=== PATIENT | female | born 1935 | race Caucasian/White ===

== ENCOUNTER 2018-06-09 06:52 | Day surgery (SDC) | payer MEDICARE, BC ==
[~2018-06-09 06:52] MED LIST: Bupivacaine 0.5% 50 ML MDV ONE; Lidocaine 1% with EPINEPHrine 1:100,000 50 ML MDV ONE
[2018-06-09] MEDS ORDERED: fentaNYL 100 MCG/2 ML SDV ONE (07:42)
[2018-06-09] MEDS ORDERED: Propofol 200 MG/20 ML SDV ONE ×2 (07:42→08:59)
[2018-06-09] MEDS ORDERED: Midazolam 1 MG/ML 2 ML SDV ONE (07:42)
[2018-06-09] MEDS ORDERED: Dextrose 5%-Lactated Ringers 1,000 ML IV SCH (07:45)
[2018-06-09] MEDS ORDERED: ceFAZolin 2 GM in Premix Bag 1 BAG IV ONE (08:15)
[2018-06-09] MEDS ORDERED: Bacitracin Oint 1 GM U/D Packet ONE (08:55)
[2018-06-09 10:19] VITALS: BP 136/75
--- NOTE | 2018-06-13 15:00 | OR ---
DATE OF PROCEDURE: 06/09/2018 PREOPERATIVE DIAGNOSIS: Atypical skin lesions of right calf x2. POSTOPERATIVE DIAGNOSIS: Atypical skin lesions of right calf x2. OPERATIVE PROCEDURES: 1. Excision of atypical skin lesion, proximal right calf, with layered closure. 2. Excision of atypical skin lesion, distal right calf, with layered closure. ANESTHESIA: Local plus IV sedation. INDICATION FOR PROCEDURE: This is an 82-year-old female presenting with two atypical- appearing skin lesions from the medial aspect of her right calf. One has gotten quite large. The plan is to proceed with excision of these. Potential risks including bleeding, infection, possibility of the wounds may come open requiring treatment such as Unna boots for closure were all reviewed, and the patient wishes to proceed. DETAILS OF PROCEDURE: The patient was taken to the operating room and placed in a supine position. IV sedation was administered, after which the right calf and surrounding areas were prepped and draped. Both areas were then anesthetized with 1% lidocaine mixed with Marcaine. Initially, a transversely-oriented elliptical incision around the more proximal lesion was made. This was carried down through the skin and subcutaneous tissue, and the lesion was removed intact. The deeper soft tissues were then approximated with some 3-0 Vicryl stitch. A larger stitch needle was used due to the tension on the closure and desired to not have the more finer stitches pulled through the dermis. Once these were in place, the incision was closed with a running 3-0 Prolene stitch. The cervix stitches were then reinforced with some additional more broadly placed skin stitches of 3-0 Vicryl stitch as well. This lesion had a length of 2.6 cm in terms of the lesion length and margin, and a closure length of 16.5 cm was required to facilitate adequate closure. The second lesion was then similarly excised and a similar closure as per the first one. This more distal calf lesion had a length of 1.7 cm and a final incision length of 4.2 cm. Pathology is pending on these. Dressing was applied. The patient will be seen in 10 days for a recheck. We will leave the stitches a little extra long due to the amount of tension required for further closure. Sandeep Martinez MD /[id number]
== END 2018-06-09 10:20 | disposition home or self-care (01) ==
LOC: JP.SDS 06:52
PROVIDERS: ATTEND Surgery
DX: D04.71 Carcinoma in situ of skin of right lower limb, including hip (principal); E78.5 Hyperlipidemia, unspecified; E11.9 Type 2 diabetes mellitus without complications; E03.9 Hypothyroidism, unspecified; M17.10 Unilateral primary osteoarthritis, unspecified knee; I10 Essential (primary) hypertension; Z79.01 Long term (current) use of anticoagulants; Z79.84 Long term (current) use of oral hypoglycemic drugs; Z79.899 Other long term (current) drug therapy; Z88.8 Allergy status to other drugs, medicaments and biological substances
CPT/HCPCS: 11602; 11603; 12035; 88305; J0690; J2250; J2704; J3010; J3490; J7042

== ENCOUNTER 2019-11-06 08:27 | Inpatient (IN) | payer MEDICARE, OTHER ==
[2019-11-06] MEDS ORDERED: Acetaminophen 500 MG Tab PO ONE (09:00)
[2019-11-06] MEDS ORDERED: Dextrose 5%-Lactated Ringers 1,000 ML IV SCH (09:30)
[2019-11-06] MEDS ORDERED: Meropenem 500 MG SDV ONE (09:55)
[2019-11-06] MEDS ORDERED: Bupivacaine 0.5% 50 ML MDV ONE (09:55)
[2019-11-06] MEDS ORDERED: Lidocaine 1% with EPINEPHrine 1:100,000 50 ML MDV ONE (09:55)
[2019-11-06] MEDS ORDERED: Naloxone 0.4 MG/ML SDV IV PRN (10:00)
[2019-11-06] MEDS ORDERED: HYDROmorphone/Normal Saline 15 MG/30 ML PCA IV PRN (10:06)
[2019-11-06] MEDS ORDERED: cefOXitin 2 GM in Sodium Chloride 0.9% 50 ML IV ONE (10:15)
[2019-11-06] MEDS ORDERED: Ketamine 50 MG in Sodium Chloride 0.9% 49.5 ML IV SCH (10:30)
[2019-11-06] MEDS ORDERED: Ketamine 500 MG/5 ML MDV IV SCH (10:30)
[2019-11-06] MEDS ORDERED: fentaNYL 250 MCG/5 ML SDV ONE (10:41)
[2019-11-06] MEDS ORDERED: Propofol 200 MG/20 ML SDV ONE (10:41)
[2019-11-06] MEDS ORDERED: Neostigmine Methylsulfate 1 MG/ML 5 ML Syringe ONE (10:41)
[2019-11-06] MEDS ORDERED: Ondansetron 4 MG/2 ML SDV ONE (10:41)
[2019-11-06] MEDS ORDERED: Glycopyrrolate 0.2 MG/ML 5 ML MDV ONE (10:41)
[2019-11-06] MEDS ORDERED: Rocuronium 50 MG/5 ML Vial ONE ×2 (10:41→12:28)
[2019-11-06] MEDS ORDERED: Dexamethasone 4 MG/ML SDV ONE (10:41)
[2019-11-06] MEDS ORDERED: Lactated Ringers 1,000 ML ONE (11:30)
[2019-11-06] MEDS ORDERED: Sodium Chloride 0.9% 500 ML ONE (12:47)
[2019-11-06] MEDS ORDERED: Insulin Lispro 100 Unit/ML 3 ML KwikPen SUBCUT ONE (14:00)
[2019-11-06] MEDS ORDERED: Ondansetron 4 MG/2 ML SDV IVPUSH PRN (15:04)
[2019-11-06] MEDS ORDERED: Cyclobenzaprine 10 MG Tab PO PRN (15:06)
[2019-11-06] MEDS ORDERED: Glucagon,Human Recombinant 1 MG Vial IM PRN (15:08)
[2019-11-06] MEDS ORDERED: Glucose Gel 15 GM in 37.5 GM Tube PO PRN (15:08)
[2019-11-06] MEDS ORDERED: 50% Dextrose in Water 50 ML Syringe IVPUSH PRN (15:08)
[2019-11-06] MEDS: Lactated Ringers 1,000 ML IV SCH (15:37)
[2019-11-06] MEDS: Dextrose 5%-Lactated Ringers 1,000 ML IV SCH ×2 (15:38→20:47)
[2019-11-06] MEDS: cefOXitin 2 GM in Sodium Chloride 0.9% 50 ML IV SCH ×2 (17:12→22:25)
[2019-11-06] MEDS: Pantoprazole 40 MG Vial IVPUSH SCH (17:25)
[2019-11-06] MEDS: Insulin Lispro 100 Unit/ML 3 ML KwikPen SUBCUT PRN ×2 (17:49→23:42)
[2019-11-06] MEDS: metFORMIN 500 MG Tab PO SCH (19:48)
[2019-11-06] MEDS: Acetaminophen 325 MG Tab PO SCH ×2 (19:49→22:30)
[2019-11-06] MEDS: Carvedilol 25 MG Tab PO SCH (20:45)
[2019-11-06] MEDS ORDERED: Lactated Ringers 500 ML IV ONE (21:30)
[2019-11-07] MEDS ORDERED: Lactated Ringers 500 ML IV ONE ×2 (01:15→23:37)
[2019-11-07] MEDS: cefOXitin 2 GM in Sodium Chloride 0.9% 50 ML IV SCH (04:45)
[2019-11-07] MEDS: Acetaminophen 325 MG Tab PO SCH ×4 (04:55→23:18)
[2019-11-07] MEDS: Insulin Lispro 100 Unit/ML 3 ML KwikPen SUBCUT PRN ×4 (05:54→23:47)
[2019-11-07] MEDS ORDERED: Benzocaine/Cetylpyridinium/Menthol Lozenge MUCMEM PRN (08:34)
[2019-11-07] MEDS: Carvedilol 25 MG Tab PO SCH ×2 (08:38→20:30)
[2019-11-07] MEDS: Docusate Sodium 100 MG Cap PO SCH ×2 (08:38→20:32)
[2019-11-07] MEDS: Bisacodyl 5 MG Tab PO SCH ×2 (08:39→20:29)
[2019-11-07] MEDS: metFORMIN 500 MG Tab PO SCH ×2 (08:47→16:43)
[2019-11-07] MEDS: Magnesium Sulfate/Water 2 GM in Premix Bag 1 BAG IV SCH ×3 (10:06→21:41)
[2019-11-07] MEDS: Dextrose 5%-Lactated Ringers 1,000 ML IV SCH ×2 (10:19→20:36)
[2019-11-07] MEDS: Lactated Ringers 1,000 ML IV SCH (11:13)
[2019-11-07] MEDS ORDERED: Furosemide 20 MG/2 ML VIAL IVPUSH ONE (15:20)
[2019-11-07] MEDS: Pantoprazole 40 MG Vial IVPUSH SCH (16:26)
[2019-11-07] MEDS ORDERED: Lactated Ringers 500 ML IV SCH (23:45)
[2019-11-08] MEDS ORDERED: Lactated Ringers 500 ML IV SCH (02:15)
[2019-11-08] MEDS ORDERED: Lactated Ringers 500 ML IV ONE ×3 (02:25→15:48)
[2019-11-08] MEDS: Magnesium Sulfate/Water 2 GM in Premix Bag 1 BAG IV SCH ×4 (03:48→21:24)
[2019-11-08] MEDS: Acetaminophen 325 MG Tab PO SCH ×4 (04:44→23:02)
[2019-11-08] MEDS: Dextrose 5%-Lactated Ringers 1,000 ML IV SCH ×2 (04:45→13:01)
[2019-11-08] MEDS: Insulin Lispro 100 Unit/ML 3 ML KwikPen SUBCUT PRN ×4 (05:59→23:20)
[2019-11-08] MEDS: Docusate Sodium 100 MG Cap PO SCH ×2 (08:00→21:17)
[2019-11-08] MEDS: Bisacodyl 5 MG Tab PO SCH ×2 (08:00→21:17)
[2019-11-08] MEDS: metFORMIN 500 MG Tab PO SCH ×2 (08:00→17:25)
[2019-11-08] MEDS: Carvedilol 25 MG Tab PO SCH ×2 (08:00→21:17)
[2019-11-08] MEDS ORDERED: Furosemide 20 MG/2 ML VIAL IVPUSH ONE ×2 (17:15→20:23)
[2019-11-08] MEDS: Pantoprazole 40 MG Vial IVPUSH SCH (17:22)
[2019-11-08] MEDS ORDERED: Albuterol/Ipratropium 3.0-0.5 MG/3 ML Neb Soln NEB ONE (20:25)
[2019-11-08] MEDS: hydrOXYzine HCL 100 MG/2 ML SDV IM PRN (23:19)
[2019-11-09] MEDS: Albuterol/Ipratropium 3.0-0.5 MG/3 ML Neb Soln NEB PRN ×3 (00:42→11:21)
[2019-11-09] MEDS: Magnesium Sulfate/Water 2 GM in Premix Bag 1 BAG IV SCH (03:35)
[2019-11-09] MEDS ORDERED: Furosemide 20 MG/2 ML VIAL IVPUSH ONE (03:43)
[2019-11-09] MEDS: Acetaminophen 325 MG Tab PO SCH ×4 (05:55→22:13)
[2019-11-09] MEDS: Insulin Lispro 100 Unit/ML 3 ML KwikPen SUBCUT PRN ×3 (05:55→16:55)
[2019-11-09] MEDS: Dextrose 5%-Lactated Ringers 1,000 ML IV SCH (06:11)
[2019-11-09] MEDS ORDERED: Furosemide 20 MG/2 ML VIAL IVPUSH SCH (08:00)
[2019-11-09] MEDS: metFORMIN 500 MG Tab PO SCH ×2 (08:25→16:53)
[2019-11-09] MEDS: Docusate Sodium 100 MG Cap PO SCH ×2 (08:25→22:12)
[2019-11-09] MEDS: Carvedilol 25 MG Tab PO SCH ×2 (08:26→22:12)
[2019-11-09] MEDS: Bisacodyl 5 MG Tab PO SCH ×2 (08:28→22:12)
[2019-11-09] MEDS ORDERED: Dextrose 5%-Lactated Ringers 1,000 ML IV SCH (09:30)
--- NOTE | 2019-11-09 09:31 | PCM.CONSN ---
- Patient Data Vitals - Most Recent: Last Vital Signs Temp 36.8 C 11/09/19 07:00 Pulse 114 H 11/09/19 09:00 Resp 18 11/09/19 09:00 BP 88/45 L 11/09/19 09:00 Pulse Ox 93 L 11/09/19 09:00 Weight - Most Recent: 96.162 kg I&O - Last 24 Hours: Intake & Output 11/08/19 11/09/19 11/09/19 22:59 06:59 14:59 Intake Total 2121 1430 Output Total 1408 667 140 Balance 713 763 -140 Lab Results Last 24 Hours: Laboratory Results - last 24 hr 11/09/19 11/09/19 11/09/19 Range/Units 04:00 04:22 04:30 WBC 28.3 H (4.5-11.0) K/uL RBC 3.98 (3.30-5.50) M/uL Hgb 10.1 L (12.0-15.0) g/dL Hct 33.3 L (36.0-48.0) % MCV 84 (80-98) fL MCH 25 L (27-31) pg MCHC 30 L (32-36) % Plt Count 311 (150-400) K/uL Sodium 130 L (140-148) mmol/L Potassium 3.6 (3.6-5.2) mmol/L Chloride 95 L (100-108) mmol/L Carbon Dioxide 30 (21-32) mmol/L Anion Gap 8.6 (5.0-14.0) mmol/L BUN 7 (7-18) mg/dL Creatinine 0.9 (0.6-1.0) mg/dL Est Cr Clr Drug Dosing 41.06 mL/min Estimated GFR (MDRD) 60 (>60) Glucose 136 H (74-106) mg/dL Calcium 8.3 L (8.5-10.1) mg/dL Phosphorus 2.4 L (2.5-4.9) mg/dL Total Bilirubin 0.5 D (0.2-1.0) mg/dL AST 17 (15-37) U/L ALT 18 (12-78) U/L Alkaline Phosphatase 65 (46-116) U/L NT-Pro-B Natriuret Pep 649 H (5-450) pg/mL Total Protein 4.5 L (6.4-8.2) g/dL Albumin 1.8 L (3.4-5.0) g/dL Globulin 2.7 (2.3-3.5) g/dL Albumin/Globulin Ratio 0.7 L (1.2-2.2) Med Orders - Current: Current Medications Acetaminophen (Tylenol) 650 mg PO Q6H [facility] Last Admin: 11/09/19 05:55 Dose: 650 mg Albuterol/Ipratropium (Duoneb 3.0-0.5 Mg/3 Ml) 3 ml NEB Q4H PRN PRN Reason: dyspnea and wheezing Last Admin: 11/09/19 00:43 Dose: 3 ml Benzocaine/Menthol (Cepacol Sore Throat) 1 lozenge MUCMEM 6XDAY PRN PRN Reason: Sore Throat Last Admin: 11/07/19 08:47 Dose: 1 lon Bisacodyl (Dulcolax) 10 mg PO BID [facility] Last Admin: 11/09/19 08:28 Dose: 10 mg Carvedilol (Coreg) 25 mg PO BID [facility] Last Admin: 11/09/19 08:26 Dose: 25 mg Dextrose (Glutose 15) 15 gm PO ASDIRECTED PRN PRN Reason: HYPOGLYCEMIA Dextrose/Water (Dextrose 50% In Water) 50 ml IVPUSH ASDIRECTED PRN PRN Reason: HYPOGLYCEMIA Docusate Sodium (Colace) 100 mg PO BID [facility] Last Admin: 11/09/19 08:25 Dose: 100 mg Furosemide (Lasix) 10 mg IVPUSH Q12H [facility] Stop: 11/09/19 20:01 Last Admin: 11/09/19 08:23 Dose: 10 mg Glucagon (Glucagen) 1 mg IM ASDIRECTED PRN PRN Reason: HYPOGLYCEMIA Hydromorphone HCl (Dilaudid [employer] 15 Mg In Ns 30 Ml) 0 mg IV ASDIRECTED PRN; Protocol PRN Reason: RUFFLER PAIN CONTROL Last Admin: 11/06/19 11:43 Dose: 0.2 mg Hydroxyzine HCl (Vistaril) 75 mg IM Q4H PRN PRN Reason: pain Last Admin: 11/08/19 23:19 Dose: 75 mg Potassium Chloride 20 meq/Lidocaine HCl 2 ml/ Sodium Chloride 112 mls @ 56 mls/ hr IV Q2H [facility] Stop: 11/09/19 13:59 Dextrose/Lactated Ringer's (Dextrose 5%-Lactated Ringers) 1,000 mls @ 25 mls/ hr IV ASDIRECTED [facility] Insulin Human Lispro (Humalog) 0 unit SUBCUT ASDIRECTED PRN; Protocol PRN Reason: MEDIUM CORRECTIONAL DOSING Last Admin: 11/09/19 05:55 Dose: 1 units Levothyroxine Sodium 100 mcg/ (Levothyroxine Sodium 50 mcg) 150 mcg PO DAILY@ 0730 [facility] Last Admin: 11/09/19 08:25 Dose: 150 mcg Metformin HCl (Glucophage) 1,000 mg PO BIDMEALS [facility] Last Admin: 11/09/19 08:25 Dose: 1,000 mg Naloxone HCl (Narcan) 0.1 mg IV ASDIRECTED PRN PRN Reason: decreased respiratory rate Ondansetron HCl (Zofran) 4 mg IVPUSH Q4H PRN PRN Reason: Nausea/Vomiting Pantoprazole Sodium (Protonix Iv) 40 mg IVPUSH Q24H [facility] Last Admin: 11/08/19 17:22 Dose: 40 mg Discontinued Medications Acetaminophen (Tylenol Extra Strength) 1,000 mg PO ONETIME ONE Stop: 11/06/19 09:01 Last Admin: 11/06/19 09:00 Dose: 1,000 mg Albuterol/Ipratropium (Duoneb 3.0-0.5 Mg/3 Ml) 3 ml NEB ONETIME ONE Stop: 11/08/19 20:26 Last Admin: 11/08/19 20:38 Dose: 3 ml Bupivacaine HCl (Marcaine 0.5%) Confirm Administered Dose 50 ml .ROUTE .STK-MED ONE Stop: 11/06/19 09:56 Ropivacaine 48 ml/Dexamethasone 8 mg/Epinephrine HCl 0.4 mg/ Sodium Chloride 29.6 ml 0 ml NERVRT ASDIRECTED [facility] Last Admin: 11/06/19 12:40 Dose: 80 syringe Cyclobenzaprine HCl (Flexeril) 10 mg PO Q6H PRN PRN Reason: Muscle Spasm Dexamethasone (Dexamethasone) Confirm Administered Dose 4 mg .ROUTE .STK-MED ONE Stop: 11/06/19 10:42 Fentanyl (Sublimaze) Confirm Administered Dose 250 mcg .ROUTE .STK-MED ONE Stop: 11/06/19 10:42 Furosemide (Lasix) 10 mg IVPUSH ONETIME ONE Stop: 11/07/19 15:21 Last Admin: 11/07/19 15:42 Dose: 10 mg Furosemide (Lasix) 10 mg IVPUSH ONETIME ONE Stop: 11/08/19 17:16 Last Admin: 11/08/19 17:20 Dose: 10 mg Furosemide (Lasix) 20 mg IVPUSH ONETIME ONE Stop: 11/08/19 20:24 Last Admin: 11/08/19 20:37 Dose: 20 mg Furosemide (Lasix) 10 mg IVPUSH ONETIME ONE Stop: 11/09/19 03:44 Last Admin: 11/09/19 03:59 Dose: 10 mg Glycopyrrolate (Robinul) Confirm Administered Dose 1 mg .ROUTE .[facility] ONE Stop: 11/06/19 10:42 Cefoxitin Sodium 2 gm/ Sodium (Chloride) 50 mls @ 100 mls/hr IV ONETIME ONE Stop: 11/06/19 10:44 Last Admin: 11/06/19 11:12 Dose: 100 mls/hr Dextrose/Lactated Ringer's (Dextrose 5%-Lactated Ringers) 1,000 mls @ 100 mls/ hr IV ASDIRECTED [facility] Last Admin: 11/06/19 10:04 Dose: 100 mls/hr Lactated Ringer's (Ringers, Lactated) Confirm Administered Dose 1,000 mls @ as directed .ROUTE .[facility] ONE Stop: 11/06/19 11:31 Sodium Chloride (Normal Saline) Confirm Administered Dose 500 mls @ as directed .ROUTE .[facility] ONE Stop: 11/06/19 12:48 Dextrose/Lactated Ringer's (Dextrose 5%-Lactated Ringers) 1,000 mls @ 75 mls/ hr IV ASDIRECTED [facility] Stop: 11/07/19 17:59 Last Admin: 11/07/19 10:19 Dose: 75 mls/hr Lactated Ringer's (Ringers, Lactated) 1,000 mls @ 100 mls/hr IV ASDIRECTED [facility] Stop: 11/07/19 17:59 Last Admin: 11/07/19 11:13 Dose: 100 mls/hr Cefoxitin Sodium 2 gm/ Sodium (Chloride) 50 mls @ 100 mls/hr IV Q6H [facility] Stop: 11/07/19 05:29 Last Admin: 11/07/19 04:45 Dose: 100 mls/hr Lactated Ringer's (Ringers, Lactated) 500 mls @ 500 mls/hr IV ONETIME ONE Stop: 11/06/19 22:29 Last Admin: 11/06/19 21:30 Dose: 500 mls/hr Lactated Ringer's (Ringers, Lactated) 500 mls @ 500 mls/hr IV ONETIME ONE Stop: 11/07/19 02:14 Last Admin: 11/07/19 01:15 Dose: 500 mls/hr Dextrose/Lactated Ringer's (Dextrose 5%-Lactated Ringers) 1,000 mls @ 125 mls/ hr IV ASDIRECTED [facility] Last Admin: 11/09/19 06:11 Dose: 125 mls/hr Magnesium Sulfate 2 gm/ Premix 50 mls @ 25 mls/hr IV Q6HR [facility] Stop: 11/10/19 05:59 Last Admin: 11/09/19 03:35 Dose: 25 mls/hr Lactated Ringer's (Ringers, Lactated) 500 mls @ 500 mls/hr IV ASDIRECTED [facility] Lactated Ringer's (Ringers, Lactated) 500 mls @ 500 mls/hr IV ONETIME ONE Stop: 11/08/19 00:36 Last Admin: 11/07/19 23:43 Dose: 500 mls/hr Lactated Ringer's (Ringers, Lactated) 500 mls @ 500 mls/hr IV ONETIME ONE Stop: 11/08/19 03:24 Last Admin: 11/08/19 02:28 Dose: 500 mls/hr Lactated Ringer's (Ringers, Lactated) 500 mls @ 500 mls/hr IV ONETIME ONE Stop: 11/08/19 06:28 Last Admin: 11/08/19 05:29 Dose: 500 mls/hr Lactated Ringer's (Ringers, Lactated) 500 mls @ 250 mls/hr IV ONETIME ONE Stop: 11/08/19 17:47 Last Admin: 11/08/19 15:51 Dose: 250 mls/hr Insulin Human Lispro (Humalog) 7 unit SUBCUT ONETIME ONE Stop: 11/06/19 14:01 Last Admin: 11/06/19 14:00 Dose: 7 units Ketamine HCl (Ketalar) 27 mg IV ASDIRECTED [facility] Lidocaine/Epinephrine (Xylocaine 1% With Epinephrine 1:100,000) Confirm Administered Dose 50 ml .ROUTE .STK-MED ONE Stop: 11/06/19 09:56 Meropenem (Merrem) Confirm Administered Dose 500 mg .ROUTE .STK-MED ONE Stop: 11/06/19 09:56 Last Admin: 11/06/19 12:31 Dose: 500 mg Neostigmine Methylsulfate (Neostigmine) Confirm Administered Dose 5 mg .ROUTE .STK-MED ONE Stop: 11/06/19 10:42 Ondansetron HCl (Zofran) Confirm Administered Dose 4 mg .ROUTE .STK-MED ONE Stop: 11/06/19 10:42 Propofol (Diprivan 20 Ml) Confirm Administered Dose 200 mg .ROUTE .STK-MED ONE Stop: 11/06/19 10:42 Rocuronium Imperial (Zemuron) Confirm Administered Dose 50 mg .ROUTE .STK-MED ONE Stop: 11/06/19 10:42 Rocuronium Imperial (Zemuron) Confirm Administered Dose 50 mg .ROUTE .STK-MED ONE Stop: 11/06/19 12:29 Sepsis Event Note - Focused Exam Vital Signs: Vital Signs Temp Temp Pulse Pulse Resp BP BP 11/09/19 09:00 114 H 18 88/45 L 11/09/19 08:26 115 H 97/49 L 11/09/19 07:00 36.8 C 113 H 22 H 85/43 L 11/09/19 06:25 36.8 C 11/09/19 06:00 112 H 20 109/52 L 11/09/19 05:00 116 H 22 H 132/74 11/09/19 04:00 36.6 C 104 H 20 107/62 11/09/19 03:00 110 H 20 123/67 11/09/19 02:00 114 H 22 H 124/73 11/09/19 01:00 116 H 20 107/47 L 11/09/19 00:00 36.9 C 117 H 19 105/51 L 11/08/19 23:00 114 H 23 H 139/49 L 11/08/19 22:00 116 H 22 H 119/63 Pulse Ox 11/09/19 09:00 93 L 11/09/19 08:26 11/09/19 07:00 93 L 11/09/19 06:25 11/09/19 06:00 94 L 11/09/19 05:00 93 L 11/09/19 04:00 93 L 11/09/19 03:00 94 L 11/09/19 02:00 93 L 11/09/19 01:00 95 11/09/19 00:00 94 L 11/08/19 23:00 94 L 11/08/19 22:00 93 L Date Exam was Performed: 11/09/19 Time Exam was Performed: 09:31 Consult PN Assessment/Plan Procedures: Procedures ASSAY OF MAGNESIUM (10/12/14) ASSAY OF TROPONIN QUANT (10/12/14) CHEST X-RAY 2VW FRONTAL&LATL (01/30/14) COMPLETE CBC AUTOMATED (01/30/14) COMPLETE CBC W/AUTO DIFF WBC (10/12/14) COMPREHEN METABOLIC PANEL (10/12/14) CT ABD & PELV W/CONTRAST (10/23/19) CT HEAD/BRAIN W/O DYE (10/12/14) ECG MONIT/REPRT UP TO 48 HRS (10/17/14) ECG MONIT/REPRT UP TO 48 HRS (10/17/14) ELECTROCARDIOGRAM TRACING (10/12/14) EMERGENCY DEPT VISIT (10/12/14) EXC F/E/E/N/L MAL+MRG 0.6-1 (07/22/15) EXC TR-EXT B9+JOHN PAUL 3.1-4 CM (07/22/15) EXC TR-EXT MAL+JOHN PAUL 1.1-2 CM (06/09/18) EXC TR-EXT MAL+JOHN PAUL 2.1-3 CM (06/09/18) HYDRATION IV INFUSION INIT (10/12/14) INTMD RPR FACE/MM 2.5 CM/< (07/22/15) INTMD RPR S/A/T/EXT 12.6-20 (06/09/18) INTMD RPR S/A/T/EXT 2.5 CM/< (07/22/15) MEASURE BLOOD OXYGEN LEVEL (01/30/14) METABOLIC PANEL TOTAL CA (01/30/14) PATH CONSULT INTRAOP 1 BLOC (07/22/15) PATH CONSULT INTRAOP ADDL (07/22/15) PROTHROMBIN TIME (10/12/14) REAGENT STRIP/BLOOD GLUCOSE (01/30/14) ROUTINE VENIPUNCTURE (10/12/14) THROMBOPLASTIN TIME PARTIAL (10/12/14) TISSUE EXAM BY PATHOLOGIST (06/09/18) My Orders Last 24 Hours: My Active Orders 11/09/19 08:25 CXR [Chest 1V Frontal] [CR] Routine UA W/MICROSCOPIC [URIN] Routine 11/09/19 08:26 Daily Weight [Height and Weight] [RC] DAILY 11/09/19 09:27 BLOOD GAS ARTERIAL [BG] Urgent 11/09/19 09:30 Dextrose 5%-Lactated Ringers 1,000 ml IV ASDIRECTED
--- NOTE | 2019-11-09 09:59 | CR ---
CHEST: Portable 11/09/2019 at 0855 CLINICAL HISTORY:Hypoxia COMPARISON:2013 FINDINGS: Patient has a large left effusion and a moderate right effusion. Heart size is obscured but appears enlarged. Vascularity is cephalized. There are atherosclerotic changes in the aorta. Impression: Large left and moderate right pleural effusions Vascular cephalization suggests CHF. Heart and lung bases are obscured
[2019-11-09] MEDS: Potassium Chloride 20 MEQ, Lidocaine 1% 2 ML in Sodium Chloride 0.9% 100 ML IV SCH ×2 (10:08→12:09)
[2019-11-09] MEDS ORDERED: Furosemide 40 MG/4 ML VIAL IVPUSH ONE (14:18)
--- NOTE | 2019-11-09 15:45 | PCM.CONS ---
H&P History of Present Illness - General Date of Service: 11/09/19 Admit Problem/Dx: Admission Diagnosis/Problem Admission Diagnosis/Problem Abdominal mass Source of Information: Provider. No: Patient History Limitations: Reports: Altered Mental Status - History of Present Illness Initial Comments - Free Text/Narative: CC: Tachycardic, lethargic and elevated white blood cell count HPI: I was asked to see Ying by Dr. Martinez regarding tachycardia, worsening hypoxia, lethargy and persistently elevated white blood cell count. She is very lethargic at this time and able to provide only minimal input about what has been happening and how she feels. She was initially admitted for management of a adrenal mass. 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 Her postoperative course has been complicated by slowly rising heart rate which is now in the 110-115 range as well as a white blood cell count that has been greater than 20,000 and rising. Patient is more lethargic and not very interactive today. She does tell me that she feels short of breath and that she has not had any chest pain. She mumbles when asked about abdominal pain. She has not had any fevers. Over the past couple of days she has had a rise in her heart rate from 70s up to greater than 100. She has gone from needing 1 L of oxygen up to 3 or 4 L of oxygen. Review of intake and output suggest that she is up potentially 8 L of fluid. Abdomen Pain Score (Numeric/FACES): 8 - Related Data Allergies/Adverse Reactions: Allergies Allergy/AdvReac Type Severity Reaction Status Date / Time LIZETH Inhibitors AdvReac Cough Verified 06/09/18 07:35 Home Medications: Home Meds Levothyroxine Sodium [Synthroid] 150 mcg PO DAILY 01/29/14 [History] Magnesium 250 mg PO DAILY 01/29/14 [History] atorvaSTATin [Lipitor] 10 mg PO BEDTIME 01/29/14 [History] Multivit-Min/Iron/Folic/Lutein [Centrum Silver Women Tablet] 1 tab PO DAILY [History] Warfarin [Coumadin] 10 mg PO SUWESA 07/19/15 [History] glipiZIDE [Glipizide] 5 mg PO BID 07/19/15 [History] metFORMIN [Glucophage] 1,000 mg PO BIDMEALS 07/19/15 [History] Carvedilol [Coreg] 25 mg PO BID 06/08/18 [History] Warfarin [Coumadin] 7.5 mg PO MOTUTHFR 06/08/18 [History] Past Medical History HEENT History: Reports: Cataract, Impaired Vision Other HEENT History: wears glasses Cardiovascular History: Reports: Afib, Hypertension, SOB on Exertion Gastrointestinal History: Reports: Colon Polyp Genitourinary History: Reports: Retention, Urinary, UTI, Recurrent [employer] History: Reports: Musculoskeletal History: Reports: Arthritis, Other (See Below) Other Musculoskeletal History: hip and knee pain Neurological History: Reports: TIA Endocrine/Metabolic History: Reports: Diabetes, Type II, Hypothyroidism Oncologic (Cancer) History: Reports: Other (See Below) Other Oncologic History: skin Dermatologic History: Reports: Other (See Below) Other Dermatologic History: skin cancer for a "couple of years" unknown type to pt. - Infectious Disease History Infectious Disease History: Reports: Chicken Pox, Measles, Rubella, Shingles - Past Surgical History HEENT Surgical History: Reports: Adenoidectomy, Cataract Surgery, Tonsillectomy Cardiovascular Surgical History: Reports: None GI Surgical History: Reports: Appendectomy, Colonoscopy, Polypectomy, Other ( See Below) Other GI Surgeries/Procedures: panniculectomy Female Surgical History: Reports: None Endocrine Surgical History: Reports: None Neurological Surgical History: Reports: None Musculoskeletal Surgical History: Reports: None Oncologic Surgical History: Reports: None Dermatological Surgical History: Reports: Skin Biopsy Social & Family History - Family History Cardiac: Reports: Bypass Endocrine/Metabolic: Reports: Diabetes, type II - Tobacco Use Smoking Status *Q: Former Smoker Years of Tobacco use: 2 Used Tobacco, but Quit: Yes Month/Year Tobacco Last Used: 1953 Second Hand Smoke Exposure: No - Caffeine Use Caffeine Use: Reports: Coffee, Tea - Alcohol Use Alcohol Use History: No - Recreational Drug Use Recreational Drug Use: No H&P Review of Systems - Review of Systems: Review Of Systems: Unable To Obtain Reason Not Obtained: Patient is too lethargic Exam - Exam Exam: See Below - Vital Signs Vital Signs: Last Vital Signs Temp 36.8 C 11/09/19 07:00 Pulse 91 11/09/19 14:00 Resp 18 11/09/19 13:00 BP 142/66 H 02/13/20 14:00 Pulse Ox 96 11/09/19 13:00 Weight: 96.162 kg - Exam Quality Assessment: Supplemental Oxygen General: Alert, Lethargic. No: Oriented, Cooperative, Mild Distress HEENT: Conjunctiva Clear, Mucosa Moist & [place]. No: Scleral Icterus Neck: Supple, Trachea Midline, JVD Lungs: Normal Respiratory Effort, Decreased Breath Sounds (Right lung base), Crackles (Right lower and left midlung), Other (Bronchial breath sounds of left lower half of lung area). No: Wheezing Cardiovascular: Regular Rate, Regular Rhythm. No: Systolic Murmur GI/Abdominal Exam: Normal Bowel Sounds, Soft, No Distention Extremities: No Pedal Edema. No: Increased Warmth Peripheral Pulses: 2+: Dorsalis Pedis (L), Dorsalis Pedis (R) Skin: Warm, Dry Neuro Extensive - Mental Status: Alert (Alert but lethargic), Slow Response to Commands. No: Oriented x3 Neuro Extensive - Motor, Sensory, Reflexes: No: Dysarthria, Abnormal Motor, Tremor Psychiatric: Alert. No: Agitated - Patient Data Lab Results Last 24 hrs: Laboratory Results - last 24 hr 11/09/19 11/09/19 11/09/19 Range/Units 04:00 04:22 04:30 WBC 28.3 H (4.5-11.0) K/uL RBC 3.98 (3.30-5.50) M/uL Hgb 10.1 L (12.0-15.0) g/dL Hct 33.3 L (36.0-48.0) % MCV 84 (80-98) fL MCH 25 L (27-31) pg MCHC 30 L (32-36) % Plt Count 311 (150-400) K/uL Puncture Site ABG pH (7.350-7.450) ABG pCO2 (35.0-42.0) mmHg ABG pO2 (75.0-100.0) mmHg ABG HCO3 (22.0-26.0) mmol/L ABG Total CO2 (21.0-25.0) mmol/L ABG O2 Saturation (95.0-98.0) % ABG O2 Content (15.0-23.0) %vol ABG Base Excess mm/L ABG Hemoglobin (12.0-16.0) g/dL ABG Oxyhemoglobin % ABG Carboxyhemoglobin (0.0-1.6) % ABG Methemoglobin % Ahmet Test O2 Delivery Device Oxygen Flow Rate L Sodium 130 L (140-148) mmol/L Potassium 3.6 (3.6-5.2) mmol/L Chloride 95 L (100-108) mmol/L Carbon Dioxide 30 (21-32) mmol/L Anion Gap 8.6 (5.0-14.0) mmol/L BUN 7 (7-18) mg/dL Creatinine 0.9 (0.6-1.0) mg/dL Est Cr Clr Drug Dosing 41.06 mL/min Estimated GFR (MDRD) 60 (>60) Glucose 136 H (74-106) mg/dL Calcium 8.3 L (8.5-10.1) mg/dL Phosphorus 2.4 L (2.5-4.9) mg/dL Total Bilirubin 0.5 D (0.2-1.0) mg/dL AST 17 (15-37) U/L ALT 18 (12-78) U/L Alkaline Phosphatase 65 (46-116) U/L NT-Pro-B Natriuret Pep 649 H (5-450) pg/mL Total Protein 4.5 L (6.4-8.2) g/dL Albumin 1.8 L (3.4-5.0) g/dL Globulin 2.7 (2.3-3.5) g/dL Albumin/Globulin Ratio 0.7 L (1.2-2.2) Urine Color (YELLOW) Urine Appearance (CLEAR) Urine pH (5.0-8.0) Ur Specific [place] (1.008-1.030) Urine Protein (NEGATIVE) mg/dL Urine Glucose (UA) (NEGATIVE) mg/dL Urine Ketones (NEGATIVE) mg/dL Urine Occult Blood (NEGATIVE) Urine Nitrite (NEGATIVE) Urine Bilirubin (NEGATIVE) Urine Urobilinogen (0.2-1.0) EU/dL Ur Leukocyte Esterase (NEGATIVE) Urine RBC (0-5) Urine WBC (0-5) Ur Epithelial Cells Amorphous Sediment Urine Bacteria Urine Mucus 11/09/19 11/09/19 Range/Units 08:25 09:27 WBC (4.5-11.0) K/uL RBC (3.30-5.50) M/uL Hgb (12.0-15.0) g/dL Hct (36.0-48.0) % MCV (80-98) fL MCH (27-31) pg MCHC (32-36) % Plt Count (150-400) K/uL Puncture Site Rt brachial ABG pH 7.397 (7.350-7.450) ABG pCO2 44.9 H (35.0-42.0) mmHg ABG pO2 77.2 (75.0-100.0) mmHg ABG HCO3 27.0 H (22.0-26.0) mmol/L ABG Total CO2 25.1 H (21.0-25.0) mmol/L ABG O2 Saturation 95.3 (95.0-98.0) % ABG O2 Content 13.4 L (15.0-23.0) %vol ABG Base Excess 2.3 mm/L ABG Hemoglobin 10.1 L (12.0-16.0) g/dL ABG Oxyhemoglobin 93.3 % ABG Carboxyhemoglobin 1.2 (0.0-1.6) % ABG Methemoglobin 0.9 % Ahmet Test Not performed O2 Delivery Device Nasal cannula Oxygen Flow Rate 3 L Sodium (140-148) mmol/L Potassium (3.6-5.2) mmol/L Chloride (100-108) mmol/L Carbon Dioxide (21-32) mmol/L Anion Gap (5.0-14.0) mmol/L BUN (7-18) mg/dL Creatinine (0.6-1.0) mg/dL Est Cr Clr Drug Dosing mL/min Estimated GFR (MDRD) (>60) Glucose (74-106) mg/dL Calcium (8.5-10.1) mg/dL Phosphorus (2.5-4.9) mg/dL Total Bilirubin (0.2-1.0) mg/dL AST (15-37) U/L ALT (12-78) U/L Alkaline Phosphatase (46-116) U/L NT-Pro-B Natriuret Pep (5-450) pg/mL Total Protein (6.4-8.2) g/dL Albumin (3.4-5.0) g/dL Globulin (2.3-3.5) g/dL Albumin/Globulin Ratio (1.2-2.2) Urine Color Yellow (YELLOW) Urine Appearance Slightly cloudy A (CLEAR) Urine pH 5.5 (5.0-8.0) Ur Specific [place] 1.025 (1.008-1.030) Urine Protein Negative (NEGATIVE) mg/dL Urine Glucose (UA) Negative (NEGATIVE) mg/dL Urine Ketones Negative (NEGATIVE) mg/dL Urine Occult Blood Trace-intact H (NEGATIVE) Urine Nitrite Negative (NEGATIVE) Urine Bilirubin Negative (NEGATIVE) Urine Urobilinogen 0.2 (0.2-1.0) EU/dL Ur Leukocyte Esterase Negative (NEGATIVE) Urine RBC 0-5 (0-5) Urine WBC 0-5 (0-5) Ur Epithelial Cells Few Amorphous Sediment Not seen Urine Bacteria Few Urine Mucus Moderate Result Diagrams: 11/09/19 04:22 11/09/19 04:00 Imaging Impressions Last 24 hrs: Chest x-ray-image personally reviewed-there is a small to moderate right-sided pleural effusion as well as a moderate to large left-sided pleural effusion. No obvious mass and no definite infiltrate. Heart size is normal. Sepsis Event Note - Focused Exam Vital Signs: Vital Signs Temp Temp Pulse Pulse Resp BP BP 11/09/19 14:00 91 142/66 H 11/09/19 13:00 109 H 18 102/57 L 11/09/19 12:00 112 H 21 H 91/42 L 11/09/19 11:00 117 H 27 H 111/56 L 11/09/19 09:47 117 H 88/45 L 11/09/19 09:00 114 H 18 88/45 L 11/09/19 08:26 115 H 97/49 L 11/09/19 07:00 36.8 C 113 H 22 H 85/43 L 11/09/19 06:25 36.8 C 11/09/19 06:00 112 H 20 109/52 L 11/09/19 05:00 116 H 22 H 132/74 11/09/19 04:00 36.6 C 104 H 20 107/62 Pulse Ox 11/09/19 14:00 11/09/19 13:00 96 11/09/19 12:00 92 L 11/09/19 11:00 97 11/09/19 09:47 11/09/19 09:00 93 L 02/13/20 08:26 11/09/19 07:00 93 L 11/09/19 06:25 11/09/19 06:00 94 L 11/09/19 05:00 93 L 11/09/19 04:00 93 L Date Exam was Performed: 11/09/19 Time Exam was Performed: 15:37 Consult PN Assessment/Plan POD#: 3 Procedures: Procedures ASSAY OF MAGNESIUM (10/12/14) ASSAY OF TROPONIN QUANT (10/12/14) CHEST X-RAY 2VW FRONTAL&LATL (01/30/14) COMPLETE CBC AUTOMATED (01/30/14) COMPLETE CBC W/AUTO DIFF WBC (10/12/14) COMPREHEN METABOLIC PANEL (10/12/14) CT ABD & PELV W/CONTRAST (10/23/19) CT HEAD/BRAIN W/O DYE (10/12/14) ECG MONIT/REPRT UP TO 48 HRS (10/17/14) ECG MONIT/REPRT UP TO 48 HRS (10/17/14) ELECTROCARDIOGRAM TRACING (10/12/14) EMERGENCY DEPT VISIT (10/12/14) EXC F/E/E/N/L MAL+MRG 0.6-1 (07/22/15) EXC TR-EXT B9+JOHN PAUL 3.1-4 CM (07/22/15) EXC TR-EXT MAL+JOHN PAUL 1.1-2 CM (06/09/18) EXC TR-EXT MAL+JOHN PAUL 2.1-3 CM (06/09/18) HYDRATION IV INFUSION INIT (10/12/14) INTMD RPR FACE/MM 2.5 CM/< (07/22/15) INTMD RPR S/A/T/EXT 12.6-20 (06/09/18) INTMD RPR S/A/T/EXT 2.5 CM/< (07/22/15) MEASURE BLOOD OXYGEN LEVEL (01/30/14) METABOLIC PANEL TOTAL CA (01/30/14) PATH CONSULT INTRAOP 1 BLOC (07/22/15) PATH CONSULT INTRAOP ADDL (07/22/15) PROTHROMBIN TIME (10/12/14) REAGENT STRIP/BLOOD GLUCOSE (01/30/14) ROUTINE VENIPUNCTURE (10/12/14) THROMBOPLASTIN TIME PARTIAL (10/12/14) TISSUE EXAM BY PATHOLOGIST (06/09/18) Problem List Initiated/Reviewed/Updated: Yes My Orders Last 24 Hours: My Active Orders 11/09/19 08:26 Daily Weight [Height and Weight] [RC] DAILY 11/09/19 09:30 Dextrose 5%-Lactated Ringers 1,000 ml IV ASDIRECTED 11/09/19 09:35 US Guidance Thoracentesis TX [US] Routine Plan: ASSESSMENT AND RECOMMENDATIONS- Hypoxia, tachycardia and lethargy-no strong evidence to support infection at this time. There does appear to be a component of congestive heart failure with moderate right and large left pleural effusions. PCO2 is only very mildly elevated. Persistently elevated white blood cell count could be related to splenectomy versus occult infection though no obvious source identified. She is not currently febrile. Pain medications could be contributing to the lethargy though she has been using them somewhat sparingly. Bedside ultrasound for echocardiogram showed normal left ventricular function and no significant abnormalities of the heart valves. Right ventricle appeared to be functioning normally and was of normal size. This may be a diastolic heart failure type picture versus volume overload. This does not appear to be adrenal insufficiency. -Minimize sedating medications -Thoracentesis planned for later this afternoon -Supplement oxygen as needed -Continue current medical management Adrenal mass-status post surgical resection and pathology is pending. -Postoperative care as per surgical team Wade Boyce M.D. Requesting Provider: Dr Martinez Date Consult Requested: 11/09/19 Reason for Consult: lethargy, tachycardia, elevated WBC Patient History Reviewed: Yes Notified Requestor: No Time Spent (in minutes): 60
[2019-11-09] MEDS: Pantoprazole 40 MG Vial IVPUSH SCH (16:51)
[2019-11-10 03:07] LABS: METANEPHRINE, PL 17 pg/mL (0-62); NORMETANEPHRINE, PL 322 pg/mL (0-145)
[2019-11-10] MEDS: Acetaminophen 325 MG Tab PO SCH ×4 (08:29→22:24)
[2019-11-10] MEDS: Dextrose 5%-0.9% NaCl with KCl 1,000 ML IV SCH (08:30)
[2019-11-10] MEDS: metFORMIN 500 MG Tab PO SCH ×2 (08:32→16:28)
[2019-11-10] MEDS: Furosemide 20 MG/2 ML VIAL IVPUSH SCH ×2 (08:32→20:28)
[2019-11-10] MEDS: Docusate Sodium 100 MG Cap PO SCH ×2 (08:33→20:29)
[2019-11-10] MEDS: Carvedilol 25 MG Tab PO SCH ×2 (08:33→20:29)
[2019-11-10] MEDS: Bisacodyl 5 MG Tab PO SCH ×2 (08:34→20:29)
--- NOTE | 2019-11-10 09:53 | PCM.CONSN ---
- General Info Date of Service: 11/10/19 Subjective Update: No acute events overnight but no significant improvement either. Still little bit tachycardic. Blood pressures have been okay. Patient remains very somnolent and is very difficult to wake up and only stays awake for a few seconds. She is complaining of pain all over and especially her abdomen. She has not had any fevers. White blood cell count is little better today. Thoracentesis yesterday removed about 600 mL of fonseca-colored fluid. Chest x-ray today shows some reaccumulation of the left pleural effusion. Kidney function remains normal. - Review of Systems General: Denies: Fever Gastrointestinal: Reports: Abdominal Pain Psychiatric: Reports: Confusion - Patient Data Vitals - Most Recent: Last Vital Signs Temp 36.7 C 11/10/19 06:00 Pulse 114 H 11/10/19 08:33 Resp 24 H 11/10/19 06:00 BP 129/57 L 11/10/19 08:33 Pulse Ox 94 L 11/10/19 06:00 Weight - Most Recent: 96.162 kg I&O - Last 24 Hours: Intake & Output 11/09/19 11/10/19 11/10/19 22:59 06:59 14:59 Output Total 950 590 Balance -950 -590 Lab Results Last 24 Hours: Laboratory Results - last 24 hr 11/06/19 11/06/19 11/10/19 Range/Units 08:55 08:55 03:47 WBC 18.5 H (4.5-11.0) K/uL RBC 3.82 (3.30-5.50) M/uL Hgb 9.8 L (12.0-15.0) g/dL Hct 32.0 L (36.0-48.0) % MCV 84 (80-98) fL MCH 26 L (27-31) pg MCHC 31 L (32-36) % Plt Count 394 (150-400) K/uL Sodium (140-148) mmol/L Potassium (3.6-5.2) mmol/L Chloride (100-108) mmol/L Carbon Dioxide (21-32) mmol/L Anion Gap (5.0-14.0) mmol/L BUN (7-18) mg/dL Creatinine (0.6-1.0) mg/dL Est Cr Clr Drug Dosing mL/min Estimated GFR (MDRD) (>60) Glucose (74-106) mg/dL Calcium (8.5-10.1) mg/dL Phosphorus (2.5-4.9) mg/dL Total Bilirubin (0.2-1.0) mg/dL AST (15-37) U/L ALT (12-78) U/L Alkaline Phosphatase (46-116) U/L NT-Pro-B Natriuret Pep (5-450) pg/mL Total Protein (6.4-8.2) g/dL Albumin (3.4-5.0) g/dL Globulin (2.3-3.5) g/dL Albumin/Globulin Ratio (1.2-2.2) Plasma Free Metaneph 17 (0-62) pg/mL Plasma Free Normeta 322 H (0-145) pg/mL Crossmatch See Detail 11/10/19 Range/Units 03:47 WBC (4.5-11.0) K/uL RBC (3.30-5.50) M/uL Hgb (12.0-15.0) g/dL Hct (36.0-48.0) % MCV (80-98) fL MCH (27-31) pg MCHC (32-36) % Plt Count (150-400) K/uL Sodium 132 L (140-148) mmol/L Potassium 3.6 (3.6-5.2) mmol/L Chloride 97 L (100-108) mmol/L Carbon Dioxide 29 (21-32) mmol/L Anion Gap 9.6 (5.0-14.0) mmol/L BUN 10 (7-18) mg/dL Creatinine 0.6 (0.6-1.0) mg/dL Est Cr Clr Drug Dosing 61.58 mL/min Estimated GFR (MDRD) > 60 (>60) Glucose 96 (74-106) mg/dL Calcium 8.2 L (8.5-10.1) mg/dL Phosphorus 2.5 (2.5-4.9) mg/dL Total Bilirubin 0.5 (0.2-1.0) mg/dL AST 16 (15-37) U/L ALT 16 (12-78) U/L Alkaline Phosphatase 79 (46-116) U/L NT-Pro-B Natriuret Pep 555 H (5-450) pg/mL Total Protein 4.6 L (6.4-8.2) g/dL Albumin 1.7 L (3.4-5.0) g/dL Globulin 2.9 (2.3-3.5) g/dL Albumin/Globulin Ratio 0.6 L (1.2-2.2) Plasma Free Metaneph (0-62) pg/mL Plasma Free Normeta (0-145) pg/mL Crossmatch Jose Results Last 24 Hours: Microbiology 11/09/19 15:41 Gram Stain - Final Thoracentesis Fluid Med Orders - Current: Current Medications Acetaminophen (Tylenol) 650 mg PO Q6H [facility] Last Admin: 11/10/19 08:29 Dose: Not Given Albuterol/Ipratropium (Duoneb 3.0-0.5 Mg/3 Ml) 3 ml NEB Q4H PRN PRN Reason: dyspnea and wheezing Last Admin: 11/09/19 11:21 Dose: 3 ml Benzocaine/Menthol (Cepacol Sore Throat) 1 lozenge MUCMEM 6XDAY PRN PRN Reason: Sore Throat Last Admin: 11/07/19 08:47 Dose: 1 lon Bisacodyl (Dulcolax) 10 mg PO BID [facility] Last Admin: 11/10/19 08:34 Dose: 10 mg Carvedilol (Coreg) 25 mg PO BID [facility] Last Admin: 11/10/19 08:33 Dose: 25 mg Dextrose (Glutose 15) 15 gm PO ASDIRECTED PRN PRN Reason: HYPOGLYCEMIA Dextrose/Water (Dextrose 50% In Water) 50 ml IVPUSH ASDIRECTED PRN PRN Reason: HYPOGLYCEMIA Docusate Sodium (Colace) 100 mg PO BID [facility] Last Admin: 11/10/19 08:33 Dose: 100 mg Furosemide (Lasix) 20 mg IVPUSH Q12H [facility] Stop: 11/10/19 20:01 Last Admin: 11/10/19 08:32 Dose: 20 mg Glucagon (Glucagen) 1 mg IM ASDIRECTED PRN PRN Reason: HYPOGLYCEMIA Hydrocortisone Sodium Succinate (Solu-Cortef) 100 mg IVPUSH ONETIME ONE Stop: 11/10/19 09:50 Hydrocortisone Sodium Succinate (Solu-Cortef) 50 mg IVPUSH Q6H [facility] Hydromorphone HCl (Dilaudid Formstone Fitter 15 Mg In Ns 30 Ml) 0 mg IV ASDIRECTED PRN; Protocol PRN Reason: [employer] Last Admin: 11/06/19 11:43 Dose: 0.2 mg Hydroxyzine HCl (Vistaril) 75 mg IM Q4H PRN PRN Reason: pain Last Admin: 11/08/19 23:19 Dose: 75 mg Potassium Chloride 20 meq/Lidocaine HCl 2 ml/ Sodium Chloride 112 mls @ 56 mls/ hr IV Q2H [facility] Stop: 11/10/19 13:59 Albumin Human (Albumin 25%) 25 gm in 100 mls @ 25 mls/hr IV Q24H [facility] Stop: 11/12/19 12:59 Last Admin: 11/10/19 08:35 Dose: 25 mls/hr Potassium Chloride/Dextrose/Sod Cl (D5 Ns With 20 Meq Kcl) 1,000 mls @ 60 mls/ hr IV ASDIRECTED [facility] Last Admin: 11/10/19 08:30 Dose: 60 mls/hr Insulin Human Lispro (Humalog) 0 unit SUBCUT ASDIRECTED PRN; Protocol PRN Reason: MEDIUM CORRECTIONAL DOSING Last Admin: 11/09/19 16:55 Dose: 3 units Levothyroxine Sodium 100 mcg/ (Levothyroxine Sodium 50 mcg) 150 mcg PO DAILY@ 0730 [facility] Last Admin: 11/10/19 08:31 Dose: 150 mcg Metformin HCl (Glucophage) 1,000 mg PO BIDMEALS [facility] Last Admin: 11/10/19 08:32 Dose: 1,000 mg Naloxone HCl (Narcan) 0.1 mg IV ASDIRECTED PRN PRN Reason: decreased respiratory rate Ondansetron HCl (Zofran) 4 mg IVPUSH Q4H PRN PRN Reason: Nausea/Vomiting Pantoprazole Sodium (Protonix Iv) 40 mg IVPUSH Q24H [facility] Last Admin: 11/09/19 16:51 Dose: 40 mg Discontinued Medications Acetaminophen (Tylenol Extra Strength) 1,000 mg PO ONETIME ONE Stop: 11/06/19 09:01 Last Admin: 11/06/19 09:00 Dose: 1,000 mg Albuterol/Ipratropium (Duoneb 3.0-0.5 Mg/3 Ml) 3 ml NEB ONETIME ONE Stop: 11/08/19 20:26 Last Admin: 11/08/19 20:38 Dose: 3 ml Bupivacaine HCl (Marcaine 0.5%) Confirm Administered Dose 50 ml .ROUTE .STK-MED ONE Stop: 11/06/19 09:56 Ropivacaine 48 ml/Dexamethasone 8 mg/Epinephrine HCl 0.4 mg/ Sodium Chloride 29.6 ml 0 ml NERVRT ASDIRECTED [facility] Last Admin: 11/06/19 12:40 Dose: 80 syringe Cyclobenzaprine HCl (Flexeril) 10 mg PO Q6H PRN PRN Reason: Muscle Spasm Dexamethasone (Dexamethasone) Confirm Administered Dose 4 mg .ROUTE .STK-MED ONE Stop: 11/06/19 10:42 Fentanyl (Sublimaze) Confirm Administered Dose 250 mcg .ROUTE .STK-MED ONE Stop: 11/06/19 10:42 Furosemide (Lasix) 10 mg IVPUSH ONETIME ONE Stop: 11/07/19 15:21 Last Admin: 11/07/19 15:42 Dose: 10 mg Furosemide (Lasix) 10 mg IVPUSH ONETIME ONE Stop: 11/08/19 17:16 Last Admin: 11/08/19 17:20 Dose: 10 mg Furosemide (Lasix) 20 mg IVPUSH ONETIME ONE Stop: 11/08/19 20:24 Last Admin: 11/08/19 20:37 Dose: 20 mg Furosemide (Lasix) 10 mg IVPUSH ONETIME ONE Stop: 11/09/19 03:44 Last Admin: 11/09/19 03:59 Dose: 10 mg Furosemide (Lasix) 10 mg IVPUSH Q12H [facility] Stop: 11/09/19 20:01 Last Admin: 11/09/19 08:23 Dose: 10 mg Furosemide (Lasix) 40 mg IVPUSH ONETIME ONE Stop: 11/09/19 14:19 Last Admin: 11/09/19 14:29 Dose: 40 mg Glycopyrrolate (Robinul) Confirm Administered Dose 1 mg .ROUTE .STK-MED ONE Stop: 11/06/19 10:42 Cefoxitin Sodium 2 gm/ Sodium (Chloride) 50 mls @ 100 mls/hr IV ONETIME ONE Stop: 11/06/19 10:44 Last Admin: 11/06/19 11:12 Dose: 100 mls/hr Dextrose/Lactated Ringer's (Dextrose 5%-Lactated Ringers) 1,000 mls @ 100 mls/ hr IV ASDIRECTED [facility] Last Admin: 11/06/19 10:04 Dose: 100 mls/hr Lactated Ringer's (Ringers, Lactated) Confirm Administered Dose 1,000 mls @ as directed .ROUTE .[facility] ONE Stop: 11/06/19 11:31 Sodium Chloride (Normal Saline) Confirm Administered Dose 500 mls @ as directed .ROUTE .[facility] ONE Stop: 11/06/19 12:48 Dextrose/Lactated Ringer's (Dextrose 5%-Lactated Ringers) 1,000 mls @ 75 mls/ hr IV ASDIRECTED [facility] Stop: 11/07/19 17:59 Last Admin: 11/07/19 10:19 Dose: 75 mls/hr Lactated Ringer's (Ringers, Lactated) 1,000 mls @ 100 mls/hr IV ASDIRECTED [facility] Stop: 11/07/19 17:59 Last Admin: 11/07/19 11:13 Dose: 100 mls/hr Cefoxitin Sodium 2 gm/ Sodium (Chloride) 50 mls @ 100 mls/hr IV Q6H [facility] Stop: 11/07/19 05:29 Last Admin: 11/07/19 04:45 Dose: 100 mls/hr Lactated Ringer's (Ringers, Lactated) 500 mls @ 500 mls/hr IV ONETIME ONE Stop: 11/06/19 22:29 Last Admin: 11/06/19 21:30 Dose: 500 mls/hr Lactated Ringer's (Ringers, Lactated) 500 mls @ 500 mls/hr IV ONETIME ONE Stop: 11/07/19 02:14 Last Admin: 11/07/19 01:15 Dose: 500 mls/hr Dextrose/Lactated Ringer's (Dextrose 5%-Lactated Ringers) 1,000 mls @ 125 mls/ hr IV ASDIRECTED [facility] Last Admin: 11/09/19 06:11 Dose: 125 mls/hr Magnesium Sulfate 2 gm/ Premix 50 mls @ 25 mls/hr IV Q6HR [facility] Stop: 11/10/19 05:59 Last Admin: 11/09/19 03:35 Dose: 25 mls/hr Lactated Ringer's (Ringers, Lactated) 500 mls @ 500 mls/hr IV ASDIRECTED [facility] Lactated Ringer's (Ringers, Lactated) 500 mls @ 500 mls/hr IV ONETIME ONE Stop: 11/08/19 00:36 Last Admin: 11/07/19 23:43 Dose: 500 mls/hr Lactated Ringer's (Ringers, Lactated) 500 mls @ 500 mls/hr IV ONETIME ONE Stop: 11/08/19 03:24 Last Admin: 11/08/19 02:28 Dose: 500 mls/hr Lactated Ringer's (Ringers, Lactated) 500 mls @ 500 mls/hr IV ONETIME ONE Stop: 11/08/19 06:28 Last Admin: 11/08/19 05:29 Dose: 500 mls/hr Lactated Ringer's (Ringers, Lactated) 500 mls @ 250 mls/hr IV ONETIME ONE Stop: 11/08/19 17:47 Last Admin: 11/08/19 15:51 Dose: 250 mls/hr Potassium Chloride 20 meq/Lidocaine HCl 2 ml/ Sodium Chloride 112 mls @ 56 mls/ hr IV Q2H [facility] Stop: 11/09/19 13:59 Last Admin: 11/09/19 12:09 Dose: 56 mls/hr Dextrose/Lactated Ringer's (Dextrose 5%-Lactated Ringers) 1,000 mls @ 25 mls/ hr IV ASDIRECTED [facility] Insulin Human Lispro (Humalog) 7 unit SUBCUT ONETIME ONE Stop: 11/06/19 14:01 Last Admin: 11/06/19 14:00 Dose: 7 units Ketamine HCl (Ketalar) 27 mg IV ASDIRECTED [facility] Lidocaine/Epinephrine (Xylocaine 1% With Epinephrine 1:100,000) Confirm Administered Dose 50 ml .ROUTE .STK-MED ONE Stop: 11/06/19 09:56 Meropenem (Merrem) Confirm Administered Dose 500 mg .ROUTE .STK-MED ONE Stop: 11/06/19 09:56 Last Admin: 11/06/19 12:31 Dose: 500 mg Neostigmine Methylsulfate (Neostigmine) Confirm Administered Dose 5 mg .ROUTE .STK-MED ONE Stop: 11/06/19 10:42 Ondansetron HCl (Zofran) Confirm Administered Dose 4 mg .ROUTE .STK-MED ONE Stop: 11/06/19 10:42 Propofol (Diprivan 20 Ml) Confirm Administered Dose 200 mg .ROUTE .STK-MED ONE Stop: 11/06/19 10:42 Rocuronium [place] (Zemuron) Confirm Administered Dose 50 mg .ROUTE .STK-MED ONE Stop: 11/06/19 10:42 Rocuronium [place] (Zemuron) Confirm Administered Dose 50 mg .ROUTE .STK-MED ONE Stop: 11/06/19 12:29 - Exam Quality Assessment: Supplemental Oxygen General: No Acute Distress, Lethargic. No: Alert, Cooperative HEENT: Pupils Equal Neck: Supple, No JVD Lungs: Decreased Breath Sounds (left lower lung ), Other (poor exp air flow ). No: Normal Respiratory Effort (increased work of breathing ), Wheezing Cardiovascular: Regular Rhythm, Tachycardia GI/Abdominal Exam: Soft, No Distention, Abnormal Bowel Sounds (hypo) Extremities: No Pedal Edema. No: Increased Warmth Skin: Warm, Dry Psy/Mental Status: No: Alert, Agitated Sepsis Event Note - Focused Exam Vital Signs: Vital Signs Temp Pulse Pulse Resp BP BP Pulse Ox 11/10/19 08:33 114 H 129/57 L 11/10/19 06:00 36.7 C 94 24 H 141/55 H 94 L 11/10/19 05:00 111 H 22 H 135/64 96 11/10/19 04:00 112 H 22 H 127/58 L 97 11/10/19 03:00 112 H 19 126/55 L 98 11/10/19 02:00 114 H 22 H 128/61 95 11/10/19 01:00 114 H 20 118/61 96 11/10/19 00:00 36.3 C 111 H 20 125/58 L 96 11/09/19 23:00 96 20 116/48 L 96 11/09/19 22:12 112 H 117/57 L 11/09/19 22:00 17 94 L Date Exam was Performed: 11/10/19 Time Exam was Performed: 14:18 Consult PN Assessment/Plan POD#: 4 Procedures: Procedures ASSAY OF MAGNESIUM (10/12/14) ASSAY OF TROPONIN QUANT (10/12/14) CHEST X-RAY 2VW FRONTAL&LATL (01/30/14) COMPLETE CBC AUTOMATED (01/30/14) COMPLETE CBC W/AUTO DIFF WBC (10/12/14) COMPREHEN METABOLIC PANEL (10/12/14) CT ABD & PELV W/CONTRAST (10/23/19) CT HEAD/BRAIN W/O DYE (10/12/14) ECG MONIT/REPRT UP TO 48 HRS (10/17/14) ECG MONIT/REPRT UP TO 48 HRS (10/17/14) ELECTROCARDIOGRAM TRACING (10/12/14) EMERGENCY DEPT VISIT (10/12/14) EXC F/E/E/N/L MAL+MRG 0.6-1 (07/22/15) EXC TR-EXT B9+JOHN PAUL 3.1-4 CM (07/22/15) EXC TR-EXT MAL+JOHN PAUL 1.1-2 CM (06/09/18) EXC TR-EXT MAL+JOHN PAUL 2.1-3 CM (06/09/18) HYDRATION IV INFUSION INIT (10/12/14) INTMD RPR FACE/MM 2.5 CM/< (07/22/15) INTMD RPR S/A/T/EXT 12.6-20 (06/09/18) INTMD RPR S/A/T/EXT 2.5 CM/< (07/22/15) MEASURE BLOOD OXYGEN LEVEL (01/30/14) METABOLIC PANEL TOTAL CA (01/30/14) PATH CONSULT INTRAOP 1 BLOC (07/22/15) PATH CONSULT INTRAOP ADDL (07/22/15) PROTHROMBIN TIME (10/12/14) REAGENT STRIP/BLOOD GLUCOSE (01/30/14) ROUTINE VENIPUNCTURE (10/12/14) THROMBOPLASTIN TIME PARTIAL (10/12/14) TISSUE EXAM BY PATHOLOGIST (06/09/18) Problem List Initiated/Reviewed/Updated: Yes My Orders Last 24 Hours: My Active Orders 11/09/19 09:35 US Guidance Thoracentesis NC [US] Routine 11/10/19 09:49 Hydrocortisone Sod Succinate [Solu-CORTEF] 100 mg IVPUSH ONETIME ONE 11/10/19 09:51 Head wo Cont [CT] Routine 11/10/19 09:52 RT Aerosol Therapy [RC] ASDIRECTED 11/10/19 11:00 Albuterol [Proventil Neb Soln] 2.5 mg NEB QIDRT 11/10/19 16:00 Hydrocortisone Sod Succinate [Solu-CORTEF] 50 mg IVPUSH Q6H Plan: ASSESSMENT AND RECOMMENDATIONS- Hypoxia, tachycardia and lethargy-head CT was negative. No fevers but occult infection seems to be highest on the list. Medication intake has been minimal. No dramatic improvement with the thoracentesis yesterday afternoon. Urine did not show evidence for infection. No obvious pneumonia on chest x-ray yesterday. White blood cell count better but still elevated. 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 600 mL of fonseca fluid removed yesterday with no strong evidence to support infectious process at that point. X-ray shows reaccumulation of the effusion today. -Imaging as above Adrenal mass-status post surgical resection and pathology is pending. Picture does not quite fit with adrenal insufficiency but we are going to empirically try some hydrocortisone. -Hydrocortisone 100 mg x 1 dose then 50 mg every 6 hours -Postoperative care as per surgical team Wade Boyce M.D.
[2019-11-10] MEDS ORDERED: Hydrocortisone Sodium Succinate 100 MG/2 ML SDV IVPUSH ONE (10:00)
[2019-11-10] MEDS: Albuterol 0.083% 2.5 MG/3 ML Neb Soln NEB SCH ×3 (10:41→20:28)
[2019-11-10] MEDS: Potassium Chloride 20 MEQ, Lidocaine 1% 2 ML in Sodium Chloride 0.9% 100 ML IV SCH ×2 (11:13→13:00)
--- NOTE | 2019-11-10 11:21 | CR ---
CHEST: Portable 11/09/2019 at 3:42 PM CLINICAL HISTORY:Thoracentesis COMPARISON:Earlier same day FINDINGS: There is a decrease in left pleural effusion since earlier study. There is no evidence of pneumothorax. Pulmonary vascularity remains cephalized. Impression: Status post thoracentesis No evidence of pneumothorax
--- NOTE | 2019-11-10 11:32 | CR ---
CHEST: Portable 11/10/2019 at 07 15 CLINICAL HISTORY:Effusion COMPARISON:11/09/2019 FINDINGS: Patient is a moderate-sized left pleural effusion similar to prior study. Vascularity is mildly cephalized. There is a minimal right effusion. Impression: Moderate left pleural effusion persists..
--- NOTE | 2019-11-10 11:39 | CT ---
Head wo Cont CLINICAL HISTORY: Hypoactive delirium COMPARISON: 2014 TECHNIQUE: Transverse scans were obtained from the base of the skull through the vertex without IV contrast on a multislice, multidetector CT scanner. Auto dosage reduction and iterative reconstruction techniques employed. FINDINGS: There is a small lacunar-type infarct in the left basal ganglia similar to prior study.. There is no mass effect, hemorrhage, or extraaxial collection. The basal cisterns and sulci over the convexities are prominent. The ventricles are normal for age. 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
[2019-11-10] MEDS: Insulin Lispro 100 Unit/ML 3 ML KwikPen SUBCUT PRN ×2 (11:51→17:22)
[2019-11-10] MEDS ORDERED: Sodium Chloride 0.9% 10 ML Syringe FLUSH ONE (14:08)
[2019-11-10] MEDS ORDERED: Iopamidol 612 MG/ML 150 ML Bottle IV SCH (14:15)
[2019-11-10] MEDS ORDERED: Sodium Chloride 0.9% 100 ML IV SCH (14:15)
[2019-11-10] MEDS: Hydrocortisone Sodium Succinate 100 MG/2 ML SDV IVPUSH SCH ×2 (15:13→22:21)
--- NOTE | 2019-11-10 16:00 | CT ---
Chest Abdomen Pelvis w Cont CLINICAL HISTORY: Abnormal pain, recent surgery TECHNIQUE: Transverse scans were obtained from the thoracic inlet to the lung bases with IV contrast. Auto dosage reduction and iterative reconstruction techniques employed. COMPARISONS: CT abdomen 10/23/2019 FINDINGS: There is moderate airspace disease in both lower lobes which may represent a combination of atelectasis and consolidation. This is new since September. There are small bibasal effusions left greater than right. No mediastinal mass or lymphadenopathy is identified. The pulmonary arteries are free of filling defects though there is poor opacification of both lower lobe arteries. There is a small pericardial effusion. IMPRESSION: Moderate bibasilar airspace disease which may represent a combination of atelectasis and consolidation Small bibasal pleural effusions left greater than right Pericardial effusion persists. Chest Abdomen Pelvis w Cont TECHNIQUE: Axial tomographic images are obtained from the dome of the diaphragm to the pubic symphysis with IV contrast enhancement. Auto dosage reduction and iterative reconstruction techniques employed. No oral contrast was used. FINDINGS: The liver shows no mass or biliary dilatation. The gallbladder contains multiple small gallstones. The spleen has been removed. The pancreas shows some moderate ill-definition of the pancreatic tail. There is some peripancreatic stranding. There also appears to be some peripancreatic fluid. There is also stranding seen in the anterior left pararenal space. The right adrenal gland has a normal appearance. Left adrenal gland is obscured. The kidneys show no mass or hydronephrosis. The aorta shows atheromatous plaque without aneurysm. There is no suspicious retroperitoneal adenopathy. IMPRESSION: Postsurgical changes in the left upper quadrant with previous splenectomy and left adrenalectomy. There is some postoperative fluid around the tail of the pancreas and in the left pararenal space Uterine surgery since prior study with removal of a large fibroid. Persistent ovoid fluid collection in the patient's pannus which appears to be a seroma Cholelithiasis
[2019-11-10] MEDS: Pantoprazole 40 MG Vial IVPUSH SCH (16:25)
[2019-11-10] MEDS: Levofloxacin/Dextrose 5%-Water 750 MG in Premix Bag 1 BAG IV SCH (17:11)
[2019-11-11] MEDS: Insulin Lispro 100 Unit/ML 3 ML KwikPen SUBCUT PRN ×5 (00:38→23:57)
[2019-11-11] MEDS: Hydrocortisone Sodium Succinate 100 MG/2 ML SDV IVPUSH SCH ×4 (03:15→21:03)
[2019-11-11] MEDS: Dextrose 5%-0.9% NaCl with KCl 1,000 ML IV SCH (03:34)
[2019-11-11] MEDS: Acetaminophen 325 MG Tab PO SCH ×5 (05:08→23:53)
[2019-11-11] MEDS: Albuterol 0.083% 2.5 MG/3 ML Neb Soln NEB SCH ×4 (07:01→20:44)
[2019-11-11] MEDS ORDERED: Dextrose 5%-0.9% NaCl with KCl 1,000 ML IV SCH (07:15)
[2019-11-11] MEDS ORDERED: Bumetanide 1 MG/4 ML MDV IV SCH ×2 (07:30→08:30)
[2019-11-11] MEDS ORDERED: Propofol 200 MG/20 ML SDV ONE (08:34)
[2019-11-11] MEDS: metFORMIN 500 MG Tab PO SCH ×2 (08:46→16:10)
[2019-11-11] MEDS ORDERED: HYDROmorphone 0.5 MG/0.5 ML Syringe IVPUSH PRN (08:51)
--- NOTE | 2019-11-11 08:52 | PCM.CONSN ---
- General Info Date of Service: 11/11/19 Subjective Update: Patient required a fair amount of supplemental oxygen overnight. Chest x-ray this morning showed whiteout of the left lung with concern for atelectasis probably secondary to mucous plugging. She had a bronchoscopy and significant mucus plugging was noted and was successfully removed. She remains very lethargic but is a little more interactive today. Very sleepy at the time that I saw her. Still little tachycardic but blood pressure has been stable. She did not have any fevers. Urine output has been marginal. Functional Status: Reports: Other (lethargic, not able to communicate ) - Review of Systems General: Denies: Fever Psychiatric: Reports: Confusion - Patient Data Vitals - Most Recent: Last Vital Signs Temp 35.8 C L 11/11/19 08:00 Pulse 85 11/11/19 08:00 Resp 20 11/11/19 08:00 BP 155/90 H 11/11/19 08:00 Pulse Ox 98 11/11/19 08:00 Weight - Most Recent: 96.162 kg I&O - Last 24 Hours: Intake & Output 11/10/19 11/11/19 11/11/19 22:59 06:59 14:59 Intake Total 637 Output Total 1585 565 30 Balance -1585 72 -30 Lab Results Last 24 Hours: Laboratory Results - last 24 hr 11/06/19 11/11/19 11/11/19 Range/Units 08:55 04:45 04:45 WBC 17.3 H (4.5-11.0) K/uL RBC 3.73 (3.30-5.50) M/uL Hgb 9.4 L (12.0-15.0) g/dL Hct 31.7 L (36.0-48.0) % MCV 85 (80-98) fL MCH 25 L (27-31) pg MCHC 30 L (32-36) % Plt Count 475 H (150-400) K/uL Puncture Site ABG pH (7.350-7.450) ABG pCO2 (35.0-42.0) mmHg ABG pO2 (75.0-100.0) mmHg ABG HCO3 (22.0-26.0) mmol/L ABG Total CO2 (21.0-25.0) mmol/L ABG O2 Saturation (95.0-98.0) % ABG O2 Content (15.0-23.0) %vol ABG Base Excess mm/L ABG Hemoglobin (12.0-16.0) g/dL ABG Oxyhemoglobin % ABG Carboxyhemoglobin (0.0-1.6) % ABG Methemoglobin % Ahmet Test O2 Delivery Device Oxygen Flow Rate L Sodium 137 L (140-148) mmol/L Potassium 4.0 (3.6-5.2) mmol/L Chloride 100 (100-108) mmol/L Carbon Dioxide 31 (21-32) mmol/L Anion Gap 10.0 (5.0-14.0) mmol/L BUN 9 (7-18) mg/dL Creatinine 0.6 (0.6-1.0) mg/dL Est Cr Clr Drug Dosing 61.58 mL/min Estimated GFR (MDRD) > 60 (>60) Glucose 150 H (74-106) mg/dL Calcium 8.5 (8.5-10.1) mg/dL Phosphorus 2.8 (2.5-4.9) mg/dL Magnesium 1.6 L D (1.8-2.4) mg/dL Total Bilirubin 0.3 (0.2-1.0) mg/dL AST 16 (15-37) U/L ALT 20 (12-78) U/L Alkaline Phosphatase 84 (46-116) U/L NT-Pro-B Natriuret Pep 3211 H (5-450) pg/mL Total Protein 5.0 L (6.4-8.2) g/dL Albumin 2.0 L (3.4-5.0) g/dL Globulin 3.0 (2.3-3.5) g/dL Albumin/Globulin Ratio 0.7 L (1.2-2.2) Aldosterone 11.8 (0.0-30.0) ng/dL 11/11/19 Range/Units 08:15 WBC (4.5-11.0) K/uL RBC (3.30-5.50) M/uL Hgb (12.0-15.0) g/dL Hct (36.0-48.0) % MCV (80-98) fL MCH (27-31) pg MCHC (32-36) % Plt Count (150-400) K/uL Puncture Site Rt radial ABG pH 7.391 (7.350-7.450) ABG pCO2 51.9 H (35.0-42.0) mmHg ABG pO2 113.0 H (75.0-100.0) mmHg ABG HCO3 30.8 H (22.0-26.0) mmol/L ABG Total CO2 28.7 H (21.0-25.0) mmol/L ABG O2 Saturation 98.1 H (95.0-98.0) % ABG O2 Content 13.6 L (15.0-23.0) %vol ABG Base Excess 5.4 mm/L ABG Hemoglobin 9.9 L (12.0-16.0) g/dL ABG Oxyhemoglobin 96.8 % ABG Carboxyhemoglobin 0.5 (0.0-1.6) % ABG Methemoglobin 0.8 % Ahmet Test Passed O2 Delivery Device Non rebr mask Oxygen Flow Rate 10 L Sodium (140-148) mmol/L Potassium (3.6-5.2) mmol/L Chloride (100-108) mmol/L Carbon Dioxide (21-32) mmol/L Anion Gap (5.0-14.0) mmol/L BUN (7-18) mg/dL Creatinine (0.6-1.0) mg/dL Est Cr Clr Drug Dosing mL/min Estimated GFR (MDRD) (>60) Glucose (74-106) mg/dL Calcium (8.5-10.1) mg/dL Phosphorus (2.5-4.9) mg/dL Magnesium (1.8-2.4) mg/dL Total Bilirubin (0.2-1.0) mg/dL AST (15-37) U/L ALT (12-78) U/L Alkaline Phosphatase (46-116) U/L NT-Pro-B Natriuret Pep (5-450) pg/mL Total Protein (6.4-8.2) g/dL Albumin (3.4-5.0) g/dL Globulin (2.3-3.5) g/dL Albumin/Globulin Ratio (1.2-2.2) Aldosterone (0.0-30.0) ng/dL Jose Results Last 24 Hours: Microbiology 11/09/19 15:41 Gram Stain - Final Thoracentesis Fluid Body Fluid Culture - Preliminary NO GROWTH AFTER 1 DAY Med Orders - Current: Current Medications Acetaminophen (Tylenol) 650 mg PO Q6H [facility] Last Admin: 11/11/19 05:08 Dose: Not Given Albuterol (Proventil Neb Soln) 2.5 mg NEB QIDRT [facility] Last Admin: 11/11/19 07:01 Dose: 2.5 mg Albuterol/Ipratropium (Duoneb 3.0-0.5 Mg/3 Ml) 3 ml NEB Q4H PRN PRN Reason: dyspnea and wheezing Last Admin: 11/09/19 11:21 Dose: 3 ml Benzocaine/Menthol (Cepacol Sore Throat) 1 lozenge MUCMEM 6XDAY PRN PRN Reason: Sore Throat Last Admin: 11/07/19 08:47 Dose: 1 lon Bisacodyl (Dulcolax) 10 mg PO BID [facility] Last Admin: 11/10/19 20:29 Dose: Not Given Carvedilol (Coreg) 25 mg PO BID [facility] Last Admin: 11/10/19 20:29 Dose: Not Given Dextrose (Glutose 15) 15 gm PO ASDIRECTED PRN PRN Reason: HYPOGLYCEMIA Dextrose/Water (Dextrose 50% In Water) 50 ml IVPUSH ASDIRECTED PRN PRN Reason: HYPOGLYCEMIA Docusate Sodium (Colace) 100 mg PO BID [facility] Last Admin: 11/10/19 20:29 Dose: Not Given Glucagon (Glucagen) 1 mg IM ASDIRECTED PRN PRN Reason: HYPOGLYCEMIA Hydrocortisone Sodium Succinate (Solu-Cortef) 50 mg IVPUSH Q6H [facility] Last Admin: 11/11/19 03:15 Dose: 50 mg Hydroxyzine HCl (Vistaril) 75 mg IM Q4H PRN PRN Reason: pain Last Admin: 11/08/19 23:19 Dose: 75 mg Albumin Human (Albumin 25%) 25 gm in 100 mls @ 25 mls/hr IV Q24H [facility] Stop: 11/12/19 12:59 Last Admin: 11/10/19 08:35 Dose: 25 mls/hr Levofloxacin/Dextrose 750 mg/ (Premix) 150 mls @ 100 mls/hr IV Q24H [facility] Last Admin: 11/10/19 17:11 Dose: 100 mls/hr Meropenem 1 gm/ Sodium (Chloride) 50 mls @ 100 mls/hr IV Q8H [facility] Last Admin: 11/11/19 00:34 Dose: 100 mls/hr Potassium Chloride/Dextrose/Sod Cl (D5 Ns With 20 Meq Kcl) 1,000 mls @ 40 mls/ hr IV ASDIRECTED [facility] Magnesium Sulfate 2 gm/ Premix 50 mls @ 25 mls/hr IV Q6H [facility] Stop: 11/13/19 05:59 Insulin Human Lispro (Humalog) 0 unit SUBCUT ASDIRECTED PRN; Protocol PRN Reason: MEDIUM CORRECTIONAL DOSING Last Admin: 11/11/19 06:09 Dose: 1 units Levothyroxine Sodium 100 mcg/ (Levothyroxine Sodium 50 mcg) 150 mcg PO DAILY@ 0730 [facility] Last Admin: 11/11/19 08:46 Dose: Not Given Metformin HCl (Glucophage) 1,000 mg PO BIDMEALS [facility] Last Admin: 11/11/19 08:46 Dose: Not Given Naloxone HCl (Narcan) 0.1 mg IV ASDIRECTED PRN PRN Reason: decreased respiratory rate Ondansetron HCl (Zofran) 4 mg IVPUSH Q4H PRN PRN Reason: Nausea/Vomiting Pantoprazole Sodium (Protonix Iv) 40 mg IVPUSH Q24H [facility] Last Admin: 11/10/19 16:25 Dose: 40 mg Discontinued Medications Acetaminophen (Tylenol Extra Strength) 1,000 mg PO ONETIME ONE Stop: 11/06/19 09:01 Last Admin: 11/06/19 09:00 Dose: 1,000 mg Albuterol/Ipratropium (Duoneb 3.0-0.5 Mg/3 Ml) 3 ml NEB ONETIME ONE Stop: 11/08/19 20:26 Last Admin: 11/08/19 20:38 Dose: 3 ml Bumetanide (Bumex) 2 mg IV Q8H [facility] Stop: 11/11/19 16:31 Bupivacaine HCl (Marcaine 0.5%) Confirm Administered Dose 50 ml .ROUTE .STK-MED ONE Stop: 11/06/19 09:56 Ropivacaine 48 ml/Dexamethasone 8 mg/Epinephrine HCl 0.4 mg/ Sodium Chloride 29.6 ml 0 ml NERVRT ASDIRECTED [facility] Last Admin: 11/06/19 12:40 Dose: 80 syringe Cyclobenzaprine HCl (Flexeril) 10 mg PO Q6H PRN PRN Reason: Muscle Spasm Dexamethasone (Dexamethasone) Confirm Administered Dose 4 mg .ROUTE .STK-MED ONE Stop: 11/06/19 10:42 Fentanyl (Sublimaze) Confirm Administered Dose 250 mcg .ROUTE .STK-MED ONE Stop: 11/06/19 10:42 Furosemide (Lasix) 10 mg IVPUSH ONETIME ONE Stop: 11/07/19 15:21 Last Admin: 11/07/19 15:42 Dose: 10 mg Furosemide (Lasix) 10 mg IVPUSH ONETIME ONE Stop: 11/08/19 17:16 Last Admin: 11/08/19 17:20 Dose: 10 mg Furosemide (Lasix) 20 mg IVPUSH ONETIME ONE Stop: 11/08/19 20:24 Last Admin: 11/08/19 20:37 Dose: 20 mg Furosemide (Lasix) 10 mg IVPUSH ONETIME ONE Stop: 11/09/19 03:44 Last Admin: 11/09/19 03:59 Dose: 10 mg Furosemide (Lasix) 10 mg IVPUSH Q12H [facility] Stop: 11/09/19 20:01 Last Admin: 11/09/19 08:23 Dose: 10 mg Furosemide (Lasix) 40 mg IVPUSH ONETIME ONE Stop: 11/09/19 14:19 Last Admin: 11/09/19 14:29 Dose: 40 mg Furosemide (Lasix) 20 mg IVPUSH Q12H [facility] Stop: 11/10/19 20:01 Last Admin: 11/10/19 20:28 Dose: 20 mg Glycopyrrolate (Robinul) Confirm Administered Dose 1 mg .ROUTE .STK-MED ONE Stop: 11/06/19 10:42 Hydrocortisone Sodium Succinate (Solu-Cortef) 100 mg IVPUSH ONETIME ONE Stop: 11/10/19 10:01 Last Admin: 11/10/19 10:39 Dose: 100 mg Hydromorphone HCl (Dilaudid Administrative Director 15 Mg In Ns 30 Ml) 0 mg IV ASDIRECTED PRN; Protocol PRN Reason: SYSTEM [employer]IN [employer]OL Last Admin: 11/06/19 11:43 Dose: 0.2 mg Cefoxitin Sodium 2 gm/ Sodium (Chloride) 50 mls @ 100 mls/hr IV ONETIME ONE Stop: 11/06/19 10:44 Last Admin: 11/06/19 11:12 Dose: 100 mls/hr Dextrose/Lactated Ringer's (Dextrose 5%-Lactated Ringers) 1,000 mls @ 100 [facility] Admin: 11/06/19 10:04 Dose: 100 mls/hr Lactated Ringer's (Ringers, Lactated) Confirm Administered Dose 1,000 mls @ as directed .ROUTE .[facility] ONE Stop: 11/06/19 11:31 Sodium Chloride (Normal Saline) Confirm Administered Dose 500 mls @ as directed .ROUTE .[facility] ONE Stop: 11/06/19 12:48 Dextrose/Lactated Ringer's (Dextrose 5%-Lactated Ringers) 1,000 mls @ 75 mls/ [facility] Stop: 11/07/19 17:59 Last Admin: 11/07/19 10:19 Dose: 75 mls/hr Lactated Ringer's (Ringers, Lactated) 1,000 mls @ 100 [facility] Stop: 11/07/19 17:59 Last Admin: 11/07/19 11:13 Dose: 100 mls/hr Cefoxitin Sodium 2 gm/ Sodium (Chloride) 50 mls @ 100 mls/hr IV Q6H [facility] Stop: 11/07/19 05:29 Last Admin: 11/07/19 04:45 Dose: 100 mls/hr Lactated Ringer's (Ringers, Lactated) 500 mls @ 500 mls/hr IV ONETIME ONE Stop: 11/06/19 22:29 Last Admin: 11/06/19 21:30 Dose: 500 mls/hr Lactated Ringer's (Ringers, Lactated) 500 mls @ 500 mls/hr IV ONETIME ONE Stop: 11/07/19 02:14 Last Admin: 11/07/19 01:15 Dose: 500 mls/hr Dextrose/Lactated Ringer's (Dextrose 5%-Lactated Ringers) 1,000 mls @ 125 [facility]ls[facility] Last Admin: 11/09/19 06:11 Dose: 125 mls/hr Magnesium Sulfate 2 gm/ Premix 50 mls @ 25 mls/hr IV Q6HR [facility] Stop: 11/10/19 05:59 Last Admin: 11/09/19 03:35 Dose: 25 mls/hr Lactated Ringer's (Ringers, Lactated) 500 mls @ 500 mls/hr IV ASDIRECTED [facility] Lactated Ringer's (Ringers, Lactated) 500 mls @ 500 mls/hr IV ONETIME ONE Stop: 11/08/19 00:36 Last Admin: 11/07/19 23:43 Dose: 500 mls/hr Lactated Ringer's (Ringers, Lactated) 500 mls @ 500 mls/hr IV ONETIME ONE Stop: 11/08/19 03:24 Last Admin: 11/08/19 02:28 Dose: 500 mls/hr Lactated Ringer's (Ringers, Lactated) 500 mls @ 500 mls/hr IV ONETIME ONE Stop: 11/08/19 06:28 Last Admin: 11/08/19 05:29 Dose: 500 mls/hr Lactated Ringer's (Ringers, Lactated) 500 mls @ 250 mls/hr IV ONETIME ONE Stop: 11/08/19 17:47 Last Admin: 11/08/19 15:51 Dose: 250 mls/hr Potassium Chloride 20 meq/Lidocaine HCl 2 ml/ Sodium Chloride 112 mls @ 56 mls/ hr IV Q2H [facility] Stop: 11/09/19 13:59 Last Admin: 11/09/19 12:09 Dose: 56 mls/hr Dextrose/Lactated Ringer's (Dextrose 5%-Lactated Ringers) 1,000 mls @ 25 mls/ hr IV ASDIRECTED [facility] Potassium Chloride 20 meq/Lidocaine HCl 2 ml/ Sodium Chloride 112 mls @ 56 mls/ hr IV Q2H [facility] Stop: 11/10/19 13:59 Last Admin: 11/10/19 13:00 Dose: 56 mls/hr Potassium Chloride/Dextrose/Sod Cl (D5 Ns With 20 Meq Kcl) 1,000 mls @ 60 mls/ hr IV ASDIRECTED [facility] Last Admin: 11/11/19 03:34 Dose: 60 mls/hr Sodium Chloride (Normal Saline) 100 mls @ 3 mls/sec IV ASDIRECTED [facility] Stop: 11/10/19 22:00 Last Admin: 02/14/20 14:44 Dose: 3 mls/sec Insulin Human Lispro (Humalog) 7 unit SUBCUT ONETIME ONE Stop: 11/06/19 14:01 Last Admin: 11/06/19 14:00 Dose: 7 units Iopamidol (Isovue-300 (61%)) 150 ml IV . DIRECTED [facility] Stop: 11/10/19 22:00 Last Admin: 11/10/19 14:44 Dose: 150 ml Ketamine HCl (Ketalar) 27 mg IV ASDIRECTED [facility] Lidocaine/Epinephrine (Xylocaine 1% With Epinephrine 1:100,000) Confirm Administered Dose 50 ml .ROUTE .STK-MED ONE Stop: 11/06/19 09:56 Meropenem (Merrem) Confirm Administered Dose 500 mg .ROUTE .STK-MED ONE Stop: 11/06/19 09:56 Last Admin: 11/06/19 12:31 Dose: 500 mg Neostigmine Methylsulfate (Neostigmine) Confirm Administered Dose 5 mg .ROUTE .STK-MED ONE Stop: 11/06/19 10:42 Ondansetron HCl (Zofran) Confirm Administered Dose 4 mg .ROUTE .STK-MED ONE Stop: 11/06/19 10:42 Propofol (Diprivan 20 Ml) Confirm Administered Dose 200 mg .ROUTE .STK-MED ONE Stop: 11/06/19 10:42 Propofol (Diprivan 20 Ml) Confirm Administered Dose 200 mg .ROUTE .STK-MED ONE Stop: 11/11/19 08:35 Rocuronium [place] (Zemuron) Confirm Administered Dose 50 mg .ROUTE .STK-MED ONE Stop: 11/06/19 10:42 Rocuronium [place] (Zemuron) Confirm Administered Dose 50 mg .ROUTE .STK-MED ONE Stop: 11/06/19 12:29 Sodium Chloride (Saline Flush) 10 ml FLUSH ONETIME ONE Stop: 11/10/19 14:09 Last Admin: 11/10/19 14:44 Dose: 10 ml - Exam Quality Assessment: Supplemental Oxygen General: No Acute Distress, Lethargic. No: Alert Neck: Supple, No JVD Lungs: Normal Respiratory Effort, Decreased Breath Sounds (entire left lung ), Crackles (right lower lung ) Cardiovascular: Regular Rhythm, No Murmurs, Tachycardia GI/Abdominal Exam: Soft, No Distention, Abnormal Bowel Sounds (hypoactive ) Extremities: No Pedal Edema. No: Increased Warmth Skin: Warm, Dry Psy/Mental Status: No: Alert, Agitated Sepsis Event Note - Focused Exam Vital Signs: Vital Signs Temp Pulse Resp BP Pulse Ox 11/11/19 08:00 35.8 C L 85 20 155/90 H 98 11/11/19 07:01 113 H 11/11/19 06:00 17 152/82 H 98 11/11/19 05:00 18 129/77 99 11/11/19 04:00 19 151/78 H 99 11/11/19 03:00 19 151/78 H 99 11/11/19 02:00 21 H 144/86 H 99 11/11/19 01:00 36.2 C 18 134/68 98 11/11/19 00:00 21 H 140/80 96 11/10/19 23:00 28 H 140/77 98 11/10/19 22:00 29 H 136/85 97 11/10/19 21:00 36.4 C 26 H 139/74 97 Date Exam was Performed: 11/11/19 Time Exam was Performed: 12:38 Consult PN Assessment/Plan Procedures: Procedures ASSAY OF MAGNESIUM (10/12/14) ASSAY OF TROPONIN QUANT (10/12/14) CHEST X-RAY 2VW FRONTAL&LATL (01/30/14) COMPLETE CBC AUTOMATED (01/30/14) COMPLETE CBC W/AUTO DIFF WBC (10/12/14) COMPREHEN METABOLIC PANEL (10/12/14) CT ABD & PELV W/CONTRAST (10/23/19) CT HEAD/BRAIN W/O DYE (10/12/14) ECG MONIT/REPRT UP TO 48 HRS (10/17/14) ECG MONIT/REPRT UP TO 48 HRS (10/17/14) ELECTROCARDIOGRAM TRACING (10/12/14) EMERGENCY DEPT VISIT (10/12/14) EXC F/E/E/N/L MAL+MRG 0.6-1 (07/22/15) EXC TR-EXT B9+JOHN PAUL 3.1-4 CM (07/22/15) EXC TR-EXT MAL+JOHN PAUL 1.1-2 CM (06/09/18) EXC TR-EXT MAL+JOHN PAUL 2.1-3 CM (06/09/18) HYDRATION IV INFUSION INIT (10/12/14) INTMD RPR FACE/MM 2.5 CM/< (07/22/15) INTMD RPR S/A/T/EXT 12.6-20 (06/09/18) INTMD RPR S/A/T/EXT 2.5 CM/< (07/22/15) MEASURE BLOOD OXYGEN LEVEL (01/30/14) METABOLIC PANEL TOTAL CA (01/30/14) PATH CONSULT INTRAOP 1 BLOC (07/22/15) PATH CONSULT INTRAOP ADDL (07/22/15) PROTHROMBIN TIME (10/12/14) REAGENT STRIP/BLOOD GLUCOSE (01/30/14) ROUTINE VENIPUNCTURE (10/12/14) THROMBOPLASTIN TIME PARTIAL (10/12/14) TISSUE EXAM BY PATHOLOGIST (06/09/18) Problem List Initiated/Reviewed/Updated: Yes My Orders Last 24 Hours: My Active Orders 11/10/19 09:52 RT Aerosol Therapy [RC] ASDIRECTED 11/10/19 11:00 Albuterol [Proventil Neb Soln] 2.5 mg NEB QIDRT 11/10/19 16:00 Hydrocortisone Sod Succinate [Solu-CORTEF] 50 mg IVPUSH Q6H 11/10/19 17:00 Meropenem [Merrem] 1 gm Sodium Chloride 0.9% [Normal Saline] 50 ml IV Q8H 11/10/19 18:00 Levofloxacin/Dextrose 5%-Water [Levaquin in D5W 750 MG/150 ML] 750 mg Premix Bag 1 bag IV Q24H 11/11/19 08:51 HYDROmorphone [Dilaudid] 0.5 mg IVPUSH Q2H PRN Plan: ASSESSMENT AND RECOMMENDATIONS- Probable left lung pneumonia-empiric antibiotics started yesterday. Significant mucus plugging overnight with successful removal via bronchoscopy today. Gram stain from the sputum sample did show significant gram-positive cocci. Currently on triple antibiotic therapy with cultures pending. She does have a mild elevation in her PCO2. -Antibiotic coverage with levofloxacin, meropenem and linezolid -Chest x-ray in the morning -Scheduled and as needed nebulizers -Mucomyst nebulizers -Supplement oxygen as needed -Continue current medical management Bilateral pleural effusions, left greater than right-improved after thoracentesis. Volume status appears appropriate today. -Follow-up chest x-ray in the morning -Follow-up culture from thoracentesis which is negative so far Adrenal mass-status post surgical resection and pathology is pending. Clinical picture does not quite fit with adrenal insufficiency but she does appear a little better today after IV steroids over the past 24 hours. -Hydrocortisone 50 mg every 6 hours -Postoperative care as per surgical team Type 2 diabetes mellitus-TPN will be initiated today and blood sugars will need closer monitoring. She normally just takes oral medications which are currently on hold. -Sliding scale insulin through the day -Consider addition of long-acting insulin once insulin needs are determined Wade Boyce M.D.
[2019-11-11] MEDS ORDERED: Lidocaine 2% Viscous Solution 15 ML Cup ONE (09:24)
[2019-11-11] MEDS ORDERED: Lidocaine 4% Top Soln 50 ML Bottle ONE (09:24)
[2019-11-11] MEDS ORDERED: Heparin Sodium 5,000 UNITS in Sodium Chloride 0.9% 500 ML IV SCH (10:30)
[2019-11-11] MEDS: Docusate Sodium 100 MG Cap PO SCH ×2 (10:55→20:43)
[2019-11-11] MEDS: Bisacodyl 5 MG Tab PO SCH ×2 (10:55→20:43)
[2019-11-11] MEDS: Carvedilol 25 MG Tab PO SCH ×2 (10:55→20:44)
[2019-11-11] MEDS: Magnesium Sulfate/Water 2 GM in Premix Bag 1 BAG IV SCH ×3 (11:05→21:03)
[2019-11-11] MEDS: Acetylcysteine 20% 200 MG/ML 4 ML Nebulizer Soln SDV INH SCH ×3 (11:10→20:44)
[2019-11-11] MEDS: Linezolid 600 MG in Premix Bag 1 BAG IV SCH (12:09)
[2019-11-11] MEDS: 1: AA 5%/Calcium/D15W/Lytes 1,000 ML with MVI, Adult with Vitamin K 10 ML, Chromium/Copp IV SCH ×3 (15:55)
[2019-11-11] MEDS: Nystatin Susp 100,000 Unit/ML 5 ML UD Cup PO SCH ×2 (15:55→21:03)
[2019-11-11] MEDS: HYDROmorphone 0.5 MG/0.5 ML Syringe IVPUSH PRN ×2 (16:00→20:06)
[2019-11-11] MEDS: Pantoprazole 40 MG Vial IVPUSH SCH ×2 (16:07→16:25)
[2019-11-11] MEDS: Levofloxacin/Dextrose 5%-Water 750 MG in Premix Bag 1 BAG IV SCH (17:27)
[2019-11-11] MEDS: Albuterol/Ipratropium 3.0-0.5 MG/3 ML Neb Soln INH SCH (20:44)
[2019-11-12] MEDS: Linezolid 600 MG in Premix Bag 1 BAG IV SCH ×3 (00:02→23:26)
[2019-11-12] MEDS: HYDROmorphone 0.5 MG/0.5 ML Syringe IVPUSH PRN ×4 (00:07→23:30)
[2019-11-12] MEDS: Magnesium Sulfate/Water 2 GM in Premix Bag 1 BAG IV SCH ×4 (03:55→22:10)
[2019-11-12] MEDS: Hydrocortisone Sodium Succinate 100 MG/2 ML SDV IVPUSH SCH ×2 (03:55→10:26)
[2019-11-12] MEDS: Insulin Lispro 100 Unit/ML 3 ML KwikPen SUBCUT PRN ×3 (05:30→17:48)
[2019-11-12] MEDS: Acetaminophen 325 MG Tab PO SCH ×4 (05:35→23:27)
[2019-11-12] MEDS: Nystatin Susp 100,000 Unit/ML 5 ML UD Cup PO SCH ×4 (05:35→22:10)
[2019-11-12] MEDS: Acetylcysteine 20% 200 MG/ML 4 ML Nebulizer Soln SDV INH SCH ×2 (07:02→21:02)
[2019-11-12] MEDS: Albuterol/Ipratropium 3.0-0.5 MG/3 ML Neb Soln INH SCH ×2 (07:02→21:03)
[2019-11-12] MEDS: Albuterol 0.083% 2.5 MG/3 ML Neb Soln NEB SCH ×4 (07:03→20:57)
[2019-11-12] MEDS ORDERED: Lidocaine 2% Viscous Solution 15 ML Cup ONE (07:48)
[2019-11-12] MEDS ORDERED: Lidocaine 4% Top Soln 50 ML Bottle ONE (07:48)
[2019-11-12] MEDS: metFORMIN 500 MG Tab PO SCH ×2 (07:54→16:08)
[2019-11-12] MEDS: 1: AA 5%/Calcium/D15W/Lytes 1,000 ML with MVI, Adult with Vitamin K 10 ML, Chromium/Copp IV SCH ×6 (08:39→21:41)
[2019-11-12] MEDS: Docusate Sodium 100 MG Cap PO SCH ×2 (08:46→21:02)
[2019-11-12] MEDS: Carvedilol 25 MG Tab PO SCH ×3 (08:46→21:02)
[2019-11-12] MEDS: Bisacodyl 5 MG Tab PO SCH ×3 (08:47→21:02)
[2019-11-12] MEDS ORDERED: Lidocaine 4% Top Soln LTA 4 ML Syringe Kit ONE (09:03)
[2019-11-12] MEDS ORDERED: Propofol 200 MG/20 ML SDV ONE (09:03)
--- NOTE | 2019-11-12 09:59 | PCM.CONSN ---
- General Info Date of Service: 11/12/19 Subjective Update: No acute events overnight though the patient did require a fair amount of supplemental oxygen. She is more alert and interactive today and able to answer questions. She did have a second bronchoscopy this morning with additional removal of mucous plugs in the left lower lung. Oxygenation has improved following the bronchoscopy. She still feels short of breath but better after the bronchoscopy. Abdominal pain is improving each day. She has not had any fevers. She is on TPN. Respiratory culture is growing a gram- positive cocci but identification is still pending. Functional Status: Reports: Pain Controlled - Review of Systems General: Reports: Weakness, Fatigue. Denies: Fever Pulmonary: Reports: Shortness of Breath - Patient Data Vitals - Most Recent: Last Vital Signs Temp 36.4 C 11/12/19 07:49 Pulse 71 11/12/19 07:49 Resp 16 11/12/19 07:49 BP 180/85 H 11/12/19 07:49 Pulse Ox 97 11/12/19 07:49 Weight - Most Recent: 96.162 kg I&O - Last 24 Hours: Intake & Output 11/11/19 11/12/19 11/12/19 22:59 06:59 14:59 Intake Total 100 1238 Output Total 334 386 40 Balance -234 852 -40 Lab Results Last 24 Hours: Laboratory Results - last 24 hr 11/06/19 11/11/19 11/12/19 Range/Units 08:55 12:25 04:05 WBC 15.4 H (4.5-11.0) K/uL RBC 3.40 (3.30-5.50) M/uL Hgb 8.6 L (12.0-15.0) g/dL Hct 29.4 L (36.0-48.0) % MCV 87 (80-98) fL MCH 25 L (27-31) pg MCHC 29 L (32-36) % Plt Count 541 H (150-400) K/uL Sodium (140-148) mmol/L Potassium (3.6-5.2) mmol/L Chloride (100-108) mmol/L Carbon Dioxide (21-32) mmol/L Anion Gap (5.0-14.0) mmol/L BUN (7-18) mg/dL Creatinine (0.6-1.0) mg/dL Est Cr Clr Drug Dosing mL/min Estimated GFR (MDRD) (>60) Glucose (74-106) mg/dL Calcium (8.5-10.1) mg/dL Phosphorus (2.5-4.9) mg/dL Total Bilirubin (0.2-1.0) mg/dL AST (15-37) U/L ALT (12-78) U/L Alkaline Phosphatase (46-116) U/L NT-Pro-B Natriuret Pep (5-450) pg/mL Total Protein (6.4-8.2) g/dL Albumin (3.4-5.0) g/dL Globulin (2.3-3.5) g/dL Albumin/Globulin Ratio (1.2-2.2) Renin Activity <0.167 L (0.167-5.380) ng/mL/hr Blood Type O NEGATIVE Gel Antibody Screen Negative Crossmatch See Detail 11/12/19 Range/Units 04:05 WBC (4.5-11.0) K/uL RBC (3.30-5.50) M/uL Hgb (12.0-15.0) g/dL Hct (36.0-48.0) % MCV (80-98) fL MCH (27-31) pg MCHC (32-36) % Plt Count (150-400) K/uL Sodium 137 L (140-148) mmol/L Potassium 4.0 (3.6-5.2) mmol/L Chloride 101 (100-108) mmol/L Carbon Dioxide 34 H (21-32) mmol/L Anion Gap 6.0 (5.0-14.0) mmol/L BUN 11 (7-18) mg/dL Creatinine 0.5 L (0.6-1.0) mg/dL Est Cr Clr Drug Dosing 73.90 mL/min Estimated GFR (MDRD) > 60 (>60) Glucose 167 H (74-106) mg/dL Calcium 8.5 (8.5-10.1) mg/dL Phosphorus 2.3 L (2.5-4.9) mg/dL Total Bilirubin 0.2 (0.2-1.0) mg/dL AST 9 L (15-37) U/L ALT 15 (12-78) U/L Alkaline Phosphatase 75 (46-116) U/L NT-Pro-B Natriuret Pep 1364 H (5-450) pg/mL Total Protein 4.9 L (6.4-8.2) g/dL Albumin 2.1 L (3.4-5.0) g/dL Globulin 2.8 (2.3-3.5) g/dL Albumin/Globulin Ratio 0.8 L (1.2-2.2) Renin Activity (0.167-5.380) ng/mL/hr Blood Type Gel Antibody Screen Crossmatch Jose Results Last 24 Hours: Microbiology 11/11/19 09:39 Gram Stain - Final Bronchial Washings - Lung, Unspecified Respiratory Culture - Preliminary 11/09/19 15:41 Gram Stain - Final Thoracentesis Fluid Body Fluid Culture - Preliminary NO GROWTH AFTER 2 DAYS Med Orders - Current: Current Medications Acetaminophen (Tylenol) 650 mg PO Q6H [facility] Last Admin: 11/12/19 05:35 Dose: 650 mg Acetylcysteine (Mucomyst 20%) 200 mg INH BIDRT [facility] Last Admin: 11/12/19 07:02 Dose: 200 mg Albuterol (Proventil Neb Soln) 2.5 mg NEB QIDRT [facility] Last Admin: 11/12/19 07:03 Dose: Not Given Albuterol/Ipratropium (Duoneb 3.0-0.5 Mg/3 Ml) 3 ml NEB Q4H PRN PRN Reason: dyspnea and wheezing Last Admin: 11/09/19 11:21 Dose: 3 ml Albuterol/Ipratropium (Duoneb 3.0-0.5 Mg/3 Ml) 3 ml INH BIDRT [facility] Last Admin: 11/12/19 07:02 Dose: 3 ml Benzocaine/Menthol (Cepacol Sore Throat) 1 lozenge MUCMEM 6XDAY PRN PRN Reason: Sore Throat Last Admin: 11/07/19 08:47 Dose: 1 lon Bisacodyl (Dulcolax) 10 mg PO BID [facility] Last Admin: 11/12/19 08:47 Dose: Not Given Carvedilol (Coreg) 25 mg PO BID [facility] Last Admin: 11/12/19 08:46 Dose: Not Given Dextrose (Glutose 15) 15 gm PO ASDIRECTED PRN PRN Reason: HYPOGLYCEMIA Dextrose/Water (Dextrose 50% In Water) 50 ml IVPUSH ASDIRECTED PRN PRN Reason: HYPOGLYCEMIA Docusate Sodium (Colace) 100 mg PO BID [facility] Last Admin: 11/12/19 08:46 Dose: Not Given Glucagon (Glucagen) 1 mg IM ASDIRECTED PRN PRN Reason: HYPOGLYCEMIA Hydrocortisone Sodium Succinate (Solu-Cortef) 50 mg IVPUSH Q6H [facility] Stop: 11/12/19 12:00 Last Admin: 11/12/19 03:55 Dose: 50 mg Hydromorphone HCl (Dilaudid) 0.5 mg IVPUSH Q4H PRN PRN Reason: Pain Last Admin: 11/12/19 00:07 Dose: 0.5 mg Hydroxyzine HCl (Vistaril) 75 mg IM Q4H PRN PRN Reason: pain Last Admin: 11/08/19 23:19 Dose: 75 mg Albumin Human (Albumin 25%) 25 gm in 100 mls @ 25 mls/hr IV Q24H [facility] Stop: 11/12/19 12:59 Last Admin: 11/12/19 08:42 Dose: 25 mls/hr Levofloxacin/Dextrose 750 mg/ (Premix) 150 mls @ 100 mls/hr IV Q24H [facility] Last Admin: 11/11/19 17:27 Dose: 100 mls/hr Meropenem 1 gm/ Sodium (Chloride) 50 mls @ 100 mls/hr IV Q8H [facility] Last Admin: 11/12/19 08:40 Dose: 100 mls/hr Magnesium Sulfate 2 gm/ Premix 50 mls @ 25 mls/hr IV Q6H [facility] Stop: 11/13/19 05:59 Last Admin: 11/12/19 03:55 Dose: 25 mls/hr Heparin Sodium (Porcine) 5,000 (units/ Sodium Chloride) 501 mls @ 5 mls/hr IV ASDIRECTED [facility] Last Admin: 11/11/19 10:43 Dose: 5 mls/hr Linezolid 600 mg/ Premix 300 mls @ 300 mls/hr IV Q12H [facility] Last Admin: 11/12/19 00:02 Dose: 300 mls/hr Potassium Chloride/Dextrose/Sod Cl (D5 Ns With 20 Meq Kcl) 1,000 mls @ 25 mls/ hr IV ASDIRECTED [facility] Multivitamins/Minerals 10 ml/Chromium/Copper/Manganese/Seleni/Zn 1 ml/ Amino Ac/ Electrol/Dextrose/Calcium 1,011 mls @ 60 mls/hr IV .BY DURATION [facility] Last Admin: 11/11/19 15:55 Dose: 60 mls/hr Amino Ac/Electrol/Dextrose/Calcium (Clinimix E 02/08) 1,000 mls @ 60 mls/hr IV .BY DURATION [facility] Last Admin: 11/12/19 08:39 Dose: 60 mls/hr Insulin Human Lispro (Humalog) 0 unit SUBCUT ASDIRECTED PRN; Protocol PRN Reason: MEDIUM CORRECTIONAL DOSING Last Admin: 11/12/19 05:30 Dose: 2 units Levothyroxine Sodium 100 mcg/ (Levothyroxine Sodium 50 mcg) 150 mcg PO DAILY@ 0730 [facility] Last Admin: 11/12/19 07:54 Dose: Not Given Metformin HCl (Glucophage) 1,000 mg PO BIDMEALS [facility] Last Admin: 11/12/19 07:54 Dose: Not Given Naloxone HCl (Narcan) 0.1 mg IV ASDIRECTED PRN PRN Reason: decreased respiratory rate Nystatin (Mycostatin) 5 ml PO QID [facility] Last Admin: 11/12/19 05:35 Dose: 5 ml Ondansetron HCl (Zofran) 4 mg IVPUSH Q4H PRN PRN Reason: Nausea/Vomiting Pantoprazole Sodium (Protonix Iv) 40 mg IVPUSH Q24H [facility] Last Admin: 11/11/19 16:25 Dose: 40 mg Discontinued Medications Acetaminophen (Tylenol Extra Strength) 1,000 mg PO ONETIME ONE Stop: 11/06/19 09:01 Last Admin: 11/06/19 09:00 Dose: 1,000 mg Albuterol/Ipratropium (Duoneb 3.0-0.5 Mg/3 Ml) 3 ml NEB ONETIME ONE Stop: 11/08/19 20:26 Last Admin: 11/08/19 20:38 Dose: 3 ml Bumetanide (Bumex) 2 mg IV Q8H [facility] Stop: 11/11/19 16:31 Last Admin: 11/11/19 17:38 Dose: Not Given Bupivacaine HCl (Marcaine 0.5%) Confirm Administered Dose 50 ml .ROUTE .STK-MED ONE Stop: 11/06/19 09:56 Ropivacaine 48 ml/Dexamethasone 8 mg/Epinephrine HCl 0.4 mg/ Sodium Chloride 29.6 ml 0 ml NERVRT ASDIRECTED [facility] Last Admin: 11/06/19 12:40 Dose: 80 syringe Cyclobenzaprine HCl (Flexeril) 10 mg PO Q6H PRN PRN Reason: Muscle Spasm Dexamethasone (Dexamethasone) Confirm Administered Dose 4 mg .ROUTE .STK-MED ONE Stop: 11/06/19 10:42 Fentanyl (Sublimaze) Confirm Administered Dose 250 mcg .ROUTE .STK-MED ONE Stop: 11/06/19 10:42 Furosemide (Lasix) 10 mg IVPUSH ONETIME ONE Stop: 11/07/19 15:21 Last Admin: 11/07/19 15:42 Dose: 10 mg Furosemide (Lasix) 10 mg IVPUSH ONETIME ONE Stop: 11/08/19 17:16 Last Admin: 11/08/19 17:20 Dose: 10 mg Furosemide (Lasix) 20 mg IVPUSH ONETIME ONE Stop: 11/08/19 20:24 Last Admin: 11/08/19 20:37 Dose: 20 mg Furosemide (Lasix) 10 mg IVPUSH ONETIME ONE Stop: 11/09/19 03:44 Last Admin: 11/09/19 03:59 Dose: 10 mg Furosemide (Lasix) 10 mg IVPUSH Q12H [facility] Stop: 11/09/19 20:01 Last Admin: 11/09/19 08:23 Dose: 10 mg Furosemide (Lasix) 40 mg IVPUSH ONETIME ONE Stop: 11/09/19 14:19 Last Admin: 11/09/19 14:29 Dose: 40 mg Furosemide (Lasix) 20 mg IVPUSH Q12H [facility] Stop: 11/10/19 20:01 Last Admin: 11/10/19 20:28 Dose: 20 mg Glycopyrrolate (Robinul) Confirm Administered Dose 1 mg .ROUTE .STK-MED ONE Stop: 11/06/19 10:42 Heparin Sodium (Porcine) (Heparin Lock Flush 100 Units/Ml) Confirm Administered Dose 500 units .ROUTE .STK-MED ONE Stop: 11/11/19 09:25 Last Admin: 11/11/19 09:45 Dose: 500 units Hydrocortisone Sodium Succinate (Solu-Cortef) 100 mg IVPUSH ONETIME ONE Stop: 11/10/19 10:01 Last Admin: 11/10/19 10:39 Dose: 100 mg Hydromorphone HCl (Dilaudid Etl Programmer 15 Mg In Ns 30 Ml) 0 mg IV ASDIRECTED PRN; Protocol PRN Reason: FIRE PATROL PAIN CONTROL Last Admin: 11/06/19 11:43 Dose: 0.2 mg Hydromorphone HCl (Dilaudid) 0.5 mg IVPUSH Q2H PRN PRN Reason: Pain Cefoxitin Sodium 2 gm/ Sodium (Chloride) 50 mls @ 100 mls/hr IV ONETIME ONE Stop: 11/06/19 10:44 Last Admin: 11/06/19 11:12 Dose: 100 mls/hr Dextrose/Lactated Ringer's (Dextrose 5%-Lactated Ringers) 1,000 mls @ 100 mls/ hr IV ASDIRECTED [facility] Last Admin: 11/06/19 10:04 Dose: 100 mls/hr Lactated Ringer's (Ringers, Lactated) Confirm Administered Dose 1,000 mls @ as directed .ROUTE .[facility] ONE Stop: 11/06/19 11:31 Sodium Chloride (Normal Saline) Confirm Administered Dose 500 mls @ as directed .ROUTE .[facility] ONE Stop: 11/06/19 12:48 Dextrose/Lactated Ringer's (Dextrose 5%-Lactated Ringers) 1,000 mls @ 75 mls/ hr IV ASDIRECTED [facility] Stop: 11/07/19 17:59 Last Admin: 11/07/19 10:19 Dose: 75 mls/hr Lactated Ringer's (Ringers, Lactated) 1,000 mls @ 100 mls/hr IV ASDIRECTED [facility] Stop: 11/07/19 17:59 Last Admin: 11/07/19 11:13 Dose: 100 mls/hr Cefoxitin Sodium 2 gm/ Sodium (Chloride) 50 mls @ 100 mls/hr IV Q6H [facility] Stop: 11/07/19 05:29 Last Admin: 11/07/19 04:45 Dose: 100 mls/hr Lactated Ringer's (Ringers, Lactated) 500 mls @ 500 mls/hr IV ONETIME ONE Stop: 11/06/19 22:29 Last Admin: 11/06/19 21:30 Dose: 500 mls/hr Lactated Ringer's (Ringers, Lactated) 500 mls @ 500 mls/hr IV ONETIME ONE Stop: 11/07/19 02:14 Last Admin: 11/07/19 01:15 Dose: 500 mls/hr Dextrose/Lactated Ringer's (Dextrose 5%-Lactated Ringers) 1,000 mls @ 125 mls/ hr IV ASDIRECTED [facility] Last Admin: 11/09/19 06:11 Dose: 125 mls/hr Magnesium Sulfate 2 gm/ Premix 50 mls @ 25 mls/hr IV Q6HR [facility] Stop: 11/10/19 05:59 Last Admin: 11/09/19 03:35 Dose: 25 mls/hr Lactated Ringer's (Ringers, Lactated) 500 mls @ 500 mls/hr IV ASDIRECTED [facility] Lactated Ringer's (Ringers, Lactated) 500 mls @ 500 mls/hr IV ONETIME ONE Stop: 11/08/19 00:36 Last Admin: 11/07/19 23:43 Dose: 500 mls/hr Lactated Ringer's (Ringers, Lactated) 500 mls @ 500 mls/hr IV ONETIME ONE Stop: 11/08/19 03:24 Last Admin: 11/08/19 02:28 Dose: 500 mls/hr Lactated Ringer's (Ringers, Lactated) 500 mls @ 500 mls/hr IV ONETIME ONE Stop: 11/08/19 06:28 Last Admin: 11/08/19 05:29 Dose: 500 mls/hr Lactated Ringer's (Ringers, Lactated) 500 mls @ 250 mls/hr IV ONETIME ONE Stop: 11/08/19 17:47 Last Admin: 11/08/19 15:51 Dose: 250 mls/hr Potassium Chloride 20 meq/Lidocaine HCl 2 ml/ Sodium Chloride 112 mls @ 56 mls/ hr IV Q2H [facility] Stop: 11/09/19 13:59 Last Admin: 11/09/19 12:09 Dose: 56 mls/hr Dextrose/Lactated Ringer's (Dextrose 5%-Lactated Ringers) 1,000 mls @ 25 mls/ hr IV ASDIRECTED [facility] Potassium Chloride 20 meq/Lidocaine HCl 2 ml/ Sodium Chloride 112 mls @ 56 mls/ hr IV Q2H [facility] Stop: 11/10/19 13:59 Last Admin: 11/10/19 13:00 Dose: 56 mls/hr Potassium Chloride/Dextrose/Sod Cl (D5 Ns With 20 Meq Kcl) 1,000 mls @ 60 mls/ hr IV ASDIRECTED [facility] Last Admin: 11/11/19 03:34 Dose: 60 mls/hr Sodium Chloride (Normal Saline) 100 mls @ 3 mls/sec IV ASDIRECTED [facility] Stop: 11/10/19 22:00 Last Admin: 11/10/19 14:44 Dose: 3 mls/sec Potassium Chloride/Dextrose/Sod Cl (D5 Ns With 20 Meq Kcl) 1,000 mls @ 40 mls/ hr IV ASDIRECTED [facility] Stop: 11/11/19 14:15 Insulin Human Lispro (Humalog) 7 unit SUBCUT ONETIME ONE Stop: 11/06/19 14:01 Last Admin: 11/06/19 14:00 Dose: 7 units Iopamidol (Isovue-300 (61%)) 150 ml IV . DIRECTED [facility] Stop: 11/10/19 22:00 Last Admin: 11/10/19 14:44 Dose: 150 ml Ketamine HCl (Ketalar) 27 mg IV ASDIRECTED [facility] Lidocaine (Lta 360 Kit Top Soln) Confirm Administered Dose 4 ml .ROUTE .STK-MED ONE Stop: 11/12/19 09:04 Lidocaine HCl (Xylocaine 2% Viscous) Confirm Administered Dose 15 ml .ROUTE .STK -MED ONE Stop: 11/11/19 09:25 Last Admin: 11/11/19 09:35 Dose: 15 ml Lidocaine HCl (Xylocaine 4% Top Soln) Confirm Administered Dose 50 ml .ROUTE .STK-MED ONE Stop: 11/11/19 09:25 Last Admin: 11/11/19 09:35 Dose: 50 ml Lidocaine HCl (Xylocaine 2% Viscous) Confirm Administered Dose 15 ml .ROUTE .STK -MED ONE Stop: 11/12/19 07:49 Lidocaine HCl (Xylocaine 4% Top Soln) Confirm Administered Dose 50 ml .ROUTE .STK-MED ONE Stop: 11/12/19 07:49 Lidocaine/Epinephrine (Xylocaine 1% With Epinephrine 1:100,000) Confirm Administered Dose 50 ml .ROUTE .STK-MED ONE Stop: 11/06/19 09:56 Meropenem (Merrem) Confirm Administered Dose 500 mg .ROUTE .STK-MED ONE Stop: 11/06/19 09:56 Last Admin: 11/06/19 12:31 Dose: 500 mg Neostigmine Methylsulfate (Neostigmine) Confirm Administered Dose 5 mg .ROUTE .STK-MED ONE Stop: 11/06/19 10:42 Ondansetron HCl (Zofran) Confirm Administered Dose 4 mg .ROUTE .STK-MED ONE Stop: 11/06/19 10:42 Propofol (Diprivan 20 Ml) Confirm Administered Dose 200 mg .ROUTE .STK-MED ONE Stop: 11/06/19 10:42 Propofol (Diprivan 20 Ml) Confirm Administered Dose 200 mg .ROUTE .STK-MED ONE Stop: 11/11/19 08:35 Propofol (Diprivan 20 Ml) Confirm Administered Dose 200 mg .ROUTE .STK-MED ONE Stop: 11/12/19 09:04 Rocuronium Kane (Zemuron) Confirm Administered Dose 50 mg .ROUTE .STK-MED ONE Stop: 11/06/19 10:42 Rocuronium Kane (Zemuron) Confirm Administered Dose 50 mg .ROUTE .STK-MED ONE Stop: 11/06/19 12:29 Sodium Chloride (Saline Flush) 10 ml FLUSH ONETIME ONE Stop: 11/10/19 14:09 Last Admin: 11/10/19 14:44 Dose: 10 ml - Exam Quality Assessment: Supplemental Oxygen General: Alert, Oriented, Cooperative, No Acute Distress Lungs: Normal Respiratory Effort, Decreased Breath Sounds (left side ), Wheezing (mild right upper lung area) Cardiovascular: Regular Rate, Regular Rhythm, Other (triple lumen left upper chest with no erythema ) GI/Abdominal Exam: Soft, No Distention Extremities: No Pedal Edema. No: Increased Warmth Skin: Warm, Dry Psy/Mental Status: Alert, Normal Affect Sepsis Event Note - Focused Exam Vital Signs: Vital Signs Temp Pulse Resp BP Pulse Ox 11/12/19 07:49 36.4 C 71 16 180/85 H 97 11/12/19 06:00 96 18 148/82 H 96 11/12/19 05:00 67 24 H 144/94 H 96 11/12/19 04:10 71 17 151/70 H 98 0216/20 03:59 36.4 C 11/12/19 03:00 75 22 H 155/75 H 98 11/12/19 02:00 75 20 151/74 H 98 11/12/19 01:00 76 17 152/72 H 98 11/12/19 00:00 36.2 C 105 H 22 H 151/85 H 98 11/11/19 23:00 107 H 16 133/78 98 11/11/19 22:00 108 H 19 127/80 98 Date Exam was Performed: 11/12/19 Time Exam was Performed: 12:38 Consult PN Assessment/Plan POD#: 6 Procedures: Procedures ASSAY OF MAGNESIUM (10/12/14) ASSAY OF TROPONIN QUANT (10/12/14) CHEST X-RAY 2VW FRONTAL&LATL (01/30/14) COMPLETE CBC AUTOMATED (01/30/14) COMPLETE CBC W/AUTO DIFF WBC (10/12/14) COMPREHEN METABOLIC PANEL (10/12/14) CT ABD & PELV W/CONTRAST (10/23/19) CT HEAD/BRAIN W/O DYE (10/12/14) ECG MONIT/REPRT UP TO 48 HRS (10/17/14) ECG MONIT/REPRT UP TO 48 HRS (10/17/14) ELECTROCARDIOGRAM TRACING (10/12/14) EMERGENCY DEPT VISIT (10/12/14) EXC F/E/E/N/L MAL+MRG 0.6-1 (07/22/15) EXC TR-EXT B9+JOHN PAUL 3.1-4 CM (07/22/15) EXC TR-EXT MAL+JOHN PAUL 1.1-2 CM (06/09/18) EXC TR-EXT MAL+JOHN PAUL 2.1-3 CM (06/09/18) HYDRATION IV INFUSION INIT (10/12/14) INTMD RPR FACE/MM 2.5 CM/< (07/22/15) INTMD RPR S/A/T/EXT 12.6-20 (06/09/18) INTMD RPR S/A/T/EXT 2.5 CM/< (07/22/15) MEASURE BLOOD OXYGEN LEVEL (01/30/14) METABOLIC PANEL TOTAL CA (01/30/14) PATH CONSULT INTRAOP 1 BLOC (07/22/15) PATH CONSULT INTRAOP ADDL (07/22/15) PROTHROMBIN TIME (10/12/14) REAGENT STRIP/BLOOD GLUCOSE (01/30/14) ROUTINE VENIPUNCTURE (10/12/14) THROMBOPLASTIN TIME PARTIAL (10/12/14) TISSUE EXAM BY PATHOLOGIST (06/09/18) Problem List Initiated/Reviewed/Updated: Yes My Orders Last 24 Hours: My Active Orders 11/11/19 11:04 HYDROmorphone [Dilaudid] 0.5 mg IVPUSH Q4H PRN 11/11/19 16:00 Nystatin [Mycostatin] 5 ml PO QID 11/12/19 16:00 Hydrocortisone [Cortef] 10 mg PO ASDIRECTED Plan: ASSESSMENT AND RECOMMENDATIONS- Left lung pneumonia-complicated by hypoxic respiratory failure as well as tenacious secretions with left lower lung mucous plugging. She has had 2 bronchoscopies. Respiratory cultures are growing a gram-positive cocci but identification is still pending. Still on a fair amount of oxygen. She is on triple antibiotic therapy. -Antibiotic coverage with levofloxacin, meropenem and linezolid -Chest x-ray in the morning -Scheduled and as needed nebulizers -Mucomyst nebulizers -Supplement oxygen as needed -Continue current medical management Bilateral pleural effusions, left greater than right-improved after thoracentesis. Volume status appears appropriate today. -Follow-up chest x-ray in the morning -Follow-up culture from thoracentesis which is negative so far Adrenal mass-status post surgical resection and pathology is pending. Clinical picture does not quite fit with adrenal insufficiency but she does appear a little better today after IV steroids over the past 48 hours. -Hydrocortisone 50 mg every 6 hours this morning, transition to oral medications this afternoon and wean as able -Postoperative care as per surgical team Type 2 diabetes mellitus-TPN initiated yesterday. She normally just takes oral medications and metformin will be restarted now that she is able to take oral medications. -Restart metformin -Sliding scale insulin through the day -Consider addition of long-acting insulin once insulin needs are determined Wade Boyce M.D.
[2019-11-12] MEDS ORDERED: Potassium Phosphates 25 MMOLE in Sodium Chloride 0.9% 100 ML IV ONE (13:00)
[2019-11-12] MEDS ORDERED: Bumetanide 1 MG/4 ML MDV IV ONE (13:30)
--- NOTE | 2019-11-12 14:00 | PN ---
DATE OF SERVICE: 11/09/2019 The patient has been quite a bit more sleepy and continues to have high white count. We will consult Dr. Lauren regarding these issues. There is some possibility that we might be dealing with some adrenal insufficiency, we will have him address that issue. Otherwise, labs show marginally low potassium and we will give her some potassium chloride today. BNP is up somewhat and we will give her some scheduled Lasix at 8 a.m. and 8 p.m. Otherwise, continue more or less n.p.o. until the GI function returns. Sandeep Martinez MD /[id number]
--- NOTE | 2019-11-12 14:09 | PN ---
DATE OF SERVICE: 11/07/2019 The patient has been afebrile with stable vital signs. Urine output is little bit marginal and did require some bolusing overnight, but they are generally running around 30 to 35 mL an hour. Creatinine is stable at 0.8. Otherwise, respiratory status appeared to be fairly good and pain control is satisfactory as well. The plan today will be to back down the IV rate later in the day somewhat. Magnesium is low at 1.3, that will be supplemented. Otherwise, maximize activity with pulmonary toilet. We will not advance her diet until we begin seeing in the way of bowel activities. Sandeep Maritnez MD /[id number]
[2019-11-12] MEDS: Pantoprazole 40 MG Vial IVPUSH SCH (16:13)
[2019-11-12] MEDS: STERILE IV SCH (16:15)
[2019-11-12] MEDS: MEROPENEM IV SCH (16:15)
[2019-11-12] MEDS: WATER FOR INJECTION IV SCH (16:15)
[2019-11-12] MEDS: Levofloxacin/Dextrose 5%-Water 750 MG in Premix Bag 1 BAG IV SCH (17:09)
[2019-11-12] MEDS ORDERED: Potassium Phosphates 20 MMOLE in Sodium Chloride 0.9% 100 ML IV ONE (18:00)
[2019-11-12] MEDS: Dextrose 5%-0.9% NaCl with KCl 1,000 ML IV SCH (20:37)
[2019-11-13] MEDS: STERILE IV SCH ×3 (00:29→16:29)
[2019-11-13] MEDS: MEROPENEM IV SCH ×3 (00:29→16:29)
[2019-11-13] MEDS: WATER FOR INJECTION IV SCH ×3 (00:29→16:29)
[2019-11-13] MEDS: Insulin Lispro 100 Unit/ML 3 ML KwikPen SUBCUT PRN ×5 (00:34→23:26)
[2019-11-13] MEDS: Albuterol/Ipratropium 3.0-0.5 MG/3 ML Neb Soln NEB PRN (01:15)
[2019-11-13] MEDS: Magnesium Sulfate/Water 2 GM in Premix Bag 1 BAG IV SCH (04:03)
[2019-11-13] MEDS: Acetaminophen 325 MG Tab PO SCH ×4 (04:52→23:21)
[2019-11-13] MEDS: HYDROmorphone 0.5 MG/0.5 ML Syringe IVPUSH PRN ×4 (04:56→21:36)
[2019-11-13] MEDS: Nystatin Susp 100,000 Unit/ML 5 ML UD Cup PO SCH ×4 (05:00→21:39)
[2019-11-13] MEDS: Acetylcysteine 20% 200 MG/ML 4 ML Nebulizer Soln SDV INH SCH ×2 (07:16→18:47)
[2019-11-13] MEDS: Albuterol/Ipratropium 3.0-0.5 MG/3 ML Neb Soln INH SCH ×2 (07:16→18:47)
[2019-11-13] MEDS: Albuterol 0.083% 2.5 MG/3 ML Neb Soln NEB SCH ×4 (07:17→22:31)
--- NOTE | 2019-11-13 08:31 | PN ---
DATE OF SERVICE: 11/10/2019 The patient has been afebrile. The heart rate has come down somewhat and her white count has come down to 18,000 from 28,000 yesterday. She had a thoracentesis yesterday which had some thin fluid coming out, it was slightly fonseca in color. Gram stain was negative for any bacteria that was notable as of yet. The chest x-ray additionally, even though we got out as much fluid as possible, continued to show quite a bit in the way of fluid on the left side. We will repeat a chest x-ray tomorrow. We may need to repeat the thoracentesis at that point. Otherwise, she still is quite somnolent and will ask Dr. Boyce to address that. One concern would be some undiagnosed renal insufficiency. Otherwise will follow that. General flatus with no bowel movement as of yet and will continue more or less n.p.o. Potassium is somewhat low, that will be supplemented today as well, and will augment diuresis with some additional Lasix. Sandeep Martinez MD /[id number]
[2019-11-13] MEDS: Docusate Sodium 100 MG Cap PO SCH ×2 (08:54→20:28)
[2019-11-13] MEDS: Bisacodyl 5 MG Tab PO SCH ×2 (08:54→20:29)
[2019-11-13] MEDS: metFORMIN 500 MG Tab PO SCH ×2 (08:54→16:28)
[2019-11-13] MEDS: Carvedilol 25 MG Tab PO SCH ×2 (08:55→20:29)
--- NOTE | 2019-11-13 08:59 | PCM.CONSN ---
- General Info Date of Service: 11/13/19 Subjective Update: There were no acute events overnight. She does continue to require fairly large quantities of supplemental oxygen and is on about 6 L at this time. She has not had any fevers. She feels better today and feels a little less short of breath. She is much more alert and interactive. Abdominal pain is described as mild to maybe moderate at this point. Kidney function has been stable. Tolerated blood transfusion yesterday. Respiratory culture did grow out staph aureus which was sensitive to essentially all the antibiotics tested. Tolerating TPN. Functional Status: Reports: Pain Controlled, Tolerating Diet - Review of Systems General: Reports: Weakness Pulmonary: Reports: Shortness of Breath - Patient Data Vitals - Most Recent: Last Vital Signs Temp 35.7 C L 11/13/19 08:00 Pulse 112 H 11/13/19 08:55 Resp 16 11/13/19 08:00 BP 133/76 11/13/19 08:55 Pulse Ox 93 L 11/13/19 08:00 Weight - Most Recent: 96.162 kg I&O - Last 24 Hours: Intake & Output 11/12/19 11/13/19 11/13/19 22:59 06:59 14:59 Intake Total 240 1731 Output Total 1708 542 80 Balance -1468 1189 -80 Lab Results Last 24 Hours: Laboratory Results - last 24 hr 11/11/19 11/13/19 11/13/19 Range/Units 12:25 04:10 04:10 WBC 18.0 H (4.5-11.0) K/uL RBC 3.92 (3.30-5.50) M/uL Hgb 10.1 L (12.0-15.0) g/dL Hct 34.0 L (36.0-48.0) % MCV 87 (80-98) fL MCH 26 L (27-31) pg MCHC 30 L (32-36) % Plt Count 589 H (150-400) K/uL Sodium 138 L (140-148) mmol/L Potassium 3.6 (3.6-5.2) mmol/L Chloride 99 L (100-108) mmol/L Carbon Dioxide 37 H (21-32) mmol/L Anion Gap 5.6 (5.0-14.0) mmol/L BUN 15 (7-18) mg/dL Creatinine 0.6 (0.6-1.0) mg/dL Est Cr Clr Drug Dosing 61.58 mL/min Estimated GFR (MDRD) > 60 (>60) Glucose 164 H (74-106) mg/dL Calcium 8.3 L (8.5-10.1) mg/dL Phosphorus 2.8 (2.5-4.9) mg/dL Total Bilirubin 0.1 L (0.2-1.0) mg/dL AST 10 L (15-37) U/L ALT 15 (12-78) U/L Alkaline Phosphatase 70 (46-116) U/L NT-Pro-B Natriuret Pep 1016 H (5-450) pg/mL Total Protein 5.1 L (6.4-8.2) g/dL Albumin 2.4 L (3.4-5.0) g/dL Globulin 2.7 (2.3-3.5) g/dL Albumin/Globulin Ratio 0.9 L (1.2-2.2) Blood Type O NEGATIVE Gel Antibody Screen Negative Crossmatch See Detail Jose Results Last 24 Hours: Microbiology 11/12/19 09:45 Gram Stain - Final Bronchial Washings - Lung, Unspecified Respiratory Culture - Preliminary 11/11/19 09:39 Gram Stain - Final Bronchial Washings - Lung, Unspecified Respiratory Culture - Final Staphylococcus Aureus 11/09/19 15:41 Gram Stain - Final Thoracentesis Fluid Body Fluid Culture - Final NO GROWTH AFTER 3 DAYS Med Orders - Current: Current Medications Acetaminophen (Tylenol) 650 mg PO Q6H [facility] Last Admin: 11/13/19 04:52 Dose: 650 mg Acetylcysteine (Mucomyst 20%) 200 mg INH BID@0700,1900 [facility] Albuterol (Proventil Neb Soln) 2.5 mg NEB 0300,1100,1500,2300 [facility] Albuterol/Ipratropium (Duoneb 3.0-0.5 Mg/3 Ml) 3 ml NEB Q4H PRN PRN Reason: dyspnea and wheezing Last Admin: 11/13/19 01:15 Dose: 3 ml Albuterol/Ipratropium (Duoneb 3.0-0.5 Mg/3 Ml) 3 ml INH BID@0700,1900 [facility] Benzocaine/Menthol (Cepacol Sore Throat) 1 lozenge MUCMEM 6XDAY PRN PRN Reason: Sore Throat Last Admin: 11/07/19 08:47 Dose: 1 lon Bisacodyl (Dulcolax) 10 mg PO BID [facility] Last Admin: 11/12/19 21:02 Dose: 10 mg Bumetanide (Bumex) 2 mg IVPUSH ONETIME ONE Stop: 11/13/19 10:01 Carvedilol (Coreg) 25 mg PO BID [facility] Last Admin: 11/12/19 21:02 Dose: 25 mg Dextrose (Glutose 15) 15 gm PO ASDIRECTED PRN PRN Reason: HYPOGLYCEMIA Dextrose/Water (Dextrose 50% In Water) 50 ml IVPUSH ASDIRECTED PRN PRN Reason: HYPOGLYCEMIA Docusate Sodium (Colace) 100 mg PO BID [facility] Last Admin: 11/12/19 21:02 Dose: 100 mg Glucagon (Glucagen) 1 mg IM ASDIRECTED PRN PRN Reason: HYPOGLYCEMIA Hydrocortisone (Cortef) 10 mg PO BID@0800,1600 [facility] Last Admin: 11/13/19 08:13 Dose: 10 mg Hydromorphone HCl (Dilaudid) 0.5 mg IVPUSH Q4H PRN PRN Reason: Pain Last Admin: 11/13/19 04:56 Dose: 0.5 mg Hydroxyzine HCl (Vistaril) 75 mg IM Q4H PRN PRN Reason: pain Last Admin: 11/08/19 23:19 Dose: 75 mg Levofloxacin/Dextrose 750 mg/ (Premix) 150 mls @ 100 mls/hr IV Q24H [facility] Last Admin: 11/12/19 17:09 Dose: 100 mls/hr Heparin Sodium (Porcine) 5,000 (units/ Sodium Chloride) 501 mls @ 5 mls/hr IV ASDIRECTED [facility] Last Admin: 11/11/19 10:43 Dose: 5 mls/hr Linezolid 600 mg/ Premix 300 mls @ 300 mls/hr IV Q12H [facility] Last Admin: 11/12/19 23:26 Dose: 300 mls/hr Potassium Chloride/Dextrose/Sod Cl (D5 Ns With 20 Meq Kcl) 1,000 mls @ 25 mls/ hr IV ASDIRECTED [facility] Last Admin: 11/12/19 20:37 Dose: 25 mls/hr Meropenem 1 gm/ Sterile Water 20 mls @ 120 mls/hr IV Q8H [facility] Last Admin: 11/13/19 00:29 Dose: 120 mls/hr Multivitamins/Minerals 10 ml/Chromium/Copper/Manganese/Seleni/Zn 1 ml/ Amino Ac/ Electrol/Dextrose/Calcium 1,011 mls @ 82 mls/hr IV .BY DURATION [facility] Last Admin: 11/12/19 21:41 Dose: 82 mls/hr Amino Ac/Electrol/Dextrose/Calcium (Clinimix E 15) 1,000 mls @ 82 mls/hr IV .BY DURATION [facility] Insulin Human Lispro (Humalog) 0 unit SUBCUT ASDIRECTED PRN; Protocol PRN Reason: MEDIUM CORRECTIONAL DOSING Last Admin: 11/13/19 06:10 Dose: 2 units Levothyroxine Sodium 100 mcg/ (Levothyroxine Sodium 50 mcg) 150 mcg PO DAILY@ 0730 [facility] Last Admin: 11/13/19 08:12 Dose: 150 mcg Metformin HCl (Glucophage) 1,000 mg PO BIDMEALS [facility] Last Admin: 11/12/19 16:08 Dose: 1,000 mg Naloxone HCl (Narcan) 0.1 mg IV ASDIRECTED PRN PRN Reason: decreased respiratory rate Nystatin (Mycostatin) 5 ml PO QID [facility] Last Admin: 11/13/19 05:00 Dose: 5 ml Ondansetron HCl (Zofran) 4 mg IVPUSH Q4H PRN PRN Reason: Nausea/Vomiting Pantoprazole Sodium (Protonix Iv) 40 mg IVPUSH Q24H [facility] Last Admin: 11/12/19 16:13 Dose: 40 mg Discontinued Medications Acetaminophen (Tylenol Extra Strength) 1,000 mg PO ONETIME ONE Stop: 11/06/19 09:01 Last Admin: 11/06/19 09:00 Dose: 1,000 mg Acetylcysteine (Mucomyst 20%) 200 mg INH BIDRT [facility] Last Admin: 11/13/19 07:16 Dose: 200 mg Albuterol (Proventil Neb Soln) 2.5 mg NEB QIDRT [facility] Last Admin: 11/13/19 07:17 Dose: Not Given Albuterol/Ipratropium (Duoneb 3.0-0.5 Mg/3 Ml) 3 ml NEB ONETIME ONE Stop: 11/08/19 20:26 Last Admin: 11/08/19 20:38 Dose: 3 ml Albuterol/Ipratropium (Duoneb 3.0-0.5 Mg/3 Ml) 3 ml INH BIDRT [facility] Last Admin: 11/13/19 07:16 Dose: 3 ml Bumetanide (Bumex) 2 mg IV Q8H [facility] Stop: 11/11/19 16:31 Last Admin: 11/11/19 17:38 Dose: Not Given Bumetanide (Bumex) 2 mg IV ONETIME ONE Stop: 11/12/19 13:31 Last Admin: 11/12/19 12:57 Dose: 2 mg Bupivacaine HCl (Marcaine 0.5%) Confirm Administered Dose 50 ml .ROUTE .STK-MED ONE Stop: 11/06/19 09:56 Ropivacaine 48 ml/Dexamethasone 8 mg/Epinephrine HCl 0.4 mg/ Sodium Chloride 29.6 ml 0 ml NERVRT ASDIRECTED [facility] Last Admin: 11/06/19 12:40 Dose: 80 syringe Cyclobenzaprine HCl (Flexeril) 10 mg PO Q6H PRN PRN Reason: Muscle Spasm Dexamethasone (Dexamethasone) Confirm Administered Dose 4 mg .ROUTE .STK-MED ONE Stop: 11/06/19 10:42 Fentanyl (Sublimaze) Confirm Administered Dose 250 mcg .ROUTE .STK-MED ONE Stop: 11/06/19 10:42 Furosemide (Lasix) 10 mg IVPUSH ONETIME ONE Stop: 11/07/19 15:21 Last Admin: 11/07/19 15:42 Dose: 10 mg Furosemide (Lasix) 10 mg IVPUSH ONETIME ONE Stop: 11/08/19 17:16 Last Admin: 11/08/19 17:20 Dose: 10 mg Furosemide (Lasix) 20 mg IVPUSH ONETIME ONE Stop: 11/08/19 20:24 Last Admin: 11/08/19 20:37 Dose: 20 mg Furosemide (Lasix) 10 mg IVPUSH ONETIME ONE Stop: 11/09/19 03:44 Last Admin: 11/09/19 03:59 Dose: 10 mg Furosemide (Lasix) 10 mg IVPUSH Q12H [facility] Stop: 11/09/19 20:01 Last Admin: 11/09/19 08:23 Dose: 10 mg Furosemide (Lasix) 40 mg IVPUSH ONETIME ONE Stop: 11/09/19 14:19 Last Admin: 11/09/19 14:29 Dose: 40 mg Furosemide (Lasix) 20 mg IVPUSH Q12H [facility] Stop: 11/10/19 20:01 Last Admin: 11/10/19 20:28 Dose: 20 mg Glycopyrrolate (Robinul) Confirm Administered Dose 1 mg .ROUTE .STK-MED ONE Stop: 11/06/19 10:42 Heparin Sodium (Porcine) (Heparin Lock Flush 100 Units/Ml) Confirm Administered Dose 500 units .ROUTE .STK-MED ONE Stop: 11/11/19 09:25 Last Admin: 11/11/19 09:45 Dose: 500 units Hydrocortisone Sodium Succinate (Solu-Cortef) 100 mg IVPUSH ONETIME ONE Stop: 11/10/19 10:01 Last Admin: 11/10/19 10:39 Dose: 100 mg Hydrocortisone Sodium Succinate (Solu-Cortef) 50 mg IVPUSH Q6H [facility] Stop: 11/12/19 12:00 Last Admin: 11/12/19 10:26 Dose: 50 mg Hydromorphone HCl (Dilaudid Kinesiotherapist 15 Mg In Ns 30 Ml) 0 mg IV ASDIRECTED PRN; Protocol PRN Reason: PHYSICIAN GYNECOLOGIST PAIN CONTROL Last Admin: 11/06/19 11:43 Dose: 0.2 mg Hydromorphone HCl (Dilaudid) 0.5 mg IVPUSH Q2H PRN PRN Reason: Pain Cefoxitin Sodium 2 gm/ Sodium (Chloride) 50 mls @ 100 mls/hr IV ONETIME ONE Stop: 11/06/19 10:44 Last Admin: 11/06/19 11:12 Dose: 100 mls/hr Dextrose/Lactated Ringer's (Dextrose 5%-Lactated Ringers) 1,000 mls @ 100 mls/ hr IV ASDIRECTED [facility] Last Admin: 11/06/19 10:04 Dose: 100 mls/hr Lactated Ringer's (Ringers, Lactated) Confirm Administered Dose 1,000 mls @ as directed .ROUTE .STK-MED ONE Stop: 11/06/19 11:31 Sodium Chloride (Normal Saline) Confirm Administered Dose 500 mls @ as directed .ROUTE .STK-MED ONE Stop: 11/06/19 12:48 Dextrose/Lactated Ringer's (Dextrose 5%-Lactated Ringers) 1,000 mls @ 75 mls/ hr IV ASDIRECTED [facility] Stop: 11/07/19 17:59 Last Admin: 11/07/19 10:19 Dose: 75 mls/hr Lactated Ringer's (Ringers, Lactated) 1,000 mls @ 100 mls/hr IV ASDIRECTED [facility] Stop: 11/07/19 17:59 Last Admin: 11/07/19 11:13 Dose: 100 mls/hr Cefoxitin Sodium 2 gm/ Sodium (Chloride) 50 mls @ 100 mls/hr IV Q6H [facility] Stop: 11/07/19 05:29 Last Admin: 11/07/19 04:45 Dose: 100 mls/hr Lactated Ringer's (Ringers, Lactated) 500 mls @ 500 mls/hr IV ONETIME ONE Stop: 11/06/19 22:29 Last Admin: 11/06/19 21:30 Dose: 500 mls/hr Lactated Ringer's (Ringers, Lactated) 500 mls @ 500 mls/hr IV ONETIME ONE Stop: 11/07/19 02:14 Last Admin: 11/07/19 01:15 Dose: 500 mls/hr Dextrose/Lactated Ringer's (Dextrose 5%-Lactated Ringers) 1,000 mls @ 125 mls/ hr IV ASDIRECTED [facility] Last Admin: 11/09/19 06:11 Dose: 125 mls/hr Magnesium Sulfate 2 gm/ Premix 50 mls @ 25 mls/hr IV Q6HR [facility] Stop: 11/10/19 05:59 Last Admin: 11/09/19 03:35 Dose: 25 mls/hr Lactated Ringer's (Ringers, Lactated) 500 mls @ 500 mls/hr IV ASDIRECTED [facility] Lactated Ringer's (Ringers, Lactated) 500 mls @ 500 mls/hr IV ONETIME ONE Stop: 11/08/19 00:36 Last Admin: 11/07/19 23:43 Dose: 500 mls/hr Lactated Ringer's (Ringers, Lactated) 500 mls @ 500 mls/hr IV ONETIME ONE Stop: 11/08/19 03:24 Last Admin: 11/08/19 02:28 Dose: 500 mls/hr Lactated Ringer's (Ringers, Lactated) 500 mls @ 500 mls/hr IV ONETIME ONE Stop: 11/08/19 06:28 Last Admin: 11/08/19 05:29 Dose: 500 mls/hr Lactated Ringer's (Ringers, Lactated) 500 mls @ 250 mls/hr IV ONETIME ONE Stop: 11/08/19 17:47 Last Admin: 11/08/19 15:51 Dose: 250 mls/hr Potassium Chloride 20 meq/Lidocaine HCl 2 ml/ Sodium Chloride 112 mls @ 56 mls/ hr IV Q2H [facility] Stop: 11/09/19 13:59 Last Admin: 11/09/19 12:09 Dose: 56 mls/hr Dextrose/Lactated Ringer's (Dextrose 5%-Lactated Ringers) 1,000 mls @ 25 mls/ hr IV ASDIRECTED [facility] Potassium Chloride 20 meq/Lidocaine HCl 2 ml/ Sodium Chloride 112 mls @ 56 mls/ hr IV Q2H [facility] Stop: 11/10/19 13:59 Last Admin: 11/10/19 13:00 Dose: 56 mls/hr Albumin Human (Albumin 25%) 25 gm in 100 mls @ 25 mls/hr IV Q24H [facility] Stop: 11/12/19 12:59 Last Admin: 11/12/19 08:42 Dose: 25 mls/hr Potassium Chloride/Dextrose/Sod Cl (D5 Ns With 20 Meq Kcl) 1,000 mls @ 60 mls/ hr IV ASDIRECTED [facility] Last Admin: 11/11/19 03:34 Dose: 60 mls/hr Sodium Chloride (Normal Saline) 100 mls @ 3 mls/sec IV ASDIRECTED [facility] Stop: 11/10/19 22:00 Last Admin: 11/10/19 14:44 Dose: 3 mls/sec Meropenem 1 gm/ Sodium (Chloride) 50 mls @ 100 mls/hr IV Q8H [facility] Last Admin: 11/12/19 08:40 Dose: 100 mls/hr Potassium Chloride/Dextrose/Sod Cl (D5 Ns With 20 Meq Kcl) 1,000 mls @ 40 mls/ hr IV ASDIRECTED [facility] Stop: 11/11/19 14:15 Magnesium Sulfate 2 gm/ Premix 50 mls @ 25 mls/hr IV Q6H [facility] Stop: 11/13/19 05:59 Last Admin: 11/13/19 04:03 Dose: 25 mls/hr Multivitamins/Minerals 10 ml/Chromium/Copper/Manganese/Seleni/Zn 1 ml/ Amino Ac/ Electrol/Dextrose/Calcium 1,011 mls @ 60 mls/hr IV .BY DURATION [facility] Stop: 11/12/19 20:00 Last Admin: 11/11/19 15:55 Dose: 60 mls/hr Amino Ac/Electrol/Dextrose/Calcium (Clinimix E 02/08) 1,000 mls @ 60 mls/hr IV .BY DURATION [facility] Stop: 11/12/19 20:00 Last Admin: 11/12/19 08:39 Dose: 60 mls/hr Potassium Phosphate 25 mmole/ (Sodium Chloride) 108.3333 mls @ 27 mls/hr IV ONETIME ONE Stop: 11/12/19 17:00 Last Admin: 11/12/19 12:24 Dose: 27 mls/hr Potassium Phosphate 20 mmole/ (Sodium Chloride) 106.6667 mls @ 35 mls/hr IV ONETIME ONE Stop: 11/12/19 21:02 Last Admin: 11/12/19 17:10 Dose: 35 mls/hr Insulin Human Lispro (Humalog) 7 unit SUBCUT ONETIME ONE Stop: 11/06/19 14:01 Last Admin: 11/06/19 14:00 Dose: 7 units Iopamidol (Isovue-300 (61%)) 150 ml IV . DIRECTED [facility] Stop: 11/10/19 22:00 Last Admin: 11/10/19 14:44 Dose: 150 ml Ketamine HCl (Ketalar) 27 mg IV ASDIRECTED [facility] Lidocaine (Lta 360 Kit Top Soln) Confirm Administered Dose 4 ml .ROUTE .STK-MED ONE Stop: 11/12/19 09:04 Lidocaine HCl (Xylocaine 2% Viscous) Confirm Administered Dose 15 ml .ROUTE .STK -MED ONE Stop: 11/11/19 09:25 Last Admin: 11/11/19 09:35 Dose: 15 ml Lidocaine HCl (Xylocaine 4% Top Soln) Confirm Administered Dose 50 ml .ROUTE .STK-MED ONE Stop: 11/11/19 09:25 Last Admin: 11/11/19 09:35 Dose: 50 ml Lidocaine HCl (Xylocaine 2% Viscous) Confirm Administered Dose 15 ml .ROUTE .STK -MED ONE Stop: 11/12/19 07:49 Last Admin: 11/12/19 09:17 Dose: 15 ml Lidocaine HCl (Xylocaine 4% Top Soln) Confirm Administered Dose 50 ml .ROUTE .STK-MED ONE Stop: 11/12/19 07:49 Last Admin: 11/12/19 10:01 Dose: 50 ml Lidocaine/Epinephrine (Xylocaine 1% With Epinephrine 1:100,000) Confirm Administered Dose 50 ml .ROUTE .STK-MED ONE Stop: 11/06/19 09:56 Meropenem (Merrem) Confirm Administered Dose 500 mg .ROUTE .STK-MED ONE Stop: 11/06/19 09:56 Last Admin: 11/06/19 12:31 Dose: 500 mg Neostigmine Methylsulfate (Neostigmine) Confirm Administered Dose 5 mg .ROUTE .STK-MED ONE Stop: 11/06/19 10:42 Ondansetron HCl (Zofran) Confirm Administered Dose 4 mg .ROUTE .STK-MED ONE Stop: 11/06/19 10:42 Propofol (Diprivan 20 Ml) Confirm Administered Dose 200 mg .ROUTE .STK-MED ONE Stop: 11/06/19 10:42 Propofol (Diprivan 20 Ml) Confirm Administered Dose 200 mg .ROUTE .STK-MED ONE Stop: 11/11/19 08:35 Propofol (Diprivan 20 Ml) Confirm Administered Dose 200 mg .ROUTE .STK-MED ONE Stop: 11/12/19 09:04 Rocuronium Cowden (Zemuron) Confirm Administered Dose 50 mg .ROUTE .STK-MED ONE Stop: 11/06/19 10:42 Rocuronium Cowden (Zemuron) Confirm Administered Dose 50 mg .ROUTE .STK-MED ONE Stop: 11/06/19 12:29 Sodium Chloride (Saline Flush) 10 ml FLUSH ONETIME ONE Stop: 11/10/19 14:09 Last Admin: 11/10/19 14:44 Dose: 10 ml - Exam Quality Assessment: Supplemental Oxygen General: Alert, Oriented, Cooperative, No Acute Distress Lungs: Normal Respiratory Effort, Decreased Breath Sounds (Left lower half), Crackles (Rare left lower lung) Cardiovascular: Regular Rate, Regular Rhythm GI/Abdominal Exam: Soft, No Distention, Abnormal Bowel Sounds (Hypoactive) Extremities: No Pedal Edema. No: Increased Warmth Skin: Warm, Dry Psy/Mental Status: Alert, Normal Affect Sepsis Event Note - Evaluation Sepsis Screening Result: Sepsis Risk - Focused Exam Vital Signs: Vital Signs Temp Pulse Pulse Resp BP BP Pulse Ox 11/13/19 08:55 112 H 133/76 11/13/19 08:00 35.7 C L 81 16 133/76 93 L 11/13/19 07:18 65 11/13/19 07:00 35.6 C L 67 24 H 158/76 H 93 L 11/13/19 06:00 65 20 160/85 H 95 11/13/19 05:00 101 H 18 166/85 H 92 L 11/13/19 04:00 36.3 C 68 19 164/89 H 95 11/13/19 03:00 98 21 H 155/65 H 94 L 11/13/19 02:00 102 H 25 H 163/90 H 93 L 11/13/19 01:00 36.4 C 98 18 159/85 H 94 L 11/13/19 00:00 108 H 23 H 160/76 H 92 L 11/12/19 23:00 108 H 20 147/75 H 92 L 11/12/19 22:00 69 22 H 160/76 H 96 11/12/19 21:02 70 138/61 11/12/19 21:00 36.8 C 116 H 16 138/61 97 Pulse Ox 11/13/19 08:55 11/13/19 08:00 11/13/19 07:18 93 L 11/13/19 07:00 11/13/19 06:00 11/13/19 05:00 11/13/19 04:00 11/13/19 03:00 11/13/19 02:00 11/13/19 01:00 11/13/19 00:00 11/12/19 23:00 11/12/19 22:00 11/12/19 21:02 11/12/19 21:00 Date Exam was Performed: 11/13/19 Time Exam was Performed: 08:55 Consult PN Assessment/Plan POD#: 7 Procedures: Procedures ASSAY OF MAGNESIUM (10/12/14) ASSAY OF TROPONIN QUANT (10/12/14) CHEST X-RAY 2VW FRONTAL&LATL (01/30/14) COMPLETE CBC AUTOMATED (01/30/14) COMPLETE CBC W/AUTO DIFF WBC (10/12/14) COMPREHEN METABOLIC PANEL (10/12/14) CT ABD & PELV W/CONTRAST (10/23/19) CT HEAD/BRAIN W/O DYE (10/12/14) ECG MONIT/REPRT UP TO 48 HRS (10/17/14) ECG MONIT/REPRT UP TO 48 HRS (10/17/14) ELECTROCARDIOGRAM TRACING (10/12/14) EMERGENCY DEPT VISIT (10/12/14) EXC F/E/E/N/L MAL+MRG 0.6-1 (07/22/15) EXC TR-EXT B9+JOHN PAUL 3.1-4 CM (07/22/15) EXC TR-EXT MAL+JOHN PAUL 1.1-2 CM (06/09/18) EXC TR-EXT MAL+JOHN PAUL 2.1-3 CM (06/09/18) HYDRATION IV INFUSION INIT (10/12/14) INTMD RPR FACE/MM 2.5 CM/< (07/22/15) INTMD RPR S/A/T/EXT 12.6-20 (06/09/18) INTMD RPR S/A/T/EXT 2.5 CM/< (07/22/15) MEASURE BLOOD OXYGEN LEVEL (01/30/14) METABOLIC PANEL TOTAL CA (01/30/14) PATH CONSULT INTRAOP 1 BLOC (07/22/15) PATH CONSULT INTRAOP ADDL (07/22/15) PROTHROMBIN TIME (10/12/14) REAGENT STRIP/BLOOD GLUCOSE (01/30/14) ROUTINE VENIPUNCTURE (10/12/14) THROMBOPLASTIN TIME PARTIAL (10/12/14) TISSUE EXAM BY PATHOLOGIST (06/09/18) Problem List Initiated/Reviewed/Updated: Yes My Orders Last 24 Hours: My Active Orders 11/12/19 16:00 Hydrocortisone [Cortef] 10 mg PO BID@0800,1600 11/13/19 11:00 Albuterol [Proventil Neb Soln] 2.5 mg NEB 0300,1100,1500,2300 Plan: ASSESSMENT AND RECOMMENDATIONS- Left lung pneumonia-complicated by hypoxic respiratory failure as well as tenacious secretions with left lower lung mucous plugging. She has had 2 bronchoscopies. Respiratory culture grew out MSSA. Still on a fair amount of oxygen but seems to be slowly improving. She is on triple antibiotic therapy. -Antibiotic coverage with levofloxacin, meropenem and linezolid - -Scheduled and as needed nebulizers -Mucomyst nebulizers -Chest physiotherapy Daily chest x-rays -Supplement oxygen as needed -Continue current medical management Bilateral pleural effusions, left greater than right-mostly resolved after thoracentesis and diuresis. Volume status appears appropriate today. 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 Clinical picture does not quite fit with adrenal insufficiency but she does appear a little better today after steroids. -Hydrocortisone has been transitioned to oral and I would expect we can wean this medication down over the next several days -Postoperative care as per surgical team Type 2 diabetes mellitus-TPN initiated. Blood sugars fairly well controlled so far. -Continue metformin -Sliding scale insulin through the day -Consider addition of long-acting insulin once insulin needs are determined Wade Boyce M.D.
--- NOTE | 2019-11-13 09:12 | CR ---
CHEST: Portable 11/11/2019 at 06 38 CLINICAL HISTORY:Postop COMPARISON:11/10/2019 FINDINGS: There is complete opacification of the left hemithorax.. Patient previously had left a pleural effusion and lower lobe airspace disease. There appears to be a shift of the mediastinum to the left but, the patient is rotated. There appears to be left mainstem bronchial cut off sign near the keagan There are some mild patchy density in the right lung base. The patient has had recent left upper quadrant surgery area IMPRESSION: Interval complete opacification of the left hemithorax. This may represent a combination of pleural effusion and atelectasis as well as consolidation. Mucous plugging of the left mainstem bronchus would be most likely. Database Management System Specialist patchy right lower lobe airspace disease
--- NOTE | 2019-11-13 09:19 | PN ---
DATE OF SERVICE: 11/11/2019 Overnight, the patient became less well oxygenated, requiring 10 L of re-breather to keep oxygen saturation in the 90s. Heart rate has increased to 110 to 120 range. Chest x-ray shows what appeared to be a left lung atelectasis. The patient underwent subsequent bronchoscopy and interstitial re-aeration of the left lung. No significant pleural effusion was noted. The secretion was quite thick. Otherwise, workup yesterday showed a normal CT scan of the head, and CT scan of the abdomen showed no acute processes. The patient's level of alertness was quite a bit better this morning. Her abdominal incision looks clean, and CHRISTOS drains were also serous. The laboratories show a white count of 17,300, down a little bit from yesterday, which is probably more of an improvement based on the starting of the hydrocortisone. Hemoglobin 9.4. Arterial blood gases prior to the bronchoscopy showed pH of 7.39, pCO2 of 51.9, pO2 of 113, and O2 saturation of 98% at that point. Chemistry showed significant bump up in the BNP, and we already had given her 1 dose of Bumex. We will give another one later today. Magnesium was somewhat low at 1.6. The patient is developing a little bit of contraction alkalosis pattern as expected. Central line was also inserted to facilitate TPN and ongoing management. The plan at this point will be to discontinue the NG tube that had been placed prior to the bronchoscopy, as that had a negligible output. We will await the sputum Gram stain and C and S. We will probably start her on some antibiotics. To help clear the secretions, we will add some DuoNebs and Mucomyst q.12 hours, as secretions are quite thickened. As discussed with the patient's , we may need to do bronchoscopies daily for some period of time to maintain pulmonary toilet. Otherwise, TPN will be started today. She did not use much in the way of pain medicine. We will get rid of the [employer] and offer some Dilaudid p.r.n. at quite low dose. With hemoglobin of 9.4, we will type and cross 2 units of packed RBCs in the morning to see where we are at with regard to that value. Recheck some laboratories in the morning, and the TPN will be started today. We will continue the hydrocortisone for possible element of adrenal insufficiency per Dr. oByce. Sandeep Martinez MD /[id number]
--- NOTE | 2019-11-13 09:20 | CR ---
CHEST: Portable 11/11/2019 at 9:45 AM CLINICAL HISTORY:Post bronchoscopy COMPARISON:Earlier same day FINDINGS: There has been an increase in aeration of the left lung status post bronchoscopy. There is still some persistent left bronchial cut off and some volume loss. An NG tube is been placed. The tip is in the fundus of the stomach. There is some persistent right lower lobe airspace disease as described Impression: There is some improvement in aeration the left lung following bronchoscopy. There is still some atelectasis. There is still of acute cutoff sign distal to the prior exam Nasogastric intubation
--- NOTE | 2019-11-13 09:23 | CR ---
CHEST: Portable 11/11/2019 at the 10:00 AM CLINICAL HISTORY:Triple lumen placement COMPARISON:Earlier same day FINDINGS: There is been some further improvement in upper lobe aeration compared to earlier study. There has been interval placement of a left subclavian catheter. The tip is in the right atrium. NG tube is in the stomach IMPRESSION: Interval placement of a left subclavian catheter NG tube is in the stomach Though there is some improvement in left upper lobe aeration there is persistent ,moderate atelectasis of the left lung.
--- NOTE | 2019-11-13 09:30 | CR ---
CHEST: Portable 11/12/2019 at 5:19 AM CLINICAL HISTORY:Pleural effusion COMPARISON:11/11/2019 FINDINGS: There is complete opacification of the left hemithorax again. There is some new vascular congestion in the right lung which may be secondary to hemodynamic shift because of the left lung atelectasis. Congestive failure is not excluded. The left subclavian catheter remains in place. NG tube has been removed. There are left upper quadrant drains in place. Impression: Re-opacification of the left hemithorax since the 11/11/2019 study, again likely related to bronchial mucous plugging. New right lung vascular congestion may be due to hemodynamic shift or congestive failure.
--- NOTE | 2019-11-13 09:31 | PN ---
DATE OF SERVICE: 11/08/2019 The patient has been afebrile with stable vital signs and alert. She is still requiring IV fluid therapy. Her BNP is quite low. Given this, we will continue the backup rate of 125 with some boluses needed for urine output. Labs show a continued fairly high white count of 23,000, hemoglobin is 10.5, down somewhat from yesterday, likely related to some fluid shifting. Chemistries were unremarkable. Creatinine was stable at 0.9. The plan will be to maximize her activity, work with pulmonary toilet, and otherwise await GI tract function to return, monitor urine output, and keep her in ICU one more day. Sandeep Martinez MD /[id number]
[2019-11-13] MEDS: 1: AA 5%/Calcium/D15W/Lytes 1,000 ML with MVI, Adult with Vitamin K 10 ML, Chromium/Copp IV SCH ×6 (09:58→22:13)
[2019-11-13] MEDS ORDERED: Bumetanide 1 MG/4 ML MDV IVPUSH ONE (10:00)
--- NOTE | 2019-11-13 10:55 | PN ---
DATE OF SERVICE: 11/12/2019 The patient is much more alert today and essentially has a normal mental status. Vital signs have otherwise been stable, and she has been afebrile. Her oxygenation is also quite improved. Despite this, her chest x-ray this morning showed once again complete atelectasis of the lung and bronchoscopy confirmed the occlusion of the left mainstem bronchus by secretions. These secretions were cleared at the time of bronchoscopy, which the patient tolerated well. Will initiate percussion with postural drainage, aiming at the left lung with the right side down. We will have RT instruct the nurses, and this should probably be done every 4 hours so that we can try to avoid this recurring problem with left lung atelectasis. Otherwise, her hemoglobin is somewhat low at 8.6, and we will give her 1 unit of packed RBCs today, followed by 2 mg of Bumex. We will move the TPN up to 82 mL an hour. Blood sugar control is up a little higher than optimal, and we will increase the regular insulin in the TPN from 10 to 18 units/L. Phosphate is somewhat low and will be supplemented with potassium phosphate today. Will ask Pharmacy to try to minimize the volume of IV fluids, as these are at this point being given via central line. Gram stain on the sputum yesterday showed gram-positive cocci, so the Zyvox was added to the antibiotic mix. If we are not growing any gram-negatives out of the sputum obtained yesterday by tomorrow, we will begin going down the antibiotic selection the patient presently is on, which is at this point very broad spectrum with Levaquin to meropenem and Zyvox. Otherwise, no flatus or bowel movement as of yet. We will initiate some ongoing bowel stimulation and have PT begin seeing the patient tomorrow for postoperative rehab. Sandeep Martinez MD /[id number]
--- NOTE | 2019-11-13 11:22 | OR ---
DATE OF PROCEDURE: 11/06/2019 SURGEON: Sandeep Martinez MD PREOPERATIVE DIAGNOSES: 1. Large adrenal mass. 2. Probable exophytic mass, right-sided uterus. POSTOPERATIVE DIAGNOSES: 1. 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 2. Right-sided uterine exophytic mass adherent to right adnexa. OPERATIVE PROCEDURE: Exploratory laparotomy with: 1. 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 2. Excision of exophytic uterine mass en bloc with right adnexa (41743, 70769). ANESTHESIA: General. ASSISTANTS: 1. Sharita Hackett PA-C. 2. LOY El2. INDICATION FOR PROCEDURE: This is an 84-year-old female presenting with increasing pain in the left flank and left upper abdomen. CT scan was obtained, which showed a large adrenal mass, which appeared to be nonfunctioning clinically. One additional finding was that of what appeared to be an exophytic mass on the right side of the uterus, most likely a pedunculated fibroid. The plan is to proceed with exploratory laparotomy with a left adrenalectomy. We also intend to proceed with excision of the exophytic mass in the uterus. The potential risks of the procedure including infection, injury to underlying viscera, as well as the possibility of cardiopulmonary, septic, or hemorrhagic complications leading to were discussed, and the patient wishes to proceed. DETAILS OF PROCEDURE: The patient was taken to the operating room, and after general endotracheal anesthesia was induced, a Glover catheter was inserted and the abdomen prepped and draped. An upper midline incision was made and carried down through the skin and subcutaneous tissue and extended slightly below the umbilicus. Initially, a general exploration was undertaken. The mass along the right side of the uterus was easily identifiable, and this was then brought up toward the incision and the mass then excised using a FREDY stapler away from the right side of the uterus, the mass involving the right tube and ovary as well, as far as being adherent to those structures, and these structures were then excised with the use of FREDY deb as well, and the specimen consisting of the uterine mass and the adnexa was delivered from the field. The mass had multiple nodules within it, but overall was suggestive of a uterine fibroid-type lesion grossly. At this point, attention was taken to the adrenal mass. Initially, the lateral peritoneal reflection of the splenic flexure and ascending colon was divided as were the lateral and superior attachments to the spleen. The spleen and distal pancreas were then mobilized medially. It became evident that the tail of the pancreas and splenic artery were quite adherent to the now easily palpable large adrenal mass, and it became evident, because of the attachments to the splenic artery, a splenectomy would need to be required to facilitate exposure, at least a splenectomy along with excision of a small amount of distal pancreas was accomplished with a series of FREDY deb, and those specimens were delivered from the field. This then allowed easy mobilization of the adrenal mass. A plane of fat beginning around Gerota fascia at the superior aspect of the left kidney was established, and that fat around the adrenal gland was then mobilized medially along with the adrenal mass itself, and the vascular attachments of the adrenal gland were then sequentially divided with FREDY deb and the large mass delivered from the field. Frozen section showed an adrenal mass with what appeared to be adequate margins of background. Frozen section diagnosis was deferred at this time. Of note, there were areas of focal necrosis within the adrenal mass. As per the CT scan, this measured at least cm in maximal dimension, probably somewhat larger than that. The area around the adrenal mass was inspected. No lymphadenopathy was identified, and a general exploration of the abdomen otherwise was unremarkable. At this point, fibrin sealant was placed over the vascular division sites of the splenectomy, pancreatectomy, and adrenal mass. The abdomen was irrigated with antibiotic- containing saline solution. Two Marciano-Branham drains were then placed through the left subcostal area and positioned in the area of the splenic fossa. The midline fascia was then approximated with #2 Vicryl stitch and the skin with deb. Drains were fixed with some 4- 0 Vicryl stitch. The patient was taken to the recovery room in satisfactory condition. Physician plant attendant or assistant operator, Sharita Hackett PA-C, played an essential role in assisting in this case, helping to position the patient, retracting structures as indicated, as well as suturing and cutting sutures and stapling as indicated. Her presence improved patient safety and decreased operative time. Sandeep Martinez MD /[id number]
--- NOTE | 2019-11-13 12:07 | CR ---
CHEST: Portable 11/13/2019 at 04 43 CLINICAL HISTORY:Pleural effusion, atelectasis COMPARISON:11/12/2019 FINDINGS: There is improved aeration again in the left upper lobe. There is persistent density in the left lower hemithorax due to pleural effusion and some atelectasis. There is infiltrate in the right lower lobe. Right pulmonary vascular congestion has diminished since prior study. Left subclavian catheter remains in place Impression: Improved aeration left upper lung field Persistent left effusion and left lower lobe airspace disease Right basilar airspace disease persists
[2019-11-13] MEDS: Linezolid 600 MG in Premix Bag 1 BAG IV SCH ×2 (12:24→23:21)
--- NOTE | 2019-11-13 14:46 | PN ---
DATE OF SERVICE: 11/13/2019 The patient has been afebrile with stable vital signs. Oxygenation was quite a bit better and the tachycardia largely abated. Her level of alertness likewise remains quite good at this point. Chest x-ray still shows some atelectasis in the left lower lobe. This has improved from yesterday. Interestingly, the postural drainage and percussion, and from the overall standpoint looks so much better, actually the white count being little bit higher at 18,000, hemoglobin is 10.0. Chemistries are unremarkable. BNP is down somewhat from 1364 yesterday to 1016 today. The cultures on the sputum are still at this point pending. Plan will be to continue with present antibiotics, pending C and S results. The patient was switched over to oral hydrocortisone per Dr. Boyce, and we will continue that. Otherwise, we will continue with aggressive pulmonary toilet, continue the present TPN, and hold her n.p.o., other than ice chips and sips of water. We will give some bowel stimulation today as well. If the left lower lobe is not opening up by tomorrow, we will probably need to repeat a bronchoscopy at that point as well. Sandeep Martinez MD /[id number]
[2019-11-13] MEDS: Pantoprazole 40 MG Vial IVPUSH SCH (16:29)
[2019-11-13] MEDS: Levofloxacin/Dextrose 5%-Water 750 MG in Premix Bag 1 BAG IV SCH (18:00)
[2019-11-14] MEDS: STERILE IV SCH (01:21)
[2019-11-14] MEDS: WATER FOR INJECTION IV SCH (01:21)
[2019-11-14] MEDS: MEROPENEM IV SCH (01:21)
[2019-11-14] MEDS: Albuterol 0.083% 2.5 MG/3 ML Neb Soln NEB SCH ×4 (03:06→22:54)
[2019-11-14] MEDS: Acetaminophen 325 MG Tab PO SCH ×4 (05:03→22:54)
[2019-11-14] MEDS: Nystatin Susp 100,000 Unit/ML 5 ML UD Cup PO SCH ×4 (05:25→22:03)
[2019-11-14] MEDS: Insulin Lispro 100 Unit/ML 3 ML KwikPen SUBCUT PRN ×3 (05:25→17:32)
[2019-11-14] MEDS: Albuterol/Ipratropium 3.0-0.5 MG/3 ML Neb Soln INH SCH ×2 (07:12→18:25)
[2019-11-14] MEDS: Acetylcysteine 20% 200 MG/ML 4 ML Nebulizer Soln SDV INH SCH ×2 (07:12→18:26)
[2019-11-14] MEDS ORDERED: Lidocaine 2% Viscous Solution 15 ML Cup ONE (07:32)
[2019-11-14] MEDS ORDERED: Lidocaine 4% Top Soln 50 ML Bottle ONE (07:32)
[2019-11-14] MEDS ORDERED: diphenhydrAMINE 25 MG Cap PO PRN (07:38)
[2019-11-14] MEDS ORDERED: Propofol 200 MG/20 ML SDV ONE (08:39)
--- NOTE | 2019-11-14 09:23 | CR ---
CHEST: Portable 11/14/2019 at 03 46 CLINICAL HISTORY:Atelectasis COMPARISON:Prior day FINDINGS: There is persistent left lower lobe density due to effusion and infiltrate. There is patchy density in the right lower lobe which is increased slightly since prior study. There may also be a small right effusion. Left subclavian catheter remains in place Impression: No recurrence of atelectasis on the left but there are patchy bilateral lower lobe infiltrates which appears greater on the right than on prior studies. There also appears to be a small right effusion
--- NOTE | 2019-11-14 09:27 | CR ---
CHEST: Portable 11/14/19 at 08 51 CLINICAL HISTORY:Cough COMPARISON:Earlier same day FINDINGS: There is less than optimal inspiration exaggerating the lung markings. Patient has bilateral lower lobe infiltrates and effusions. This is similar to the earlier study. Impression: Limited study due to less than optimal inspiration. This exaggerates lung markings. Bibasal infiltrates Bilateral pleural effusions
[2019-11-14] MEDS: metFORMIN 500 MG Tab PO SCH ×2 (09:41→16:15)
[2019-11-14] MEDS: Docusate Sodium 100 MG Cap PO SCH ×2 (09:42→20:07)
[2019-11-14] MEDS: Carvedilol 25 MG Tab PO SCH ×2 (09:42→20:22)
[2019-11-14] MEDS: Bisacodyl 5 MG Tab PO SCH ×2 (09:44→20:07)
[2019-11-14] MEDS: Furosemide 20 MG/2 ML VIAL IV SCH (09:44)
[2019-11-14] MEDS: Doxycycline 100 MG in Sodium Chloride 0.9% 100 ML IV SCH ×2 (09:45→20:57)
[2019-11-14] MEDS: 1: AA 5%/Calcium/D15W/Lytes 1,000 ML with MVI, Adult with Vitamin K 10 ML, Chromium/Copp IV SCH ×6 (10:03→22:09)
[2019-11-14] MEDS: Potassium Phosphates 15 MMOLE in Sodium Chloride 0.9% 100 ML IV SCH ×2 (10:05→12:39)
--- NOTE | 2019-11-14 10:28 | PCM.CONSN ---
- General Info Date of Service: 11/14/19 Subjective Update: Ms. Lundy slowly regaining strength with less shortness of breath. Continues to require relatively high level of supplemental oxygen to maintain adequate oxygenation. Chest x-ray appears to be modestly improved and she was to the OR this morning for repeat bronchoscopy. - Review of Systems General: Reports: Weakness. Denies: Fever, Chills Pulmonary: Reports: Shortness of Breath, Cough, Sputum, Wheezing. Denies: Pleuritic Chest Pain, Hemoptysis Cardiovascular: Reports: Dyspnea on Exertion, Edema. Denies: Chest Pain, Palpitations, Orthopnea, PND, Lightheadedness Gastrointestinal: Reports: Abdominal Pain. Denies: Difficulty Swallowing, Hematochezia, Melena, Nausea, Vomiting - Patient Data Vitals - Most Recent: Last Vital Signs Temp 97.3 F 11/14/19 09:00 Pulse 86 11/14/19 09:42 Resp 20 11/14/19 09:00 BP 176/86 H 11/14/19 09:42 Pulse Ox 95 11/14/19 09:00 Weight - Most Recent: 221 lb I&O - Last 24 Hours: Intake & Output 11/13/19 11/14/19 11/14/19 22:59 06:59 14:59 Intake Total 1672 1549 Output Total 617 590 290 Balance 1055 959 -290 Lab Results Last 24 Hours: Laboratory Results - last 24 hr 11/14/19 11/14/19 Range/Units 04:28 04:28 WBC 20.6 H (4.5-11.0) K/uL RBC 4.07 (3.30-5.50) M/uL Hgb 10.5 L (12.0-15.0) g/dL Hct 35.8 L (36.0-48.0) % MCV 88 (80-98) fL MCH 26 L (27-31) pg MCHC 29 L (32-36) % Plt Count 659 H (150-400) K/uL Sodium 137 L (140-148) mmol/L Potassium 3.7 (3.6-5.2) mmol/L Chloride 96 L (100-108) mmol/L Carbon Dioxide 38 H (21-32) mmol/L Anion Gap 6.7 (5.0-14.0) mmol/L BUN 18 (7-18) mg/dL Creatinine 0.5 L (0.6-1.0) mg/dL Est Cr Clr Drug Dosing 73.90 mL/min Estimated GFR (MDRD) > 60 (>60) Glucose 152 H (74-106) mg/dL Calcium 8.5 (8.5-10.1) mg/dL Phosphorus 2.4 L (2.5-4.9) mg/dL Total Bilirubin 0.2 D (0.2-1.0) mg/dL AST 11 L (15-37) U/L ALT 15 (12-78) U/L Alkaline Phosphatase 72 (46-116) U/L NT-Pro-B Natriuret Pep 692 H (5-450) pg/mL Total Protein 5.0 L (6.4-8.2) g/dL Albumin 2.2 L (3.4-5.0) g/dL Globulin 2.8 (2.3-3.5) g/dL Albumin/Globulin Ratio 0.8 L (1.2-2.2) Jose Results Last 24 Hours: Microbiology 11/14/19 09:01 AWAIS Preparation - Final Other - Bronch Wash 11/14/19 09:01 Gram Stain - Final Bronchial Washings - Mixed 11/12/19 09:45 Gram Stain - Final Bronchial Washings - Lung, Unspecified Respiratory Culture - Final Staphylococcus Aureus 11/11/19 09:39 Gram Stain - Final Bronchial Washings - Lung, Unspecified Respiratory Culture - Final Staphylococcus Aureus 11/09/19 15:41 Gram Stain - Final Thoracentesis Fluid Body Fluid Culture - Final NO GROWTH AFTER 3 DAYS Med Orders - Current: Current Medications Acetaminophen (Tylenol) 650 mg PO Q6H [facility] Last Admin: 11/14/19 05:03 Dose: Not Given Acetylcysteine (Mucomyst 20%) 200 mg INH BID@0700,1900 [facility] Last Admin: 11/14/19 07:12 Dose: 200 mg Albuterol (Proventil Neb Soln) 2.5 mg NEB 0300,1100,1500,2300 [facility] Last Admin: 11/14/19 03:06 Dose: 2.5 mg Albuterol/Ipratropium (Duoneb 3.0-0.5 Mg/3 Ml) 3 ml NEB Q4H PRN PRN Reason: dyspnea and wheezing Last Admin: 11/13/19 01:15 Dose: 3 ml Albuterol/Ipratropium (Duoneb 3.0-0.5 Mg/3 Ml) 3 ml INH BID@0700,1900 [facility] Last Admin: 11/14/19 07:12 Dose: 3 ml Benzocaine/Menthol (Cepacol Sore Throat) 1 lozenge MUCMEM 6XDAY PRN PRN Reason: Sore Throat Last Admin: 11/07/19 08:47 Dose: 1 lon Bisacodyl (Dulcolax) 10 mg PO BID [facility] Last Admin: 11/14/19 09:44 Dose: 10 mg Budesonide (Pulmicort) 0.5 mg NEB BIDRT [facility] Carvedilol (Coreg) 25 mg PO BID [facility] Last Admin: 11/14/19 09:42 Dose: 25 mg Dextrose (Glutose 15) 15 gm PO ASDIRECTED PRN PRN Reason: HYPOGLYCEMIA Dextrose/Water (Dextrose 50% In Water) 50 ml IVPUSH ASDIRECTED PRN PRN Reason: HYPOGLYCEMIA Diphenhydramine HCl (Benadryl) 25 mg PO BEDTIME PRN PRN Reason: SLEEP Docusate Sodium (Colace) 100 mg PO BID [facility] Last Admin: 11/14/19 09:42 Dose: 100 mg Furosemide (Lasix) 20 mg IV DAILY [facility] Last Admin: 11/14/19 09:44 Dose: 20 mg Glucagon (Glucagen) 1 mg IM ASDIRECTED PRN PRN Reason: HYPOGLYCEMIA Hydromorphone HCl (Dilaudid) 0.5 mg IVPUSH Q4H PRN PRN Reason: Pain Last Admin: 11/13/19 21:36 Dose: 0.5 mg Hydroxyzine HCl (Vistaril) 75 mg IM Q4H PRN PRN Reason: pain Last Admin: 11/08/19 23:19 Dose: 75 mg Levofloxacin/Dextrose 750 mg/ (Premix) 150 mls @ 100 mls/hr IV Q24H [facility] Last Admin: 11/13/19 18:00 Dose: 100 mls/hr Heparin Sodium (Porcine) 5,000 (units/ Sodium Chloride) 501 mls @ 5 mls/hr IV ASDIRECTED [facility] Last Admin: 11/11/19 10:43 Dose: 5 mls/hr Potassium Chloride/Dextrose/Sod Cl (D5 Ns With 20 Meq Kcl) 1,000 mls @ 25 mls/ hr IV ASDIRECTED [facility] Last Admin: 11/12/19 20:37 Dose: 25 mls/hr Multivitamins/Minerals 10 ml/Chromium/Copper/Manganese/Seleni/Zn 1 ml/ Amino Ac/ Electrol/Dextrose/Calcium 1,011 mls @ 82 mls/hr IV .BY DURATION [facility] Last Admin: 11/13/19 22:13 Dose: 82 mls/hr Amino Ac/Electrol/Dextrose/Calcium (Clinimix E 5/15) 1,000 mls @ 82 mls/hr IV .BY DURATION [facility] Last Admin: 11/14/19 10:03 Dose: 82 mls/hr Doxycycline Hyclate 100 mg/ (Sodium Chloride) 100 mls @ 100 mls/hr IV Q12H [facility] Last Admin: 11/14/19 09:45 Dose: 100 mls/hr Potassium Phosphate 15 mmole/ (Sodium Chloride) 105 mls @ 34.454 mls/hr IV Q3H [facility] Stop: 11/14/19 15:59 Last Admin: 11/14/19 10:05 Dose: 34.454 mls/hr Insulin Human Lispro (Humalog) 0 unit SUBCUT ASDIRECTED PRN; Protocol PRN Reason: MEDIUM CORRECTIONAL DOSING Last Admin: 11/14/19 05:25 Dose: 2 units Lactobacillus Rhamnosus (Culturelle) 1 cap PO BID [facility] Levothyroxine Sodium 100 mcg/ (Levothyroxine Sodium 50 mcg) 150 mcg PO DAILY@ 0730 [facility] Last Admin: 11/14/19 09:40 Dose: 150 mcg Metformin HCl (Glucophage) 1,000 mg PO BIDMEALS [facility] Last Admin: 11/14/19 09:41 Dose: 1,000 mg Naloxone HCl (Narcan) 0.1 mg IV ASDIRECTED PRN PRN Reason: decreased respiratory rate Nystatin (Mycostatin) 5 ml PO QID [facility] Last Admin: 11/14/19 09:47 Dose: 5 ml Ondansetron HCl (Zofran) 4 mg IVPUSH Q4H PRN PRN Reason: Nausea/Vomiting Pantoprazole Sodium (Protonix Iv) 40 mg IVPUSH Q24H [facility] Last Admin: 11/13/19 16:29 Dose: 40 mg Discontinued Medications Acetaminophen (Tylenol Extra Strength) 1,000 mg PO ONETIME ONE Stop: 11/06/19 09:01 Last Admin: 11/06/19 09:00 Dose: 1,000 mg Acetylcysteine (Mucomyst 20%) 200 mg INH BIDRT [facility] Last Admin: 11/13/19 07:16 Dose: 200 mg Albuterol (Proventil Neb Soln) 2.5 mg NEB QIDRT [facility] Last Admin: 11/13/19 07:17 Dose: Not Given Albuterol/Ipratropium (Duoneb 3.0-0.5 Mg/3 Ml) 3 ml NEB ONETIME ONE Stop: 11/08/19 20:26 Last Admin: 11/08/19 20:38 Dose: 3 ml Albuterol/Ipratropium (Duoneb 3.0-0.5 Mg/3 Ml) 3 ml INH BIDRT [facility] Last Admin: 11/13/19 07:16 Dose: 3 ml Bumetanide (Bumex) 2 mg IV Q8H [facility] Stop: 11/11/19 16:31 Last Admin: 11/11/19 17:38 Dose: Not Given Bumetanide (Bumex) 2 mg IV ONETIME ONE Stop: 11/12/19 13:31 Last Admin: 11/12/19 12:57 Dose: 2 mg Bumetanide (Bumex) 2 mg IVPUSH ONETIME ONE Stop: 11/13/19 10:01 Last Admin: 11/13/19 09:59 Dose: 2 mg Bupivacaine HCl (Marcaine 0.5%) Confirm Administered Dose 50 ml .ROUTE .STK-MED ONE Stop: 11/06/19 09:56 Ropivacaine 48 ml/Dexamethasone 8 mg/Epinephrine HCl 0.4 mg/ Sodium Chloride 29.6 ml 0 ml NERVRT ASDIRECTED [facility] Last Admin: 11/06/19 12:40 Dose: 80 syringe Cyclobenzaprine HCl (Flexeril) 10 mg PO Q6H PRN PRN Reason: Muscle Spasm Dexamethasone (Dexamethasone) Confirm Administered Dose 4 mg .ROUTE .STK-MED ONE Stop: 11/06/19 10:42 Fentanyl (Sublimaze) Confirm Administered Dose 250 mcg .ROUTE .STK-MED ONE Stop: 11/06/19 10:42 Furosemide (Lasix) 10 mg IVPUSH ONETIME ONE Stop: 11/07/19 15:21 Last Admin: 11/07/19 15:42 Dose: 10 mg Furosemide (Lasix) 10 mg IVPUSH ONETIME ONE Stop: 11/08/19 17:16 Last Admin: 11/08/19 17:20 Dose: 10 mg Furosemide (Lasix) 20 mg IVPUSH ONETIME ONE Stop: 11/08/19 20:24 Last Admin: 11/08/19 20:37 Dose: 20 mg Furosemide (Lasix) 10 mg IVPUSH ONETIME ONE Stop: 11/09/19 03:44 Last Admin: 11/09/19 03:59 Dose: 10 mg Furosemide (Lasix) 10 mg IVPUSH Q12H [facility] Stop: 11/09/19 20:01 Last Admin: 11/09/19 08:23 Dose: 10 mg Furosemide (Lasix) 40 mg IVPUSH ONETIME ONE Stop: 11/09/19 14:19 Last Admin: 11/09/19 14:29 Dose: 40 mg Furosemide (Lasix) 20 mg IVPUSH Q12H [facility] Stop: 11/10/19 20:01 Last Admin: 11/10/19 20:28 Dose: 20 mg Glycopyrrolate (Robinul) Confirm Administered Dose 1 mg .ROUTE .STK-MED ONE Stop: 11/06/19 10:42 Heparin Sodium (Porcine) (Heparin Lock Flush 100 Units/Ml) Confirm Administered Dose 500 units .ROUTE .STK-MED ONE Stop: 11/11/19 09:25 Last Admin: 11/11/19 09:45 Dose: 500 units Hydrocortisone (Cortef) 10 mg PO BID@0800,1600 [facility] Last Admin: 11/14/19 09:41 Dose: 10 mg Hydrocortisone Sodium Succinate (Solu-Cortef) 100 mg IVPUSH ONETIME ONE Stop: 11/10/19 10:01 Last Admin: 11/10/19 10:39 Dose: 100 mg Hydrocortisone Sodium Succinate (Solu-Cortef) 50 mg IVPUSH Q6H [facility] Stop: 11/12/19 12:00 Last Admin: 11/12/19 10:26 Dose: 50 mg Hydromorphone HCl (Dilaudid Surveillance Technician 15 Mg In Ns 30 Ml) 0 mg IV ASDIRECTED PRN; Protocol PRN Reason: DENTAL ASSISTANT PAIN CONTROL Last Admin: 11/06/19 11:43 Dose: 0.2 mg Hydromorphone HCl (Dilaudid) 0.5 mg IVPUSH Q2H PRN PRN Reason: Pain Cefoxitin Sodium 2 gm/ Sodium (Chloride) 50 mls @ 100 mls/hr IV ONETIME ONE Stop: 11/06/19 10:44 Last Admin: 11/06/19 11:12 Dose: 100 mls/hr Dextrose/Lactated Ringer's (Dextrose 5%-Lactated Ringers) 1,000 mls @ 100 mls/ hr IV ASDIRECTED [facility] Last Admin: 11/06/19 10:04 Dose: 100 mls/hr Lactated Ringer's (Ringers, Lactated) Confirm Administered Dose 1,000 mls @ as directed .ROUTE .[facility] ONE Stop: 11/06/19 11:31 Sodium Chloride (Normal Saline) Confirm Administered Dose 500 mls @ as directed .ROUTE .[facility] ONE Stop: 11/06/19 12:48 Dextrose/Lactated Ringer's (Dextrose 5%-Lactated Ringers) 1,000 mls @ 75 mls/ hr IV ASDIRECTED [facility] Stop: 11/07/19 17:59 Last Admin: 11/07/19 10:19 Dose: 75 mls/hr Lactated Ringer's (Ringers, Lactated) 1,000 mls @ 100 mls/hr IV ASDIRECTED [facility] Stop: 11/07/19 17:59 Last Admin: 11/07/19 11:13 Dose: 100 mls/hr Cefoxitin Sodium 2 gm/ Sodium (Chloride) 50 mls @ 100 mls/hr IV Q6H [facility] Stop: 11/07/19 05:29 Last Admin: 11/07/19 04:45 Dose: 100 mls/hr Lactated Ringer's (Ringers, Lactated) 500 mls @ 500 mls/hr IV ONETIME ONE Stop: 11/06/19 22:29 Last Admin: 11/06/19 21:30 Dose: 500 mls/hr Lactated Ringer's (Ringers, Lactated) 500 mls @ 500 mls/hr IV ONETIME ONE Stop: 11/07/19 02:14 Last Admin: 11/07/19 01:15 Dose: 500 mls/hr Dextrose/Lactated Ringer's (Dextrose 5%-Lactated Ringers) 1,000 mls @ 125 mls/ hr IV ASDIRECTED [facility] Last Admin: 11/09/19 06:11 Dose: 125 mls/hr Magnesium Sulfate 2 gm/ Premix 50 mls @ 25 mls/hr IV Q6HR [facility] Stop: 11/10/19 05:59 Last Admin: 11/09/19 03:35 Dose: 25 mls/hr Lactated Ringer's (Ringers, Lactated) 500 mls @ 500 mls/hr IV ASDIRECTED [facility] Lactated Ringer's (Ringers, Lactated) 500 mls @ 500 mls/hr IV ONETIME ONE Stop: 11/08/19 00:36 Last Admin: 11/07/19 23:43 Dose: 500 mls/hr Lactated Ringer's (Ringers, Lactated) 500 mls @ 500 mls/hr IV ONETIME ONE Stop: 11/08/19 03:24 Last Admin: 11/08/19 02:28 Dose: 500 mls/hr Lactated Ringer's (Ringers, Lactated) 500 mls @ 500 mls/hr IV ONETIME ONE Stop: 11/08/19 06:28 Last Admin: 11/08/19 05:29 Dose: 500 mls/hr Lactated Ringer's (Ringers, Lactated) 500 mls @ 250 mls/hr IV ONETIME ONE Stop: 11/08/19 17:47 Last Admin: 11/08/19 15:51 Dose: 250 mls/hr Potassium Chloride 20 meq/Lidocaine HCl 2 ml/ Sodium Chloride 112 mls @ 56 mls/ hr IV Q2H [facility] Stop: 11/09/19 13:59 Last Admin: 11/09/19 12:09 Dose: 56 mls/hr Dextrose/Lactated Ringer's (Dextrose 5%-Lactated Ringers) 1,000 mls @ 25 mls/ hr IV ASDIRECTED [facility] Potassium Chloride 20 meq/Lidocaine HCl 2 ml/ Sodium Chloride 112 mls @ 56 mls/ hr IV Q2H [facility] Stop: 11/10/19 13:59 Last Admin: 11/10/19 13:00 Dose: 56 mls/hr Albumin Human (Albumin 25%) 25 gm in 100 mls @ 25 mls/hr IV Q24H [facility] Stop: 11/12/19 12:59 Last Admin: 11/12/19 08:42 Dose: 25 mls/hr Potassium Chloride/Dextrose/Sod Cl (D5 Ns With 20 Meq Kcl) 1,000 mls @ 60 mls/ hr IV ASDIRECTED [facility] Last Admin: 11/11/19 03:34 Dose: 60 mls/hr Sodium Chloride (Normal Saline) 100 mls @ 3 mls/sec IV ASDIRECTED [facility] Stop: 11/10/19 22:00 Last Admin: 11/10/19 14:44 Dose: 3 mls/sec Meropenem 1 gm/ Sodium (Chloride) 50 mls @ 100 mls/hr IV Q8H [facility] Last Admin: 11/12/19 08:40 Dose: 100 mls/hr Potassium Chloride/Dextrose/Sod Cl (D5 Ns With 20 Meq Kcl) 1,000 mls @ 40 mls/ hr IV ASDIRECTED [facility] Stop: 11/11/19 14:15 Magnesium Sulfate 2 gm/ Premix 50 mls @ 25 mls/hr IV Q6H [facility] Stop: 11/13/19 05:59 Last Admin: 11/13/19 04:03 Dose: 25 mls/hr Linezolid 600 mg/ Premix 300 mls @ 300 mls/hr IV Q12H [facility] Last Admin: 11/13/19 23:21 Dose: 300 mls/hr Multivitamins/Minerals 10 ml/Chromium/Copper/Manganese/Seleni/Zn 1 ml/ Amino Ac/ Electrol/Dextrose/Calcium 1,011 mls @ 60 mls/hr IV .BY DURATION [facility] Stop: 11/12/19 20:00 Last Admin: 11/11/19 15:55 Dose: 60 mls/hr Amino Ac/Electrol/Dextrose/Calcium (Clinimix E 02/08) 1,000 mls @ 60 mls/hr IV .BY DURATION [facility] Stop: 11/12/19 20:00 Last Admin: 11/12/19 08:39 Dose: 60 mls/hr Potassium Phosphate 25 mmole/ (Sodium Chloride) 108.3333 mls @ 27 mls/hr IV ONETIME ONE Stop: 11/12/19 17:00 Last Admin: 11/12/19 12:24 Dose: 27 mls/hr Potassium Phosphate 20 mmole/ (Sodium Chloride) 106.6667 mls @ 35 mls/hr IV ONETIME ONE Stop: 11/12/19 21:02 Last Admin: 11/12/19 17:10 Dose: 35 mls/hr Meropenem 1 gm/ Sterile Water 20 mls @ 120 mls/hr IV Q8H [facility] Last Admin: 11/14/19 01:21 Dose: 120 mls/hr Insulin Human Lispro (Humalog) 7 unit SUBCUT ONETIME ONE Stop: 11/06/19 14:01 Last Admin: 11/06/19 14:00 Dose: 7 units Iopamidol (Isovue-300 (61%)) 150 ml IV . DIRECTED [facility] Stop: 11/10/19 22:00 Last Admin: 11/10/19 14:44 Dose: 150 ml Ketamine HCl (Ketalar) 27 mg IV ASDIRECTED [facility] Lidocaine (Lta 360 Kit Top Soln) Confirm Administered Dose 4 ml .ROUTE .STK-MED ONE Stop: 11/12/19 09:04 Lidocaine HCl (Xylocaine 2% Viscous) Confirm Administered Dose 15 ml .ROUTE .STK -MED ONE Stop: 11/11/19 09:25 Last Admin: 11/11/19 09:35 Dose: 15 ml Lidocaine HCl (Xylocaine 4% Top Soln) Confirm Administered Dose 50 ml .ROUTE .STK-MED ONE Stop: 11/11/19 09:25 Last Admin: 11/11/19 09:35 Dose: 50 ml Lidocaine HCl (Xylocaine 2% Viscous) Confirm Administered Dose 15 ml .ROUTE .STK -MED ONE Stop: 11/12/19 07:49 Last Admin: 11/12/19 09:17 Dose: 15 ml Lidocaine HCl (Xylocaine 4% Top Soln) Confirm Administered Dose 50 ml .ROUTE .STK-MED ONE Stop: 11/12/19 07:49 Last Admin: 11/12/19 10:01 Dose: 50 ml Lidocaine HCl (Xylocaine 2% Viscous) Confirm Administered Dose 15 ml .ROUTE .STK -MED ONE Stop: 11/14/19 07:33 Last Admin: 11/14/19 08:33 Dose: 15 ml Lidocaine HCl (Xylocaine 4% Top Soln) Confirm Administered Dose 50 ml .ROUTE .STK-MED ONE Stop: 11/14/19 07:33 Last Admin: 11/14/19 08:33 Dose: 50 ml Lidocaine/Epinephrine (Xylocaine 1% With Epinephrine 1:100,000) Confirm Administered Dose 50 ml .ROUTE .STK-MED ONE Stop: 11/06/19 09:56 Meropenem (Merrem) Confirm Administered Dose 500 mg .ROUTE .STK-MED ONE Stop: 11/06/19 09:56 Last Admin: 11/06/19 12:31 Dose: 500 mg Neostigmine Methylsulfate (Neostigmine) Confirm Administered Dose 5 mg .ROUTE .STK-MED ONE Stop: 11/06/19 10:42 Ondansetron HCl (Zofran) Confirm Administered Dose 4 mg .ROUTE .STK-MED ONE Stop: 11/06/19 10:42 Propofol (Diprivan 20 Ml) Confirm Administered Dose 200 mg .ROUTE .STK-MED ONE Stop: 11/06/19 10:42 Propofol (Diprivan 20 Ml) Confirm Administered Dose 200 mg .ROUTE .STK-MED ONE Stop: 11/11/19 08:35 Propofol (Diprivan 20 Ml) Confirm Administered Dose 200 mg .ROUTE .STK-MED ONE Stop: 11/12/19 09:04 Propofol (Diprivan 20 Ml) Confirm Administered Dose 200 mg .ROUTE .STK-MED ONE Stop: 11/14/19 08:40 Rocuronium Pep (Zemuron) Confirm Administered Dose 50 mg .ROUTE .STK-MED ONE Stop: 11/06/19 10:42 Rocuronium Pep (Zemuron) Confirm Administered Dose 50 mg .ROUTE .STK-MED ONE Stop: 11/06/19 12:29 Sodium Chloride (Saline Flush) 10 ml FLUSH ONETIME ONE Stop: 11/10/19 14:09 Last Admin: 11/10/19 14:44 Dose: 10 ml - Exam Quality Assessment: Supplemental Oxygen, Central Line/PICC, Urine Catheter, DVT Prophylaxis General: Alert, Oriented, Cooperative, Mild Distress Lungs: Decreased Breath Sounds, Wheezing. No: Rales, Rhonchi Cardiovascular: Regular Rate, Regular Rhythm, No Murmurs GI/Abdominal Exam: Soft, No Organomegaly, Tender. No: Distended, Guarding, Rigid, Rebound Extremities: Non-Tender, Pedal Edema Sepsis Event Note - Evaluation Sepsis Screening Result: No Definite Risk - Focused Exam Vital Signs: Vital Signs Temp Temp Pulse Pulse Resp BP BP 11/14/19 09:42 86 176/86 H 11/14/19 09:00 97.3 F 84 20 198/103 H 11/14/19 08:55 83 22 H 122/81 11/14/19 08:50 85 24 H 117/78 11/14/19 08:45 106 H 24 H 111/75 11/14/19 08:40 97.2 F 88 24 H 112/59 L 11/14/19 07:18 111 H 21 H 11/14/19 07:13 82 11/14/19 07:00 78 27 H 210/95 H 11/14/19 06:00 20 172/88 H 11/14/19 05:00 26 H 182/74 H 11/14/19 04:00 25 H 163/97 H 11/14/19 03:23 78 11/14/19 03:00 98.2 F 20 170/83 H 11/14/19 02:00 24 H 152/71 H 11/14/19 01:00 98.4 F 20 141/63 H 11/14/19 00:00 18 128/80 11/13/19 23:00 20 143/78 H 11/13/19 22:46 71 Pulse Ox Pulse Ox 11/14/19 09:42 11/14/19 09:00 95 11/14/19 08:55 94 L 11/14/19 08:50 90 L 11/14/19 08:45 90 L 11/14/19 08:40 88 L 11/14/19 07:18 95 11/14/19 07:13 95 11/14/19 07:00 93 L 11/14/19 06:00 95 11/14/19 05:00 93 L 11/14/19 04:00 95 11/14/19 03:23 97 11/14/19 03:00 96 11/14/19 02:00 94 L 11/14/19 01:00 95 11/14/19 00:00 96 11/13/19 23:00 91 L 11/13/19 22:46 Date Exam was Performed: 11/14/19 Time Exam was Performed: 10:24 Consult PN Assessment/Plan Procedures: Procedures ASSAY OF MAGNESIUM (10/12/14) ASSAY OF TROPONIN QUANT (10/12/14) CHEST X-RAY 2VW FRONTAL&LATL (01/30/14) COMPLETE CBC AUTOMATED (01/30/14) COMPLETE CBC W/AUTO DIFF WBC (10/12/14) COMPREHEN METABOLIC PANEL (10/12/14) CT ABD & PELV W/CONTRAST (10/23/19) CT HEAD/BRAIN W/O DYE (10/12/14) ECG MONIT/REPRT UP TO 48 HRS (10/17/14) ECG MONIT/REPRT UP TO 48 HRS (10/17/14) ELECTROCARDIOGRAM TRACING (10/12/14) EMERGENCY DEPT VISIT (10/12/14) EXC F/E/E/N/L MAL+MRG 0.6-1 (07/22/15) EXC TR-EXT B9+JOHN PAUL 3.1-4 CM (07/22/15) EXC TR-EXT MAL+JOHN PAUL 1.1-2 CM (06/09/18) EXC TR-EXT MAL+JOHN PAUL 2.1-3 CM (06/09/18) HYDRATION IV INFUSION INIT (10/12/14) INTMD RPR FACE/MM 2.5 CM/< (07/22/15) INTMD RPR S/A/T/EXT 12.6-20 (06/09/18) INTMD RPR S/A/T/EXT 2.5 CM/< (07/22/15) MEASURE BLOOD OXYGEN LEVEL (01/30/14) METABOLIC PANEL TOTAL CA (01/30/14) PATH CONSULT INTRAOP 1 BLOC (07/22/15) PATH CONSULT INTRAOP ADDL (07/22/15) PROTHROMBIN TIME (10/12/14) REAGENT STRIP/BLOOD GLUCOSE (01/30/14) ROUTINE VENIPUNCTURE (10/12/14) THROMBOPLASTIN TIME PARTIAL (10/12/14) TISSUE EXAM BY PATHOLOGIST (06/09/18) Problem List Initiated/Reviewed/Updated: Yes My Orders Last 24 Hours: My Active Orders 11/14/19 10:20 RT Aerosol Therapy [RC] ASDIRECTED 11/14/19 10:30 Lactobacillus Rhamnosus GG [Culturelle] 1 cap PO BID 11/14/19 21:00 Budesonide [Pulmicort] 0.5 mg NEB BIDRT Plan: ASSESSMENT AND RECOMMENDATIONS- Left lung pneumonia-complicated by hypoxic respiratory failure as well as tenacious secretions with left lower lung mucous plugging. She has had 3 bronchoscopies. Respiratory culture grew out MSSA. Still on a fair amount of oxygen but seems to be slowly improving. -Antibiotic coverage with levofloxacin and doxycycline -Scheduled and as needed nebulizers -Mucomyst nebulizers -Pulmicort neb twice daily -Chest physiotherapy Daily chest x-rays -Supplement oxygen as needed -Continue current medical management Bilateral pleural effusions, left greater than right-mostly resolved after thoracentesis and diuresis. Volume status appears appropriate today. 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 -Discontinue hydrocortisone -Postoperative care as per surgical team Type 2 diabetes mellitus-TPN initiated. Blood sugars fairly well controlled so far. -Continue metformin -Sliding scale insulin through the day -Consider addition of long-acting insulin once insulin needs are determined
[2019-11-14] MEDS: Lactobacillus Rhamnosus GG (Probiotic) Cap PO SCH ×2 (10:51→20:22)
[2019-11-14] MEDS: Pantoprazole 40 MG Tab.CR PO SCH (16:14)
[2019-11-14] MEDS: Levofloxacin/Dextrose 5%-Water 750 MG in Premix Bag 1 BAG IV SCH (17:05)
[2019-11-14] MEDS: HYDROmorphone 0.5 MG/0.5 ML Syringe IVPUSH PRN (20:24)
[2019-11-14] MEDS: Budesonide 0.5 MG/2 ML Neb Susp NEB SCH (20:57)
[2019-11-15] MEDS: Insulin Lispro 100 Unit/ML 3 ML KwikPen SUBCUT PRN ×5 (00:06→21:28)
[2019-11-15] MEDS: Albuterol 0.083% 2.5 MG/3 ML Neb Soln NEB SCH ×4 (02:18→22:51)
[2019-11-15] MEDS: hydrOXYzine HCL 100 MG/2 ML SDV IM PRN (03:51)
[2019-11-15] MEDS: Acetaminophen 325 MG Tab PO SCH ×4 (04:10→23:10)
[2019-11-15] MEDS: Nystatin Susp 100,000 Unit/ML 5 ML UD Cup PO SCH ×5 (05:54→22:56)
[2019-11-15] MEDS: Acetylcysteine 20% 200 MG/ML 4 ML Nebulizer Soln SDV INH SCH ×2 (07:01→22:49)
[2019-11-15] MEDS: Budesonide 0.5 MG/2 ML Neb Susp NEB SCH ×2 (07:01→21:28)
[2019-11-15] MEDS: Albuterol/Ipratropium 3.0-0.5 MG/3 ML Neb Soln INH SCH ×2 (07:01→19:30)
[2019-11-15] MEDS: metFORMIN 500 MG Tab PO SCH ×2 (08:31→17:38)
[2019-11-15] MEDS: Docusate Sodium 100 MG Cap PO SCH ×2 (08:32→21:27)
[2019-11-15] MEDS: Carvedilol 25 MG Tab PO SCH ×2 (08:32→21:27)
[2019-11-15] MEDS: Furosemide 20 MG/2 ML VIAL IV SCH (08:33)
[2019-11-15] MEDS: Bisacodyl 5 MG Tab PO SCH ×2 (08:33→21:26)
[2019-11-15] MEDS: Lactobacillus Rhamnosus GG (Probiotic) Cap PO SCH ×2 (08:33→21:27)
[2019-11-15] MEDS: Doxycycline 100 MG in Sodium Chloride 0.9% 100 ML IV SCH ×2 (08:34→21:38)
--- NOTE | 2019-11-15 09:23 | PCM.CONSN ---
- General Info Date of Service: 11/15/19 Subjective Update: Ms. Lundy has shown further modest improvement over the last 24 hours, requiring less supplemental oxygen except with activity. Chest x-ray has shown modest clearing compared to the past few days. She continues to experience incisional pain and remains fairly limited with activity. Functional Status: Denies: Tolerating Diet, Ambulating - Review of Systems General: Reports: Weakness, Fatigue. Denies: Fever, Chills Pulmonary: Reports: Shortness of Breath, Cough. Denies: Pleuritic Chest Pain, Sputum, Hemoptysis, Wheezing Cardiovascular: Reports: Dyspnea on Exertion, Edema. Denies: Chest Pain, Palpitations, Orthopnea, PND Gastrointestinal: Reports: Abdominal Pain, Decreased Appetite, Flatus. Denies: Difficulty Swallowing, Hematochezia, Melena, Nausea, Vomiting - Patient Data Vitals - Most Recent: Last Vital Signs Temp 97.3 F 11/15/19 04:00 Pulse 80 11/15/19 08:32 Resp 25 H 11/15/19 07:00 BP 158/80 H 11/15/19 08:32 Pulse Ox 92 L 11/15/19 07:00 Weight - Most Recent: 221 lb I&O - Last 24 Hours: Intake & Output 11/14/19 11/15/19 11/15/19 22:59 06:59 14:59 Intake Total 120 1270 Output Total 1230 640 60 Balance -1110 630 -60 Lab Results Last 24 Hours: Laboratory Results - last 24 hr 11/11/19 11/15/19 11/15/19 Range/Units 12:25 04:00 04:00 WBC 21.7 H (4.5-11.0) K/uL RBC 4.13 (3.30-5.50) M/uL Hgb 10.9 L (12.0-15.0) g/dL Hct 35.6 L (36.0-48.0) % MCV 86 (80-98) fL MCH 26 L (27-31) pg MCHC 31 L (32-36) % Plt Count 663 H (150-400) K/uL Sodium 135 L (140-148) mmol/L Potassium 3.7 (3.6-5.2) mmol/L Chloride 95 L (100-108) mmol/L Carbon Dioxide 36 H (21-32) mmol/L Anion Gap 7.7 (5.0-14.0) mmol/L BUN 17 (7-18) mg/dL Creatinine 0.5 L (0.6-1.0) mg/dL Est Cr Clr Drug Dosing 73.90 mL/min Estimated GFR (MDRD) > 60 (>60) Glucose 152 H (74-106) mg/dL Calcium 8.5 (8.5-10.1) mg/dL Phosphorus 2.6 (2.5-4.9) mg/dL Magnesium 1.5 L (1.8-2.4) mg/dL Total Bilirubin 0.2 (0.2-1.0) mg/dL AST 9 L (15-37) U/L ALT 14 (12-78) U/L Alkaline Phosphatase 77 (46-116) U/L NT-Pro-B Natriuret Pep 672 H (5-450) pg/mL Total Protein 4.8 L (6.4-8.2) g/dL Albumin 2.0 L (3.4-5.0) g/dL Globulin 2.8 (2.3-3.5) g/dL Albumin/Globulin Ratio 0.7 L (1.2-2.2) Crossmatch See Detail Jose Results Last 24 Hours: Microbiology 11/14/19 09:01 Gram Stain - Final Bronchial Washings - Mixed Respiratory Culture - Preliminary NO GROWTH AFTER 1 DAY 11/14/19 09:01 AWAIS Preparation - Final Other - Bronch Wash 11/12/19 09:45 Gram Stain - Final Bronchial Washings - Lung, Unspecified Respiratory Culture - Final Staphylococcus Aureus Med Orders - Current: Current Medications Acetaminophen (Tylenol) 650 mg PO Q6H [facility] Last Admin: 11/15/19 04:10 Dose: 650 mg Acetylcysteine (Mucomyst 20%) 200 mg INH BID@0700,1900 [facility] Last Admin: 11/15/19 07:01 Dose: 200 mg Albuterol (Proventil Neb Soln) 2.5 mg NEB 0300,1100,1500,2300 [facility] Last Admin: 11/15/19 02:18 Dose: 2.5 mg Albuterol/Ipratropium (Duoneb 3.0-0.5 Mg/3 Ml) 3 ml NEB Q4H PRN PRN Reason: dyspnea and wheezing Last Admin: 11/13/19 01:15 Dose: 3 ml Albuterol/Ipratropium (Duoneb 3.0-0.5 Mg/3 Ml) 3 ml INH BID@0700,1900 [facility] Last Admin: 11/15/19 07:01 Dose: 3 ml Benzocaine/Menthol (Cepacol Sore Throat) 1 lozenge MUCMEM 6XDAY PRN PRN Reason: Sore Throat Last Admin: 11/07/19 08:47 Dose: 1 lon Bisacodyl (Dulcolax) 10 mg PO BID [facility] Last Admin: 11/15/19 08:33 Dose: Not Given Budesonide (Pulmicort) 0.5 mg NEB BIDRT [facility] Last Admin: 11/15/19 07:01 Dose: 0.5 mg Carvedilol (Coreg) 25 mg PO BID [facility] Last Admin: 11/15/19 08:32 Dose: 25 mg Dextrose (Glutose 15) 15 gm PO ASDIRECTED PRN PRN Reason: HYPOGLYCEMIA Dextrose/Water (Dextrose 50% In Water) 50 ml IVPUSH ASDIRECTED PRN PRN Reason: HYPOGLYCEMIA Diphenhydramine HCl (Benadryl) 25 mg PO BEDTIME PRN PRN Reason: SLEEP Docusate Sodium (Colace) 100 mg PO BID [facility] Last Admin: 11/15/19 08:32 Dose: 100 mg Furosemide (Lasix) 20 mg IV DAILY [facility] Last Admin: 11/15/19 08:33 Dose: 20 mg Glucagon (Glucagen) 1 mg IM ASDIRECTED PRN PRN Reason: HYPOGLYCEMIA Hydromorphone HCl (Dilaudid) 0.5 mg IVPUSH Q4H PRN PRN Reason: Pain Last Admin: 11/14/19 20:24 Dose: 0.5 mg Hydroxyzine HCl (Vistaril) 75 mg IM Q4H PRN PRN Reason: pain Last Admin: 11/15/19 03:51 Dose: 75 mg Levofloxacin/Dextrose 750 mg/ (Premix) 150 mls @ 100 mls/hr IV Q24H [facility] Last Admin: 11/14/19 17:05 Dose: 100 mls/hr Potassium Chloride/Dextrose/Sod Cl (D5 Ns With 20 Meq Kcl) 1,000 mls @ 25 mls/ hr IV ASDIRECTED [facility] Last Admin: 11/12/19 20:37 Dose: 25 mls/hr Multivitamins/Minerals 10 ml/Chromium/Copper/Manganese/Seleni/Zn 1 ml/ Amino Ac/ Electrol/Dextrose/Calcium 1,011 mls @ 82 mls/hr IV .BY DURATION [facility] Last Admin: 11/14/19 22:09 Dose: 82 mls/hr Amino Ac/Electrol/Dextrose/Calcium (Clinimix E 5/15) 1,000 mls @ 82 mls/hr IV .BY DURATION [facility] Last Admin: 11/14/19 10:03 Dose: 82 mls/hr Doxycycline Hyclate 100 mg/ (Sodium Chloride) 100 mls @ 100 mls/hr IV Q12H [facility] Last Admin: 11/15/19 08:34 Dose: 100 mls/hr Magnesium Sulfate 2 gm/ Premix 50 mls @ 25 mls/hr IV Q6H [facility] Stop: 11/15/19 23:29 Insulin Human Lispro (Humalog) 0 unit SUBCUT ASDIRECTED PRN; Protocol PRN Reason: MEDIUM CORRECTIONAL DOSING Last Admin: 11/15/19 05:54 Dose: 2 units Lactobacillus Rhamnosus (Culturelle) 1 cap PO BID [facility] Last Admin: 11/15/19 08:33 Dose: 1 cap Levothyroxine Sodium 100 mcg/ (Levothyroxine Sodium 50 mcg) 150 mcg PO DAILY@ 0730 [facility] Last Admin: 11/15/19 08:31 Dose: 150 mcg Metformin HCl (Glucophage) 1,000 mg PO BIDMEALS [facility] Last Admin: 11/15/19 08:31 Dose: 1,000 mg Naloxone HCl (Narcan) 0.1 mg IV ASDIRECTED PRN PRN Reason: decreased respiratory rate Nystatin (Mycostatin) 5 ml PO QID [facility] Last Admin: 11/15/19 05:54 Dose: 5 ml Ondansetron HCl (Zofran) 4 mg IVPUSH Q4H PRN PRN Reason: Nausea/Vomiting Pantoprazole Sodium (Protonix) 40 mg PO Q24H [facility] Last Admin: 11/14/19 16:14 Dose: 40 mg Discontinued Medications Acetaminophen (Tylenol Extra Strength) 1,000 mg PO ONETIME ONE Stop: 11/06/19 09:01 Last Admin: 11/06/19 09:00 Dose: 1,000 mg Acetylcysteine (Mucomyst 20%) 200 mg INH BIDRT [facility] Last Admin: 11/13/19 07:16 Dose: 200 mg Albuterol (Proventil Neb Soln) 2.5 mg NEB QIDRT [facility] Last Admin: 11/13/19 07:17 Dose: Not Given Albuterol/Ipratropium (Duoneb 3.0-0.5 Mg/3 Ml) 3 ml NEB ONETIME ONE Stop: 11/08/19 20:26 Last Admin: 11/08/19 20:38 Dose: 3 ml Albuterol/Ipratropium (Duoneb 3.0-0.5 Mg/3 Ml) 3 ml INH BIDRT [facility] Last Admin: 11/13/19 07:16 Dose: 3 ml Bumetanide (Bumex) 2 mg IV Q8H [facility] Stop: 11/11/19 16:31 Last Admin: 11/11/19 17:38 Dose: Not Given Bumetanide (Bumex) 2 mg IV ONETIME ONE Stop: 11/12/19 13:31 Last Admin: 11/12/19 12:57 Dose: 2 mg Bumetanide (Bumex) 2 mg IVPUSH ONETIME ONE Stop: 11/13/19 10:01 Last Admin: 11/13/19 09:59 Dose: 2 mg Bupivacaine HCl (Marcaine 0.5%) Confirm Administered Dose 50 ml .ROUTE .STK-MED ONE Stop: 11/06/19 09:56 Ropivacaine 48 ml/Dexamethasone 8 mg/Epinephrine HCl 0.4 mg/ Sodium Chloride 29.6 ml 0 ml NERVRT ASDIRECTED [facility] Last Admin: 11/06/19 12:40 Dose: 80 syringe Cyclobenzaprine HCl (Flexeril) 10 mg PO Q6H PRN PRN Reason: Muscle Spasm Dexamethasone (Dexamethasone) Confirm Administered Dose 4 mg .ROUTE .STK-MED ONE Stop: 11/06/19 10:42 Fentanyl (Sublimaze) Confirm Administered Dose 250 mcg .ROUTE .STK-MED ONE Stop: 11/06/19 10:42 Furosemide (Lasix) 10 mg IVPUSH ONETIME ONE Stop: 11/07/19 15:21 Last Admin: 11/07/19 15:42 Dose: 10 mg Furosemide (Lasix) 10 mg IVPUSH ONETIME ONE Stop: 11/08/19 17:16 Last Admin: 11/08/19 17:20 Dose: 10 mg Furosemide (Lasix) 20 mg IVPUSH ONETIME ONE Stop: 11/08/19 20:24 Last Admin: 11/08/19 20:37 Dose: 20 mg Furosemide (Lasix) 10 mg IVPUSH ONETIME ONE Stop: 11/09/19 03:44 Last Admin: 11/09/19 03:59 Dose: 10 mg Furosemide (Lasix) 10 mg IVPUSH Q12H [facility] Stop: 11/09/19 20:01 Last Admin: 11/09/19 08:23 Dose: 10 mg Furosemide (Lasix) 40 mg IVPUSH ONETIME ONE Stop: 11/09/19 14:19 Last Admin: 11/09/19 14:29 Dose: 40 mg Furosemide (Lasix) 20 mg IVPUSH Q12H [facility] Stop: 11/10/19 20:01 Last Admin: 11/10/19 20:28 Dose: 20 mg Glycopyrrolate (Robinul) Confirm Administered Dose 1 mg .ROUTE .STK-MED ONE Stop: 11/06/19 10:42 Heparin Sodium (Porcine) (Heparin Lock Flush 100 Units/Ml) Confirm Administered Dose 500 units .ROUTE .STK-MED ONE Stop: 11/11/19 09:25 Last Admin: 11/11/19 09:45 Dose: 500 units Hydrocortisone (Cortef) 10 mg PO BID@0800,1600 [facility] Last Admin: 11/14/19 09:41 Dose: 10 mg Hydrocortisone Sodium Succinate (Solu-Cortef) 100 mg IVPUSH ONETIME ONE Stop: 11/10/19 10:01 Last Admin: 11/10/19 10:39 Dose: 100 mg Hydrocortisone Sodium Succinate (Solu-Cortef) 50 mg IVPUSH Q6H [facility] Stop: 11/12/19 12:00 Last Admin: 11/12/19 10:26 Dose: 50 mg Hydromorphone HCl (Dilaudid Legal Secretary 15 Mg In Ns 30 Ml) 0 mg IV ASDIRECTED PRN; Protocol PRN Reason: CHARTERED [employer] PAIN CONTROL Last Admin: 11/06/19 11:43 Dose: 0.2 mg Hydromorphone HCl (Dilaudid) 0.5 mg IVPUSH Q2H PRN PRN Reason: Pain Cefoxitin Sodium 2 gm/ Sodium (Chloride) 50 mls @ 100 mls/hr IV ONETIME ONE Stop: 11/06/19 10:44 Last Admin: 11/06/19 11:12 Dose: 100 mls/hr Dextrose/Lactated Ringer's (Dextrose 5%-Lactated Ringers) 1,000 mls @ 100 mls/ hr IV ASDIRECTED [facility] Last Admin: 11/06/19 10:04 Dose: 100 mls/hr Lactated Ringer's (Ringers, Lactated) Confirm Administered Dose 1,000 mls @ as directed .ROUTE .[facility] ONE Stop: 11/06/19 11:31 Sodium Chloride (Normal Saline) Confirm Administered Dose 500 mls @ as directed .ROUTE .[facility] ONE Stop: 11/06/19 12:48 Dextrose/Lactated Ringer's (Dextrose 5%-Lactated Ringers) 1,000 mls @ 75 mls/ hr IV ASDIRECTED [facility] Stop: 11/07/19 17:59 Last Admin: 11/07/19 10:19 Dose: 75 mls/hr Lactated Ringer's (Ringers, Lactated) 1,000 mls @ 100 mls/hr IV ASDIRECTED [facility] Stop: 11/07/19 17:59 Last Admin: 11/07/19 11:13 Dose: 100 mls/hr Cefoxitin Sodium 2 gm/ Sodium (Chloride) 50 mls @ 100 mls/hr IV Q6H [facility] Stop: 11/07/19 05:29 Last Admin: 11/07/19 04:45 Dose: 100 mls/hr Lactated Ringer's (Ringers, Lactated) 500 mls @ 500 mls/hr IV ONETIME ONE Stop: 11/06/19 22:29 Last Admin: 11/06/19 21:30 Dose: 500 mls/hr Lactated Ringer's (Ringers, Lactated) 500 mls @ 500 mls/hr IV ONETIME ONE Stop: 11/07/19 02:14 Last Admin: 11/07/19 01:15 Dose: 500 mls/hr Dextrose/Lactated Ringer's (Dextrose 5%-Lactated Ringers) 1,000 mls @ 125 mls/ hr IV ASDIRECTED [facility] Last Admin: 11/09/19 06:11 Dose: 125 mls/hr Magnesium Sulfate 2 gm/ Premix 50 mls @ 25 mls/hr IV Q6HR [facility] Stop: 11/10/19 05:59 Last Admin: 11/09/19 03:35 Dose: 25 mls/hr Lactated Ringer's (Ringers, Lactated) 500 mls @ 500 mls/hr IV ASDIRECTED [facility] Lactated Ringer's (Ringers, Lactated) 500 mls @ 500 mls/hr IV ONETIME ONE Stop: 11/08/19 00:36 Last Admin: 11/07/19 23:43 Dose: 500 mls/hr Lactated Ringer's (Ringers, Lactated) 500 mls @ 500 mls/hr IV ONETIME ONE Stop: 11/08/19 03:24 Last Admin: 11/08/19 02:28 Dose: 500 mls/hr Lactated Ringer's (Ringers, Lactated) 500 mls @ 500 mls/hr IV ONETIME ONE Stop: 11/08/19 06:28 Last Admin: 11/08/19 05:29 Dose: 500 mls/hr Lactated Ringer's (Ringers, Lactated) 500 mls @ 250 mls/hr IV ONETIME ONE Stop: 11/08/19 17:47 Last Admin: 11/08/19 15:51 Dose: 250 mls/hr Potassium Chloride 20 meq/Lidocaine HCl 2 ml/ Sodium Chloride 112 mls @ 56 mls/ hr IV Q2H [facility] Stop: 11/09/19 13:59 Last Admin: 11/09/19 12:09 Dose: 56 mls/hr Dextrose/Lactated Ringer's (Dextrose 5%-Lactated Ringers) 1,000 mls @ 25 mls/ hr IV ASDIRECTED [facility] Potassium Chloride 20 meq/Lidocaine HCl 2 ml/ Sodium Chloride 112 mls @ 56 mls/ hr IV Q2H [facility] Stop: 11/10/19 13:59 Last Admin: 11/10/19 13:00 Dose: 56 mls/hr Albumin Human (Albumin 25%) 25 gm in 100 mls @ 25 mls/hr IV Q24H [facility] Stop: 11/12/19 12:59 Last Admin: 11/12/19 08:42 Dose: 25 mls/hr Potassium Chloride/Dextrose/Sod Cl (D5 Ns With 20 Meq Kcl) 1,000 mls @ 60 mls/ hr IV ASDIRECTED [facility] Last Admin: 11/11/19 03:34 Dose: 60 mls/hr Sodium Chloride (Normal Saline) 100 mls @ 3 mls/sec IV ASDIRECTED [facility] Stop: 11/10/19 22:00 Last Admin: 11/10/19 14:44 Dose: 3 mls/sec Meropenem 1 gm/ Sodium (Chloride) 50 mls @ 100 mls/hr IV Q8H [facility] Last Admin: 11/12/19 08:40 Dose: 100 mls/hr Potassium Chloride/Dextrose/Sod Cl (D5 Ns With 20 Meq Kcl) 1,000 mls @ 40 mls/ hr IV ASDIRECTED [facility] Stop: 11/11/19 14:15 Magnesium Sulfate 2 gm/ Premix 50 mls @ 25 mls/hr IV Q6H [facility] Stop: 11/13/19 05:59 Last Admin: 11/13/19 04:03 Dose: 25 mls/hr Heparin Sodium (Porcine) 5,000 (units/ Sodium Chloride) 501 mls @ 5 mls/hr IV ASDIRECTED [facility] Last Admin: 11/11/19 10:43 Dose: 5 mls/hr Linezolid 600 mg/ Premix 300 mls @ 300 mls/hr IV Q12H [facility] Last Admin: 11/13/19 23:21 Dose: 300 mls/hr Multivitamins/Minerals 10 ml/Chromium/Copper/Manganese/Seleni/Zn 1 ml/ Amino Ac/ Electrol/Dextrose/Calcium 1,011 mls @ 60 mls/hr IV .BY DURATION [facility] Stop: 11/12/19 20:00 Last Admin: 11/11/19 15:55 Dose: 60 mls/hr Amino Ac/Electrol/Dextrose/Calcium (Clinimix E 02/08) 1,000 mls @ 60 mls/hr IV .BY DURATION [facility] Stop: 11/12/19 20:00 Last Admin: 11/12/19 08:39 Dose: 60 mls/hr Potassium Phosphate 25 mmole/ (Sodium Chloride) 108.3333 mls @ 27 mls/hr IV ONETIME ONE Stop: 11/12/19 17:00 Last Admin: 11/12/19 12:24 Dose: 27 mls/hr Potassium Phosphate 20 mmole/ (Sodium Chloride) 106.6667 mls @ 35 mls/hr IV ONETIME ONE Stop: 11/12/19 21:02 Last Admin: 11/12/19 17:10 Dose: 35 mls/hr Meropenem 1 gm/ Sterile Water 20 mls @ 120 mls/hr IV Q8H [facility] Last Admin: 11/14/19 01:21 Dose: 120 mls/hr Potassium Phosphate 15 mmole/ (Sodium Chloride) 105 mls @ 34.454 mls/hr IV Q3H [facility] Stop: 11/14/19 15:59 Last Admin: 11/14/19 12:39 Dose: 34.454 mls/hr Insulin Human Lispro (Humalog) 7 unit SUBCUT ONETIME ONE Stop: 11/06/19 14:01 Last Admin: 11/06/19 14:00 Dose: 7 units Iopamidol (Isovue-300 (61%)) 150 ml IV . DIRECTED [facility] Stop: 11/10/19 22:00 Last Admin: 11/10/19 14:44 Dose: 150 ml Ketamine HCl (Ketalar) 27 mg IV ASDIRECTED [facility] Lidocaine (Lta 360 Kit Top Soln) Confirm Administered Dose 4 ml .ROUTE .STK-MED ONE Stop: 11/12/19 09:04 Lidocaine HCl (Xylocaine 2% Viscous) Confirm Administered Dose 15 ml .ROUTE .STK -MED ONE Stop: 11/11/19 09:25 Last Admin: 11/11/19 09:35 Dose: 15 ml Lidocaine HCl (Xylocaine 4% Top Soln) Confirm Administered Dose 50 ml .ROUTE .STK-MED ONE Stop: 11/11/19 09:25 Last Admin: 11/11/19 09:35 Dose: 50 ml Lidocaine HCl (Xylocaine 2% Viscous) Confirm Administered Dose 15 ml .ROUTE .STK -MED ONE Stop: 11/12/19 07:49 Last Admin: 11/12/19 09:17 Dose: 15 ml Lidocaine HCl (Xylocaine 4% Top Soln) Confirm Administered Dose 50 ml .ROUTE .STK-MED ONE Stop: 11/12/19 07:49 Last Admin: 11/12/19 10:01 Dose: 50 ml Lidocaine HCl (Xylocaine 2% Viscous) Confirm Administered Dose 15 ml .ROUTE .STK -MED ONE Stop: 11/14/19 07:33 Last Admin: 11/14/19 08:33 Dose: 15 ml Lidocaine HCl (Xylocaine 4% Top Soln) Confirm Administered Dose 50 ml .ROUTE .STK-MED ONE Stop: 11/14/19 07:33 Last Admin: 11/14/19 08:33 Dose: 50 ml Lidocaine/Epinephrine (Xylocaine 1% With Epinephrine 1:100,000) Confirm Administered Dose 50 ml .ROUTE .STK-MED ONE Stop: 11/06/19 09:56 Meropenem (Merrem) Confirm Administered Dose 500 mg .ROUTE .STK-MED ONE Stop: 11/06/19 09:56 Last Admin: 11/06/19 12:31 Dose: 500 mg Neostigmine Methylsulfate (Neostigmine) Confirm Administered Dose 5 mg .ROUTE .STK-MED ONE Stop: 11/06/19 10:42 Ondansetron HCl (Zofran) Confirm Administered Dose 4 mg .ROUTE .STK-MED ONE Stop: 11/06/19 10:42 Pantoprazole Sodium (Protonix Iv) 40 mg IVPUSH Q24H [facility] Last Admin: 11/13/19 16:29 Dose: 40 mg Propofol (Diprivan 20 Ml) Confirm Administered Dose 200 mg .ROUTE .STK-MED ONE Stop: 11/06/19 10:42 Propofol (Diprivan 20 Ml) Confirm Administered Dose 200 mg .ROUTE .STK-MED ONE Stop: 11/11/19 08:35 Propofol (Diprivan 20 Ml) Confirm Administered Dose 200 mg .ROUTE .STK-MED ONE Stop: 11/12/19 09:04 Propofol (Diprivan 20 Ml) Confirm Administered Dose 200 mg .ROUTE .STK-MED ONE Stop: 11/14/19 08:40 Rocuronium Lorimor (Zemuron) Confirm Administered Dose 50 mg .ROUTE .STK-MED ONE Stop: 11/06/19 10:42 Rocuronium Lorimor (Zemuron) Confirm Administered Dose 50 mg .ROUTE .STK-MED ONE Stop: 11/06/19 12:29 Sodium Chloride (Saline Flush) 10 ml FLUSH ONETIME ONE Stop: 11/10/19 14:09 Last Admin: 11/10/19 14:44 Dose: 10 ml - Exam Quality Assessment: Supplemental Oxygen, Central Line/PICC, Urine Catheter, DVT Prophylaxis General: Alert, Oriented, Cooperative, Moderate Distress Lungs: Clear to Auscultation, Normal Respiratory Effort, Decreased Breath Sounds Cardiovascular: Regular Rate, Regular Rhythm, No Murmurs GI/Abdominal Exam: Soft, No Organomegaly, Tender. No: Distended, Guarding, Rigid, Rebound Extremities: Non-Tender, Pedal Edema Sepsis Event Note - Evaluation Sepsis Screening Result: No Definite Risk - Focused Exam Vital Signs: Vital Signs Temp Pulse Pulse Resp BP BP Pulse Ox 11/15/19 08:32 80 158/80 H 11/15/19 07:35 78 11/15/19 07:02 112 H 11/15/19 07:00 113 H 25 H 147/73 H 92 L 11/15/19 06:00 20 131/72 98 11/15/19 05:00 26 H 181/104 H 92 L 11/15/19 04:00 97.3 F 26 H 159/89 H 94 L 11/15/19 03:00 28 H 185/99 H 92 L 11/15/19 02:00 97.8 F 28 H 165/107 H 92 L 11/15/19 01:00 24 H 143/63 H 94 L 11/15/19 00:00 21 H 140/66 95 11/14/19 23:00 98.6 F 18 138/72 100 11/14/19 22:00 22 H 142/78 H 96 Date Exam was Performed: 11/15/19 Time Exam was Performed: 09:20 Consult PN Assessment/Plan Procedures: Procedures ASSAY OF MAGNESIUM (10/12/14) ASSAY OF TROPONIN QUANT (10/12/14) CHEST X-RAY 2VW FRONTAL&LATL (01/30/14) COMPLETE CBC AUTOMATED (01/30/14) COMPLETE CBC W/AUTO DIFF WBC (10/12/14) COMPREHEN METABOLIC PANEL (10/12/14) CT ABD & PELV W/CONTRAST (10/23/19) CT HEAD/BRAIN W/O DYE (10/12/14) ECG MONIT/REPRT UP TO 48 HRS (10/17/14) ECG MONIT/REPRT UP TO 48 HRS (10/17/14) ELECTROCARDIOGRAM TRACING (10/12/14) EMERGENCY DEPT VISIT (10/12/14) EXC F/E/E/N/L MAL+MRG 0.6-1 (07/22/15) EXC TR-EXT B9+JOHN PAUL 3.1-4 CM (07/22/15) EXC TR-EXT MAL+JOHN PAUL 1.1-2 CM (06/09/18) EXC TR-EXT MAL+JOHN PAUL 2.1-3 CM (06/09/18) HYDRATION IV INFUSION INIT (10/12/14) INTMD RPR FACE/MM 2.5 CM/< (07/22/15) INTMD RPR S/A/T/EXT 12.6-20 (06/09/18) INTMD RPR S/A/T/EXT 2.5 CM/< (07/22/15) MEASURE BLOOD OXYGEN LEVEL (01/30/14) METABOLIC PANEL TOTAL CA (01/30/14) PATH CONSULT INTRAOP 1 BLOC (07/22/15) PATH CONSULT INTRAOP ADDL (07/22/15) PROTHROMBIN TIME (10/12/14) REAGENT STRIP/BLOOD GLUCOSE (01/30/14) ROUTINE VENIPUNCTURE (10/12/14) THROMBOPLASTIN TIME PARTIAL (10/12/14) TISSUE EXAM BY PATHOLOGIST (06/09/18) Problem List Initiated/Reviewed/Updated: Yes My Orders Last 24 Hours: My Active Orders 11/14/19 10:30 Lactobacillus Rhamnosus GG [Culturelle] 1 cap PO BID 11/14/19 21:00 Budesonide [Pulmicort] 0.5 mg NEB BIDRT 11/15/19 09:30 Magnesium Sulfate/Water [Magnesium Sulfate in Water Premix] 2 gm Premix Bag 1 bag IV Q6H 11/16/19 05:00 MAGNESIUM [CHEM] Timed Plan: ASSESSMENT AND RECOMMENDATIONS- Left lung pneumonia-complicated by hypoxic respiratory failure as well as tenacious secretions with left lower lung mucous plugging. She has had 3 bronchoscopies. Respiratory culture grew out MSSA. Mental oxygen requirements have improved over the last 24 hours, further modest clearing is noted on chest x-ray -Antibiotic coverage with levofloxacin and doxycycline -Scheduled and as needed nebulizers -Mucomyst nebulizers -Pulmicort neb twice daily -Chest physiotherapy Daily chest x-rays -Supplement oxygen as needed -Continue current medical management Bilateral pleural effusions, left greater than right-mostly resolved after thoracentesis and diuresis. Volume status appears appropriate today. 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 -Discontinue hydrocortisone -Postoperative care as per surgical team Type 2 diabetes mellitus-TPN initiated. Blood sugars fairly well controlled so far. -Continue metformin -Sliding scale insulin through the day -Consider addition of long-acting insulin once insulin needs are determined
[2019-11-15] MEDS: Magnesium Sulfate/Water 2 GM in Premix Bag 1 BAG IV SCH ×3 (10:45→22:57)
--- NOTE | 2019-11-15 11:14 | CR ---
CHEST: Portable 11/15/2019 16/11/2018 CLINICAL HISTORY:Pneumonia COMPARISON:11/14/2019 FINDINGS: Heart is enlarged. Pulmonary vascularity is mildly cephalized. This may be positional. There is an increasing right pleural effusion. There is some persistent left effusion similar to prior study. Persistent patchy bibasal infiltrate persists. Impression: Bilateral pleural effusions, increasing on the right Bibasal infiltrates similar to prior study
[2019-11-15] MEDS: 1: AA 5%/Calcium/D15W/Lytes 1,000 ML with MVI, Adult with Vitamin K 10 ML, Chromium/Copp IV SCH ×3 (11:20)
--- NOTE | 2019-11-15 15:15 | PN ---
DATE OF SERVICE: 11/14/2019 The patient has been afebrile with her temperature in the 97 to 98 range. Heart rates in the 70s to 110 range. Blood pressure is somewhat high at 172/88. Oxygenation on 5 L nasal cannula is in the mid 90s. The chest x-ray continued to show probably some significant atelectasis in the left lower lobe with some questionable degree of effusion. We will plan a bronchoscopy once again today to see if we can get that sucked out and otherwise continue the percussion and postural drainage. She is passing some gas, and after the bronchoscopy today, will add a full liquid diet and otherwise maximize activity and work with pulmonary toilet. We will leave the Glover catheter in for now. The cultures on the sputum are growing Staph aureus sensitive to doxycycline and Levaquin. We will leave the Levaquin onboard and start doxycycline and discontinue the meropenem and Zyvox at this point. The pathology report is still pending. Her labs show white count somewhat high at 20.6. We will ask Dr. Delarosa if we can get her off the hydrocortisone at this point. Hemoglobin is stable at 10.5. Electrolytes show continued contraction alkalosis related to the diuresis. Phosphate is marginally low, and that will be supplemented today as well. Otherwise, continue the TPN. Will get a full liquid diet after the bronchoscopy has been completed. Continue the bowel stimulation. Sandeep Martinez MD /[id number]
--- NOTE | 2019-11-15 15:45 | PN ---
DATE OF SERVICE: 11/15/2019 The patient has been afebrile with stable vital signs. Appears to be somewhat sleep deprived. We will get her up to 2nd floor today. Otherwise, we will go with a regular diet. We will continue the present TPN. Oral intake yesterday was relatively large. Did move her bowels. Magnesium is somewhat low and that will be supplemented. Otherwise, will continue to maximize activity and work with pulmonary toilet. Chest x-ray looks somewhat better today except there is a small pleural effusion present, but I do not think this needs to be tapped per se. Sandeep Martinez MD /[id number]
[2019-11-15] MEDS: Pantoprazole 40 MG Tab.CR PO SCH (17:38)
[2019-11-15] MEDS: Levofloxacin/Dextrose 5%-Water 750 MG in Premix Bag 1 BAG IV SCH (17:47)
[2019-11-15] MEDS: Albuterol/Ipratropium 3.0-0.5 MG/3 ML Neb Soln NEB PRN (20:30)
[2019-11-15] MEDS ORDERED: Furosemide 20 MG/2 ML VIAL IVPUSH ONE (21:34)
[2019-11-16] MEDS: 1: AA 5%/Calcium/D15W/Lytes 1,000 ML with MVI, Adult with Vitamin K 10 ML, Chromium/Copp IV SCH ×6 (00:02→13:32)
[2019-11-16] MEDS: Albuterol 0.083% 2.5 MG/3 ML Neb Soln NEB SCH ×4 (03:35→22:04)
[2019-11-16] MEDS: Albuterol/Ipratropium 3.0-0.5 MG/3 ML Neb Soln INH SCH ×2 (07:09→19:44)
[2019-11-16] MEDS: Acetylcysteine 20% 200 MG/ML 4 ML Nebulizer Soln SDV INH SCH ×2 (07:09→19:45)
[2019-11-16] MEDS: Budesonide 0.5 MG/2 ML Neb Susp NEB SCH ×2 (07:09→21:36)
[2019-11-16] MEDS ORDERED: Central Total Parenteral Nutrition Bag SCH (07:15)
[2019-11-16] MEDS ORDERED: Tamsulosin 0.4 MG Cap.ER PO ONE (08:00)
[2019-11-16] MEDS: hydrOXYzine HCL 100 MG/2 ML SDV IM PRN (08:25)
[2019-11-16] MEDS: Acetaminophen 325 MG Tab PO SCH ×4 (08:33→21:59)
[2019-11-16] MEDS: Nystatin Susp 100,000 Unit/ML 5 ML UD Cup PO SCH ×4 (08:39→21:49)
--- NOTE | 2019-11-16 08:49 | PN ---
DATE OF SERVICE: 11/16/2019 SUBJECTIVE: Ashtyn is lying on her right side. She is alert, orientated, and quite talkative when doing rounds this morning. Vital signs have been stable. She states her pain is controlled. Glover catheter was reinserted. She has no other concerns or questions. OBJECTIVE: GENERAL: Ashtyn Lundy is a pleasant 84-year-old female. VITAL SIGNS: TPR at 0300; 96.4, 75, 18. Blood pressure 108/44. HEENT: Negative. NECK: Supple. HEART: Regular rate and rhythm. LUNGS: Clear. ABDOMEN: Dressing dry and intact. She has 3 CHRISTOS drains in. CHRISTOS drain #1 put out 40 mL, #2 put out 0 and is not holding any suction. CHRISTOS drain #3 with 150 mL of a pink, cloudy drainage. EXTREMITIES: Revealed trace peripheral edema. ASSESSMENT: 1. Exploratory laparotomy with: a. 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 b. 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 Date of surgery, 11/06/2019. Surgeon; Sandeep Martinez M.D. 2. Flexible bronchoscopy on 11/12/2019 for a lung atelectasis secondary to occluded secretions. 3. Flexible bronchoscopy on 11/14/2019 for persistent atelectasis in the left lower lobe. PLAN: 1. Magnesium 2 g IV x72 hours. 2. Continue TPN at same rate and content. 3. Flomax 0.4 mg p.o. now. 4. Flomax 0.4 mg at bedtime p.o. 5. Remove CHRISTOS drain #2. 6. Check amylase in CHRISTOS drain #1 in a.m. at 0400 on 11/17/2019. 7. Check amylase, CHRISTOS drain #3 at 0400 on 11/17/2019. 8. Check CBC, CMP, phosphorus, and BNP in a.m. 9. No chest x-ray in a.m., will be ordered daily if needed. 10.Continue good pulmonary toilet. 11.We will evaluate p.r.n. or in a.m. Sharita Hackett PA-C /[id number]
[2019-11-16] MEDS: metFORMIN 500 MG Tab PO SCH ×2 (09:48→18:30)
[2019-11-16] MEDS: Docusate Sodium 100 MG Cap PO SCH ×2 (09:51→21:45)
[2019-11-16] MEDS: Lactobacillus Rhamnosus GG (Probiotic) Cap PO SCH ×2 (09:52→21:45)
[2019-11-16] MEDS: Bisacodyl 5 MG Tab PO SCH ×2 (09:53→21:45)
[2019-11-16] MEDS: Carvedilol 25 MG Tab PO SCH ×2 (09:55→21:46)
[2019-11-16] MEDS: Furosemide 20 MG/2 ML VIAL IV SCH (10:07)
[2019-11-16] MEDS: Doxycycline 100 MG in Sodium Chloride 0.9% 100 ML IV SCH ×2 (10:07→21:36)
--- NOTE | 2019-11-16 10:47 | CR ---
CHEST: Portable 11/16/2019 at 0408 CLINICAL HISTORY:Pneumonia COMPARISON: Multiple prior studies FINDINGS: Heart is enlarged. There is some improved aeration in the left lung. There is a persistent small left effusion. There is right lower lobe infiltrate lower to the prior study. Impression: Persistent bilateral effusions similar to prior study Persistent the right lower lobe infiltrate and left lower lobe airspace disease.
[2019-11-16] MEDS ORDERED: methylPREDNISolone Sodium Succinate 40 MG/1 ML SDV IVPUSH ONE (11:00)
[2019-11-16] MEDS: Magnesium Sulfate/Water 2 GM in Premix Bag 1 BAG IV SCH ×3 (11:19→21:42)
[2019-11-16] MEDS: Insulin Lispro 100 Unit/ML 3 ML KwikPen SUBCUT PRN ×3 (11:24→21:45)
--- NOTE | 2019-11-16 11:35 | PCM.CONSN ---
- General Info Date of Service: 11/16/19 Subjective Update: Ms. Lundy has been very sleepy and lethargic today, unable to participate in meaningful conversation or relay information concerning symptoms or review of systems. Humberto status seems to be stable based on oxygenation and respiratory rate, vital signs have been within good range and she has remained afebrile. - Patient Data Vitals - Most Recent: Last Vital Signs Temp 98.2 F 11/16/19 08:07 Pulse 103 H 11/16/19 09:55 Resp 28 H 11/16/19 08:07 BP 132/78 11/16/19 09:55 Pulse Ox 95 11/16/19 08:07 Weight - Most Recent: 221 lb I&O - Last 24 Hours: Intake & Output 11/15/19 11/16/19 11/16/19 22:59 06:59 14:59 Intake Total 1416 1419 Output Total 1605 Balance 1416 -186 Lab Results Last 24 Hours: Laboratory Results - last 24 hr 11/16/19 11/16/19 11/16/19 Range/Units 03:58 03:58 03:58 WBC 17.8 H (4.5-11.0) K/uL RBC 3.76 (3.30-5.50) M/uL Hgb 9.5 L (12.0-15.0) g/dL Hct 32.6 L (36.0-48.0) % MCV 87 (80-98) fL MCH 25 L (27-31) pg MCHC 29 L (32-36) % Plt Count 637 H (150-400) K/uL Sodium 135 L (140-148) mmol/L Potassium 3.5 L (3.6-5.2) mmol/L Chloride 97 L (100-108) mmol/L Carbon Dioxide 36 H (21-32) mmol/L Anion Gap 5.5 (5.0-14.0) mmol/L BUN 19 H (7-18) mg/dL Creatinine 0.5 L (0.6-1.0) mg/dL Est Cr Clr Drug Dosing 73.90 mL/min Estimated GFR (MDRD) > 60 (>60) Glucose 154 H (74-106) mg/dL Calcium 8.1 L (8.5-10.1) mg/dL Phosphorus 3.1 (2.5-4.9) mg/dL Magnesium 2.1 D (1.8-2.4) mg/dL Total Bilirubin 0.2 (0.2-1.0) mg/dL AST 11 L (15-37) U/L ALT 14 (12-78) U/L Alkaline Phosphatase 78 (46-116) U/L NT-Pro-B Natriuret Pep 575 H (5-450) pg/mL Total Protein 4.5 L (6.4-8.2) g/dL Albumin 1.8 L (3.4-5.0) g/dL Globulin 2.7 (2.3-3.5) g/dL Albumin/Globulin Ratio 0.7 L (1.2-2.2) Jose Results Last 24 Hours: Microbiology 11/12/19 09:45 AFB Specimen Processing Tissue - Final Lung - Unspecified Acid Fast Bacilli Smear - Final Acid Fast Bacilli Culture - Preliminary 11/11/19 09:39 AFB Specimen Processing Tissue - Final Lung - Unspecified Acid Fast Bacilli Smear - Final Acid Fast Bacilli Culture - Preliminary 11/14/19 09:01 Gram Stain - Final Bronchial Washings - Mixed Respiratory Culture - Final NO GROWTH AFTER 2 DAYS Med Orders - Current: Current Medications Acetaminophen (Tylenol) 650 mg PO Q6H [facility] Last Admin: 11/16/19 08:33 Dose: 650 mg Acetylcysteine (Mucomyst 20%) 200 mg INH BID@0700,1900 [facility] Last Admin: 11/16/19 07:09 Dose: 200 mg Albuterol (Proventil Neb Soln) 2.5 mg NEB 0300,1100,1500,2300 [facility] Last Admin: 11/16/19 10:49 Dose: 2.5 mg Albuterol/Ipratropium (Duoneb 3.0-0.5 Mg/3 Ml) 3 ml NEB Q4H PRN PRN Reason: dyspnea and wheezing Last Admin: 11/13/19 01:15 Dose: 3 ml Albuterol/Ipratropium (Duoneb 3.0-0.5 Mg/3 Ml) 3 ml INH BID@0700,1900 [facility] Last Admin: 11/16/19 07:09 Dose: 3 ml Benzocaine/Menthol (Cepacol Sore Throat) 1 lozenge MUCMEM 6XDAY PRN PRN Reason: Sore Throat Last Admin: 11/07/19 08:47 Dose: 1 lon Bisacodyl (Dulcolax) 10 mg PO BID [facility] Last Admin: 11/16/19 09:53 Dose: 10 mg Budesonide (Pulmicort) 0.5 mg NEB BIDRT [facility] Last Admin: 11/16/19 07:09 Dose: 0.5 mg Carvedilol (Coreg) 25 mg PO BID [facility] Last Admin: 11/16/19 09:55 Dose: 25 mg Dextrose (Glutose 15) 15 gm PO ASDIRECTED PRN PRN Reason: HYPOGLYCEMIA Dextrose/Water (Dextrose 50% In Water) 50 ml IVPUSH ASDIRECTED PRN PRN Reason: HYPOGLYCEMIA Diphenhydramine HCl (Benadryl) 25 mg PO BEDTIME PRN PRN Reason: SLEEP Docusate Sodium (Colace) 100 mg PO BID [facility] Last Admin: 11/16/19 09:51 Dose: 100 mg Furosemide (Lasix) 20 mg IV DAILY [facility] Last Admin: 11/16/19 10:07 Dose: 20 mg Glucagon (Glucagen) 1 mg IM ASDIRECTED PRN PRN Reason: HYPOGLYCEMIA Heparin Sodium (Porcine) (Heparin Lock Flush 100 Units/Ml) 500 units FLUSH ASDIRECTED PRN PRN Reason: IV Use Last Admin: 11/16/19 10:05 Dose: 500 units Hydrocortisone (Cortef) 5 mg PO BIDKYALS [facility] Hydromorphone HCl (Dilaudid) 0.5 mg IVPUSH Q4H PRN PRN Reason: Pain Last Admin: 11/14/19 20:24 Dose: 0.5 mg Hydroxyzine HCl (Vistaril) 75 mg IM Q4H PRN PRN Reason: pain Last Admin: 11/16/19 08:25 Dose: 75 mg Levofloxacin/Dextrose 750 mg/ (Premix) 150 mls @ 100 mls/hr IV Q24H [facility] Last Admin: 11/15/19 17:47 Dose: 100 mls/hr Potassium Chloride/Dextrose/Sod Cl (D5 Ns With 20 Meq Kcl) 1,000 mls @ 25 mls/ hr IV ASDIRECTED [facility] Last Admin: 11/12/19 20:37 Dose: 25 mls/hr Multivitamins/Minerals 10 ml/Chromium/Copper/Manganese/Seleni/Zn 1 ml/ Amino Ac/ Electrol/Dextrose/Calcium 1,011 mls @ 82 mls/hr IV .BY DURATION [facility] Last Admin: 11/16/19 00:02 Dose: 82 mls/hr Amino Ac/Electrol/Dextrose/Calcium (Clinimix E 02/08) 1,000 mls @ 82 mls/hr IV .BY DURATION [facility] Last Admin: 11/15/19 11:20 Dose: 82 mls/hr Doxycycline Hyclate 100 mg/ (Sodium Chloride) 100 mls @ 100 mls/hr IV Q12H [facility] Last Admin: 11/16/19 10:07 Dose: 100 mls/hr Magnesium Sulfate 2 gm/ Premix 50 mls @ 25 mls/hr IV Q6H [facility] Stop: 11/19/19 05:59 Last Admin: 11/16/19 11:19 Dose: 25 mls/hr Insulin Human Lispro (Humalog) 0 unit SUBCUT ASDIRECTED PRN; Protocol PRN Reason: MEDIUM CORRECTIONAL DOSING Last Admin: 11/16/19 11:24 Dose: 2 units Lactobacillus Rhamnosus (Culturelle) 1 cap PO BID [facility] Last Admin: 11/16/19 09:52 Dose: 1 cap Levothyroxine Sodium 100 mcg/ (Levothyroxine Sodium 50 mcg) 150 mcg PO DAILY@ 0730 [facility] Last Admin: 11/16/19 08:19 Dose: 150 mcg Metformin HCl (Glucophage) 1,000 mg PO BIDMEALS [facility] Last Admin: 11/16/19 09:48 Dose: 1,000 mg Naloxone HCl (Narcan) 0.1 mg IV ASDIRECTED PRN PRN Reason: decreased respiratory rate Non-Formulary Medication (Total Parenteral Nutrition, Central) 1,000 ml .XX .Continue Order [facility] Stop: 11/16/19 18:00 Nystatin (Mycostatin) 5 ml PO QID [facility] Last Admin: 11/16/19 09:53 Dose: 5 ml Ondansetron HCl (Zofran) 4 mg IVPUSH Q4H PRN PRN Reason: Nausea/Vomiting Pantoprazole Sodium (Protonix) 40 mg PO Q24H [facility] Last Admin: 11/15/19 17:38 Dose: Not Given Tamsulosin HCl (Flomax) 0.4 mg PO BEDTIME [facility] Discontinued Medications Acetaminophen (Tylenol Extra Strength) 1,000 mg PO ONETIME ONE Stop: 11/06/19 09:01 Last Admin: 11/06/19 09:00 Dose: 1,000 mg Acetylcysteine (Mucomyst 20%) 200 mg INH BIDRT [facility] Last Admin: 11/13/19 07:16 Dose: 200 mg Albuterol (Proventil Neb Soln) 2.5 mg NEB QIDRT [facility] Last Admin: 11/13/19 07:17 Dose: Not Given Albuterol/Ipratropium (Duoneb 3.0-0.5 Mg/3 Ml) 3 ml NEB ONETIME ONE Stop: 11/08/19 20:26 Last Admin: 11/08/19 20:38 Dose: 3 ml Albuterol/Ipratropium (Duoneb 3.0-0.5 Mg/3 Ml) 3 ml INH BIDRT [facility] Last Admin: 11/13/19 07:16 Dose: 3 ml Bumetanide (Bumex) 2 mg IV Q8H [facility] Stop: 11/11/19 16:31 Last Admin: 11/11/19 17:38 Dose: Not Given Bumetanide (Bumex) 2 mg IV ONETIME ONE Stop: 11/12/19 13:31 Last Admin: 11/12/19 12:57 Dose: 2 mg Bumetanide (Bumex) 2 mg IVPUSH ONETIME ONE Stop: 11/13/19 10:01 Last Admin: 11/13/19 09:59 Dose: 2 mg Bupivacaine HCl (Marcaine 0.5%) Confirm Administered Dose 50 ml .ROUTE .STK-MED ONE Stop: 11/06/19 09:56 Ropivacaine 48 ml/Dexamethasone 8 mg/Epinephrine HCl 0.4 mg/ Sodium Chloride 29.6 ml 0 ml NERVRT ASDIRECTED [facility] Last Admin: 11/06/19 12:40 Dose: 80 syringe Cyclobenzaprine HCl (Flexeril) 10 mg PO Q6H PRN PRN Reason: Muscle Spasm Dexamethasone (Dexamethasone) Confirm Administered Dose 4 mg .ROUTE .STK-MED ONE Stop: 11/06/19 10:42 Fentanyl (Sublimaze) Confirm Administered Dose 250 mcg .ROUTE .STK-MED ONE Stop: 11/06/19 10:42 Furosemide (Lasix) 10 mg IVPUSH ONETIME ONE Stop: 11/07/19 15:21 Last Admin: 11/07/19 15:42 Dose: 10 mg Furosemide (Lasix) 10 mg IVPUSH ONETIME ONE Stop: 11/08/19 17:16 Last Admin: 11/08/19 17:20 Dose: 10 mg Furosemide (Lasix) 20 mg IVPUSH ONETIME ONE Stop: 11/08/19 20:24 Last Admin: 11/08/19 20:37 Dose: 20 mg Furosemide (Lasix) 10 mg IVPUSH ONETIME ONE Stop: 11/09/19 03:44 Last Admin: 11/09/19 03:59 Dose: 10 mg Furosemide (Lasix) 10 mg IVPUSH Q12H [facility] Stop: 11/09/19 20:01 Last Admin: 11/09/19 08:23 Dose: 10 mg Furosemide (Lasix) 40 mg IVPUSH ONETIME ONE Stop: 11/09/19 14:19 Last Admin: 11/09/19 14:29 Dose: 40 mg Furosemide (Lasix) 20 mg IVPUSH Q12H [facility] Stop: 11/10/19 20:01 Last Admin: 11/10/19 20:28 Dose: 20 mg Furosemide (Lasix) 20 mg IVPUSH ONETIME ONE Stop: 11/15/19 21:35 Last Admin: 11/15/19 22:53 Dose: 20 mg Glycopyrrolate (Robinul) Confirm Administered Dose 1 mg .ROUTE .STK-MED ONE Stop: 11/06/19 10:42 Heparin Sodium (Porcine) (Heparin Lock Flush 100 Units/Ml) Confirm Administered Dose 500 units .ROUTE .STK-MED ONE Stop: 11/11/19 09:25 Last Admin: 11/11/19 09:45 Dose: 500 units Hydrocortisone (Cortef) 10 mg PO BID@0800,1600 [facility] Last Admin: 11/14/19 09:41 Dose: 10 mg Hydrocortisone Sodium Succinate (Solu-Cortef) 100 mg IVPUSH ONETIME ONE Stop: 11/10/19 10:01 Last Admin: 11/10/19 10:39 Dose: 100 mg Hydrocortisone Sodium Succinate (Solu-Cortef) 50 mg IVPUSH Q6H [facility] Stop: 11/12/19 12:00 Last Admin: 11/12/19 10:26 Dose: 50 mg Hydromorphone HCl (Dilaudid Inventory Worker 15 Mg In Ns 30 Ml) 0 mg IV ASDIRECTED PRN; Protocol PRN Reason: [employer] PAIN CONTROL Last Admin: 11/06/19 11:43 Dose: 0.2 mg Hydromorphone HCl (Dilaudid) 0.5 mg IVPUSH Q2H PRN PRN Reason: Pain Cefoxitin Sodium 2 gm/ Sodium (Chloride) 50 mls @ 100 mls/hr IV ONETIME ONE Stop: 11/06/19 10:44 Last Admin: 11/06/19 11:12 Dose: 100 mls/hr Dextrose/Lactated Ringer's (Dextrose 5%-Lactated Ringers) 1,000 mls @ 100 mls/ hr IV ASDIRECTED [facility] Last Admin: 11/06/19 10:04 Dose: 100 mls/hr Lactated Ringer's (Ringers, Lactated) Confirm Administered Dose 1,000 mls @ as directed .ROUTE .[facility] ONE Stop: 11/06/19 11:31 Sodium Chloride (Normal Saline) Confirm Administered Dose 500 mls @ as directed .ROUTE .[facility] ONE Stop: 11/06/19 12:48 Dextrose/Lactated Ringer's (Dextrose 5%-Lactated Ringers) 1,000 mls @ 75 mls/ hr IV ASDIRECTED [facility] Stop: 11/07/19 17:59 Last Admin: 11/07/19 10:19 Dose: 75 mls/hr Lactated Ringer's (Ringers, Lactated) 1,000 mls @ 100 mls/hr IV ASDIRECTED [facility] Stop: 11/07/19 17:59 Last Admin: 11/07/19 11:13 Dose: 100 mls/hr Cefoxitin Sodium 2 gm/ Sodium (Chloride) 50 mls @ 100 mls/hr IV Q6H [facility] Stop: 11/07/19 05:29 Last Admin: 11/07/19 04:45 Dose: 100 mls/hr Lactated Ringer's (Ringers, Lactated) 500 mls @ 500 mls/hr IV ONETIME ONE Stop: 11/06/19 22:29 Last Admin: 11/06/19 21:30 Dose: 500 mls/hr Lactated Ringer's (Ringers, Lactated) 500 mls @ 500 mls/hr IV ONETIME ONE Stop: 11/07/19 02:14 Last Admin: 11/07/19 01:15 Dose: 500 mls/hr Dextrose/Lactated Ringer's (Dextrose 5%-Lactated Ringers) 1,000 mls @ 125 mls/ hr IV ASDIRECTED [facility] Last Admin: 11/09/19 06:11 Dose: 125 mls/hr Magnesium Sulfate 2 gm/ Premix 50 mls @ 25 mls/hr IV Q6HR [facility] Stop: 11/10/19 05:59 Last Admin: 11/09/19 03:35 Dose: 25 mls/hr Lactated Ringer's (Ringers, Lactated) 500 mls @ 500 mls/hr IV ASDIRECTED [facility] Lactated Ringer's (Ringers, Lactated) 500 mls @ 500 mls/hr IV ONETIME ONE Stop: 11/08/19 00:36 Last Admin: 11/07/19 23:43 Dose: 500 mls/hr Lactated Ringer's (Ringers, Lactated) 500 mls @ 500 mls/hr IV ONETIME ONE Stop: 11/08/19 03:24 Last Admin: 11/08/19 02:28 Dose: 500 mls/hr Lactated Ringer's (Ringers, Lactated) 500 mls @ 500 mls/hr IV ONETIME ONE Stop: 11/08/19 06:28 Last Admin: 11/08/19 05:29 Dose: 500 mls/hr Lactated Ringer's (Ringers, Lactated) 500 mls @ 250 mls/hr IV ONETIME ONE Stop: 11/08/19 17:47 Last Admin: 11/08/19 15:51 Dose: 250 mls/hr Potassium Chloride 20 meq/Lidocaine HCl 2 ml/ Sodium Chloride 112 mls @ 56 mls/ hr IV Q2H [facility] Stop: 11/09/19 13:59 Last Admin: 11/09/19 12:09 Dose: 56 mls/hr Dextrose/Lactated Ringer's (Dextrose 5%-Lactated Ringers) 1,000 mls @ 25 mls/ hr IV ASDIRECTED [facility] Potassium Chloride 20 meq/Lidocaine HCl 2 ml/ Sodium Chloride 112 mls @ 56 mls/ hr IV Q2H [facility] Stop: 11/10/19 13:59 Last Admin: 11/10/19 13:00 Dose: 56 mls/hr Albumin Human (Albumin 25%) 25 gm in 100 mls @ 25 mls/hr IV Q24H [facility] Stop: 11/12/19 12:59 Last Admin: 11/12/19 08:42 Dose: 25 mls/hr Potassium Chloride/Dextrose/Sod Cl (D5 Ns With 20 Meq Kcl) 1,000 mls @ 60 mls/ hr IV ASDIRECTED [facility] Last Admin: 11/11/19 03:34 Dose: 60 mls/hr Sodium Chloride (Normal Saline) 100 mls @ 3 mls/sec IV ASDIRECTED [facility] Stop: 11/10/19 22:00 Last Admin: 11/10/19 14:44 Dose: 3 mls/sec Meropenem 1 gm/ Sodium (Chloride) 50 mls @ 100 mls/hr IV Q8H [facility] Last Admin: 11/12/19 08:40 Dose: 100 mls/hr Potassium Chloride/Dextrose/Sod Cl (D5 Ns With 20 Meq Kcl) 1,000 mls @ 40 mls/ hr IV ASDIRECTED [facility] Stop: 11/11/19 14:15 Magnesium Sulfate 2 gm/ Premix 50 mls @ 25 mls/hr IV Q6H [facility] Stop: 11/13/19 05:59 Last Admin: 11/13/19 04:03 Dose: 25 mls/hr Heparin Sodium (Porcine) 5,000 (units/ Sodium Chloride) 501 mls @ 5 mls/hr IV ASDIRECTED [facility] Last Admin: 11/11/19 10:43 Dose: 5 mls/hr Linezolid 600 mg/ Premix 300 mls @ 300 mls/hr IV Q12H [facility] Last Admin: 11/13/19 23:21 Dose: 300 mls/hr Multivitamins/Minerals 10 ml/Chromium/Copper/Manganese/Seleni/Zn 1 ml/ Amino Ac/ Electrol/Dextrose/Calcium 1,011 mls @ 60 mls/hr IV .BY DURATION [facility] Stop: 11/12/19 20:00 Last Admin: 11/11/19 15:55 Dose: 60 mls/hr Amino Ac/Electrol/Dextrose/Calcium (Clinimix E 02/08) 1,000 mls @ 60 mls/hr IV .BY DURATION [facility] Stop: 11/12/19 20:00 Last Admin: 11/12/19 08:39 Dose: 60 mls/hr Potassium Phosphate 25 mmole/ (Sodium Chloride) 108.3333 mls @ 27 mls/hr IV ONETIME ONE Stop: 11/12/19 17:00 Last Admin: 11/12/19 12:24 Dose: 27 mls/hr Potassium Phosphate 20 mmole/ (Sodium Chloride) 106.6667 mls @ 35 mls/hr IV ONETIME ONE Stop: 11/12/19 21:02 Last Admin: 11/12/19 17:10 Dose: 35 mls/hr Meropenem 1 gm/ Sterile Water 20 mls @ 120 mls/hr IV Q8H [facility] Last Admin: 11/14/19 01:21 Dose: 120 mls/hr Potassium Phosphate 15 mmole/ (Sodium Chloride) 105 mls @ 34.454 mls/hr IV Q3H [facility] Stop: 11/14/19 15:59 Last Admin: 11/14/19 12:39 Dose: 34.454 mls/hr Magnesium Sulfate 2 gm/ Premix 50 mls @ 25 mls/hr IV Q6H [facility] Stop: 11/15/19 23:59 Last Admin: 11/15/19 22:57 Dose: 25 mls/hr Insulin Human Lispro (Humalog) 7 unit SUBCUT ONETIME ONE Stop: 11/06/19 14:01 Last Admin: 11/06/19 14:00 Dose: 7 units Iopamidol (Isovue-300 (61%)) 150 ml IV . DIRECTED [facility] Stop: 11/10/19 22:00 Last Admin: 11/10/19 14:44 Dose: 150 ml Ketamine HCl (Ketalar) 27 mg IV ASDIRECTED [facility] Lidocaine (Lta 360 Kit Top Soln) Confirm Administered Dose 4 ml .ROUTE .STK-MED ONE Stop: 11/12/19 09:04 Lidocaine HCl (Xylocaine 2% Viscous) Confirm Administered Dose 15 ml .ROUTE .STK -MED ONE Stop: 11/11/19 09:25 Last Admin: 11/11/19 09:35 Dose: 15 ml Lidocaine HCl (Xylocaine 4% Top Soln) Confirm Administered Dose 50 ml .ROUTE .STK-MED ONE Stop: 11/11/19 09:25 Last Admin: 11/11/19 09:35 Dose: 50 ml Lidocaine HCl (Xylocaine 2% Viscous) Confirm Administered Dose 15 ml .ROUTE .STK -MED ONE Stop: 11/12/19 07:49 Last Admin: 11/12/19 09:17 Dose: 15 ml Lidocaine HCl (Xylocaine 4% Top Soln) Confirm Administered Dose 50 ml .ROUTE .STK-MED ONE Stop: 11/12/19 07:49 Last Admin: 11/12/19 10:01 Dose: 50 ml Lidocaine HCl (Xylocaine 2% Viscous) Confirm Administered Dose 15 ml .ROUTE .STK -MED ONE Stop: 11/14/19 07:33 Last Admin: 11/14/19 08:33 Dose: 15 ml Lidocaine HCl (Xylocaine 4% Top Soln) Confirm Administered Dose 50 ml .ROUTE .STK-MED ONE Stop: 11/14/19 07:33 Last Admin: 11/14/19 08:33 Dose: 50 ml Lidocaine/Epinephrine (Xylocaine 1% With Epinephrine 1:100,000) Confirm Administered Dose 50 ml .ROUTE .STK-MED ONE Stop: 11/06/19 09:56 Meropenem (Merrem) Confirm Administered Dose 500 mg .ROUTE .STK-MED ONE Stop: 11/06/19 09:56 Last Admin: 11/06/19 12:31 Dose: 500 mg Methylprednisolone Sodium Succinate (Solu-Medrol) 40 mg IVPUSH ONETIME ONE Stop: 11/16/19 11:01 Last Admin: 11/16/19 11:22 Dose: 40 mg Neostigmine Methylsulfate (Neostigmine) Confirm Administered Dose 5 mg .ROUTE .STK-MED ONE Stop: 11/06/19 10:42 Ondansetron HCl (Zofran) Confirm Administered Dose 4 mg .ROUTE .STK-MED ONE Stop: 11/06/19 10:42 Pantoprazole Sodium (Protonix Iv) 40 mg IVPUSH Q24H [facility] Last Admin: 11/13/19 16:29 Dose: 40 mg Propofol (Diprivan 20 Ml) Confirm Administered Dose 200 mg .ROUTE .STK-MED ONE Stop: 11/06/19 10:42 Propofol (Diprivan 20 Ml) Confirm Administered Dose 200 mg .ROUTE .STK-MED ONE Stop: 11/11/19 08:35 Propofol (Diprivan 20 Ml) Confirm Administered Dose 200 mg .ROUTE .STK-MED ONE Stop: 11/12/19 09:04 Propofol (Diprivan 20 Ml) Confirm Administered Dose 200 mg .ROUTE .STK-MED ONE Stop: 11/14/19 08:40 Rocuronium [place] (Zemuron) Confirm Administered Dose 50 mg .ROUTE .STK-MED ONE Stop: 11/06/19 10:42 Rocuronium [place] (Zemuron) Confirm Administered Dose 50 mg .ROUTE .STK-MED ONE Stop: 11/06/19 12:29 Sodium Chloride (Saline Flush) 10 ml FLUSH ONETIME ONE Stop: 11/10/19 14:09 Last Admin: 11/10/19 14:44 Dose: 10 ml Tamsulosin HCl (Flomax) 0.4 mg PO ONETIME ONE Stop: 11/16/19 08:01 Last Admin: 11/16/19 08:25 Dose: 0.4 mg - Exam Quality Assessment: Supplemental Oxygen, Central Line/PICC, Urine Catheter, DVT Prophylaxis General: Lethargic. No: Oriented Lungs: Normal Respiratory Effort, Rhonchi, Wheezing. No: Crackles, Rales, Rub Cardiovascular: Regular Rate, Regular Rhythm, No Murmurs GI/Abdominal Exam: Soft, Non-Tender, No Organomegaly, No Distention Sepsis Event Note - Evaluation Sepsis Screening Result: Severe Sepsis Risk - Focused Exam Vital Signs: Vital Signs Temp Pulse Pulse Resp BP BP Pulse Ox 11/16/19 09:55 103 H 132/78 11/16/19 08:07 98.2 F 28 H 130/54 L 95 11/16/19 07:09 88 11/16/19 03:00 96.4 F L 75 18 108/44 L 98 Date Exam was Performed: 11/16/19 Time Exam was Performed: 11:31 Consult PN Assessment/Plan Procedures: Procedures ASSAY OF MAGNESIUM (10/12/14) ASSAY OF TROPONIN QUANT (10/12/14) CHEST X-RAY 2VW FRONTAL&LATL (01/30/14) COMPLETE CBC AUTOMATED (01/30/14) COMPLETE CBC W/AUTO DIFF WBC (10/12/14) COMPREHEN METABOLIC PANEL (10/12/14) CT ABD & PELV W/CONTRAST (10/23/19) CT HEAD/BRAIN W/O DYE (10/12/14) ECG MONIT/REPRT UP TO 48 HRS (10/17/14) ECG MONIT/REPRT UP TO 48 HRS (10/17/14) ELECTROCARDIOGRAM TRACING (10/12/14) EMERGENCY DEPT VISIT (10/12/14) EXC F/E/E/N/L MAL+MRG 0.6-1 (07/22/15) EXC TR-EXT B9+JOHN PAUL 3.1-4 CM (07/22/15) EXC TR-EXT MAL+JOHN PAUL 1.1-2 CM (06/09/18) EXC TR-EXT MAL+JOHN PAUL 2.1-3 CM (06/09/18) HYDRATION IV INFUSION INIT (10/12/14) INTMD RPR FACE/MM 2.5 CM/< (07/22/15) INTMD RPR S/A/T/EXT 12.6-20 (06/09/18) INTMD RPR S/A/T/EXT 2.5 CM/< (07/22/15) MEASURE BLOOD OXYGEN LEVEL (01/30/14) METABOLIC PANEL TOTAL CA (01/30/14) PATH CONSULT INTRAOP 1 BLOC (07/22/15) PATH CONSULT INTRAOP ADDL (07/22/15) PROTHROMBIN TIME (10/12/14) REAGENT STRIP/BLOOD GLUCOSE (01/30/14) ROUTINE VENIPUNCTURE (10/12/14) THROMBOPLASTIN TIME PARTIAL (10/12/14) TISSUE EXAM BY PATHOLOGIST (06/09/18) Problem List Initiated/Reviewed/Updated: Yes My Orders Last 24 Hours: My Active Orders 11/15/19 15:23 Resuscitation Status Routine 11/16/19 17:00 Hydrocortisone [Cortef] 5 mg PO BIDMEALS Plan: ASSESSMENT AND RECOMMENDATIONS- Left lung pneumonia-complicated by hypoxic respiratory failure as well as tenacious secretions with left lower lung mucous plugging. She has had 3 bronchoscopies. Respiratory culture grew out MSSA. -Antibiotic coverage with levofloxacin and doxycycline -Scheduled and as needed nebulizers -Mucomyst nebulizers -Pulmicort neb twice daily -Chest physiotherapy Daily chest x-rays -Supplement oxygen as needed -Continue current medical management Bilateral pleural effusions, left greater than right-mostly resolved after thoracentesis and diuresis. Volume status appears appropriate today. -Follow-up chest x-ray in the morning -Follow-up culture from thoracentesis which is negative so far Adrenal mass-status post surgical resection 2/10 and pathology is pending. Lethargic over the past 36 hours, she had been more alert and interactive when receiving hydrocortisone. Raises the strong possibility that she does have some underlying adrenal insufficiency. -Solu-Medrol 40 mg IV now -Hydrocortisone 5 mg p.o. twice daily -Postoperative care as per surgical team Type 2 diabetes mellitus-TPN initiated. Blood sugars fairly well controlled so far. -Continue metformin -Sliding scale insulin through the day -Consider addition of long-acting insulin once insulin needs are determined
[2019-11-16] MEDS: Pantoprazole 40 MG Tab.CR PO SCH (18:29)
[2019-11-16] MEDS: Levofloxacin/Dextrose 5%-Water 750 MG in Premix Bag 1 BAG IV SCH (18:30)
[2019-11-16] MEDS: Tamsulosin 0.4 MG Cap.ER PO SCH (21:45)
[2019-11-17] MEDS: 1: AA 5%/Calcium/D15W/Lytes 1,000 ML with MVI, Adult with Vitamin K 10 ML, Chromium/Copp IV SCH ×6 (02:14→19:20)
[2019-11-17] MEDS: Albuterol 0.083% 2.5 MG/3 ML Neb Soln NEB SCH ×4 (04:10→22:15)
[2019-11-17] MEDS: Magnesium Sulfate/Water 2 GM in Premix Bag 1 BAG IV SCH ×4 (04:12→21:05)
[2019-11-17] MEDS: Acetaminophen 325 MG Tab PO SCH ×4 (04:22→22:16)
[2019-11-17] MEDS: Albuterol/Ipratropium 3.0-0.5 MG/3 ML Neb Soln INH SCH ×2 (07:08→19:26)
[2019-11-17] MEDS: Acetylcysteine 20% 200 MG/ML 4 ML Nebulizer Soln SDV INH SCH ×2 (07:08→19:26)
[2019-11-17] MEDS: Budesonide 0.5 MG/2 ML Neb Susp NEB SCH ×2 (07:09→21:07)
[2019-11-17] MEDS: Nystatin Susp 100,000 Unit/ML 5 ML UD Cup PO SCH ×4 (07:19→21:09)
[2019-11-17] MEDS: metFORMIN 500 MG Tab PO SCH ×2 (07:51→17:16)
[2019-11-17] MEDS ORDERED: Central Total Parenteral Nutrition Bag SCH (08:00)
[2019-11-17] MEDS: Carvedilol 25 MG Tab PO SCH ×2 (08:30→21:08)
[2019-11-17] MEDS: Docusate Sodium 100 MG Cap PO SCH ×2 (08:30→21:08)
[2019-11-17] MEDS: Furosemide 20 MG/2 ML VIAL IV SCH (08:32)
[2019-11-17] MEDS: Lactobacillus Rhamnosus GG (Probiotic) Cap PO SCH ×2 (08:32→21:09)
[2019-11-17] MEDS: Insulin Lispro 100 Unit/ML 3 ML KwikPen SUBCUT PRN ×4 (08:36→22:16)
[2019-11-17] MEDS ORDERED: 1: AA 5%/Calcium/D15W/Lytes 1,000 ML with MVI, Adult with Vitamin K 10 ML, Chromium/Copp IV SCH ×6 (09:15→21:30)
[2019-11-17] MEDS: Doxycycline 100 MG in Sodium Chloride 0.9% 100 ML IV SCH ×2 (09:45→21:05)
--- NOTE | 2019-11-17 11:30 | PN ---
DATE OF SERVICE: 11/17/2019 SUBJECTIVE: Ashtyn was started on the hydrocortisone yesterday. She has had 3 to 4 bowel movements. Vital signs have been stable. She remains to be sleepy on and off throughout the day. REVIEW OF SYSTEMS: Remainder of review of systems negative for any pertinent positives and negatives. OBJECTIVE: GENERAL: Ashtyn Lundy is an 84-year-old female. She is alert and orientated, quite talkative this morning. She just received postural drainage from Respiratory Therapy. VITAL SIGNS: TPR is 96.7, 73, 16, blood pressure 118/46. HEENT: Negative. NECK: Supple. HEART: Regular rate and rhythm. LUNGS: Clear. ABDOMEN: Dressings dry and intact. Two CHRISTOS drains intact. EXTREMITIES: Without peripheral edema. ASSESSMENT: Exploratory laparotomy with: 1. 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 2. 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 Date of surgery: 11/06/2019. Surgeon: Sandeep Martinez MD. 3. Flexible bronchoscopy on 11/12/2019 for lung atelectasis secondary to occluded secretions. 4. Flexible bronchoscopy on 11/14/2019 for persistent atelectasis in the left lower lobe. PLAN: 1. Decrease TPN to 40 mL per hour, same content. 2. Discontinue Dulcolax suppositories. 3. Check CBC, CMP, phos, and BNP in a.m. 4. Good pulmonary toilet. 5. We will evaluate p.r.n. or in a.m. 6. Plan discharge to [facility] between Wednesday and Wednesday of next week. Sharita Hackett PA-C /[id number]
--- NOTE | 2019-11-17 13:15 | PCM.CONSN ---
- General Info Date of Service: 11/17/19 Subjective Update: Ms. Lundy has shown some improvement from yesterday and was even able to ambulate a short distance in the hallway. She has been more alert and interactive with more energy. Appetite seems to be slowly improving. She has remained afebrile and has been hemodynamically stable. Was up earlier today but when seen in her room was very sleepy, unable to participate in meaningful conversation concerning symptoms or review of systems. - Patient Data Vitals - Most Recent: Last Vital Signs Temp 96.7 F L 11/17/19 07:55 Pulse 73 11/17/19 08:30 Resp 16 11/17/19 07:55 BP 118/46 L 11/17/19 08:30 Pulse Ox 95 11/17/19 13:00 Weight - Most Recent: 228 lb 11.2 oz I&O - Last 24 Hours: Intake & Output 11/16/19 11/17/19 11/17/19 22:59 06:59 14:59 Intake Total 1212 1452 240 Output Total 300 1743 Balance 912 -291 240 Lab Results Last 24 Hours: Laboratory Results - last 24 hr 11/17/19 11/17/19 11/17/19 Range/Units 04:08 04:08 05:00 WBC 16.8 H (4.5-11.0) K/uL RBC 4.03 (3.30-5.50) M/uL Hgb 10.2 L (12.0-15.0) g/dL Hct 34.7 L (36.0-48.0) % MCV 86 (80-98) fL MCH 25 L (27-31) pg MCHC 29 L (32-36) % Plt Count 691 H (150-400) K/uL Sodium 136 L (140-148) mmol/L Potassium 3.9 (3.6-5.2) mmol/L Chloride 100 (100-108) mmol/L Carbon Dioxide 33 H (21-32) mmol/L Anion Gap 6.9 (5.0-14.0) mmol/L BUN 18 (7-18) mg/dL Creatinine 0.5 L (0.6-1.0) mg/dL Est Cr Clr Drug Dosing 73.90 mL/min Estimated GFR (MDRD) > 60 (>60) Glucose 149 H (74-106) mg/dL Calcium 8.8 (8.5-10.1) mg/dL Phosphorus 3.2 (2.5-4.9) mg/dL Total Bilirubin 0.2 (0.2-1.0) mg/dL AST 17 (15-37) U/L ALT 20 (12-78) U/L Alkaline Phosphatase 84 (46-116) U/L NT-Pro-B Natriuret Pep 515 H (5-450) pg/mL Total Protein 5.2 L (6.4-8.2) g/dL Albumin 2.1 L (3.4-5.0) g/dL Globulin 3.1 (2.3-3.5) g/dL Albumin/Globulin Ratio 0.7 L (1.2-2.2) Fluid Type Reddy drainage #1 Fluid Amylase 162 U/L 11/17/19 Range/Units 05:23 WBC (4.5-11.0) K/uL RBC (3.30-5.50) M/uL Hgb (12.0-15.0) g/dL Hct (36.0-48.0) % MCV (80-98) fL MCH (27-31) pg MCHC (32-36) % Plt Count (150-400) K/uL Sodium (140-148) mmol/L Potassium (3.6-5.2) mmol/L Chloride (100-108) mmol/L Carbon Dioxide (21-32) mmol/L Anion Gap (5.0-14.0) mmol/L BUN (7-18) mg/dL Creatinine (0.6-1.0) mg/dL Est Cr Clr Drug Dosing mL/min Estimated GFR (MDRD) (>60) Glucose (74-106) mg/dL Calcium (8.5-10.1) mg/dL Phosphorus (2.5-4.9) mg/dL Total Bilirubin (0.2-1.0) mg/dL AST (15-37) U/L ALT (12-78) U/L Alkaline Phosphatase (46-116) U/L NT-Pro-B Natriuret Pep (5-450) pg/mL Total Protein (6.4-8.2) g/dL Albumin (3.4-5.0) g/dL Globulin (2.3-3.5) g/dL Albumin/Globulin Ratio (1.2-2.2) Fluid Type Reddy drainage #3 Fluid Amylase 7079 U/L Jose Results Last 24 Hours: Microbiology 11/14/19 09:01 AFB Specimen Processing Tissue - Final Bronchial Washings - Mixed Acid Fast Bacilli Smear - Final Acid Fast Bacilli Culture - Preliminary 11/12/19 09:45 AFB Specimen Processing Tissue - Final Lung - Unspecified Acid Fast Bacilli Smear - Final Acid Fast Bacilli Culture - Preliminary 11/11/19 09:39 AFB Specimen Processing Tissue - Final Lung - Unspecified Acid Fast Bacilli Smear - Final Acid Fast Bacilli Culture - Preliminary Med Orders - Current: Current Medications Acetaminophen (Tylenol) 650 mg PO Q6H [facility] Last Admin: 11/17/19 10:44 Dose: Not Given Acetylcysteine (Mucomyst 20%) 200 mg INH BID@0700,1900 [facility] Last Admin: 11/17/19 07:08 Dose: 200 mg Albuterol (Proventil Neb Soln) 2.5 mg NEB 0300,1100,1500,2300 [facility] Last Admin: 11/17/19 10:56 Dose: 2.5 mg Albuterol/Ipratropium (Duoneb 3.0-0.5 Mg/3 Ml) 3 ml NEB Q4H PRN PRN Reason: dyspnea and wheezing Last Admin: 11/13/19 01:15 Dose: 3 ml Albuterol/Ipratropium (Duoneb 3.0-0.5 Mg/3 Ml) 3 ml INH BID@0700,1900 [facility] Last Admin: 11/17/19 07:08 Dose: 3 ml Benzocaine/Menthol (Cepacol Sore Throat) 1 lozenge MUCMEM 6XDAY PRN PRN Reason: Sore Throat Last Admin: 11/07/19 08:47 Dose: 1 lon Budesonide (Pulmicort) 0.5 mg NEB BIDRT [facility] Last Admin: 11/17/19 07:09 Dose: 0.5 mg Carvedilol (Coreg) 25 mg PO BID [facility] Last Admin: 11/17/19 08:30 Dose: 25 mg Dextrose (Glutose 15) 15 gm PO ASDIRECTED PRN PRN Reason: HYPOGLYCEMIA Dextrose/Water (Dextrose 50% In Water) 50 ml IVPUSH ASDIRECTED PRN PRN Reason: HYPOGLYCEMIA Diphenhydramine HCl (Benadryl) 25 mg PO BEDTIME PRN PRN Reason: SLEEP Docusate Sodium (Colace) 100 mg PO BID [facility] Last Admin: 11/17/19 08:30 Dose: 100 mg Furosemide (Lasix) 20 mg IV DAILY [facility] Last Admin: 11/17/19 08:32 Dose: 20 mg Glucagon (Glucagen) 1 mg IM ASDIRECTED PRN PRN Reason: HYPOGLYCEMIA Heparin Sodium (Porcine) (Heparin Lock Flush 100 Units/Ml) 500 units FLUSH ASDIRECTED PRN PRN Reason: IV Use Last Admin: 11/16/19 10:05 Dose: 500 units Hydrocortisone (Cortef) 5 mg PO BIDMEALS [facility] Last Admin: 11/17/19 07:51 Dose: 5 mg Hydromorphone HCl (Dilaudid) 0.5 mg IVPUSH Q4H PRN PRN Reason: Pain Last Admin: 11/14/19 20:24 Dose: 0.5 mg Hydroxyzine HCl (Vistaril) 75 mg IM Q4H PRN PRN Reason: pain Last Admin: 11/16/19 08:25 Dose: 75 mg Levofloxacin/Dextrose 750 mg/ (Premix) 150 mls @ 100 mls/hr IV Q24H [facility] Last Admin: 11/16/19 18:30 Dose: 100 mls/hr Potassium Chloride/Dextrose/Sod Cl (D5 Ns With 20 Meq Kcl) 1,000 mls @ 25 mls/ hr IV ASDIRECTED [facility] Last Admin: 11/12/19 20:37 Dose: 25 mls/hr Doxycycline Hyclate 100 mg/ (Sodium Chloride) 100 mls @ 100 mls/hr IV Q12H [facility] Last Admin: 11/17/19 09:45 Dose: 100 mls/hr Magnesium Sulfate 2 gm/ Premix 50 mls @ 25 mls/hr IV Q6H [facility] Stop: 11/19/19 05:59 Last Admin: 11/17/19 09:48 Dose: 25 mls/hr Multivitamins/Minerals 10 ml/Chromium/Copper/Manganese/Seleni/Zn 1 ml/ Amino Ac/ Electrol/Dextrose/Calcium 1,011 mls @ 40 mls/hr IV .BY DURATION [facility] Amino Ac/Electrol/Dextrose/Calcium (Clinimix E 02/08) 1,000 mls @ 40 mls/hr IV .BY DURATION [facility] Insulin Human Lispro (Humalog) 0 unit SUBCUT ASDIRECTED PRN; Protocol PRN Reason: MEDIUM CORRECTIONAL DOSING Last Admin: 11/17/19 08:36 Dose: 2 units Lactobacillus Rhamnosus (Culturelle) 1 cap PO BID [facility] Last Admin: 11/17/19 08:32 Dose: 1 cap Levothyroxine Sodium 100 mcg/ (Levothyroxine Sodium 50 mcg) 150 mcg PO DAILY@ 0730 [facility] Last Admin: 11/17/19 07:51 Dose: 150 mcg Metformin HCl (Glucophage) 1,000 mg PO BIDMEALS [facility] Last Admin: 11/17/19 07:51 Dose: 1,000 mg Naloxone HCl (Narcan) 0.1 mg IV ASDIRECTED PRN PRN Reason: decreased respiratory rate Non-Formulary Medication (Total Parenteral Nutrition, Central) 1,000 ml .XX .Continue Order [facility] Stop: 11/17/19 18:00 Nystatin (Mycostatin) 5 ml PO QID [facility] Last Admin: 11/17/19 09:49 Dose: 5 ml Ondansetron HCl (Zofran) 4 mg IVPUSH Q4H PRN PRN Reason: Nausea/Vomiting Pantoprazole Sodium (Protonix) 40 mg PO Q24H [facility] Last Admin: 11/16/19 18:29 Dose: 40 mg Tamsulosin HCl (Flomax) 0.4 mg PO BEDTIME [facility] Last Admin: 11/16/19 21:45 Dose: 0.4 mg Discontinued Medications Acetaminophen (Tylenol Extra Strength) 1,000 mg PO ONETIME ONE Stop: 11/06/19 09:01 Last Admin: 11/06/19 09:00 Dose: 1,000 mg Acetylcysteine (Mucomyst 20%) 200 mg INH BIDRT [facility] Last Admin: 11/13/19 07:16 Dose: 200 mg Albuterol (Proventil Neb Soln) 2.5 mg NEB QIDRT [facility] Last Admin: 11/13/19 07:17 Dose: Not Given Albuterol/Ipratropium (Duoneb 3.0-0.5 Mg/3 Ml) 3 ml NEB ONETIME ONE Stop: 11/08/19 20:26 Last Admin: 11/08/19 20:38 Dose: 3 ml Albuterol/Ipratropium (Duoneb 3.0-0.5 Mg/3 Ml) 3 ml INH BIDRT [facility] Last Admin: 11/13/19 07:16 Dose: 3 ml Bisacodyl (Dulcolax) 10 mg PO BID [facility] Last Admin: 11/16/19 21:45 Dose: 10 mg Bumetanide (Bumex) 2 mg IV Q8H [facility] Stop: 11/11/19 16:31 Last Admin: 11/11/19 17:38 Dose: Not Given Bumetanide (Bumex) 2 mg IV ONETIME ONE Stop: 11/12/19 13:31 Last Admin: 11/12/19 12:57 Dose: 2 mg Bumetanide (Bumex) 2 mg IVPUSH ONETIME ONE Stop: 11/13/19 10:01 Last Admin: 11/13/19 09:59 Dose: 2 mg Bupivacaine HCl (Marcaine 0.5%) Confirm Administered Dose 50 ml .ROUTE .STK-MED ONE Stop: 11/06/19 09:56 Ropivacaine 48 ml/Dexamethasone 8 mg/Epinephrine HCl 0.4 mg/ Sodium Chloride 29.6 ml 0 ml NERVRT ASDIRECTED [facility] Last Admin: 11/06/19 12:40 Dose: 80 syringe Cyclobenzaprine HCl (Flexeril) 10 mg PO Q6H PRN PRN Reason: Muscle Spasm Dexamethasone (Dexamethasone) Confirm Administered Dose 4 mg .ROUTE .STK-MED ONE Stop: 11/06/19 10:42 Fentanyl (Sublimaze) Confirm Administered Dose 250 mcg .ROUTE .STK-MED ONE Stop: 11/06/19 10:42 Furosemide (Lasix) 10 mg IVPUSH ONETIME ONE Stop: 11/07/19 15:21 Last Admin: 11/07/19 15:42 Dose: 10 mg Furosemide (Lasix) 10 mg IVPUSH ONETIME ONE Stop: 11/08/19 17:16 Last Admin: 11/08/19 17:20 Dose: 10 mg Furosemide (Lasix) 20 mg IVPUSH ONETIME ONE Stop: 11/08/19 20:24 Last Admin: 11/08/19 20:37 Dose: 20 mg Furosemide (Lasix) 10 mg IVPUSH ONETIME ONE Stop: 11/09/19 03:44 Last Admin: 11/09/19 03:59 Dose: 10 mg Furosemide (Lasix) 10 mg IVPUSH Q12H [facility] Stop: 11/09/19 20:01 Last Admin: 11/09/19 08:23 Dose: 10 mg Furosemide (Lasix) 40 mg IVPUSH ONETIME ONE Stop: 11/09/19 14:19 Last Admin: 11/09/19 14:29 Dose: 40 mg Furosemide (Lasix) 20 mg IVPUSH Q12H [facility] Stop: 11/10/19 20:01 Last Admin: 11/10/19 20:28 Dose: 20 mg Furosemide (Lasix) 20 mg IVPUSH ONETIME ONE Stop: 11/15/19 21:35 Last Admin: 11/15/19 22:53 Dose: 20 mg Glycopyrrolate (Robinul) Confirm Administered Dose 1 mg .ROUTE .STK-MED ONE Stop: 11/06/19 10:42 Heparin Sodium (Porcine) (Heparin Lock Flush 100 Units/Ml) Confirm Administered Dose 500 units .ROUTE .STK-MED ONE Stop: 11/11/19 09:25 Last Admin: 11/11/19 09:45 Dose: 500 units Hydrocortisone (Cortef) 10 mg PO BID@0800,1600 [facility] Last Admin: 11/14/19 09:41 Dose: 10 mg Hydrocortisone Sodium Succinate (Solu-Cortef) 100 mg IVPUSH ONETIME ONE Stop: 11/10/19 10:01 Last Admin: 11/10/19 10:39 Dose: 100 mg Hydrocortisone Sodium Succinate (Solu-Cortef) 50 mg IVPUSH Q6H [facility] Stop: 11/12/19 12:00 Last Admin: 11/12/19 10:26 Dose: 50 mg Hydromorphone HCl (Dilaudid Laborer Syrup Machine 15 Mg In Ns 30 Ml) 0 mg IV ASDIRECTED PRN; Protocol PRN Reason: SKIN CARE INSTRUCTOR PAIN CONTROL Last Admin: 11/06/19 11:43 Dose: 0.2 mg Hydromorphone HCl (Dilaudid) 0.5 mg IVPUSH Q2H PRN PRN Reason: Pain Cefoxitin Sodium 2 gm/ Sodium (Chloride) 50 mls @ 100 mls/hr IV ONETIME ONE Stop: 11/06/19 10:44 Last Admin: 11/06/19 11:12 Dose: 100 mls/hr Dextrose/Lactated Ringer's (Dextrose 5%-Lactated Ringers) 1,000 mls @ 100 mls/ hr IV ASDIRECTED [facility] Last Admin: 11/06/19 10:04 Dose: 100 mls/hr Lactated Ringer's (Ringers, Lactated) Confirm Administered Dose 1,000 mls @ as directed .ROUTE .[facility] ONE Stop: 11/06/19 11:31 Sodium Chloride (Normal Saline) Confirm Administered Dose 500 mls @ as directed .ROUTE .[facility] ONE Stop: 11/06/19 12:48 Dextrose/Lactated Ringer's (Dextrose 5%-Lactated Ringers) 1,000 mls @ 75 mls/ hr IV ASDIRECTED [facility] Stop: 11/07/19 17:59 Last Admin: 11/07/19 10:19 Dose: 75 mls/hr Lactated Ringer's (Ringers, Lactated) 1,000 mls @ 100 mls/hr IV ASDIRECTED [facility] Stop: 11/07/19 17:59 Last Admin: 11/07/19 11:13 Dose: 100 mls/hr Cefoxitin Sodium 2 gm/ Sodium (Chloride) 50 mls @ 100 mls/hr IV Q6H [facility] Stop: 11/07/19 05:29 Last Admin: 11/07/19 04:45 Dose: 100 mls/hr Lactated Ringer's (Ringers, Lactated) 500 mls @ 500 mls/hr IV ONETIME ONE Stop: 11/06/19 22:29 Last Admin: 11/06/19 21:30 Dose: 500 mls/hr Lactated Ringer's (Ringers, Lactated) 500 mls @ 500 mls/hr IV ONETIME ONE Stop: 11/07/19 02:14 Last Admin: 11/07/19 01:15 Dose: 500 mls/hr Dextrose/Lactated Ringer's (Dextrose 5%-Lactated Ringers) 1,000 mls @ 125 mls/ hr IV ASDIRECTED [facility] Last Admin: 11/09/19 06:11 Dose: 125 mls/hr Magnesium Sulfate 2 gm/ Premix 50 mls @ 25 mls/hr IV Q6HR [facility] Stop: 11/10/19 05:59 Last Admin: 11/09/19 03:35 Dose: 25 mls/hr Lactated Ringer's (Ringers, Lactated) 500 mls @ 500 mls/hr IV ASDIRECTED ASHLEY Lactated Ringer's (Ringers, Lactated) 500 mls @ 500 mls/hr IV ONETIME ONE Stop: 11/08/19 00:36 Last Admin: 11/07/19 23:43 Dose: 500 mls/hr Lactated Ringer's (Ringers, Lactated) 500 mls @ 500 mls/hr IV ONETIME ONE Stop: 11/08/19 03:24 Last Admin: 11/08/19 02:28 Dose: 500 mls/hr Lactated Ringer's (Ringers, Lactated) 500 mls @ 500 mls/hr IV ONETIME ONE Stop: 11/08/19 06:28 Last Admin: 11/08/19 05:29 Dose: 500 mls/hr Lactated Ringer's (Ringers, Lactated) 500 mls @ 250 mls/hr IV ONETIME ONE Stop: 11/08/19 17:47 Last Admin: 11/08/19 15:51 Dose: 250 mls/hr Potassium Chloride 20 meq/Lidocaine HCl 2 ml/ Sodium Chloride 112 mls @ 56 mls/ hr IV Q2H [facility] Stop: 11/09/19 13:59 Last Admin: 11/09/19 12:09 Dose: 56 mls/hr Dextrose/Lactated Ringer's (Dextrose 5%-Lactated Ringers) 1,000 mls @ 25 mls/ hr IV ASDIRECTED [facility] Potassium Chloride 20 meq/Lidocaine HCl 2 ml/ Sodium Chloride 112 mls @ 56 mls/ hr IV Q2H [facility] Stop: 11/10/19 13:59 Last Admin: 11/10/19 13:00 Dose: 56 mls/hr Albumin Human (Albumin 25%) 25 gm in 100 mls @ 25 mls/hr IV Q24H [facility] Stop: 11/12/19 12:59 Last Admin: 11/12/19 08:42 Dose: 25 mls/hr Potassium Chloride/Dextrose/Sod Cl (D5 Ns With 20 Meq Kcl) 1,000 mls @ 60 mls/ hr IV ASDIRECTED [facility] Last Admin: 11/11/19 03:34 Dose: 60 mls/hr Sodium Chloride (Normal Saline) 100 mls @ 3 mls/sec IV ASDIRECTED ASHLEY Stop: 11/10/19 22:00 Last Admin: 11/10/19 14:44 Dose: 3 mls/sec Meropenem 1 gm/ Sodium (Chloride) 50 mls @ 100 mls/hr IV Q8H [facility] Last Admin: 11/12/19 08:40 Dose: 100 mls/hr Potassium Chloride/Dextrose/Sod Cl (D5 Ns With 20 Meq Kcl) 1,000 mls @ 40 mls/ hr IV ASDIRECTED [facility] Stop: 11/11/19 14:15 Magnesium Sulfate 2 gm/ Premix 50 mls @ 25 mls/hr IV Q6H [facility] Stop: 11/13/19 05:59 Last Admin: 11/13/19 04:03 Dose: 25 mls/hr Heparin Sodium (Porcine) 5,000 (units/ Sodium Chloride) 501 mls @ 5 mls/hr IV ASDIRECTED [facility] Last Admin: 11/11/19 10:43 Dose: 5 mls/hr Linezolid 600 mg/ Premix 300 mls @ 300 mls/hr IV Q12H [facility] Last Admin: 11/13/19 23:21 Dose: 300 mls/hr Multivitamins/Minerals 10 ml/Chromium/Copper/Manganese/Seleni/Zn 1 ml/ Amino Ac/ Electrol/Dextrose/Calcium 1,011 mls @ 60 mls/hr IV .BY DURATION [facility] Stop: 11/12/19 20:00 Last Admin: 11/11/19 15:55 Dose: 60 mls/hr Amino Ac/Electrol/Dextrose/Calcium (Clinimix E 5/15) 1,000 mls @ 60 mls/hr IV .BY DURATION [facility] Stop: 11/12/19 20:00 Last Admin: 11/12/19 08:39 Dose: 60 mls/hr Potassium Phosphate 25 mmole/ (Sodium Chloride) 108.3333 mls @ 27 mls/hr IV ONETIME ONE Stop: 11/12/19 17:00 Last Admin: 11/12/19 12:24 Dose: 27 mls/hr Potassium Phosphate 20 mmole/ (Sodium Chloride) 106.6667 mls @ 35 mls/hr IV ONETIME ONE Stop: 11/12/19 21:02 Last Admin: 11/12/19 17:10 Dose: 35 mls/hr Meropenem 1 gm/ Sterile Water 20 mls @ 120 mls/hr IV Q8H [facility] Last Admin: 11/14/19 01:21 Dose: 120 mls/hr Multivitamins/Minerals 10 ml/Chromium/Copper/Manganese/Seleni/Zn 1 ml/ Amino Ac/ Electrol/Dextrose/Calcium 1,011 mls @ 82 mls/hr IV .BY DURATION [facility] Stop: 11/17/19 11:25 Last Admin: 11/17/19 02:14 Dose: 82 mls/hr Amino Ac/Electrol/Dextrose/Calcium (Clinimix E 5/15) 1,000 mls @ 82 mls/hr IV .BY DURATION [facility] Stop: 11/17/19 11:25 Last Admin: 11/16/19 13:32 Dose: 82 mls/hr Potassium Phosphate 15 mmole/ (Sodium Chloride) 105 mls @ 34.454 mls/hr IV Q3H [facility] Stop: 11/14/19 15:59 Last Admin: 11/14/19 12:39 Dose: 34.454 mls/hr Magnesium Sulfate 2 gm/ Premix 50 mls @ 25 mls/hr IV Q6H [facility] Stop: 11/15/19 23:59 Last Admin: 11/15/19 22:57 Dose: 25 mls/hr Insulin Human Lispro (Humalog) 7 unit SUBCUT ONETIME ONE Stop: 11/06/19 14:01 Last Admin: 11/06/19 14:00 Dose: 7 units Iopamidol (Isovue-300 (61%)) 150 ml IV . DIRECTED [facility] Stop: 11/10/19 22:00 Last Admin: 11/10/19 14:44 Dose: 150 ml Ketamine HCl (Ketalar) 27 mg IV ASDIRECTED [facility] Lidocaine (Lta 360 Kit Top Soln) Confirm Administered Dose 4 ml .ROUTE .STK-MED ONE Stop: 11/12/19 09:04 Lidocaine HCl (Xylocaine 2% Viscous) Confirm Administered Dose 15 ml .ROUTE .STK -MED ONE Stop: 11/11/19 09:25 Last Admin: 11/11/19 09:35 Dose: 15 ml Lidocaine HCl (Xylocaine 4% Top Soln) Confirm Administered Dose 50 ml .ROUTE .STK-MED ONE Stop: 11/11/19 09:25 Last Admin: 11/11/19 09:35 Dose: 50 ml Lidocaine HCl (Xylocaine 2% Viscous) Confirm Administered Dose 15 ml .ROUTE .STK -MED ONE Stop: 11/12/19 07:49 Last Admin: 11/12/19 09:17 Dose: 15 ml Lidocaine HCl (Xylocaine 4% Top Soln) Confirm Administered Dose 50 ml .ROUTE .STK-MED ONE Stop: 11/12/19 07:49 Last Admin: 11/12/19 10:01 Dose: 50 ml Lidocaine HCl (Xylocaine 2% Viscous) Confirm Administered Dose 15 ml .ROUTE .STK -MED ONE Stop: 11/14/19 07:33 Last Admin: 11/14/19 08:33 Dose: 15 ml Lidocaine HCl (Xylocaine 4% Top Soln) Confirm Administered Dose 50 ml .ROUTE .STK-MED ONE Stop: 11/14/19 07:33 Last Admin: 11/14/19 08:33 Dose: 50 ml Lidocaine/Epinephrine (Xylocaine 1% With Epinephrine 1:100,000) Confirm Administered Dose 50 ml .ROUTE .STK-MED ONE Stop: 11/06/19 09:56 Meropenem (Merrem) Confirm Administered Dose 500 mg .ROUTE .STK-MED ONE Stop: 11/06/19 09:56 Last Admin: 11/06/19 12:31 Dose: 500 mg Methylprednisolone Sodium Succinate (Solu-Medrol) 40 mg IVPUSH ONETIME ONE Stop: 11/16/19 11:01 Last Admin: 11/16/19 11:22 Dose: 40 mg Neostigmine Methylsulfate (Neostigmine) Confirm Administered Dose 5 mg .ROUTE .STK-MED ONE Stop: 11/06/19 10:42 Non-Formulary Medication (Total Parenteral Nutrition, Central) 1,000 ml .XX .Continue Order [facility] Stop: 11/16/19 18:00 Ondansetron HCl (Zofran) Confirm Administered Dose 4 mg .ROUTE .STK-MED ONE Stop: 11/06/19 10:42 Pantoprazole Sodium (Protonix Iv) 40 mg IVPUSH Q24H [facility] Last Admin: 11/13/19 16:29 Dose: 40 mg Propofol (Diprivan 20 Ml) Confirm Administered Dose 200 mg .ROUTE .STK-MED ONE Stop: 11/06/19 10:42 Propofol (Diprivan 20 Ml) Confirm Administered Dose 200 mg .ROUTE .STK-MED ONE Stop: 11/11/19 08:35 Propofol (Diprivan 20 Ml) Confirm Administered Dose 200 mg .ROUTE .STK-MED ONE Stop: 11/12/19 09:04 Propofol (Diprivan 20 Ml) Confirm Administered Dose 200 mg .ROUTE .STK-MED ONE Stop: 11/14/19 08:40 Rocuronium Mobile (Zemuron) Confirm Administered Dose 50 mg .ROUTE .STK-MED ONE Stop: 11/06/19 10:42 Rocuronium Mobile (Zemuron) Confirm Administered Dose 50 mg .ROUTE .STK-MED ONE Stop: 11/06/19 12:29 Sodium Chloride (Saline Flush) 10 ml FLUSH ONETIME ONE Stop: 11/10/19 14:09 Last Admin: 11/10/19 14:44 Dose: 10 ml Tamsulosin HCl (Flomax) 0.4 mg PO ONETIME ONE Stop: 11/16/19 08:01 Last Admin: 11/16/19 08:25 Dose: 0.4 mg - Exam General: No Acute Distress, Lethargic Lungs: Clear to Auscultation, Normal Respiratory Effort Cardiovascular: Regular Rate, Regular Rhythm, No Murmurs GI/Abdominal Exam: Soft, No Organomegaly, Tender. No: Distended, Guarding, Rigid, Rebound Extremities: Non-Tender, No Pedal Edema Sepsis Event Note - Evaluation Sepsis Screening Result: Severe Sepsis Risk - Focused Exam Vital Signs: Vital Signs Temp Pulse Pulse Resp BP BP Pulse Ox 11/17/19 13:00 95 11/17/19 08:30 73 118/46 L 11/17/19 07:55 96.7 F L 73 16 118/46 L 96 11/17/19 07:22 100 11/17/19 07:09 77 11/17/19 03:00 96.7 F L 81 18 139/62 99 11/17/19 01:20 91 L Date Exam was Performed: 11/17/19 Time Exam was Performed: 13:12 Consult PN Assessment/Plan Procedures: Procedures ASSAY OF MAGNESIUM (10/12/14) ASSAY OF TROPONIN QUANT (10/12/14) CHEST X-RAY 2VW FRONTAL&LATL (01/30/14) COMPLETE CBC AUTOMATED (01/30/14) COMPLETE CBC W/AUTO DIFF WBC (10/12/14) COMPREHEN METABOLIC PANEL (10/12/14) CT ABD & PELV W/CONTRAST (10/23/19) CT HEAD/BRAIN W/O DYE (10/12/14) ECG MONIT/REPRT UP TO 48 HRS (10/17/14) ECG MONIT/REPRT UP TO 48 HRS (10/17/14) ELECTROCARDIOGRAM TRACING (10/12/14) EMERGENCY DEPT VISIT (10/12/14) EXC F/E/E/N/L MAL+MRG 0.6-1 (07/22/15) EXC TR-EXT B9+JOHN PAUL 3.1-4 CM (07/22/15) EXC TR-EXT MAL+JOHN PAUL 1.1-2 CM (06/09/18) EXC TR-EXT MAL+JOHN PAUL 2.1-3 CM (06/09/18) HYDRATION IV INFUSION INIT (10/12/14) INTMD RPR FACE/MM 2.5 CM/< (07/22/15) INTMD RPR S/A/T/EXT 12.6-20 (06/09/18) INTMD RPR S/A/T/EXT 2.5 CM/< (07/22/15) MEASURE BLOOD OXYGEN LEVEL (01/30/14) METABOLIC PANEL TOTAL CA (01/30/14) PATH CONSULT INTRAOP 1 BLOC (07/22/15) PATH CONSULT INTRAOP ADDL (07/22/15) PROTHROMBIN TIME (10/12/14) REAGENT STRIP/BLOOD GLUCOSE (01/30/14) ROUTINE VENIPUNCTURE (10/12/14) THROMBOPLASTIN TIME PARTIAL (10/12/14) TISSUE EXAM BY PATHOLOGIST (06/09/18) Problem List Initiated/Reviewed/Updated: Yes My Orders Last 24 Hours: My Active Orders 11/16/19 17:00 Hydrocortisone [Cortef] 5 mg PO BIDMEALS Plan: ASSESSMENT AND RECOMMENDATIONS- Left lung pneumonia-complicated by hypoxic respiratory failure as well as tenacious secretions with left lower lung mucous plugging. She has had 3 bronchoscopies. Respiratory culture grew out MSSA. Due to slow improvement, afebrile, requiring less supplemental oxygen -Antibiotic coverage with levofloxacin and doxycycline, plan to discontinue November 19 -Scheduled and as needed nebulizers -Mucomyst nebulizers -Pulmicort neb twice daily -Chest physiotherapy Daily chest x-rays -Supplement oxygen as needed -Continue current medical management Bilateral pleural effusions, left greater than right-mostly resolved after thoracentesis and diuresis. Volume status appears appropriate today. 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 Lethargic over the past 36 hours, she had been more alert and interactive when receiving hydrocortisone. Raises the strong possibility that she does have some underlying adrenal insufficiency. -Hydrocortisone 5 mg p.o. twice daily -Postoperative care as per surgical team Type 2 diabetes mellitus-TPN initiated. Blood sugars fairly well controlled so far. -Continue metformin -Sliding scale insulin through the day -Consider addition of long-acting insulin once insulin needs are determined
[2019-11-17] MEDS: Pantoprazole 40 MG Tab.CR PO SCH (17:15)
[2019-11-17] MEDS: Levofloxacin/Dextrose 5%-Water 750 MG in Premix Bag 1 BAG IV SCH (17:17)
[2019-11-17] MEDS: Tamsulosin 0.4 MG Cap.ER PO SCH (21:09)
[2019-11-18] MEDS: Magnesium Sulfate/Water 2 GM in Premix Bag 1 BAG IV SCH ×4 (03:07→21:35)
[2019-11-18] MEDS: Albuterol 0.083% 2.5 MG/3 ML Neb Soln NEB SCH ×3 (03:07→14:37)
[2019-11-18] MEDS: Nystatin Susp 100,000 Unit/ML 5 ML UD Cup PO SCH ×4 (06:32→21:35)
[2019-11-18] MEDS: Acetaminophen 325 MG Tab PO SCH ×5 (06:32→22:06)
[2019-11-18] MEDS: Budesonide 0.5 MG/2 ML Neb Susp NEB SCH ×2 (07:24→21:35)
[2019-11-18] MEDS: Acetylcysteine 20% 200 MG/ML 4 ML Nebulizer Soln SDV INH SCH ×2 (07:24→20:02)
[2019-11-18] MEDS: Albuterol/Ipratropium 3.0-0.5 MG/3 ML Neb Soln INH SCH ×2 (07:24→20:03)
[2019-11-18] MEDS: metFORMIN 500 MG Tab PO SCH ×2 (08:05→17:09)
[2019-11-18] MEDS: Lactobacillus Rhamnosus GG (Probiotic) Cap PO SCH ×2 (08:05→20:34)
[2019-11-18] MEDS: Furosemide 20 MG/2 ML VIAL IV SCH (08:05)
[2019-11-18] MEDS: Dextrose 5%-0.9% NaCl with KCl 1,000 ML IV SCH (08:12)
[2019-11-18] MEDS: Carvedilol 25 MG Tab PO SCH ×2 (08:18→20:33)
[2019-11-18] MEDS: Doxycycline 100 MG in Sodium Chloride 0.9% 100 ML IV SCH ×2 (08:21→20:08)
[2019-11-18] MEDS: Insulin Lispro 100 Unit/ML 3 ML KwikPen SUBCUT PRN ×4 (08:22→21:38)
[2019-11-18] MEDS: Docusate Sodium 100 MG Cap PO SCH ×2 (08:26→20:34)
[2019-11-18] MEDS ORDERED: Central Total Parenteral Nutrition Bag IV SCH (08:30)
[2019-11-18] MEDS: Enoxaparin 40 MG/0.4 ML Syringe SUBCUT SCH (10:17)
--- NOTE | 2019-11-18 11:16 | PCM.CONSN ---
- General Info Date of Service: 11/18/19 Subjective Update: Ms. Lundy slowly regaining strength and appetite. Now able to walk short distances in the hallways and slowly eating more. All has been more alert and interactive. When seen this morning she was sleeping heavily unable to be aroused, thus unable to provide meaningful information concerning symptoms or review of systems. - Patient Data Vitals - Most Recent: Last Vital Signs Temp 97.3 F 11/18/19 10:31 Pulse 97 11/18/19 10:46 Resp 16 11/18/19 10:31 BP 126/42 L 11/18/19 10:31 Pulse Ox 93 L 11/18/19 10:46 Weight - Most Recent: 228 lb I&O - Last 24 Hours: Intake & Output 11/17/19 11/18/19 11/18/19 22:59 06:59 14:59 Intake Total 1750 1121 640 Output Total 1090 1195 80 Balance 660 -74 560 Lab Results Last 24 Hours: Laboratory Results - last 24 hr 11/18/19 11/18/19 Range/Units 04:27 04:27 WBC 14.4 H (4.5-11.0) K/uL RBC 3.79 (3.30-5.50) M/uL Hgb 9.7 L (12.0-15.0) g/dL Hct 32.6 L (36.0-48.0) % MCV 86 (80-98) fL MCH 26 L (27-31) pg MCHC 30 L (32-36) % Plt Count 689 H (150-400) K/uL Sodium 137 L (140-148) mmol/L Potassium 3.8 (3.6-5.2) mmol/L Chloride 101 (100-108) mmol/L Carbon Dioxide 33 H (21-32) mmol/L Anion Gap 6.8 (5.0-14.0) mmol/L BUN 14 (7-18) mg/dL Creatinine 0.5 L (0.6-1.0) mg/dL Est Cr Clr Drug Dosing 73.90 mL/min Estimated GFR (MDRD) > 60 (>60) Glucose 135 H (74-106) mg/dL Calcium 8.3 L (8.5-10.1) mg/dL Phosphorus 2.6 (2.5-4.9) mg/dL Total Bilirubin 0.2 (0.2-1.0) mg/dL AST 18 (15-37) U/L ALT 26 (12-78) U/L Alkaline Phosphatase 76 (46-116) U/L NT-Pro-B Natriuret Pep 350 (5-450) pg/mL Total Protein 4.7 L (6.4-8.2) g/dL Albumin 1.9 L (3.4-5.0) g/dL Globulin 2.8 (2.3-3.5) g/dL Albumin/Globulin Ratio 0.7 L (1.2-2.2) Med Orders - Current: Current Medications Acetaminophen (Tylenol) 650 mg PO Q6H [facility] Last Admin: 11/18/19 10:21 Dose: Not Given Acetylcysteine (Mucomyst 20%) 200 mg INH BID@0700,1900 [facility] Last Admin: 11/18/19 07:24 Dose: 200 mg Albuterol (Proventil Neb Soln) 2.5 mg NEB 0300,1100,1500,2300 [facility] Last Admin: 11/18/19 10:46 Dose: 2.5 mg Albuterol/Ipratropium (Duoneb 3.0-0.5 Mg/3 Ml) 3 ml NEB Q4H PRN PRN Reason: dyspnea and wheezing Last Admin: 11/13/19 01:15 Dose: 3 ml Albuterol/Ipratropium (Duoneb 3.0-0.5 Mg/3 Ml) 3 ml INH BID@0700,1900 [facility] Last Admin: 11/18/19 07:24 Dose: 3 ml Benzocaine/Menthol (Cepacol Sore Throat) 1 lozenge MUCMEM 6XDAY PRN PRN Reason: Sore Throat Last Admin: 11/07/19 08:47 Dose: 1 lon Budesonide (Pulmicort) 0.5 mg NEB BIDRT [facility] Last Admin: 11/18/19 07:24 Dose: 0.5 mg Carvedilol (Coreg) 25 mg PO BID [facility] Last Admin: 11/18/19 08:18 Dose: 25 mg Dextrose (Glutose 15) 15 gm PO ASDIRECTED PRN PRN Reason: HYPOGLYCEMIA Dextrose/Water (Dextrose 50% In Water) 50 ml IVPUSH ASDIRECTED PRN PRN Reason: HYPOGLYCEMIA Diphenhydramine HCl (Benadryl) 25 mg PO BEDTIME PRN PRN Reason: SLEEP Docusate Sodium (Colace) 100 mg PO BID [facility] Last Admin: 11/18/19 08:26 Dose: 100 mg Enoxaparin Sodium (Lovenox) 40 mg SUBCUT DAILY [facility] Last Admin: 11/18/19 10:17 Dose: 40 mg Furosemide (Lasix) 20 mg IV DAILY [facility] Last Admin: 11/18/19 08:05 Dose: 20 mg Glucagon (Glucagen) 1 mg IM ASDIRECTED PRN PRN Reason: HYPOGLYCEMIA Heparin Sodium (Porcine) (Heparin Lock Flush 100 Units/Ml) 500 units FLUSH ASDIRECTED PRN PRN Reason: IV Use Last Admin: 11/16/19 10:05 Dose: 500 units [facility] Admin: 11/18/19 08:04 Dose: 5 mg Hydromorphone HCl (Dilaudid) 0.5 mg IVPUSH Q4H PRN PRN Reason: Pain Last Admin: 11/14/19 20:24 Dose: 0.5 mg Hydroxyzine HCl (Vistaril) 75 mg IM Q4H PRN PRN Reason: pain Last Admin: 11/16/19 08:25 Dose: 75 mg Levofloxacin/Dextrose 750 mg/ (Premix) 150 mls @ 100 mls/hr IV Q24H [facility] Stop: 11/19/19 08:00 Last Admin: 11/17/19 17:17 Dose: 100 mls/hr Potassium Chloride/Dextrose/Sod Cl (D5 Ns With 20 Meq Kcl) 1,000 mls @ 25 mls/ hr IV ASDIRECTED [facility] Last Admin: 11/18/19 08:12 Dose: 25 mls/hr Doxycycline Hyclate 100 mg/ (Sodium Chloride) 100 mls @ 100 mls/hr IV Q12H [facility] Stop: 11/19/19 08:00 Last Admin: 11/18/19 08:21 Dose: 100 mls/hr Magnesium Sulfate 2 gm/ Premix 50 mls @ 25 mls/hr IV Q6H [facility] Stop: 11/19/19 05:59 Last Admin: 11/18/19 10:17 Dose: 25 mls/hr Multivitamins/Minerals 10 ml/Chromium/Copper/Manganese/Seleni/Zn 1 ml/ Amino Ac/ Electrol/Dextrose/Calcium 1,011 mls @ 40 mls/hr IV .BY DURATION [facility] Last Admin: 11/17/19 19:20 Dose: 40 mls/hr Amino Ac/Electrol/Dextrose/Calcium (Clinimix E 02/08) 1,000 mls @ 40 mls/hr IV .BY DURATION [facility] Insulin Human Lispro (Humalog) 0 unit SUBCUT ASDIRECTED PRN; Protocol PRN Reason: MEDIUM CORRECTIONAL DOSING Last Admin: 11/18/19 08:22 Dose: 1 units Lactobacillus Rhamnosus (Culturelle) 1 cap PO BID [facility] Last Admin: 11/18/19 08:05 Dose: 1 cap Levothyroxine Sodium 100 mcg/ (Levothyroxine Sodium 50 mcg) 150 mcg PO DAILY@ 0730 [facility] Last Admin: 11/18/19 08:04 Dose: 150 mcg Metformin HCl (Glucophage) 1,000 mg PO BIDMEALS [facility] Last Admin: 11/18/19 08:05 Dose: 1,000 mg Naloxone HCl (Narcan) 0.1 mg IV ASDIRECTED PRN PRN Reason: decreased respiratory rate Non-Formulary Medication (Total Parenteral Nutrition, Central) 0 ml IV ASDIRECTED [facility] Stop: 11/18/19 18:00 Nystatin (Mycostatin) 5 ml PO QID [facility] Last Admin: 11/18/19 10:21 Dose: Not Given Ondansetron HCl (Zofran) 4 mg IVPUSH Q4H PRN PRN Reason: Nausea/Vomiting Pantoprazole Sodium (Protonix) 40 mg PO Q24H [facility] Last Admin: 11/17/19 17:15 Dose: 40 mg Tamsulosin HCl (Flomax) 0.4 mg PO BEDTIME [facility] Last Admin: 11/17/19 21:09 Dose: 0.4 mg Warfarin Sodium (Coumadin) 10 mg PO ONETIME ONE Stop: 11/18/19 13:01 Discontinued Medications Acetaminophen (Tylenol Extra Strength) 1,000 mg PO ONETIME ONE Stop: 11/06/19 09:01 Last Admin: 11/06/19 09:00 Dose: 1,000 mg Acetylcysteine (Mucomyst 20%) 200 mg INH BIDRT [facility] Last Admin: 11/13/19 07:16 Dose: 200 mg Albuterol (Proventil Neb Soln) 2.5 mg NEB QIDRT [facility] Last Admin: 11/13/19 07:17 Dose: Not Given Albuterol/Ipratropium (Duoneb 3.0-0.5 Mg/3 Ml) 3 ml NEB ONETIME ONE Stop: 11/08/19 20:26 Last Admin: 11/08/19 20:38 Dose: 3 ml Albuterol/Ipratropium (Duoneb 3.0-0.5 Mg/3 Ml) 3 ml INH BIDRT [facility] Last Admin: 11/13/19 07:16 Dose: 3 ml Bisacodyl (Dulcolax) 10 mg PO BID [facility] Last Admin: 11/16/19 21:45 Dose: 10 mg Bumetanide (Bumex) 2 mg IV Q8H [facility] Stop: 11/11/19 16:31 Last Admin: 11/11/19 17:38 Dose: Not Given Bumetanide (Bumex) 2 mg IV ONETIME ONE Stop: 11/12/19 13:31 Last Admin: 11/12/19 12:57 Dose: 2 mg Bumetanide (Bumex) 2 mg IVPUSH ONETIME ONE Stop: 11/13/19 10:01 Last Admin: 11/13/19 09:59 Dose: 2 mg Bupivacaine HCl (Marcaine 0.5%) Confirm Administered Dose 50 ml .ROUTE .STK-MED ONE Stop: 11/06/19 09:56 Ropivacaine 48 ml/Dexamethasone 8 mg/Epinephrine HCl 0.4 mg/ Sodium Chloride 29.6 ml 0 ml NERVRT ASDIRECTED [facility] Last Admin: 11/06/19 12:40 Dose: 80 syringe Cyclobenzaprine HCl (Flexeril) 10 mg PO Q6H PRN PRN Reason: Muscle Spasm Dexamethasone (Dexamethasone) Confirm Administered Dose 4 mg .ROUTE .STK-MED ONE Stop: 11/06/19 10:42 Fentanyl (Sublimaze) Confirm Administered Dose 250 mcg .ROUTE .STK-MED ONE Stop: 11/06/19 10:42 Furosemide (Lasix) 10 mg IVPUSH ONETIME ONE Stop: 11/07/19 15:21 Last Admin: 11/07/19 15:42 Dose: 10 mg Furosemide (Lasix) 10 mg IVPUSH ONETIME ONE Stop: 11/08/19 17:16 Last Admin: 11/08/19 17:20 Dose: 10 mg Furosemide (Lasix) 20 mg IVPUSH ONETIME ONE Stop: 11/08/19 20:24 Last Admin: 11/08/19 20:37 Dose: 20 mg Furosemide (Lasix) 10 mg IVPUSH ONETIME ONE Stop: 11/09/19 03:44 Last Admin: 11/09/19 03:59 Dose: 10 mg Furosemide (Lasix) 10 mg IVPUSH Q12H [facility] Stop: 11/09/19 20:01 Last Admin: 11/09/19 08:23 Dose: 10 mg Furosemide (Lasix) 40 mg IVPUSH ONETIME ONE Stop: 11/09/19 14:19 Last Admin: 11/09/19 14:29 Dose: 40 mg Furosemide (Lasix) 20 mg IVPUSH Q12H [facility] Stop: 11/10/19 20:01 Last Admin: 11/10/19 20:28 Dose: 20 mg Furosemide (Lasix) 20 mg IVPUSH ONETIME ONE Stop: 11/15/19 21:35 Last Admin: 11/15/19 22:53 Dose: 20 mg Glycopyrrolate (Robinul) Confirm Administered Dose 1 mg .ROUTE .STK-MED ONE Stop: 11/06/19 10:42 Heparin Sodium (Porcine) (Heparin Lock Flush 100 Units/Ml) Confirm Administered Dose 500 units .ROUTE .STK-MED ONE Stop: 11/11/19 09:25 Last Admin: 11/11/19 09:45 Dose: 500 units Hydrocortisone (Cortef) 10 mg PO BID@0800,1600 [facility] Last Admin: 11/14/19 09:41 Dose: 10 mg Hydrocortisone Sodium Succinate (Solu-Cortef) 100 mg IVPUSH ONETIME ONE Stop: 11/10/19 10:01 Last Admin: 11/10/19 10:39 Dose: 100 mg Hydrocortisone Sodium Succinate (Solu-Cortef) 50 mg IVPUSH Q6H [facility] Stop: 11/12/19 12:00 Last Admin: 11/12/19 10:26 Dose: 50 mg Hydromorphone HCl (Dilaudid Duralumin Mechanic 15 Mg In Ns 30 Ml) 0 mg IV ASDIRECTED PRN; Protocol PRN Reason: [employer] Last Admin: 11/06/19 11:43 Dose: 0.2 mg Hydromorphone HCl (Dilaudid) 0.5 mg IVPUSH Q2H PRN PRN Reason: Pain Cefoxitin Sodium 2 gm/ Sodium (Chloride) 50 mls @ 100 mls/hr IV ONETIME ONE Stop: 11/06/19 10:44 Last Admin: 11/06/19 11:12 Dose: 100 mls/hr Dextrose/Lactated Ringer's (Dextrose 5%-Lactated Ringers) 1,000 mls @ 100 [facility]ls[facility] Admin: 11/06/19 10:04 Dose: 100 mls/hr Lactated Ringer's (Ringers, Lactated) Confirm Administered Dose 1,000 mls @ as directed .ROUTE .[facility] ONE Stop: 11/06/19 11:31 Sodium Chloride (Normal Saline) Confirm Administered Dose 500 mls @ as directed .ROUTE .[facility] ONE Stop: 11/06/19 12:48 Dextrose/Lactated Ringer's (Dextrose 5%-Lactated Ringers) 1,000 mls @ 75 mls/ hr IV ASDIRECTED [facility] Stop: 11/07/19 17:59 Last Admin: 11/07/19 10:19 Dose: 75 mls/hr Lactated Ringer's (Ringers, Lactated) 1,000 mls @ 100 mls/hr IV ASDIRECTED [facility] Stop: 11/07/19 17:59 Last Admin: 11/07/19 11:13 Dose: 100 mls/hr Cefoxitin Sodium 2 gm/ Sodium (Chloride) 50 mls @ 100 mls/hr IV Q6H [facility] Stop: 11/07/19 05:29 Last Admin: 11/07/19 04:45 Dose: 100 mls/hr Lactated Ringer's (Ringers, Lactated) 500 mls @ 500 mls/hr IV ONETIME ONE Stop: 11/06/19 22:29 Last Admin: 11/06/19 21:30 Dose: 500 mls/hr Lactated Ringer's (Ringers, Lactated) 500 mls @ 500 mls/hr IV ONETIME ONE Stop: 11/07/19 02:14 Last Admin: 11/07/19 01:15 Dose: 500 mls/hr Dextrose/Lactated Ringer's (Dextrose 5%-Lactated Ringers) 1,000 mls @ 125 mls/ hr IV ASDIRECTED [facility] Last Admin: 11/09/19 06:11 Dose: 125 mls/hr Magnesium Sulfate 2 gm/ Premix 50 mls @ 25 mls/hr IV Q6HR [facility] Stop: 11/10/19 05:59 Last Admin: 11/09/19 03:35 Dose: 25 mls/hr Lactated Ringer's (Ringers, Lactated) 500 mls @ 500 mls/hr IV ASDIRECTED [facility] Lactated Ringer's (Ringers, Lactated) 500 mls @ 500 mls/hr IV ONETIME ONE Stop: 11/08/19 00:36 Last Admin: 11/07/19 23:43 Dose: 500 mls/hr Lactated Ringer's (Ringers, Lactated) 500 mls @ 500 mls/hr IV ONETIME ONE Stop: 11/08/19 03:24 Last Admin: 11/08/19 02:28 Dose: 500 mls/hr Lactated Ringer's (Ringers, Lactated) 500 mls @ 500 mls/hr IV ONETIME ONE Stop: 11/08/19 06:28 Last Admin: 11/08/19 05:29 Dose: 500 mls/hr Lactated Ringer's (Ringers, Lactated) 500 mls @ 250 mls/hr IV ONETIME ONE Stop: 11/08/19 17:47 Last Admin: 11/08/19 15:51 Dose: 250 mls/hr Potassium Chloride 20 meq/Lidocaine HCl 2 ml/ Sodium Chloride 112 mls @ 56 mls/ hr IV Q2H [facility] Stop: 11/09/19 13:59 Last Admin: 11/09/19 12:09 Dose: 56 mls/hr Dextrose/Lactated Ringer's (Dextrose 5%-Lactated Ringers) 1,000 mls @ 25 mls/ hr IV ASDIRECTED [facility] Potassium Chloride 20 meq/Lidocaine HCl 2 ml/ Sodium Chloride 112 mls @ 56 mls/ hr IV Q2H [facility] Stop: 11/10/19 13:59 Last Admin: 11/10/19 13:00 Dose: 56 mls/hr Albumin Human (Albumin 25%) 25 gm in 100 mls @ 25 mls/hr IV Q24H [facility] Stop: 11/12/19 12:59 Last Admin: 11/12/19 08:42 Dose: 25 mls/hr Potassium Chloride/Dextrose/Sod Cl (D5 Ns With 20 Meq Kcl) 1,000 mls @ 60 mls/ hr IV ASDIRECTED [facility] Last Admin: 11/11/19 03:34 Dose: 60 mls/hr Sodium Chloride (Normal Saline) 100 mls @ 3 mls/sec IV ASDIRECTED [facility] Stop: 11/10/19 22:00 Last Admin: 11/10/19 14:44 Dose: 3 mls/sec Meropenem 1 gm/ Sodium (Chloride) 50 mls @ 100 mls/hr IV Q8H [facility] Last Admin: 11/12/19 08:40 Dose: 100 mls/hr Potassium Chloride/Dextrose/Sod Cl (D5 Ns With 20 Meq Kcl) 1,000 mls @ 40 mls/ hr IV ASDIRECTED [facility] Stop: 11/11/19 14:15 Magnesium Sulfate 2 gm/ Premix 50 mls @ 25 mls/hr IV Q6H [facility] Stop: 11/13/19 05:59 Last Admin: 11/13/19 04:03 Dose: 25 mls/hr Heparin Sodium (Porcine) 5,000 (units/ Sodium Chloride) 501 mls @ 5 mls/hr IV ASDIRECTED [facility] Last Admin: 11/11/19 10:43 Dose: 5 mls/hr Linezolid 600 mg/ Premix 300 mls @ 300 mls/hr IV Q12H [facility] Last Admin: 11/13/19 23:21 Dose: 300 mls/hr Multivitamins/Minerals 10 ml/Chromium/Copper/Manganese/Seleni/Zn 1 ml/ Amino Ac/ Electrol/Dextrose/Calcium 1,011 mls @ 60 mls/hr IV .BY DURATION [facility] Stop: 11/12/19 20:00 Last Admin: 11/11/19 15:55 Dose: 60 mls/hr Amino Ac/Electrol/Dextrose/Calcium (Clinimix E 02/08) 1,000 mls @ 60 mls/hr IV .BY DURATION [facility] Stop: 11/12/19 20:00 Last Admin: 11/12/19 08:39 Dose: 60 mls/hr Potassium Phosphate 25 mmole/ (Sodium Chloride) 108.3333 mls @ 27 mls/hr IV ONETIME ONE Stop: 11/12/19 17:00 Last Admin: 11/12/19 12:24 Dose: 27 mls/hr Potassium Phosphate 20 mmole/ (Sodium Chloride) 106.6667 mls @ 35 mls/hr IV ONETIME ONE Stop: 11/12/19 21:02 Last Admin: 11/12/19 17:10 Dose: 35 mls/hr Meropenem 1 gm/ Sterile Water 20 mls @ 120 mls/hr IV Q8H [facility] Last Admin: 11/14/19 01:21 Dose: 120 mls/hr Multivitamins/Minerals 10 ml/Chromium/Copper/Manganese/Seleni/Zn 1 ml/ Amino Ac/ Electrol/Dextrose/Calcium 1,011 mls @ 82 mls/hr IV .BY DURATION [facility] Stop: 11/17/19 11:25 Last Admin: 11/17/19 02:14 Dose: 82 mls/hr Amino Ac/Electrol/Dextrose/Calcium (Clinimix E 5/15) 1,000 mls @ 82 mls/hr IV .BY DURATION [facility] Stop: 11/17/19 11:25 Last Admin: 11/16/19 13:32 Dose: 82 mls/hr Potassium Phosphate 15 mmole/ (Sodium Chloride) 105 mls @ 34.454 mls/hr IV Q3H [facility] Stop: 11/14/19 15:59 Last Admin: 11/14/19 12:39 Dose: 34.454 mls/hr Magnesium Sulfate 2 gm/ Premix 50 mls @ 25 mls/hr IV Q6H [facility] Stop: 11/15/19 23:59 Last Admin: 11/15/19 22:57 Dose: 25 mls/hr Insulin Human Lispro (Humalog) 7 unit SUBCUT ONETIME ONE Stop: 11/06/19 14:01 Last Admin: 11/06/19 14:00 Dose: 7 units Iopamidol (Isovue-300 (61%)) 150 ml IV . DIRECTED [facility] Stop: 11/10/19 22:00 Last Admin: 11/10/19 14:44 Dose: 150 ml Ketamine HCl (Ketalar) 27 mg IV ASDIRECTED [facility] Lidocaine (Lta 360 Kit Top Soln) Confirm Administered Dose 4 ml .ROUTE .STK-MED ONE Stop: 11/12/19 09:04 Lidocaine HCl (Xylocaine 2% Viscous) Confirm Administered Dose 15 ml .ROUTE .STK -MED ONE Stop: 11/11/19 09:25 Last Admin: 11/11/19 09:35 Dose: 15 ml Lidocaine HCl (Xylocaine 4% Top Soln) Confirm Administered Dose 50 ml .ROUTE .STK-MED ONE Stop: 11/11/19 09:25 Last Admin: 11/11/19 09:35 Dose: 50 ml Lidocaine HCl (Xylocaine 2% Viscous) Confirm Administered Dose 15 ml .ROUTE .STK -MED ONE Stop: 11/12/19 07:49 Last Admin: 11/12/19 09:17 Dose: 15 ml Lidocaine HCl (Xylocaine 4% Top Soln) Confirm Administered Dose 50 ml .ROUTE .STK-MED ONE Stop: 11/12/19 07:49 Last Admin: 11/12/19 10:01 Dose: 50 ml Lidocaine HCl (Xylocaine 2% Viscous) Confirm Administered Dose 15 ml .ROUTE .STK -MED ONE Stop: 11/14/19 07:33 Last Admin: 11/14/19 08:33 Dose: 15 ml Lidocaine HCl (Xylocaine 4% Top Soln) Confirm Administered Dose 50 ml .ROUTE .STK-MED ONE Stop: 11/14/19 07:33 Last Admin: 11/14/19 08:33 Dose: 50 ml Lidocaine/Epinephrine (Xylocaine 1% With Epinephrine 1:100,000) Confirm Administered Dose 50 ml .ROUTE .STK-MED ONE Stop: 11/06/19 09:56 Meropenem (Merrem) Confirm Administered Dose 500 mg .ROUTE .STK-MED ONE Stop: 11/06/19 09:56 Last Admin: 11/06/19 12:31 Dose: 500 mg Methylprednisolone Sodium Succinate (Solu-Medrol) 40 mg IVPUSH ONETIME ONE Stop: 11/16/19 11:01 Last Admin: 11/16/19 11:22 Dose: 40 mg Neostigmine Methylsulfate (Neostigmine) Confirm Administered Dose 5 mg .ROUTE .STK-MED ONE Stop: 11/06/19 10:42 Non-Formulary Medication (Total Parenteral Nutrition, Central) 1,000 ml .XX .Continue Order [facility] Stop: 11/16/19 18:00 Non-Formulary Medication (Total Parenteral Nutrition, Central) 1,000 ml .XX .Continue Order [facility] Stop: 11/17/19 18:00 Ondansetron HCl (Zofran) Confirm Administered Dose 4 mg .ROUTE .STK-MED ONE Stop: 11/06/19 10:42 Pantoprazole Sodium (Protonix Iv) 40 mg IVPUSH Q24H [facility] Last Admin: 11/13/19 16:29 Dose: 40 mg Propofol (Diprivan 20 Ml) Confirm Administered Dose 200 mg .ROUTE .STK-MED ONE Stop: 11/06/19 10:42 Propofol (Diprivan 20 Ml) Confirm Administered Dose 200 mg .ROUTE .STK-MED ONE Stop: 11/11/19 08:35 Propofol (Diprivan 20 Ml) Confirm Administered Dose 200 mg .ROUTE .STK-MED ONE Stop: 11/12/19 09:04 Propofol (Diprivan 20 Ml) Confirm Administered Dose 200 mg .ROUTE .STK-MED ONE Stop: 11/14/19 08:40 Rocuronium Silvis (Zemuron) Confirm Administered Dose 50 mg .ROUTE .STK-MED ONE Stop: 11/06/19 10:42 Rocuronium Silvis (Zemuron) Confirm Administered Dose 50 mg .ROUTE .STK-MED ONE Stop: 11/06/19 12:29 Sodium Chloride (Saline Flush) 10 ml FLUSH ONETIME ONE Stop: 11/10/19 14:09 Last Admin: 11/10/19 14:44 Dose: 10 ml Tamsulosin HCl (Flomax) 0.4 mg PO ONETIME ONE Stop: 11/16/19 08:01 Last Admin: 11/16/19 08:25 Dose: 0.4 mg - Exam General: No Acute Distress, Lethargic Lungs: Clear to Auscultation, Normal Respiratory Effort, Decreased Breath Sounds Cardiovascular: Regular Rate, Regular Rhythm, No Murmurs GI/Abdominal Exam: Soft, No Organomegaly, Tender. No: Distended, Guarding, Rigid, Rebound Extremities: Non-Tender, No Pedal Edema Sepsis Event Note - Evaluation Sepsis Screening Result: No Definite Risk - Focused Exam Vital Signs: Vital Signs Temp Pulse Pulse Resp BP BP BP 11/18/19 10:46 97 11/18/19 10:31 97.3 F 64 16 126/42 L 11/18/19 08:58 97.3 F 71 16 147/49 H 11/18/19 08:18 71 147/49 H 11/18/19 07:44 11/18/19 07:25 94 11/18/19 03:10 97.3 F 97 20 133/64 11/18/19 01:10 Pulse Ox Pulse Ox 11/18/19 10:46 93 L 11/18/19 10:31 91 L 11/18/19 08:58 91 L 11/18/19 08:18 11/18/19 07:44 92 L 11/18/19 07:25 93 L 11/18/19 03:10 93 L 11/18/19 01:10 90 L Date Exam was Performed: 11/18/19 Time Exam was Performed: 11:11 Consult PN Assessment/Plan Procedures: Procedures ASSAY OF MAGNESIUM (10/12/14) ASSAY OF TROPONIN QUANT (10/12/14) CHEST X-RAY 2VW FRONTAL&LATL (01/30/14) COMPLETE CBC AUTOMATED (01/30/14) COMPLETE CBC W/AUTO DIFF WBC (10/12/14) COMPREHEN METABOLIC PANEL (10/12/14) CT ABD & PELV W/CONTRAST (10/23/19) CT HEAD/BRAIN W/O DYE (10/12/14) ECG MONIT/REPRT UP TO 48 HRS (10/17/14) ECG MONIT/REPRT UP TO 48 HRS (10/17/14) ELECTROCARDIOGRAM TRACING (10/12/14) EMERGENCY DEPT VISIT (10/12/14) EXC F/E/E/N/L MAL+MRG 0.6-1 (07/22/15) EXC TR-EXT B9+JOHN PAUL 3.1-4 CM (07/22/15) EXC TR-EXT MAL+JOHN PAUL 1.1-2 CM (06/09/18) EXC TR-EXT MAL+JOHN PAUL 2.1-3 CM (06/09/18) HYDRATION IV INFUSION INIT (10/12/14) INTMD RPR FACE/MM 2.5 CM/< (07/22/15) INTMD RPR S/A/T/EXT 12.6-20 (06/09/18) INTMD RPR S/A/T/EXT 2.5 CM/< (07/22/15) MEASURE BLOOD OXYGEN LEVEL (01/30/14) METABOLIC PANEL TOTAL CA (01/30/14) PATH CONSULT INTRAOP 1 BLOC (07/22/15) PATH CONSULT INTRAOP ADDL (07/22/15) PROTHROMBIN TIME (10/12/14) REAGENT STRIP/BLOOD GLUCOSE (01/30/14) ROUTINE VENIPUNCTURE (10/12/14) THROMBOPLASTIN TIME PARTIAL (10/12/14) TISSUE EXAM BY PATHOLOGIST (06/09/18) Problem List Initiated/Reviewed/Updated: Yes Plan: ASSESSMENT AND RECOMMENDATIONS- Left lung pneumonia-continues to require supplemental oxygen but overall significantly improved. Supplemental oxygen is now down to 2 L/min via nasal cannula -Antibiotic coverage with levofloxacin and doxycycline, plan to discontinue November 19 -Scheduled and as needed nebulizers -Mucomyst nebulizers -Pulmicort neb twice daily -Chest physiotherapy Daily chest x-rays -Supplement oxygen as needed -Continue current medical management -Remove central line as soon as possible after IV antibiotics and TPN are discontinued Bilateral pleural effusions, left greater than right-mostly resolved after thoracentesis and diuresis. 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 Lethargic over the past 36 hours, she had been more alert and interactive when receiving hydrocortisone. Raises the strong possibility that she does have some underlying adrenal insufficiency. -Hydrocortisone 5 mg p.o. twice daily -Postoperative care as per surgical team -Pathology results pending Type 2 diabetes mellitus-TPN initiated. Blood sugars fairly well controlled so far. -Continue metformin -Sliding scale insulin through the day -Consider addition of long-acting insulin once insulin needs are determined
[2019-11-18] MEDS ORDERED: Warfarin 5 MG Tab PO ONE (13:00)
[2019-11-18] MEDS: Pantoprazole 40 MG Tab.CR PO SCH (16:01)
[2019-11-18] MEDS: Levofloxacin/Dextrose 5%-Water 750 MG in Premix Bag 1 BAG IV SCH (18:15)
[2019-11-18] MEDS: 1: AA 5%/Calcium/D15W/Lytes 1,000 ML with MVI, Adult with Vitamin K 10 ML, Chromium/Copp IV SCH ×3 (20:07)
[2019-11-18] MEDS: Tamsulosin 0.4 MG Cap.ER PO SCH (20:34)
--- NOTE | 2019-11-18 22:33 | PN ---
DATE OF SERVICE: 11/18/2019 The patient has been afebrile with stable vital signs. No major problems were noted. She is becoming more ambulatory and more alert. She has been restarted on hydrocortisone per Dr. Delarosa and her alertness appears to be improving. White count has come down to 14.4. No major problems noted on labs. Plan will be to continue to increase her activity level. We will restart her Coumadin today and also add some Lovenox while that process is undergoing. She may be ready for discharge to initially home to perhaps in early part of next week. We are still awaiting the pathology report on the adrenal mass. Sandeep Martinez MD /[id number]
[2019-11-19] MEDS: Albuterol 0.083% 2.5 MG/3 ML Neb Soln NEB SCH ×4 (00:29→14:43)
[2019-11-19] MEDS: Acetaminophen 325 MG Tab PO SCH (04:06)
[2019-11-19] MEDS: Magnesium Sulfate/Water 2 GM in Premix Bag 1 BAG IV SCH (04:07)
[2019-11-19] MEDS: Nystatin Susp 100,000 Unit/ML 5 ML UD Cup PO SCH ×4 (05:30→21:01)
[2019-11-19] MEDS: Acetylcysteine 20% 200 MG/ML 4 ML Nebulizer Soln SDV INH SCH ×2 (07:34→19:26)
[2019-11-19] MEDS: Albuterol/Ipratropium 3.0-0.5 MG/3 ML Neb Soln INH SCH ×2 (07:34→19:26)
[2019-11-19] MEDS: Budesonide 0.5 MG/2 ML Neb Susp NEB SCH ×2 (07:34→20:46)
[2019-11-19] MEDS ORDERED: Acetaminophen 325 MG Tab PO PRN (08:00)
[2019-11-19] MEDS: Carvedilol 25 MG Tab PO SCH ×2 (09:21→20:46)
[2019-11-19] MEDS: Docusate Sodium 100 MG Cap PO SCH ×2 (09:21→20:47)
[2019-11-19] MEDS: metFORMIN 500 MG Tab PO SCH ×2 (09:21→16:56)
[2019-11-19] MEDS: Lactobacillus Rhamnosus GG (Probiotic) Cap PO SCH ×2 (09:22→20:46)
[2019-11-19] MEDS: Enoxaparin 40 MG/0.4 ML Syringe SUBCUT SCH (09:23)
[2019-11-19] MEDS: Insulin Lispro 100 Unit/ML 3 ML KwikPen SUBCUT PRN ×3 (09:23→17:58)
[2019-11-19] MEDS: Furosemide 20 MG/2 ML VIAL IV SCH (09:59)
--- NOTE | 2019-11-19 10:32 | PCM.CONSN ---
- General Info Date of Service: 11/19/19 Subjective Update: Ms. Lundy has been stable since yesterday, overall strength improving and she is now transferring and ambulating with walker semi-independently. Appetite seems to be slowly improving. She has completed her course of IV antibiotic therapy for pneumonia and IV antibiotics were discontinued this morning. Functional Status: Reports: Tolerating Diet, Ambulating - Review of Systems General: Reports: Weakness. Denies: Fever, Chills Pulmonary: Reports: No Symptoms Cardiovascular: Reports: No Symptoms Gastrointestinal: Reports: Abdominal Pain. Denies: Diarrhea, Difficulty Swallowing, Nausea, Vomiting - Patient Data Vitals - Most Recent: Last Vital Signs Temp 95.2 F L 11/19/19 07:22 Pulse 76 11/19/19 09:21 Resp 16 11/19/19 07:22 BP 144/51 H 11/19/19 09:21 Pulse Ox 94 L 11/19/19 07:37 Weight - Most Recent: 228 lb I&O - Last 24 Hours: Intake & Output 11/18/19 11/19/19 11/19/19 22:59 06:59 14:59 Intake Total 1830 690 Output Total 505 1620 Balance 1325 -930 Lab Results Last 24 Hours: Laboratory Results - last 24 hr 11/19/19 11/19/19 11/19/19 Range/Units 04:01 04:11 04:20 PT 11.7 (9.5-12.0) sec INR 1.09 (0.80-1.20) Fluid Type Reddy drainage #3 Reddy drainage #1 Fluid Amylase 83970 75 U/L Med Orders - Current: Current Medications Acetaminophen (Tylenol) 650 mg PO Q6H PRN PRN Reason: MILD PAIN Acetylcysteine (Mucomyst 20%) 200 mg INH BID@0700,1900 [facility] Last Admin: 11/19/19 07:34 Dose: 200 mg Albuterol (Proventil Neb Soln) 2.5 mg NEB 0300,1100,1500,2300 [facility] Last Admin: 11/19/19 04:16 Dose: 2.5 mg Albuterol/Ipratropium (Duoneb 3.0-0.5 Mg/3 Ml) 3 ml NEB Q4H PRN PRN Reason: dyspnea and wheezing Last Admin: 11/13/19 01:15 Dose: 3 ml Albuterol/Ipratropium (Duoneb 3.0-0.5 Mg/3 Ml) 3 ml INH BID@0700,1900 [facility] Last Admin: 11/19/19 07:34 Dose: 3 ml Benzocaine/Menthol (Cepacol Sore Throat) 1 lozenge MUCMEM 6XDAY PRN PRN Reason: Sore Throat Last Admin: 11/07/19 08:47 Dose: 1 lon Budesonide (Pulmicort) 0.5 mg NEB BIDRT [facility] Last Admin: 11/19/19 07:34 Dose: 0.5 mg Carvedilol (Coreg) 25 mg PO BID [facility] Last Admin: 11/19/19 09:21 Dose: 25 mg Dextrose (Glutose 15) 15 gm PO ASDIRECTED PRN PRN Reason: HYPOGLYCEMIA Dextrose/Water (Dextrose 50% In Water) 50 ml IVPUSH ASDIRECTED PRN PRN Reason: HYPOGLYCEMIA Diphenhydramine HCl (Benadryl) 25 mg PO BEDTIME PRN PRN Reason: SLEEP Docusate Sodium (Colace) 100 mg PO BID [facility] Last Admin: 11/19/19 09:21 Dose: Not Given Enoxaparin Sodium (Lovenox) 40 mg SUBCUT DAILY [facility] Last Admin: 11/19/19 09:23 Dose: 40 mg Furosemide (Lasix) 20 mg IV DAILY [facility] Last Admin: 11/19/19 09:59 Dose: 20 mg Glucagon (Glucagen) 1 mg IM ASDIRECTED PRN PRN Reason: HYPOGLYCEMIA Heparin Sodium (Porcine) (Heparin Lock Flush 100 Units/Ml) 500 units FLUSH DAILY [facility] Last Admin: 11/19/19 09:53 Dose: Not Given Heparin Sodium (Porcine) (Heparin Lock Flush 100 Units/Ml) 500 units FLUSH ASDIRECTED PRN PRN Reason: Keep Vein Open Hydrocortisone (Cortef) 5 mg PO BIDMEALS [facility] Last Admin: 11/19/19 09:20 Dose: 5 mg Hydromorphone HCl (Dilaudid) 0.5 mg IVPUSH Q4H PRN PRN Reason: Pain Last Admin: 11/14/19 20:24 Dose: 0.5 mg Hydroxyzine HCl (Vistaril) 75 mg IM Q4H PRN PRN Reason: pain Last Admin: 11/16/19 08:25 Dose: 75 mg Potassium Chloride/Dextrose/Sod Cl (D5 Ns With 20 Meq Kcl) 1,000 mls @ 25 mls/ hr IV ASDIRECTED [facility] Last Admin: 11/18/19 08:12 Dose: 25 mls/hr Multivitamins/Minerals 10 ml/Chromium/Copper/Manganese/Seleni/Zn 1 ml/ Amino Ac/ Electrol/Dextrose/Calcium 1,011 mls @ 40 mls/hr IV .BY DURATION [facility] Stop: 11/19/19 18:59 Last Admin: 11/18/19 20:07 Dose: 40 mls/hr Amino Ac/Electrol/Dextrose/Calcium (Clinimix E 02/08) 1,000 mls @ 40 mls/hr IV .BY DURATION [facility] Stop: 11/19/19 18:59 Insulin Human Lispro (Humalog) 0 unit SUBCUT ASDIRECTED PRN; Protocol PRN Reason: MEDIUM CORRECTIONAL DOSING Last Admin: 11/18/19 21:38 Dose: 2 units Lactobacillus Rhamnosus (Culturelle) 1 cap PO BID [facility] Last Admin: 11/19/19 09:22 Dose: 1 cap Levothyroxine Sodium 100 mcg/ (Levothyroxine Sodium 50 mcg) 150 mcg PO DAILY@ 0730 [facility] Last Admin: 11/19/19 08:02 Dose: 150 mcg Metformin HCl (Glucophage) 1,000 mg PO BIDMEALS [facility] Last Admin: 11/19/19 09:21 Dose: 1,000 mg Naloxone HCl (Narcan) 0.1 mg IV ASDIRECTED PRN PRN Reason: decreased respiratory rate Nystatin (Mycostatin) 5 ml PO QID [facility] Last Admin: 11/19/19 09:22 Dose: 5 ml Ondansetron HCl (Zofran) 4 mg IVPUSH Q4H PRN PRN Reason: Nausea/Vomiting Pantoprazole Sodium (Protonix) 40 mg PO Q24H [facility] Last Admin: 11/18/19 16:01 Dose: 40 mg Tamsulosin HCl (Flomax) 0.4 mg PO BEDTIME [facility] Last Admin: 11/18/19 20:34 Dose: 0.4 mg Warfarin Sodium (Coumadin) 10 mg PO ONETIME ONE Stop: 11/19/19 13:01 Discontinued Medications Acetaminophen (Tylenol Extra Strength) 1,000 mg PO ONETIME ONE Stop: 11/06/19 09:01 Last Admin: 11/06/19 09:00 Dose: 1,000 mg Acetaminophen (Tylenol) 650 mg PO Q6H [facility] Last Admin: 11/19/19 04:06 Dose: Not Given Acetylcysteine (Mucomyst 20%) 200 mg INH BIDRT [facility] Last Admin: 11/13/19 07:16 Dose: 200 mg Albuterol (Proventil Neb Soln) 2.5 mg NEB QIDRT [facility] Last Admin: 11/13/19 07:17 Dose: Not Given Albuterol/Ipratropium (Duoneb 3.0-0.5 Mg/3 Ml) 3 ml NEB ONETIME ONE Stop: 11/08/19 20:26 Last Admin: 11/08/19 20:38 Dose: 3 ml Albuterol/Ipratropium (Duoneb 3.0-0.5 Mg/3 Ml) 3 ml INH BIDRT [facility] Last Admin: 11/13/19 07:16 Dose: 3 ml Bisacodyl (Dulcolax) 10 mg PO BID [facility] Last Admin: 11/16/19 21:45 Dose: 10 mg Bumetanide (Bumex) 2 mg IV Q8H [facility] Stop: 11/11/19 16:31 Last Admin: 11/11/19 17:38 Dose: Not Given Bumetanide (Bumex) 2 mg IV ONETIME ONE Stop: 11/12/19 13:31 Last Admin: 11/12/19 12:57 Dose: 2 mg Bumetanide (Bumex) 2 mg IVPUSH ONETIME ONE Stop: 11/13/19 10:01 Last Admin: 11/13/19 09:59 Dose: 2 mg Bupivacaine HCl (Marcaine 0.5%) Confirm Administered Dose 50 ml .ROUTE .STK-MED ONE Stop: 11/06/19 09:56 Ropivacaine 48 ml/Dexamethasone 8 mg/Epinephrine HCl 0.4 mg/ Sodium Chloride 29.6 ml 0 ml NERVRT ASDIRECTED [facility] Last Admin: 11/06/19 12:40 Dose: 80 syringe Cyclobenzaprine HCl (Flexeril) 10 mg PO Q6H PRN PRN Reason: Muscle Spasm Dexamethasone (Dexamethasone) Confirm Administered Dose 4 mg .ROUTE .STK-MED ONE Stop: 11/06/19 10:42 Fentanyl (Sublimaze) Confirm Administered Dose 250 mcg .ROUTE .STK-MED ONE Stop: 11/06/19 10:42 Furosemide (Lasix) 10 mg IVPUSH ONETIME ONE Stop: 11/07/19 15:21 Last Admin: 11/07/19 15:42 Dose: 10 mg Furosemide (Lasix) 10 mg IVPUSH ONETIME ONE Stop: 11/08/19 17:16 Last Admin: 11/08/19 17:20 Dose: 10 mg Furosemide (Lasix) 20 mg IVPUSH ONETIME ONE Stop: 11/08/19 20:24 Last Admin: 11/08/19 20:37 Dose: 20 mg Furosemide (Lasix) 10 mg IVPUSH ONETIME ONE Stop: 11/09/19 03:44 Last Admin: 11/09/19 03:59 Dose: 10 mg Furosemide (Lasix) 10 mg IVPUSH Q12H [facility] Stop: 11/09/19 20:01 Last Admin: 11/09/19 08:23 Dose: 10 mg Furosemide (Lasix) 40 mg IVPUSH ONETIME ONE Stop: 11/09/19 14:19 Last Admin: 11/09/19 14:29 Dose: 40 mg Furosemide (Lasix) 20 mg IVPUSH Q12H [facility] Stop: 11/10/19 20:01 Last Admin: 11/10/19 20:28 Dose: 20 mg Furosemide (Lasix) 20 mg IVPUSH ONETIME ONE Stop: 11/15/19 21:35 Last Admin: 11/15/19 22:53 Dose: 20 mg Glycopyrrolate (Robinul) Confirm Administered Dose 1 mg .ROUTE .STK-MED ONE Stop: 11/06/19 10:42 Heparin Sodium (Porcine) (Heparin Lock Flush 100 Units/Ml) Confirm Administered Dose 500 units .ROUTE .STK-MED ONE Stop: 11/11/19 09:25 Last Admin: 11/11/19 09:45 Dose: 500 units Heparin Sodium (Porcine) (Heparin Lock Flush 100 Units/Ml) 500 units FLUSH ASDIRECTED PRN PRN Reason: IV Use Last Admin: 11/16/19 10:05 Dose: 500 units Heparin Sodium (Porcine) (Heparin Lock Flush 100 Units/Ml) Confirm Administered Dose 500 units .ROUTE .STK-MED ONE Stop: 11/19/19 01:31 Last Admin: 11/19/19 04:05 Dose: 500 units Hydrocortisone (Cortef) 10 mg PO BID@0800,1600 [facility] Last Admin: 11/14/19 09:41 Dose: 10 mg Hydrocortisone Sodium Succinate (Solu-Cortef) 100 mg IVPUSH ONETIME ONE Stop: 11/10/19 10:01 Last Admin: 11/10/19 10:39 Dose: 100 mg Hydrocortisone Sodium Succinate (Solu-Cortef) 50 mg IVPUSH Q6H [facility] Stop: 11/12/19 12:00 Last Admin: 11/12/19 10:26 Dose: 50 mg Hydromorphone HCl (Dilaudid Story Writer 15 Mg In Ns 30 Ml) 0 mg IV ASDIRECTED PRN; Protocol PRN Reason: 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 Last Admin: 11/06/19 11:43 Dose: 0.2 mg Hydromorphone HCl (Dilaudid) 0.5 mg IVPUSH Q2H PRN PRN Reason: Pain Cefoxitin Sodium 2 gm/ Sodium (Chloride) 50 mls @ 100 mls/hr IV ONETIME ONE Stop: 11/06/19 10:44 Last Admin: 11/06/19 11:12 Dose: 100 mls/hr Dextrose/Lactated Ringer's (Dextrose 5%-Lactated Ringers) 1,000 mls @ 100 mls/ hr IV ASDIRECTED [facility] Last Admin: 11/06/19 10:04 Dose: 100 mls/hr Lactated Ringer's (Ringers, Lactated) Confirm Administered Dose 1,000 mls @ as directed .ROUTE .STK-MED ONE Stop: 11/06/19 11:31 Sodium Chloride (Normal Saline) Confirm Administered Dose 500 mls @ as directed .ROUTE .STK-MED ONE Stop: 11/06/19 12:48 Dextrose/Lactated Ringer's (Dextrose 5%-Lactated Ringers) 1,000 mls @ 75 mls/ hr IV ASDIRECTED [facility] Stop: 11/07/19 17:59 Last Admin: 11/07/19 10:19 Dose: 75 mls/hr Lactated Ringer's (Ringers, Lactated) 1,000 mls @ 100 mls/hr IV ASDIRECTED [facility] Stop: 11/07/19 17:59 Last Admin: 11/07/19 11:13 Dose: 100 mls/hr Cefoxitin Sodium 2 gm/ Sodium (Chloride) 50 mls @ 100 mls/hr IV Q6H [facility] Stop: 11/07/19 05:29 Last Admin: 11/07/19 04:45 Dose: 100 mls/hr Lactated Ringer's (Ringers, Lactated) 500 mls @ 500 mls/hr IV ONETIME ONE Stop: 11/06/19 22:29 Last Admin: 11/06/19 21:30 Dose: 500 mls/hr Lactated Ringer's (Ringers, Lactated) 500 mls @ 500 mls/hr IV ONETIME ONE Stop: 11/07/19 02:14 Last Admin: 11/07/19 01:15 Dose: 500 mls/hr Dextrose/Lactated Ringer's (Dextrose 5%-Lactated Ringers) 1,000 mls @ 125 mls/ hr IV ASDIRECTED [facility] Last Admin: 11/09/19 06:11 Dose: 125 mls/hr Magnesium Sulfate 2 gm/ Premix 50 mls @ 25 mls/hr IV Q6HR [facility] Stop: 11/10/19 05:59 Last Admin: 11/09/19 03:35 Dose: 25 mls/hr Lactated Ringer's (Ringers, Lactated) 500 mls @ 500 mls/hr IV ASDIRECTED [facility] Lactated Ringer's (Ringers, Lactated) 500 mls @ 500 mls/hr IV ONETIME ONE Stop: 11/08/19 00:36 Last Admin: 11/07/19 23:43 Dose: 500 mls/hr Lactated Ringer's (Ringers, Lactated) 500 mls @ 500 mls/hr IV ONETIME ONE Stop: 11/08/19 03:24 Last Admin: 11/08/19 02:28 Dose: 500 mls/hr Lactated Ringer's (Ringers, Lactated) 500 mls @ 500 mls/hr IV ONETIME ONE Stop: 11/08/19 06:28 Last Admin: 11/08/19 05:29 Dose: 500 mls/hr Lactated Ringer's (Ringers, Lactated) 500 mls @ 250 mls/hr IV ONETIME ONE Stop: 11/08/19 17:47 Last Admin: 11/08/19 15:51 Dose: 250 mls/hr Potassium Chloride 20 meq/Lidocaine HCl 2 ml/ Sodium Chloride 112 mls @ 56 mls/ hr IV Q2H [facility] Stop: 11/09/19 13:59 Last Admin: 11/09/19 12:09 Dose: 56 mls/hr Dextrose/Lactated Ringer's (Dextrose 5%-Lactated Ringers) 1,000 mls @ 25 mls/ hr IV ASDIRECTED [facility] Potassium Chloride 20 meq/Lidocaine HCl 2 ml/ Sodium Chloride 112 mls @ 56 mls/ hr IV Q2H [facility] Stop: 11/10/19 13:59 Last Admin: 11/10/19 13:00 Dose: 56 mls/hr Albumin Human (Albumin 25%) 25 gm in 100 mls @ 25 mls/hr IV Q24H [facility] Stop: 11/12/19 12:59 Last Admin: 11/12/19 08:42 Dose: 25 mls/hr Potassium Chloride/Dextrose/Sod Cl (D5 Ns With 20 Meq Kcl) 1,000 mls @ 60 mls/ hr IV ASDIRECTED [facility] Last Admin: 11/11/19 03:34 Dose: 60 mls/hr Sodium Chloride (Normal Saline) 100 mls @ 3 mls/sec IV ASDIRECTED [facility] Stop: 11/10/19 22:00 Last Admin: 11/10/19 14:44 Dose: 3 mls/sec Levofloxacin/Dextrose 750 mg/ (Premix) 150 mls @ 100 mls/hr IV Q24H [facility] Stop: 11/19/19 08:00 Last Admin: 11/18/19 18:15 Dose: 100 mls/hr Meropenem 1 gm/ Sodium (Chloride) 50 mls @ 100 mls/hr IV Q8H [facility] Last Admin: 11/12/19 08:40 Dose: 100 mls/hr Potassium Chloride/Dextrose/Sod Cl (D5 Ns With 20 Meq Kcl) 1,000 mls @ 40 mls/ hr IV ASDIRECTED [facility] Stop: 11/11/19 14:15 Magnesium Sulfate 2 gm/ Premix 50 mls @ 25 mls/hr IV Q6H [facility] Stop: 11/13/19 05:59 Last Admin: 11/13/19 04:03 Dose: 25 mls/hr Heparin Sodium (Porcine) 5,000 (units/ Sodium Chloride) 501 mls @ 5 mls/hr IV ASDIRECTED [facility] Last Admin: 11/11/19 10:43 Dose: 5 mls/hr Linezolid 600 mg/ Premix 300 mls @ 300 mls/hr IV Q12H [facility] Last Admin: 11/13/19 23:21 Dose: 300 mls/hr Multivitamins/Minerals 10 ml/Chromium/Copper/Manganese/Seleni/Zn 1 ml/ Amino Ac/ Electrol/Dextrose/Calcium 1,011 mls @ 60 mls/hr IV .BY DURATION [facility] Stop: 11/12/19 20:00 Last Admin: 11/11/19 15:55 Dose: 60 mls/hr Amino Ac/Electrol/Dextrose/Calcium (Clinimix E 5/15) 1,000 mls @ 60 mls/hr IV .BY DURATION [facility] Stop: 11/12/19 20:00 Last Admin: 11/12/19 08:39 Dose: 60 mls/hr Potassium Phosphate 25 mmole/ (Sodium Chloride) 108.3333 mls @ 27 mls/hr IV ONETIME ONE Stop: 11/12/19 17:00 Last Admin: 11/12/19 12:24 Dose: 27 mls/hr Potassium Phosphate 20 mmole/ (Sodium Chloride) 106.6667 mls @ 35 mls/hr IV ONETIME ONE Stop: 11/12/19 21:02 Last Admin: 11/12/19 17:10 Dose: 35 mls/hr Meropenem 1 gm/ Sterile Water 20 mls @ 120 mls/hr IV Q8H [facility] Last Admin: 11/14/19 01:21 Dose: 120 mls/hr Multivitamins/Minerals 10 ml/Chromium/Copper/Manganese/Seleni/Zn 1 ml/ Amino Ac/ Electrol/Dextrose/Calcium 1,011 mls @ 82 mls/hr IV .BY DURATION [facility] Stop: 11/17/19 11:25 Last Admin: 11/17/19 02:14 Dose: 82 mls/hr Amino Ac/Electrol/Dextrose/Calcium (Clinimix E 5/15) 1,000 mls @ 82 mls/hr IV .BY DURATION [facility] Stop: 11/17/19 11:25 Last Admin: 11/16/19 13:32 Dose: 82 mls/hr Doxycycline Hyclate 100 mg/ (Sodium Chloride) 100 mls @ 100 mls/hr IV Q12H [facility] Stop: 11/19/19 08:00 Last Admin: 11/18/19 20:08 Dose: 100 mls/hr Potassium Phosphate 15 mmole/ (Sodium Chloride) 105 mls @ 34.454 mls/hr IV Q3H [facility] Stop: 11/14/19 15:59 Last Admin: 11/14/19 12:39 Dose: 34.454 mls/hr Magnesium Sulfate 2 gm/ Premix 50 mls @ 25 mls/hr IV Q6H [facility] Stop: 11/15/19 23:59 Last Admin: 11/15/19 22:57 Dose: 25 mls/hr Magnesium Sulfate 2 gm/ Premix 50 mls @ 25 mls/hr IV Q6H [facility] Stop: 11/19/19 05:59 Last Admin: 11/19/19 04:07 Dose: 25 mls/hr Insulin Human Lispro (Humalog) 7 unit SUBCUT ONETIME ONE Stop: 11/06/19 14:01 Last Admin: 11/06/19 14:00 Dose: 7 units Iopamidol (Isovue-300 (61%)) 150 ml IV . DIRECTED [facility] Stop: 11/10/19 22:00 Last Admin: 11/10/19 14:44 Dose: 150 ml Ketamine HCl (Ketalar) 27 mg IV ASDIRECTED [facility] Lidocaine (Lta 360 Kit Top Soln) Confirm Administered Dose 4 ml .ROUTE .STK-MED ONE Stop: 11/12/19 09:04 Lidocaine HCl (Xylocaine 2% Viscous) Confirm Administered Dose 15 ml .ROUTE .STK -MED ONE Stop: 11/11/19 09:25 Last Admin: 11/11/19 09:35 Dose: 15 ml Lidocaine HCl (Xylocaine 4% Top Soln) Confirm Administered Dose 50 ml .ROUTE .STK-MED ONE Stop: 11/11/19 09:25 Last Admin: 11/11/19 09:35 Dose: 50 ml Lidocaine HCl (Xylocaine 2% Viscous) Confirm Administered Dose 15 ml .ROUTE .STK -MED ONE Stop: 11/12/19 07:49 Last Admin: 11/12/19 09:17 Dose: 15 ml Lidocaine HCl (Xylocaine 4% Top Soln) Confirm Administered Dose 50 ml .ROUTE .STK-MED ONE Stop: 11/12/19 07:49 Last Admin: 11/12/19 10:01 Dose: 50 ml Lidocaine HCl (Xylocaine 2% Viscous) Confirm Administered Dose 15 ml .ROUTE .STK -MED ONE Stop: 11/14/19 07:33 Last Admin: 11/14/19 08:33 Dose: 15 ml Lidocaine HCl (Xylocaine 4% Top Soln) Confirm Administered Dose 50 ml .ROUTE .STK-MED ONE Stop: 11/14/19 07:33 Last Admin: 11/14/19 08:33 Dose: 50 ml Lidocaine/Epinephrine (Xylocaine 1% With Epinephrine 1:100,000) Confirm Administered Dose 50 ml .ROUTE .STK-MED ONE Stop: 11/06/19 09:56 Meropenem (Merrem) Confirm Administered Dose 500 mg .ROUTE .STK-MED ONE Stop: 11/06/19 09:56 Last Admin: 11/06/19 12:31 Dose: 500 mg Methylprednisolone Sodium Succinate (Solu-Medrol) 40 mg IVPUSH ONETIME ONE Stop: 11/16/19 11:01 Last Admin: 11/16/19 11:22 Dose: 40 mg Neostigmine Methylsulfate (Neostigmine) Confirm Administered Dose 5 mg .ROUTE .STK-MED ONE Stop: 11/06/19 10:42 Non-Formulary Medication (Total Parenteral Nutrition, Central) 1,000 ml .XX .Continue Order [facility] Stop: 11/16/19 18:00 Non-Formulary Medication (Total Parenteral Nutrition, Central) 1,000 ml .XX .Continue Order [facility] Stop: 11/17/19 18:00 Non-Formulary Medication (Total Parenteral Nutrition, Central) 0 ml IV ASDIRECTED [facility] Stop: 11/18/19 18:00 Ondansetron HCl (Zofran) Confirm Administered Dose 4 mg .ROUTE .STK-MED ONE Stop: 11/06/19 10:42 Pantoprazole Sodium (Protonix Iv) 40 mg IVPUSH Q24H [facility] Last Admin: 11/13/19 16:29 Dose: 40 mg Propofol (Diprivan 20 Ml) Confirm Administered Dose 200 mg .ROUTE .STK-MED ONE Stop: 11/06/19 10:42 Propofol (Diprivan 20 Ml) Confirm Administered Dose 200 mg .ROUTE .STK-MED ONE Stop: 11/11/19 08:35 Propofol (Diprivan 20 Ml) Confirm Administered Dose 200 mg .ROUTE .STK-MED ONE Stop: 11/12/19 09:04 Propofol (Diprivan 20 Ml) Confirm Administered Dose 200 mg .ROUTE .STK-MED ONE Stop: 11/14/19 08:40 Rocuronium [place] (Zemuron) Confirm Administered Dose 50 mg .ROUTE .STK-MED ONE Stop: 11/06/19 10:42 Rocuronium [place] (Zemuron) Confirm Administered Dose 50 mg .ROUTE .STK-MED ONE Stop: 11/06/19 12:29 Sodium Chloride (Saline Flush) 10 ml FLUSH ONETIME ONE Stop: 11/10/19 14:09 Last Admin: 11/10/19 14:44 Dose: 10 ml Tamsulosin HCl (Flomax) 0.4 mg PO ONETIME ONE Stop: 11/16/19 08:01 Last Admin: 11/16/19 08:25 Dose: 0.4 mg Warfarin Sodium (Coumadin) 10 mg PO ONETIME ONE Stop: 11/18/19 13:01 Last Admin: 11/18/19 13:18 Dose: 10 mg - Exam Quality Assessment: Supplemental Oxygen, Central Line/PICC, Urine Catheter, DVT Prophylaxis General: Alert, Oriented, Cooperative, Mild Distress Lungs: Clear to Auscultation, Normal Respiratory Effort Cardiovascular: Regular Rate, Regular Rhythm, No Murmurs GI/Abdominal Exam: Soft, No Organomegaly, Tender. No: Distended, Guarding, Rigid, Rebound Extremities: Non-Tender, No Pedal Edema Sepsis Event Note - Evaluation Sepsis Screening Result: No Definite Risk - Focused Exam Vital Signs: Vital Signs Temp Pulse Pulse Resp BP BP Pulse Ox 11/19/19 09:21 76 144/51 H 11/19/19 08:09 99 11/19/19 07:37 94 L 11/19/19 07:35 72 11/19/19 07:22 95.2 F L 77 16 150/61 H 96 11/19/19 04:20 96.7 F L 71 20 131/65 95 11/19/19 01:14 95 Pulse Ox 11/19/19 09:21 11/19/19 08:09 11/19/19 07:37 11/19/19 07:35 94 L 11/19/19 07:22 11/19/19 04:20 11/19/19 01:14 Date Exam was Performed: 11/19/19 Time Exam was Performed: 10:29 Consult PN Assessment/Plan Procedures: Procedures ASSAY OF MAGNESIUM (10/12/14) ASSAY OF TROPONIN QUANT (10/12/14) CHEST X-RAY 2VW FRONTAL&LATL (01/30/14) COMPLETE CBC AUTOMATED (01/30/14) COMPLETE CBC W/AUTO DIFF WBC (10/12/14) COMPREHEN METABOLIC PANEL (10/12/14) CT ABD & PELV W/CONTRAST (10/23/19) CT HEAD/BRAIN W/O DYE (10/12/14) ECG MONIT/REPRT UP TO 48 HRS (10/17/14) ECG MONIT/REPRT UP TO 48 HRS (10/17/14) ELECTROCARDIOGRAM TRACING (10/12/14) EMERGENCY DEPT VISIT (10/12/14) EXC F/E/E/N/L MAL+MRG 0.6-1 (07/22/15) EXC TR-EXT B9+JOHN PAUL 3.1-4 CM (07/22/15) EXC TR-EXT MAL+JOHN PAUL 1.1-2 CM (06/09/18) EXC TR-EXT MAL+JOHN PAUL 2.1-3 CM (06/09/18) HYDRATION IV INFUSION INIT (10/12/14) INTMD RPR FACE/MM 2.5 CM/< (07/22/15) INTMD RPR S/A/T/EXT 12.6-20 (06/09/18) INTMD RPR S/A/T/EXT 2.5 CM/< (07/22/15) MEASURE BLOOD OXYGEN LEVEL (01/30/14) METABOLIC PANEL TOTAL CA (01/30/14) PATH CONSULT INTRAOP 1 BLOC (07/22/15) PATH CONSULT INTRAOP ADDL (07/22/15) PROTHROMBIN TIME (10/12/14) REAGENT STRIP/BLOOD GLUCOSE (01/30/14) ROUTINE VENIPUNCTURE (10/12/14) THROMBOPLASTIN TIME PARTIAL (10/12/14) TISSUE EXAM BY PATHOLOGIST (06/09/18) Problem List Initiated/Reviewed/Updated: Yes Plan: ASSESSMENT AND RECOMMENDATIONS- Left lung pneumonia-continues to require supplemental oxygen but overall significantly improved. Supplemental oxygen is now down to 2 L/min via nasal cannula -Discontinue levofloxacin and doxycycline -Scheduled and as needed nebulizers -Mucomyst nebulizers -Pulmicort neb twice daily -Supplement oxygen as needed -Continue current medical management -Remove central line as soon as possible after IV antibiotics and TPN are discontinued Bilateral pleural effusions, left greater than right-mostly resolved after thoracentesis and diuresis. 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 -Hydrocortisone 5 mg p.o. twice daily -Postoperative care as per surgical team -Pathology results pending Type 2 diabetes mellitus-TPN initiated. Blood sugars fairly well controlled so far. -Continue metformin -Sliding scale insulin through the day -Consider addition of long-acting insulin once insulin needs are determined Hospitalist service will sign off on the patient at this time, if we can be of further assistance in management during this hospital stay please feel free to reconsult.
--- NOTE | 2019-11-19 12:00 | PCM.SN ---
- Free Text/Narrative Note: Ms. Lundy for insulin episode of weakness late morning when she was sitting on the toilet, suddenly felt very weak and lightheaded although did not pass out. She was brought back to the bed by nursing staff and has been sleeping since then. Nursing staff was concerned that there was possibly some left-sided weakness and has asked me to evaluate the patient. She was sleeping when I arrived at the room I was able to wake her up very easily. She reported that she was feeling well and denied any specific weakness or difficulty. Vital signs are stable. On examination pupils are equal there is no facial asymmetry to direct testing. Motor strength is symmetrical in the upper and lower extremities with no evidence of left-sided weakness. Likely that she experienced a vagal episode while sitting on the toilet causing the weakness and lightheadedness, it is now resolved.
[2019-11-19] MEDS ORDERED: Warfarin 5 MG Tab PO ONE (13:00)
[2019-11-19] MEDS: Pantoprazole 40 MG Tab.CR PO SCH (16:56)
[2019-11-19] MEDS ORDERED: Albuterol 0.083% 2.5 MG/3 ML Neb Soln NEB PRN (19:55)
[2019-11-19] MEDS: Tamsulosin 0.4 MG Cap.ER PO SCH (20:46)
[2019-11-20] MEDS: Nystatin Susp 100,000 Unit/ML 5 ML UD Cup PO SCH ×6 (05:43→21:20)
[2019-11-20] MEDS: Albuterol/Ipratropium 3.0-0.5 MG/3 ML Neb Soln INH SCH ×2 (07:04→19:35)
[2019-11-20] MEDS: Budesonide 0.5 MG/2 ML Neb Susp NEB SCH ×2 (07:04→21:17)
[2019-11-20] MEDS: Acetylcysteine 20% 200 MG/ML 4 ML Nebulizer Soln SDV INH SCH ×2 (07:04→19:36)
[2019-11-20] MEDS: Docusate Sodium 100 MG Cap PO SCH ×2 (08:15→21:17)
[2019-11-20] MEDS: Lactobacillus Rhamnosus GG (Probiotic) Cap PO SCH ×2 (08:17→21:17)
[2019-11-20] MEDS: Enoxaparin 40 MG/0.4 ML Syringe SUBCUT SCH (08:17)
[2019-11-20] MEDS: Carvedilol 25 MG Tab PO SCH ×2 (08:17→21:17)
[2019-11-20] MEDS: Furosemide 20 MG/2 ML VIAL IV SCH (08:18)
[2019-11-20] MEDS: metFORMIN 500 MG Tab PO SCH ×2 (08:20→17:01)
--- NOTE | 2019-11-20 08:50 | OR ---
DATE OF PROCEDURE: 11/14/2019 SURGEON: Sandeep Martinez MD PREOPERATIVE DIAGNOSIS: Atelectasis of left lung. PROCEDURE: Flexible bronchoscopy for a therapeutic aspiration of tracheobronchial tree (05465). INDICATION FOR PROCEDURE: This is an 84-year-old status post a major laparotomy procedure, who on chest x-ray, had what appeared to be atelectasis of the left lung. Plan is to proceed with a flexible bronchoscopy with therapeutic aspiration of the tracheobronchial tree. Potential risks including bleeding, aspiration of gastric contents, and such were reviewed, and the patient wishes to proceed. DETAILS OF THE PROCEDURE: The patient was taken to the operating room and placed in a semi- sitting position. IV sedation was administered, after which, the flexible bronchoscope was passed through the right side of the nose and into the trachea. There were some scant secretions within the trachea. As expected, the left mainstem bronchus was entirely occluded by thick secretions. These were broken up with injection of lidocaine in saline solution until the left tracheobronchial tree was now clear. Cultures of this were obtained. The right tracheobronchial tree just had a few scattered secretions, which were evacuated as well. The procedure was then concluded. The patient was taken to the recovery room in satisfactory condition. Sandeep Martinez MD /[id number]
--- NOTE | 2019-11-20 12:03 | PN ---
DATE OF SERVICE: 11/20/2019 OBJECTIVE: D's vital signs have been stable. She has been alert and orientated. Oral intake 1660. Urine output 3800. REVIEW OF SYSTEMS: Remainder of review of systems negative for any pertinent positives and negatives. OBJECTIVE: GENERAL: Ashtyn Lundy is an 84-year-old female, alert and orientated. VITAL SIGNS: TPR is 98.2, 77, 20, blood pressure 135/52, O2 saturations by pulse oximetry 93%, and O2 is on 3 L. HEENT: Negative. NECK: Supple. HEART: Regular rate and rhythm. LUNGS: Clear. ABDOMEN: Aquacel dressing is on. Abdominal binder is currently off. She has 2 CHRISTOS drains, CHRISTOS drain 3 put out 130 and CHRISTOS drain 1 put out 110 over the past 24 hours. EXTREMITIES: With trace peripheral edema. ASSESSMENT: 1. 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 2. Excision of exophytic uterine mass en bloc with right adnexa for large adrenal mass adjacent to splenic artery and tail of pancreas and right-sided uterine exophytic mass to right adnexum. Date of surgery on 11/06/2019. Surgeon: Sandeep Martinez MD. 3. Flexible bronchoscopy on 11/12/2019 for lung atelectasis secondary to occluded secretions. 4. Flexible bronchoscopy on 11/14/2019 for persistent atelectasis in the left lower lobe. PLAN: 1. Coumadin 10 mg p.o. today. 2. Discontinue central line. 3. Discharge planning regarding home health care. 4. Remove CHRISTOS drain #3. 5. Respiratory therapy to evaluate for home oxygen. 6. Check chest x-ray PA and lateral in a.m. on 11/21/2019 at 0400. We will evaluate p.r.n. or in a.m. Sharita Hackett PA-C /[id number]
[2019-11-20] MEDS ORDERED: Warfarin 5 MG Tab PO ONE (13:00)
--- NOTE | 2019-11-20 13:17 | PN ---
DATE OF SERVICE: 11/19/2019 The patient has been afebrile with stable vital signs. Overall alertness appears to be improving somewhat, and at this point, the plan will be to have her most likely go straight home after another day or two with rehab. We are still awaiting the pathology report. Prothrombin time remains subtherapeutic, and I would give her Coumadin 10 mg today. TPN will be when the present diet is completed, and we will get the central line out tomorrow. Then, she probably will have, at that point, enough in the way of IV antibiotics for treatment of the postoperative area of probable pneumonitis. Sandeep Martinez MD /[id number]
--- NOTE | 2019-11-20 13:29 | OR ---
DATE OF PROCEDURE: 11/12/2019 SURGEON: Sandeep Martinez MD PREOPERATIVE DIAGNOSIS: Atelectasis of left lung. POSTOPERATIVE DIAGNOSIS: Atelectasis of left lung. OPERATIVE PROCEDURE: Flexible bronchoscopy with therapeutic aspiration of tracheobronchial tree (75753). ANESTHESIA: IV sedation. INDICATION FOR PROCEDURE: The patient once again has what appears to be atelectasis of the left lung and is to undergo a flexible bronchoscopy for tracheobronchial toilet. The potential risks of the procedure were reviewed with the patient and , and they wished to proceed. DETAILS OF PROCEDURE: The patient was taken to the operating room and placed in a semi- sitting position. IV sedation was administered after which the bronchoscope was passed through the right side of the nose and then taken down through the hypopharynx and larynx. Upon entering the tracheobronchial tree, the patient was noted once again to have a large amount of secretion largely occluding the left mainstem bronchus. This was broken up with 1% lidocaine solution, and suctioning then occurred with suction of the entire tracheobronchial tree which eventually cleared. Small amount of secretions in the trachea and right tracheobronchial tree were also removed, and at that point, no further problems were noted, and bronchoscope was removed, and the procedure concluded. The patient was taken to the recovery room in satisfactory condition. Sandeep Martinez MD /[id number]
--- NOTE | 2019-11-20 13:38 | OR ---
DATE OF PROCEDURE: 11/11/2019 SURGEON: Sandeep Martinez MD PREOPERATIVE DIAGNOSES: 1. Atelectasis, left lung. 2. Indication for central venous access. POSTOPERATIVE DIAGNOSES: 1. Atelectasis, left lung. 2. Indication for central venous access. OPERATIVE PROCEDURES: 1. Flexible bronchoscopy for therapeutic aspiration of tracheobronchial tree ([id number]). 2. Insertion of left subclavian vein triple-lumen catheter (06471). ANESTHESIA: Local plus IV sedation. INDICATION FOR PROCEDURE: This is an 84-year-old who once again today has what appeared be atelectasis of the left lung. The plan is to proceed with a flexible bronchoscopy for aspiration of the tracheobronchial tree. At this point, she also meets indications for IV hyperalimentation and central line will be inserted. Potential risks of procedure including bleeding, infection, aspiration of gastric contents during the bronchoscopy, problems with pneumothorax or vascular injury with subclavian catheter placement were reviewed with the patient and , and they wished to proceed. DETAILS OF PROCEDURE: The patient was taken to the operating room and placed in a semi- sitting position. IV sedation was administered after which the bronchoscope was passed through the left side of the nose and down into the hypopharynx and larynx. It was then passed through the cord structures. The patient was noted to have some scattered mucoid secretions within the trachea. As expected, the left mainstem bronchus was completely occluded with secretions. These were broken up with injection of lidocaine solution and suctioned such that eventually the entire tracheobronchial tree on the left side was clear. The right side had some scattered secretions which were evacuated as well. The scope was then withdrawn and the procedure then concluded. With the patient now in more of a flat position, the upper chest and neck areas were prepped and draped. The left subclavian area was anesthetized with 1% lidocaine, the vein cannulated, passed over the guidewire, a triple-lumen catheter was positioned. Good in and outflow was noted. The ports were flushed with heparinized saline, and the catheter sutured with some 3-0 silk stitch. The patient was taken to the recovery room in satisfactory condition. There were no evident complications. Sandeep Martinez MD /[id number]
[2019-11-20] MEDS: Pantoprazole 40 MG Tab.CR PO SCH (16:59)
[2019-11-20] MEDS: Tamsulosin 0.4 MG Cap.ER PO SCH (21:17)
[2019-11-21] MEDS: Nystatin Susp 100,000 Unit/ML 5 ML UD Cup PO SCH ×2 (05:45→09:31)
[2019-11-21] MEDS: Albuterol/Ipratropium 3.0-0.5 MG/3 ML Neb Soln INH SCH (07:04)
[2019-11-21] MEDS: Acetylcysteine 20% 200 MG/ML 4 ML Nebulizer Soln SDV INH SCH (07:04)
[2019-11-21] MEDS: Budesonide 0.5 MG/2 ML Neb Susp NEB SCH (07:05)
[2019-11-21] MEDS: metFORMIN 500 MG Tab PO SCH (08:30)
[2019-11-21] MEDS: Docusate Sodium 100 MG Cap PO SCH (08:30)
[2019-11-21] MEDS: Carvedilol 25 MG Tab PO SCH (08:30)
[2019-11-21] MEDS: Lactobacillus Rhamnosus GG (Probiotic) Cap PO SCH (08:32)
[2019-11-21] MEDS: Furosemide 20 MG/2 ML VIAL IV SCH (09:16)
[2019-11-21 10:58] VITALS: BP 137/56; PULSE 70
--- NOTE | 2019-11-21 11:45 | CR ---
CHEST: 2 view CLINICAL HISTORY:Pneumonia COMPARISON:Multiple prior studies FINDINGS: There is a persistent moderate left pleural effusion and some left lower lobe airspace disease which appears to be predominantly volume loss. There is a small right effusion. Previous right lower lobe infiltrate has reduced significantly. Impression: Moderate left pleural effusion with left lower lobe airspace disease similar to prior study Small right pleural effusion Improved aeration at the right lung base
--- NOTE | 2019-11-21 13:24 | DISCH ---
ADMISSION DIAGNOSES: 1. Adrenal mass. 2. Chronic atrial fibrillation. 3. Controlled type 2 diabetes without complication. 4. Hypertension. 5. Dyslipidemia. 6. Chronic back pain. 7. History of transient ischemic attack. 8. Hypothyroidism. 9. Microalbuminuria. 10.Osteoarthritis of knee. 11.Physical deconditioning, body mass index of 36. DISCHARGE DIAGNOSES: 1. Exploratory laparotomy with: a. 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 b. Excision of exophytic uterine mass en-bloc with right adnexa for large adrenal mass adherent to splenic artery and tail of pancreas and right-sided uterine exophytic mass adherent to right adnexa. c. History: Ashtyn is an 84-year-old female presenting with increasing pain in left flank and left upper abdomen. A CT scan showed a large adrenal mass, which appeared to be nonfunctioning. After preoperative evaluation and discussion of possible risks and possible complications, she wished to proceed with surgical procedure. 2. On 11/11/2019, flexible bronchoscopy for therapeutic aspiration of tracheobronchial tree and insertion of left subclavian vein triple-lumen catheter for atelectasis of left lung. Indication for central vein access. Date 11/11/2019. Surgeon: Sandeep Martinez MD. 3. On 11/12/2019, flexible bronchoscopy with therapeutic aspiration of the tracheobronchial tree for atelectasis of left lung, 11/12/2019. Sandeep Martinez MD. 4. Flexible bronchoscopy for therapeutic aspiration of the tracheobronchial tree for atelectasis of left lung. Date 11/14/2019. Surgeon: Sandeep Martinez MD. History: Ashtyn is an 84-year-old status post major laparotomy procedure. Chest x-ray appeared to be atelectasis in the left lung. After preoperative evaluation and discussion of possible risks and possible complications, she wished to proceed with surgical procedure. HOSPITAL COURSE: Ashtyn Lundy had her surgery, exploratory laparotomy with left adrenalectomy and en-bloc distal pancreatectomy and splenectomy and excision of exophytic uterine mass with en-bloc right adnexa on 11/06/2019. She had no operative complications. She did go to ICU for close monitoring. On first postop day, she was alert. Vital signs were stable. Afebrile. She did require some LR boluses overnight because of marginal urine output. Creatinine was stable. Pain was controlled. Magnesium was 1.3 and was replaced on 11/08/2019, still requiring IV fluids therapy. White count was 23,000, hemoglobin was 10.5. Creatinine of 0.5. On 11/09/2019, she was quite sleepy, white count remained high. Dr. Boyce was consulted. Potassium was replaced and BNP was up, so she was given Lasix every 12 hours. Consult in regard to her altered mental status, Dr. Boyce was consulted, and she was noted to have a gxypr-[id number] right-sided pleural effusion and mpwnfokj-zn-xeyhf left-sided pleural effusion. On 11/10/2019, white count came down to 18,000 from 28,000. She had a thoracentesis yesterday with some thin fluid. Gram stain was negative for bacteria. Chest x-ray continued to show quite a bit of fluid. She also remained to be quite somnolent, and potassium was replaced. Dr. Boyce saw her again, and she was started on some hydrocortisone sodium succinate, Solu-Cortef 100 mg IV one time, and this did help with her somnolence. On 11/11/2019, breathing required 10 L of re-breather to keep oxygen in the 90s. Chest x-ray showed left lung atelectasis. She went through a bronchoscopy and interstitial re-aeration of the left lung. The secretion was quite thick. CT scan of head and CT scan of abdomen showed no acute process. Level of alertness had improved. Incision looked good. Hemoglobin 9.4. Blood gases were obtained. She was given 2 doses of Bumex. A central line was inserted. TPN was also started. On 11/12/2019, the patient was more alert, had a normal mental status. Chest x-ray showed complete atelectasis of the lung and a bronchoscopy confirmed occlusion of the left mainstem bronchus. Secretions were cleared by the bronchoscopy. Patient tolerated procedure well. Respiratory Therapy instructed nurses to do postural breathing treatments every 4 hours. The patient's hemoglobin was 8.6. She was given 1 unit of packed red blood cells followed by 2 mg of Bumex. TPN was increased to 82 mL per hour. Potassium phosphate was replaced. Gram stain showed gram-positive cocci. She was started on Zyvox, and physical therapy was ordered. On 11/13/2019, Ashtyn was afebrile. Vital signs were stable. Chest x-ray improved. She continued with postural drainage and percussion. White count was 18,000, hemoglobin was 10. She continued on the present antibiotics and was switched to oral hydrocortisone and started on bowel stimulation. On 11/14/2019, remained to be afebrile. Oxygenation was 5 L per nasal cannula in the mid 80s. Chest x-ray continued to show significant atelectasis in the left lower lobe with questionable degree of effusion. She had a bronchoscopy on the 18th in a.m., and some fluid was removed. Started on a liquid diet. Glover catheter was left in for accurate intake and output. Levaquin and doxycycline were started. Meropenem and Zyvox were discontinued. The hydrocortisone was stopped. On 11/15/2019, vital signs were stable. She was transferred to Med/Surg second floor, continued with TPN. On 11/16/2019, she seemed to be more somnolent again today. Magnesium was replaced, continued with TPN. Amylase was checked in her drains. On 11/17/2019, hydrocortisone was started, and she was more awake, alert, and orientated; had 3 to 4 bowel movements; and TPN was decreased to 40. On 11/18/2019, remained to be afebrile, was ambulating more, and becoming more independent. On 11/19/2019, overall alertness had improved. Plans to go home instead of temporary rehab. TPN was discontinued. Coumadin was adjusted to where she was therapeutic by 11/21/2019 and able to be discharged without any complications. She will be going home with 1 CHRISTOS drain due to the amylase. On 11/21/2019, Ashtyn was stable, needing only Tylenol for pain. She was independent with assist of one and her walker in her room. PHYSICAL EXAMINATION: GENERAL: Ashtyn Lundy is a pleasant 84-year-old female. She is sitting in the chair, doing cross stitching. Alert, orientated. VITAL SIGNS: Height is 5 feet 4.9 inches. Weight is 216 pounds. BMI is 36. TPR 96.7, 70, and 16. Blood pressure 137/56. HEENT: Negative. NECK: Supple. HEART: Regular rate and rhythm. LUNGS: Clear. ABDOMEN: Jensen intact. Incision healing well. One CHRISTOS drain remains draining a thick yellow drainage. EXTREMITIES: Without peripheral edema. DISPOSITION: Discharged to home. CONDITION: Stable and improving. FOLLOWUP: Followup appointment with Sandeep Martinez MD, at [facility] on 11/29/2019 at 10:15 a.m. She is to have a chest x-ray, PA and lateral; CMP; magnesium; and CBC at 0945 before appointment. HOME MEDICATIONS: 1. Tylenol 650 mg oral q.6 hours p.r.n. pain. 2. Hydrocortisone Cortef 5 mg oral twice daily with meals, #65 refills. 3. Potassium chloride 20 mEq oral daily, #30. To resume home medications: 1. Coreg 25 mg oral twice daily. 2. Synthroid 150 mcg oral daily. 3. Magnesium 250 mg oral daily. 4. Multivitamin Women Silver 1 tablet oral daily. 5. Coumadin 10 mg every Wednesday, Wednesday, and Wednesday. 6. Coumadin 7.5 mg every Wednesday, Wednesday, , and Wednesday. 7. Lipitor 10 mg oral daily. 8. Glipizide 5 mg oral twice daily. 9. Metformin 1000 mg oral twice daily. DISCHARGE INSTRUCTIONS: Diet: Diabetic diet. Drink 8 to 10 glasses of water a day. Activity: No lifting over 10 pounds for 4 weeks. Other activity: Walk at least 6 times a day inside your home. Driving: Do not drive for 1 week. Shower/bathing: May shower. Keep site clean and dry. Wear abdominal binder for 4 weeks. Strip, empty, measure, drain, and record CHRISTOS drain 4 times a day and bring record of drainage to clinic appointments. Use incentive spirometer 10 times in a row every hour while awake. Use oxygen as directed. Home oxygen was ordered for patient to be on 2 L via nasal cannula with O2 saturations of 95% and heart rate of 5%. Oxygen was removed from patient, post 5 minutes O2 saturations decreased to 87% on room air at rest and heart rate of 85. Oxygen was placed back on patient at 2 L per nasal cannula with saturation of O2 rising and maintaining 95% and heart rate of 74. Date of respiratory therapy, note by Valdez Montesinos on 11/20/2019 at 1423. Oxygen order was completed.
--- NOTE | 2019-12-14 11:39 | DISCH ---
ADDENDUM: PATHOLOGY REPORT: Specimens: 1. Ovarian and fallopian tube right including mass and surface of the uterus. 2. Spleen with distal pancreas. 3. Left adrenal gland. FINAL DIAGNOSES: 1. Uterine mass with right ovary and fallopian tube resection, uterine subserosal leiomyomata with focal calcifications, benign ovary and fallopian tube. 2. Spleen and distal pancreas, splenectomy and distal pancreatectomy, benign spleen. 1 benign lymph node and calcified atherosclerosis. 3. 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
--- NOTE | 2019-12-18 10:21 | OR ---
DATE OF PROCEDURE: 11/09/2019 SURGEON: Sandeep Martinez MD PREOPERATIVE DIAGNOSIS: Large left pleural effusion. POSTOPERATIVE DIAGNOSIS: Large left pleural effusion. PROCEDURE PERFORMED: Ultrasound-guided left thoracentesis. ANESTHESIA: Local. INDICATION FOR PROCEDURE: The patient has been having a pneumonia and also has a fairly large left pleural effusion. Plan is to proceed with left thoracentesis. Potential risks were reviewed with the patient and her , and they wished to proceed. DETAILS OF PROCEDURE: The patient was placed in a sitting position in the ICU bed, and the left posterolateral chest wall was marked by ultrasound for an adequate location of the left thoracentesis. The area was prepped and draped and anesthetized with 1% lidocaine. The thoracentesis catheter was then placed. Roughly 800 mL of clear serous fluid was then evacuated. This was sent for full workup, and the catheter was able to be withdrawn and had not been aspirated. Catheter was removed and dressing applied. Chest x-ray showed good improvement in the pleural effusion and no evident complications. Sandeep Martinez MD /[id number]
== END 2019-11-21 13:30 | disposition home or self-care (01) | DRG 614 ==
LOC: JP.SDS 08:27 → JP.SDSSCHI 08:27 → EDSTATUS 10:00 → JP.ICU 14:39 → JP.MS 11-15 13:00
PROVIDERS: ADMIT Surgery; ATTEND Surgery
PROC: 07BP0ZZ Excision of Spleen, Open Approach (ICD-10-PCS; 2019-11-06)
PROC: 0UB90ZZ Excision of Uterus, Open Approach (ICD-10-PCS; 2019-11-06)
PROC: 0FBG0ZZ Excision of Pancreas, Open Approach (ICD-10-PCS; 2019-11-06)
PROC: 0GB20ZZ Excision of Left Adrenal Gland, Open Approach (ICD-10-PCS; 2019-11-06)
PROC: 0BC78ZZ Extirpation of Matter from Left Main Bronchus, Via Natural or Artificial Opening Endoscopic (ICD-10-PCS; principal; 2019-11-11)
PROC: 05H633Z Insertion of Infusion Device into Left Subclavian Vein, Percutaneous Approach (ICD-10-PCS; 2019-11-11)
PROC: 0BC78ZZ Extirpation of Matter from Left Main Bronchus, Via Natural or Artificial Opening Endoscopic (ICD-10-PCS; 2019-11-12)
PROC: 0BC78ZZ Extirpation of Matter from Left Main Bronchus, Via Natural or Artificial Opening Endoscopic (ICD-10-PCS; 2019-11-14)
DX: C74.92 Malignant neoplasm of unspecified part of left adrenal gland (principal); J18.9 Pneumonia, unspecified organism; J96.91 Respiratory failure, unspecified with hypoxia; J98.11 Atelectasis; J90 Pleural effusion, not elsewhere classified; E27.8 Other specified disorders of adrenal gland; N85.9 Noninflammatory disorder of uterus, unspecified; R79.1 Abnormal coagulation profile; H54.7 Unspecified visual loss; I48.91 Unspecified atrial fibrillation; I10 Essential (primary) hypertension; M19.90 Unspecified osteoarthritis, unspecified site; M17.10 Unilateral primary osteoarthritis, unspecified knee; E11.9 Type 2 diabetes mellitus without complications; E03.9 Hypothyroidism, unspecified; Z85.828 Personal history of other malignant neoplasm of skin; Z90.89 Acquired absence of other organs; Z90.49 Acquired absence of other specified parts of digestive tract; Z87.891 Personal history of nicotine dependence; Z98.49 Cataract extraction status, unspecified eye; Z79.84 Long term (current) use of oral hypoglycemic drugs; Z88.8 Allergy status to other drugs, medicaments and biological substances; Z79.01 Long term (current) use of anticoagulants; Z99.81 Dependence on supplemental oxygen; Z86.73 Personal history of transient ischemic attack (TIA), and cerebral infarction without residual deficits
CPT/HCPCS: 36415; 36430; 36600; 51702; 70450; 70450-26; 71045; 71045-26; 71046; 71046-26; 71260; 71260-26; 74177; 74177-26; 80048; 80053; 81001; 82088; 82150; 82803; 82962; 83735; 83835; 83880; 84100; 84244; 85027; 85610; 86850; 86900; 86901; 86920; 86922; 87015; 87070; 87077; 87102; 87116; 87186; 87205; 87206; 87220; 88305; 88307; 88331; 88341; 88342; 93005; 94640; 94667; 94668; 94762; 97110-GP; 97163-GP; 97530-GP; 97535-GP; A9270-GY; C9113; J0171; J0694; J1100; J1170; J1642; J1644; J1650; J1720; J1815; J1940; J1956; J2001; J2020; J2185; J2405; J2704; J2710; J2795; J2920; J3010; J3410; J3475; J3480; J3490; J7040; J7050; J7120; J7121; J7620-GY; P9016; P9047; Q9967

== ENCOUNTER 2020-03-01 07:23 | Day surgery (SDC) | payer MEDICARE, OTHER ==
[2020-03-01] MEDS ORDERED: Dextrose 5%-Lactated Ringers 1,000 ML IV SCH (08:00)
[2020-03-01] MEDS ORDERED: Propofol 200 MG/20 ML SDV ONE (09:41)
--- NOTE | 2020-03-01 10:37 | CR ---
CHEST: Portable 03/01/2020 at 10:19 AM CLINICAL HISTORY:Status post thoracentesis COMPARISON:CT chest 02/23/2020 FINDINGS: Patient has a small left pleural effusion or pleural thickening. This is diminished slightly when compared to prior study. There is no pneumothorax. Heart is enlarged. Pulmonary vascularity is normal IMPRESSION: Minimal residual fluid following left thoracentesis. No pneumothorax
[2020-03-01] MEDS ORDERED: Pantoprazole 40 MG Vial IVPUSH ONE (11:02)
[2020-03-01 12:17] VITALS: PULSE 111
[2020-03-01 12:18] VITALS: BP 107/69
--- NOTE | 2020-03-10 10:43 | OR ---
DATE OF PROCEDURE: 03/01/2020 SURGEON: Sandeep Martinez MD PREOPERATIVE DIAGNOSIS: Dysphagia referable to distal esophagus. POSTOPERATIVE DIAGNOSES: 1. Dysphagia associated with moderate stricture in esophagogastric junction. 2. Moderate antral gastritis. OPERATIVE PROCEDURE: Esophagogastroduodenoscopy with: 1. Biopsies of antrum for CLOtest (05735). 2. Esophageal dilation (27744). ANESTHESIA: IV sedation. INDICATION FOR PROCEDURE: This is an 84-year-old presenting with some ongoing dysphagia referable to distal esophagus. Plan is to proceed with upper GI endoscopy with dilation as indicated. Potential risks including bleeding and perforation were discussed, and the patient wishes to proceed. DETAILS OF PROCEDURE: The patient was taken to the operating room and placed in the left lateral decubitus position. IV sedation was administered, after which the upper GI endoscope was passed orally through the length of the esophagus into the stomach with retroflexion view of the fundus, thereafter through the pyloric channel into the proximal duodenum. Findings included normal hypopharynx, larynx, upper esophageal sphincter, and esophageal body. At the EG junction, there was some mild inflammation, but an obvious narrowing of the esophagogastric junction. Beyond this, there was some patchy redness in the antrum, and otherwise, the pyloric channel and proximal duodenum were unremarkable. At this point, biopsies were obtained from the antrum and sent for CLOtest for H. pylori. Minimal bleeding from the biopsy sites was seen. Following this, the guidewire was passed into the stomach and the gastroscope withdrawn. The esophagus was dilated serially with 45 followed by 48, followed by 54-Bulgarian Savary dilators. Upon completion of the 54-Bulgarian dilator placement, the dilator and wire were removed and the procedure concluded. The patient was taken to the recovery room in satisfactory condition. The patient will be started on Protonix 40 mg IV in the recovery room and then orally daily. We will see the patient back in 2 months for recheck. The patient underwent a thoracentesis earlier today, and we will see the patient back next week for a followup chest x-ray to see if that needs to be repeated. Sandeep Matrinez MD /[id number]
--- NOTE | 2020-03-10 15:30 | OR ---
DATE OF PROCEDURE: 03/01/2020 SURGEON: Sandeep Martinez MD PREOPERATIVE DIAGNOSIS: Symptomatic left pleural effusion. POSTOPERATIVE DIAGNOSIS: Symptomatic left pleural effusion. OPERATIVE PROCEDURE: Ultrasound-guided left thoracentesis (50131). ANESTHESIA: Local. INDICATION FOR PROCEDURE: The patient had some shortness of breath and was noted to have, on her chest x-ray and subsequent CT scan, significant pleural effusion in the left side. Plan is to proceed with ultrasound-guided thoracentesis. Potential risks including bleeding, infection, injury to underlying vasculature were reviewed, and the patient wishes to proceed. DETAILS OF PROCEDURE: The patient was taken to the pediatric care coordinator procedure room, placed in a sitting position. Ultrasound was used to locate an adequate location for the thoracentesis in the left posterolateral chest wall. The area was then prepped and draped, anesthetized with 1% lidocaine and thoracentesis catheter placed. Around 400 mL of clear serous fluid was removed. This is less than one would expect, based on the preprocedure imaging. All the fluid was removed as was possible,and the catheter was then withdrawn and dressing applied. The fluid was sent for full battery of workup. Followup chest x-ray showed subcutaneous intermittent pleural effusion. Plan will be to proceed with a followup chest x-ray in a week to see if that is improving at all. Otherwise, if she is still short of breath, we may consider subsequent image-guided thoracentesis aimed at some other location in the chest wall. Sandeep Martinez MD /[id number]
== END 2020-03-01 12:20 | disposition home or self-care (01) ==
LOC: JP.SDS 07:23
PROVIDERS: ATTEND Surgery
DX: K22.2 Esophageal obstruction (principal); K29.70 Gastritis, unspecified, without bleeding; J90 Pleural effusion, not elsewhere classified; K21.9 Gastro-esophageal reflux disease without esophagitis; E11.9 Type 2 diabetes mellitus without complications
CPT/HCPCS: 32555; 43239; 43248; 71045; 82150; 82945; 83615; 83986; 84157; 87015; 87070; 87081; 87102; 87116; 87205; 87206; 88112; 88305; 89050; C9113; J2704; J7121

== ENCOUNTER 2020-03-13 09:29 | Emergency (ER) | payer MEDICARE ==
[2020-03-13] MEDS ORDERED: Lactated Ringers 1,000 ML IV ONE (10:34)
[2020-03-13] MEDS ORDERED: Sodium Chloride 0.9% 10 ML Syringe FLUSH PRN (10:34)
--- NOTE | 2020-03-13 10:44 | EDM.PDOC ---
ED HPI GENERAL MEDICAL PROBLEM - General Chief Complaint: Respiratory Problem Stated Complaint: LEFT LUNG ROSALIE PATIENT Time Seen by Provider: 03/13/20 10:20 Source of Information: Reports: Patient, Old Records, RN Notes Reviewed History Limitations: Reports: No Limitations - History of Present Illness INITIAL COMMENTS - FREE TEXT/NARRATIVE: 84-year-old female presents emergency department today with increasing shortness of breath and weakness. She states that her shortness of breath really increased this morning she does have a known chronic pleural effusion on the left side also recent resection of an poorly differentiated adrenal carcinoma. She does admit to weight loss due to poor oral intake and sleeping all the time. No fevers no nausea or vomiting no chest pain Left Middle Back Pain Score (Numeric/FACES): 5 - Related Data Allergies Allergy/AdvReac Type Severity Reaction Status Date / Time LIZETH Inhibitors AdvReac Cough Verified 03/13/20 10:12 Home Meds: Home Meds Levothyroxine Sodium [Synthroid] 150 mcg PO DAILY 01/29/14 [History] Magnesium 250 mg PO DAILY 01/29/14 [History] atorvaSTATin [Lipitor] 10 mg PO BEDTIME 01/29/14 [History] Multivit-Min/Iron/Folic/Lutein [Centrum Silver Women Tablet] 1 tab PO DAILY 07/19/15 [History] glipiZIDE [Glipizide] 5 mg PO BID 07/19/15 [History] metFORMIN [Glucophage] 1,000 mg PO BIDMEALS 07/19/15 [History] carvediloL [Coreg] 25 mg PO BID 06/08/18 [History] Acetaminophen [Tylenol] 650 mg PO Q6H PRN #0 tablet 11/21/19 [Rx] Warfarin [Coumadin] 5 mg PO ASDIRECTED 03/01/20 [History] Pantoprazole Sodium [Protonix] 40 mg PO DAILY 03/13/20 [History] Prochlorperazine [Compazine] 10 mg PO ASDIRECTED 03/13/20 [History] Past Medical History HEENT History: Reports: Cataract, Impaired Vision Other HEENT History: wears glasses Cardiovascular History: Reports: Afib, Hypertension, SOB on Exertion Respiratory History: Reports: Pneumonia, Recurrent, Other (See Below) Other Respiratory History: Left plueral effusion with thoracentesis 03/01/2020 Gastrointestinal History: Reports: Colon Polyp Genitourinary History: Reports: Retention, Urinary, UTI, Recurrent [employer]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: Musculoskeletal History: Reports: Arthritis, Other (See Below) Other Musculoskeletal History: hip and knee pain Neurological History: Reports: TIA Endocrine/Metabolic History: Reports: Diabetes, Type II, Hypothyroidism Hematologic History: Reports: Blood Transfusion(s), Other (See Below) Other Hematologic History: Thrombocytosis Oncologic (Cancer) History: Reports: Other (See Below) Other Oncologic History: skin; adrenal gland left side according to patient and spouse Dermatologic History: Reports: Other (See Below) Other Dermatologic History: skin cancer for a "couple of years" unknown type to pt. - Infectious Disease History Infectious Disease History: Reports: Chicken Pox, Measles, Pertussis (Whooping Cough) - Past Surgical History HEENT Surgical History: Reports: Adenoidectomy, Cataract Surgery, Tonsillectomy Cardiovascular Surgical History: Reports: None Respiratory Surgical History: Reports: Thoracentesis GI Surgical History: Reports: Appendectomy, Colonoscopy, Polypectomy, Other (See Below) Other GI Surgeries/Procedures: panniculectomy; 2009 large surgery to remove tumor, adrenal gland, spleenectomy, part of pancreas and fibroid growths removed from uterus, according to patient Female Surgical History: Reports: None Endocrine Surgical History: Reports: None Neurological Surgical History: Reports: None Musculoskeletal Surgical History: Reports: None Oncologic Surgical History: Reports: Other (See Below) Other Oncologic Surgeries/Procedures: left adrenal gland and spleen Dermatological Surgical History: Reports: Skin Biopsy Social & Family History - Family History Family Medical History: Noncontributory Cardiac: Reports: Bypass Endocrine/Metabolic: Reports: Diabetes, type II - Tobacco Use Smoking Status *Q: Former Smoker Used Tobacco, but Quit: Yes Month/Year Tobacco Last Used: 1951 - Caffeine Use Caffeine Use: Reports: Coffee - Recreational Drug Use Recreational Drug Use: No ED ROS GENERAL - Review of Systems Review Of Systems: See Below Constitutional: Reports: Weakness, Fatigue, Weight Loss HEENT: Reports: No Symptoms Respiratory: Reports: Shortness of Breath. Denies: Cough, Sputum Cardiovascular: Reports: Dyspnea on Exertion GI/Abdominal: Reports: No Symptoms : Reports: No Symptoms Musculoskeletal: Reports: No Symptoms ED EXAM, GENERAL - Physical Exam Exam: See Below Exam Limited By: No Limitations General Appearance: Alert, Other (Ill-appearing) Respiratory/Chest: No Respiratory Distress, Lungs Clear, Normal Breath Sounds, No Accessory Muscle Use Cardiovascular: No Murmur, Irregularly Irregular GI/Abdominal: Soft, Non-Tender Course - Vital Signs Last Recorded V/S: Last Vital Signs Temp 96.5 F L 03/13/20 10:07 Pulse 115 H 03/13/20 10:47 Resp 16 03/13/20 10:47 BP 88/57 L 03/13/20 10:47 Pulse Ox 91 L 03/13/20 10:47 - Orders/Labs/Meds Orders: Active Orders 24 hr Category Date Time Status Peripheral IV Care [RC] . DIRECTED Care 03/13/20 10:34 Active Lactated Ringers [Ringers, Lactated] 1,000 ml Med 03/13/20 10:34 Active IV BOLUS Sodium Chloride 0.9% [Saline Flush] Med 03/13/20 10:34 Active 10 ml FLUSH ASDIRECTED PRN Peripheral IV Insertion Adult [OM.PC] Urgent Oth 03/13/20 10:34 Ordered Medication Orders Lactated Ringer's (Ringers, Lactated) 1,000 mls @ 250 mls/hr IV BOLUS ONE Stop: 03/13/20 14:33 Last Admin: 03/13/20 10:46 Dose: 250 mls/hr Documented by: PREILOR Sodium Chloride (Saline Flush) 10 ml FLUSH ASDIRECTED PRN PRN Reason: Keep Vein Open Last Admin: 03/13/20 10:45 Dose: 10 ml Documented by: PREILOR Labs: Laboratory Tests 03/13/20 03/13/20 03/13/20 Range/Units 10:34 10:45 10:45 WBC 16.4 H (4.5-11.0) K/uL RBC 4.68 (3.30-5.50) M/uL Hgb 11.8 L (12.0-15.0) g/dL Hct 37.8 (36.0-48.0) % MCV 81 (80-98) fL MCH 25 L (27-31) pg MCHC 31 L (32-36) % Plt Count 644 H (150-400) K/uL Neut % (Auto) 69 H (36-66) % Lymph % (Auto) 20 L (24-44) % Hock[place] % (Auto) 11 H (2-6) % Eos % (Auto) 0 L (2-4) % Baso % (Auto) 0 (0-1) % PT 27.0 H (9.5-12.0) sec INR 2.64 H (0.80-1.20) D-Dimer, Quantitative (0.0-400.0) ng/mL Sodium (140-148) mmol/L Potassium (3.6-5.2) mmol/L Chloride (100-108) mmol/L Carbon Dioxide (21-32) mmol/L Anion Gap (5.0-14.0) mmol/L BUN (7-18) mg/dL Creatinine (0.6-1.0) mg/dL Est Cr Clr Drug Dosing mL/min Estimated GFR (MDRD) (>60) Glucose (74-106) mg/dL Calcium (8.5-10.1) mg/dL Total Bilirubin (0.2-1.0) mg/dL AST (15-37) U/L ALT (12-78) U/L Alkaline Phosphatase (46-116) U/L Troponin I < 0.017 (0.000-0.056) ng/mL Total Protein (6.4-8.2) g/dL Albumin (3.4-5.0) g/dL Globulin (2.3-3.5) g/dL Albumin/Globulin Ratio (1.2-2.2) 03/13/20 03/13/20 Range/Units 10:45 10:45 WBC (4.5-11.0) K/uL RBC (3.30-5.50) M/uL Hgb (12.0-15.0) g/dL Hct (36.0-48.0) % MCV (80-98) fL MCH (27-31) pg MCHC (32-36) % Plt Count (150-400) K/uL Neut % (Auto) (36-66) % Lymph % (Auto) (24-44) % [place] % (Auto) (2-6) % Eos % (Auto) (2-4) % Baso % (Auto) (0-1) % PT (9.5-12.0) sec INR (0.80-1.20) D-Dimer, Quantitative 1190 H (0.0-400.0) ng/mL Sodium 133 L (140-148) mmol/L Potassium 5.3 H (3.6-5.2) mmol/L Chloride 100 (100-108) mmol/L Carbon Dioxide 23 (21-32) mmol/L Anion Gap 15.3 H (5.0-14.0) mmol/L BUN 24 H D (7-18) mg/dL Creatinine 0.9 (0.6-1.0) mg/dL Est Cr Clr Drug Dosing 41.12 mL/min Estimated GFR (MDRD) 60 (>60) Glucose 110 H (74-106) mg/dL Calcium 9.6 (8.5-10.1) mg/dL Total Bilirubin 0.4 (0.2-1.0) mg/dL AST 15 (15-37) U/L ALT 15 (12-78) U/L Alkaline Phosphatase 80 (46-116) U/L Troponin I (0.000-0.056) ng/mL Total Protein 6.1 L (6.4-8.2) g/dL Albumin 2.0 L (3.4-5.0) g/dL Globulin 4.1 H (2.3-3.5) g/dL Albumin/Globulin Ratio 0.5 L (1.2-2.2) Meds: Medications Generic Name Dose Route Start Last Admin Trade Name Freq PRN Reason Stop Dose Admin Lactated Ringer's 1,000 mls @ 250 mls/hr 03/13/20 10:34 03/13/20 10:46 Ringers, Lactated IV 03/13/20 14:33 250 mls/hr BOLUS ONE Administration Sodium Chloride 10 ml 03/13/20 10:34 03/13/20 10:45 Saline Flush FLUSH 10 ml ASDIRECTED PRN Administration Keep Vein Open Discontinued Medications Generic Name Dose Route Start Last Admin Trade Name Freq PRN Reason Stop Dose Admin Sodium Chloride 80 mls @ 3.5 mls/sec 03/13/20 12:00 03/13/20 12:10 Normal Saline IV 03/13/20 12:01 3.5 mls/sec ASDIRECTED ASHLEY Administration Iopamidol 100 ml 03/13/20 11:55 03/13/20 12:11 Isovue-300 (61%) IV 03/13/20 11:56 100 ml ONETIME ONE Administration Sodium Chloride 10 ml 03/13/20 11:55 03/13/20 12:10 Saline Flush FLUSH 03/13/20 11:56 10 ml ONETIME ONE Administration Departure - Departure Time of Disposition: 14:31 Disposition: Home, Self-Care 01 Condition: Poor Clinical Impression: Subclavian vein thrombosis, left Adrenal carcinoma Qualifiers: Laterality: left Qualified Code(s): C74.92 - Malignant neoplasm of unspecified part of left adrenal gland - Discharge Information Referrals: Jerry Ramirez MD [Primary Care Provider] - Forms: ED Department Discharge Additional Instructions: Continue with your regular medications, plan for hospice consult tomorrow Sepsis Event Note (ED) - Evaluation Sepsis Screening Result: Possible Sepsis Risk - Focused Exam Vital Signs: Vital Signs Temp Pulse Resp BP Pulse Ox 03/13/20 10:47 115 H 16 88/57 L 91 L 03/13/20 10:17 115 H 16 97/61 92 L 03/13/20 10:07 96.5 F L 125 H 28 H 97/64 95 03/13/20 09:54 96.5 F L 125 H 28 H 97/64 95 - My Orders Last 24 Hours: My Active Orders 03/13/20 10:34 Peripheral IV Care [RC] . DIRECTED Lactated Ringers [Ringers, Lactated] 1,000 ml IV BOLUS Sodium Chloride 0.9% [Saline Flush] 10 ml FLUSH ASDIRECTED PRN Peripheral IV Insertion Adult [OM.PC] Urgent - Assessment/Plan Last 24 Hours: My Active Orders 03/13/20 10:34 Peripheral IV Care [RC] . DIRECTED Lactated Ringers [Ringers, Lactated] 1,000 ml IV BOLUS Sodium Chloride 0.9% [Saline Flush] 10 ml FLUSH ASDIRECTED PRN Peripheral IV Insertion Adult [OM.PC] Urgent Plan: Assessment Acuity = acute Site and laterality = poorly differentiated adrenal carcinoma status post resection suspicious for underlying metastases new left subclavian thrombosis despite therapeutic anticoagulation on Coumadin Etiology = progression of disease Manifestations = fatigue, dyspnea Location of injury = Home Lab values = WBC elevated 16.4 consistent leukocytosis, INR therapeutic at 2.64 sodium low at 133 consistent hyponatremia potassium elevated 5.3 consistent hyperkalemia troponins negative CT scan describes the thrombosis above Plan Consulted hospitalist on-call at 1400 he agreed to come and discuss options with the patient in the emergency department family decided that hospice was most appropriate they have a hospice consult tomorrow afternoon therefore should be discharged home plan is to move to comfort care only This note was dictated using [employer] voice recognition software please call with any questions on syntax or grammar.
[2020-03-13] MEDS ORDERED: Iopamidol 612 MG/ML 500 ML Multipack Bottle IV ONE (11:55)
[2020-03-13] MEDS ORDERED: Sodium Chloride 0.9% 10 ML Syringe FLUSH ONE (11:55)
[2020-03-13] MEDS ORDERED: Sodium Chloride 0.9% 80 ML IV SCH (12:00)
--- NOTE | 2020-03-13 12:55 | CT ---
Chest Abdomen Pelvis w Cont CLINICAL HISTORY: History of adrenal carcinoma, weight loss COMPARISON: January 2020 TECHNIQUE: Thin section axial contiguous tomographic sections were taken through the chest after bolus IV iodinated contrast administration. Coronal and sagittal images were reconstructed. Auto dosage reduction and iterative reconstruction techniques employed. FINDINGS: No pulmonary mass or infiltrate is identified. There is a moderate sized the left pleural effusion. There is some compressive atelectasis of the left lower lobe. This is similar to prior study There is significant collateral flow from the left upper extremity injection secondary to thrombosis of the left subclavian vein axillary vein may also be thrombosed. There is a 9 x 14 mm precarinal lymph node. This is unchanged since prior study. Patient has a small pericardial effusion. There is a mass contiguous to the dome of the left hemidiaphragm. See the CT scan IMPRESSION: Left pleural effusion and left basilar atelectasis similar to the January study. There is also small pericardial effusion. Thrombosis of the left subclavian and probably left axillary vein. This is new since prior study Abdomen Pelvis w Cont COMPARISON: There 2019. TECHNIQUE: Axial tomographic images are obtained from the dome of the diaphragm to the pubic symphysis without IV contrast enhancement. No oral contrast was used. Auto dosage reduction and iterative reconstruction techniques employed. FINDINGS: The liver shows no mass or biliary dilatation. The gallbladder contains multiple small stones. The spleen is absent. There is a persistent lobulated fluid density masslike focus in the left upper quadrant extending to the subcutaneous diaphragmatic space. Patient has had previous splenectomy. This fluid density mass is contiguous with the pancreatic tail. This may be of adrenal origin and that the history states adrenal carcinoma. Some of these fluid collections may be postoperative. Soft tissue density extends farther down the left periaortic region now encasing the left renal vein and artery. There is now a 2.5 x 1.4 cm periaortic lymph node just posterior to the transverse duodenum. The kidneys show no mass, stones or hydronephrosis. The aorta is free of aneurysm. Abdominal pelvic fat planes are well demarcated. Patient is a small periumbilical hernia. There is an ovoid the fluid collection in the extraperitoneal abdominal fat. This is similar to prior study is likely postoperative seroma. IMPRESSION: Persistent left subdiaphragmatic fluid collection. This may be related to previous splenectomy and adrenal surgery. There is soft tissue density now extending downward below the level of the renal vessels. New enlarged periaortic lymph node near the transverse duodenum Findings are consistent with progression of disease Cholelithiasis
--- NOTE | 2020-03-13 14:41 | PCM.SN.2 ---
- Free Text/Narrative Note: I was asked by officer to see Amber regarding her current symptoms and CAT scan findings and to consider hospital admission versus other treatment modalities. She was first seen in the clinic by Dr. Martinez and was sent to the emergency room for evaluation of progressive shortness of breath. She reports that she has never really recovered following her surgery back in October of this year. Her strength has some ups and downs but in general she has been quite weak and is unable to stand for any length of time. She has been chronically short of breath but has some days that are not as bad as others. She has had several left thoracentesis procedures and does feel less short of breath after the fluid is removed but it reaccumulate in 1 to 2 weeks. She has no appetite and when she does eat this is often followed by at least nausea and sometimes vomiting. She has been losing weight. She is only been able to take in liquids. She sleeps much of the day. She has no energy. She has not had any fevers. She reports mild to moderate left upper quadrant abdominal pain that radiates up into the left chest as well as some left shoulder pain. This has been present since her surgery and is relieved by acetaminophen. The pathology from her adrenal resection back in October revealed poorly differentiated carcinoma and she has not received any chemotherapy partly because of the type of cancer and partly because she would not want to have any chemotherapy. Work-up in the emergency room revealed a mild leukocytosis but otherwise reassuring labs. A CT scan of the chest, abdomen pelvis was obtained. The chest portion of the CT scan showed an enlarged mediastinal lymph node as well as a left pleural effusion and a small pericardial effusion. Also noted was a thrombus in the subclavian and axillary vein on the left. This was new from about 1 month ago. The abdomen and pelvis portion of the test revealed persistent fluid collection in the left upper quadrant in the area of previous adrenalectomy and splenectomy. There was also a new soft tissue density in the left adrenal area as well as a periaortic lymph node that was enlarged. The new soft tissue density and enlarged lymph node was concerning for progression of her carcinoma. I talked to Amber and her Jose. We reviewed the CT scan findings as well as her recent symptoms. At this point she wants to focus on comfort. She would not take any chemotherapy even if it was offered to her. She is quite surprised by the diagnosis but is excepting at this time. I relayed that unfortunately I do not have much to offer other than a thoracentesis. She at this time would prefer to go home. She is interested in talking to hospice and is interested in their services. She would like to maximize comfort and enjoy what day she has left rather than undergoing a bunch of painful and invasive procedures. She does not think that she would survive another large surgery and I completely agree with her. I think even if chemotherapy was available that she would not do well with it because of her weakness and poor nutritional status. She will be going home with her Jose and will be having an informational visit with hospice tomorrow afternoon. 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 It is very reasonable to expect that if this runs its normal course that her life expectancy is less than 6 months. At this point I would anticipate her life expectancy is a limited number of weeks to maybe 2 or 3 months. Wade Boyce MD
[2020-03-13 14:56] VITALS: BP 104/50; PULSE 88
== END 2020-03-13 14:57 | disposition home or self-care (01) ==
LOC: JP.ED 09:29
DX: I82.B12 Acute embolism and thrombosis of left subclavian vein (principal); C74.92 Malignant neoplasm of unspecified part of left adrenal gland; I48.91 Unspecified atrial fibrillation; I10 Essential (primary) hypertension; E11.9 Type 2 diabetes mellitus without complications; E03.9 Hypothyroidism, unspecified; Z86.73 Personal history of transient ischemic attack (TIA), and cerebral infarction without residual deficits; Z87.891 Personal history of nicotine dependence; Z88.8 Allergy status to other drugs, medicaments and biological substances; Z79.84 Long term (current) use of oral hypoglycemic drugs; Z79.899 Other long term (current) drug therapy
CPT/HCPCS: 36415; 71260; 74177; 80053; 84484; 85025; 85379; 85610; 96360; 96361; 99285; J7050; J7120; Q9967; 99284